=== PATIENT | male | born 1955 | race Caucasian/White ===

== ENCOUNTER → 2020-03-19 | Outpatient (REF) | payer MEDICARE ==
[2020-03-19 17:22] LABS: PLATELET COUNT, AUTOMATED 291 10^3/uL (150-450)
[2020-03-19 17:33] LABS: INR 0.91; PARTIAL THROMBOPLASTIN TIME 30.3 SECONDS (24.2-38.5); PROTHROMBIN TIME 12.4 SECONDS (12.5-14.3)
== END ==
LOC: M LAB REF 16:58
PROVIDERS: ATTEND Internal Medicine Pulmonary Disease
DX: R91.8 Other nonspecific abnormal finding of lung field (principal); Z79.01 Long term (current) use of anticoagulants

== ENCOUNTER → 2020-04-01 | Outpatient (CLI) | payer MEDICARE ==
[~2020-04-01] MED LIST: ACETAMINOPHEN 325 MG TAB As Ordered ONE; ACETAMINOPHEN TAB 650MG DOSE (2X325MG) PO PRN; ALBU8.5H; BREO1INH3; DALI1TAB2; LIDOCAINE 1% MDV 20ML VIAL As Ordered ONE; PANT40TA29; SODIUM BICARBONATE 8.4% INJ 50MEQ 50 ML VIAL As Ordered ONE; SPIR1CAP
[2020-04-01 11:45] VITALS: BP 151/88
--- NOTE | 2020-04-01 15:50 | REP ---
INDICATION: OTHER NONSPECIFIC ABN FIND OF LUNG FIELD. COMPARISON: None. TECHNIQUE: The procedure was performed by MICHELE Braun, under the direct supervision of Dr. Froman. The risks and benefits of the procedure were explained to the patient and an informed consent was obtained both verbally and written. Directly prior to the start of the procedure a formal time-out was completed in the procedure room. FINDINGS: Using ultrasound guidance the left lobe liver mass was localized. The skin was prepped and draped in a sterile fashion. Fifteen mL of buffered lidocaine was used as a local anesthetic. Using ultrasound guidance a 17/18 gauge coaxial needle biopsy system was inserted and advanced into the liver mass. Five core biopsy specimens were obtained and sent to pathology for further testing. The patient tolerated the procedure well and there were no immediate complications. After the appropriate amount of monitored convalescence the patient was discharged from the department. IMPRESSION: 1. Ultrasound-guided liver mass biopsy. <Electronically signed by Gissell Rollins > 04/01/20 1340 <Electronically signed by Arjun Forman > 04/01/20 [id number]
== END ==
LOC: M IRPRO 08:13
PROVIDERS: ATTEND Internal Medicine Pulmonary Disease
DX: C22.0 Liver cell carcinoma (principal); C34.90 Malignant neoplasm of unspecified part of unspecified bronchus or lung

== ENCOUNTER → 2020-04-19 | Outpatient (CLI) | payer MEDICARE ==
[~2020-04-19] MED LIST changes: -ACETAMINOPHEN 325 MG TAB As Ordered ONE; -ACETAMINOPHEN TAB 650MG DOSE (2X325MG) PO PRN; -ALBU8.5H; +ALBU8.5H INH; -BREO1INH3; +BREO1INH3 INH; -LIDOCAINE 1% MDV 20ML VIAL As Ordered ONE; +MAGICMW PO; +ONDA4TAB6 PO; +OXYC1SOL3 PO; -PANT40TA29; +PANT40TA29 PO; -SODIUM BICARBONATE 8.4% INJ 50MEQ 50 ML VIAL As Ordered ONE; -SPIR1CAP; +SPIR1CAP INH
--- NOTE | 2020-04-19 14:31 | RADONC.CN ---
Radiation Oncology Hx/Consult Radiation Oncology Consult Date of Service: Apr 19, 2020 Pt Identifier Darryn Orona is a 64 year old male former smoker with recently diagnosed [id number] NSCLC of the left mainstem bronchus, with a solitary liver metastasis. He is seen today for consideration of RT in his initial course of treatment. Diagnosis/Treatment History Oncologic History Fall 2019 developed epigastric to mid-sternal chest pain and progressive dysphagia to solid foods. He was referred for EGD which revealed extrinsic compression of the esophagus but no mucosal lesions, no EUS or biopsies were performed. Follow up CT chest on 02/26/20 revealed a neoplastic lesion seemingly arising from the left mainstem bronchus and extending intraluminally without distal obstruction, and extrinsically compressing the esophagus. There is also a subcarinal mass consistent with lymph node in the absence of any parenchymal lung lesions or hilar adenopathy. This scan also showed a ~4 cm peripherally enhancing lesion in the left liver. This liver lesion was biopsied on 04/01/20 and returned adenocarcinoma consistent with lung primary. He has a PET-CT pending on 04/23/20. Interval History Darryn is here with his brother. Patient reports 50 lb weight loss this year. Partly intentional earlier in the year but accelerated more recently in the setting of dysphagia. With respect to dysphagia he is still able to take fluids, and soft foods, but not regular solid foods like meat or bread. He also has pain with swallowing and several recent incidents in which he choked as food would not pass. Pain in the chest is present at rest as well. He has minimal SOB or GUERRA at this time. He has experienced a few episodes of scant hemoptysis which were self limited. Past Medical History: COPD Past Surgical History: None Family History: Mother - SCLC Social History: 50+ pack year smoker quit 2013 Drinks 1-2 alcoholic beverages per week Occupation exposure to asbestos, coal, lead, mercury Allergies / Meds Allergies: Coded Allergies: No Known Allergies (Unverified , 04/01/20) Home Meds Active Scripts Oxycodone HCl (Oxycodone HCl) 5 Mg/5 Ml Solution, 5 ML PO Q4HP PRN for Esophagitis MDD 30 Milliliter(s) for 7 Days, #210 ML Prov:MARCELINA VILA MD 04/19/20 Ondansetron (Ondansetron Odt) 4 Mg Tab.rapdis, 1 TAB PO Q6-8HP PRN for nausea/vomiting, #30 TAB 2 Refills Prov:MARCELINA VILA MD 04/19/20 Magic Mouthwash (First-Mouthwash Blm) 1 Ea Susp, 10 ML PO QID PRN for esophagitis, #240 ML 5 Refills (Diphenhydramine/maalox/lidocaine 1:1:1) May compound if kit unavailable/not covered by insurance Prov:MARCELINA VILA MD 04/19/20 Reported Medications Pantoprazole Sodium (Pantoprazole Sodium) 40 Mg Tablet.dr, 1 TAB PO DAILY 04/01/20 Tiotropium Sun (Spiriva) 18 Mcg Cap.w.dev, 1 INH INH DAILY 04/01/20 Fluticasone/Vilanterol (Breo Ellipta 200-25 Mcg INH) 1 Each Blst.w.dev, 1 INH INH DAILY 04/01/20 Albuterol Sulfate (Albuterol Sulfate Hfa) 8.5 Gm Hfa.aer.ad, 1 PUFF INH DAILY 04/01/20 Discontinued Reported Medications Roflumilast (Daliresp) 500 Mcg Tablet 04/01/20 Review of Systems Constitutional: Reports: Fatigue, Weight Loss; Denies: Chills, Fever, Night Sweats Eyes: Denies: Pain, Vision change HEENT: Denies: Head Aches, Dysphagia, Sore Throat Skin: Denies: Rash, Lesions, Bruising Pulmonary: Denies: Dyspnea, Cough Cardiovascular: Reports: Chest Pain; Denies: Palpitations, Edema Gastrointestinal: Reports: Abdominal Pain; Denies: Nausea, Vomiting, Melena, Hematochezia Genitourinary: Denies: Dysuria, Frequency, Incontinence Hematologic: Denies: Bruising, Petecchia, Enlarged Lymph Nodes Musculoskeletal: Denies: Neck pain, Back pain Neurological: Denies: Weakness, Numbness, Incoordination Psych: Reports: Mood Normal; Denies: Memory Issues, Thoughts of Self Harm Vital Signs Ht 68" Wt 152 lb T 99.1 P 114 RR 18 BP 135/88 Pain 6 Fatigue 2 General Exam: Positive: Alert, Cooperative, No Acute Distress Eye Exam: Positive: PERRLA, EOMI ENT EXAM: Positive: Mucous membr. moist/pink, Pharynx Normal Neck Exam: Negative: Thyromegaly, Lymphadenopathy Chest Exam: Positive: Clear to auscultation; Negative: Normal air movement (Transmitted bronchial breath sounds and rhonchi present in the left chest. Normal air movement on the right) Heart Exam: Positive: Rate Normal, Regular Rhythm Abdomen Exam: Positive: Soft; Negative: Tenderness, Mass Extremity Exam: Negative: Edema, Tenderness Skin Exam: Positive: Nl turgor and temperature; Negative: Rash Neuro Exam: Positive: Normal Gait, Normal Speech, Cranial Nerves 3-12 NL Psych Exam: Positive: Mental status NL, Mood NL, Memory Intact Diagnostic and Laboratory Diagnostic Review Radiologic images, relevant labs and pathology reports were personally reviewed and discussed with Mr. Orona. Assessment and Plan Impression Mr. Orona is a 64 year old male with a history of [id number] NSCLC of the left mainstem bronchus, with a solitary liver metastasis. He is seen today for consideration of RT in his initial course of treatment. Stage NSCLC left mainstem bronchus [id number] stage George (pending PET) Performance Status ECOG 1 Plan We had an extensive discussion with Mr. Orona regarding the diagnosis at hand and available therapeutic options. He has an interesting presentation for lung cancer with the primary tumor seemingly originating from the left mainstem bronchus in the absence of a parenchymal lesion or hilar adenopathy. There does appear to be a N2 in station 7. The primary lesion is both narrowing the lumen of the left mainstem, causing audible turbulence on chest auscultation, but not affecting him outwardly at this time. The primary is also compressing his esophagus extrinsically which is the cause of his pain and dysphagia. He also has a known solitary liver metastasis in the absence of conclusive e vidence of disease elsewhere. He has a PET-CT pending for staging which will clarify the extent of extrathoracic disease present. I will also order an MRI head to complete staging as this has not been done. If he only has the solitary liver metastasis and the primary chest disease (which in terms of absolute extent, is quite small), then he would be truly oligometastatic by contemporary definitions. If that is proven the case then I think he would be best served by inclusion of aggressive local therapy in his initial treatment course as per recent promising studies such as SABR-COMET and Collin dobbs al JCO 2019. I recommend we pursue SBRT to the solitary lesion 50-55 Gy in 5 fractions with 4DCT simulation and DCA planning. This could be accomplished quickly and run concurrent with planning for the thoracic disease, which due to location would be best treated with conventional chemoradiation. He will require vascular access for this which can take a week or two to arrange, thus the SBRT could be completed and not delay initiation of chemoradiation. I would give 60 Gy in 30 fractions with chemo. I would use a DCA planning approach for this as there is no benefit to esophageal sparing with the extent of impingement on the esophagus by tumor (it will by necessity be within the PTV). In this scenario treatment would last 7 weeks, he could then move on to observation until progression or another systemic therapy as maintenance. He is seeing Dr. Portillo today and I spoke with him regarding this tentative and he is on-board. If there is additional metastatic disease on PET-CT or brain MRI then I would shift to palliative RT to the thoracic disease and yield on treating the other sites in favor of systemic therapy alone to start. Both of these scenarios were presented to the patient and his brother and both agreed to proceed. We discussed the logistics of receiving radiation therapy in detail including the need for a 1-time planning session. We reviewed side effects of treating the liver, nausea, fatigue and diarrhea. We discussed that the patient will get esophagitis from the thoracic treatment which is typically self-limited, but that stricture can be a late toxicity. With respect to his nutrition, we agreed to defer PEG tube placement at this time as he is still, for the most part, able to drink and eat soft foods. For his pain, I have given him rx for BLM and oxycodone liquid. These would also help with any esophagitis from RT. For anticipated nausea from liver SBRT/ chemo I have given him zofran. After discussing the risks, benefits and alternatives to radiation therapy, Mr. Orona was amenable to pursuing radiotherapy. All questions were answered to the patient's satisfaction. We instructed the patient that if there were any questions,concerns or changes in clinical status in the interim to contact us. Recommendations PET-CT/MRI head to complete staging If oligometastatic state confirmed on staging then SBRT to liver metastasis 50- 55 Gy in 5 fractions, conventional chemoradiation to chest 60 Gy in 30 fractions, both with DCA planning 4DCT simulation Tumor board review Oxycodone/BLM for dysphagia Zofran for nausea MARCELINA VILA MD Apr 19, 2020 14:31
--- NOTE | 2020-04-24 15:00 | RADENCPD ---
Date/Time of Encounter Date of Encounter: Apr 24, 2020 Time of Encounter: 14:57 Encounter Spoke to patient about the PET-CT result showing extensive metastases. Also conveyed results of tumor board discussion today, systemic therapy + palliative RT to obstructing keyana-esophageal mass. On the latter I would give 50 Gy in 20 fractions as a split-course in effort to given him some semblance of durable local control there and forestall complete esophageal obstruction. We will reach out to him with a simulation appointment in the next few days (once authorization obtained) and look to begin treatment expeditiously. For systemic therapy he will be seeing Dr. Portillo shortly. MARCELINA VILA MD Apr 24, 2020 15:00
== END ==
LOC: M ONCR 10:25
PROVIDERS: ATTEND General Practice
DX: C34.02 Malignant neoplasm of left main bronchus (principal); C78.7 Secondary malignant neoplasm of liver and intrahepatic bile duct; F17.200 Nicotine dependence, unspecified, uncomplicated

== ENCOUNTER → 2020-04-23 | Outpatient (CLI) | payer MEDICARE ==
[2020-04-23 13:59] LABS: ALBUMIN 2.6 GM/DL (3.2-5.2); ALT/SGPT 61 U/L (12-78); BILIRUBIN,TOTAL 1.3 MG/DL (0.2-1.0); BLOOD UREA NITROGEN 27 MG/DL (7-18); CALCIUM LEVEL 9.6 MG/DL (8.8-10.2); CARBON DIOXIDE LEVEL 28 MEQ/L (21-32); CHLORIDE LEVEL 98 MEQ/L (98-107); CREATININE FOR GFR 0.77 MG/DL (0.70-1.30); GLOMERULAR FILTRATION RATE > 60.0 (>49); GLUCOSE, FASTING 111 MG/DL (70-100); POTASSIUM SERUM 4.4 MEQ/L (3.5-5.1); SODIUM LEVEL 133 MEQ/L (136-145); TOTAL PROTEIN 7.3 GM/DL (6.4-8.2)
== END ==
LOC: M PLALAB 10:55
PROVIDERS: ATTEND General Practice
DX: C34.02 Malignant neoplasm of left main bronchus (principal)

== ENCOUNTER → 2020-04-23 | Outpatient (CLI) | payer MEDICARE ==
--- NOTE | 2020-04-23 15:26 | REP ---
INDICATION: MALIGNANT NEOPLASM OF OVERLAPPED SITES OF LUNG. COMPARISON: Comparison CT study of the chest [facility] February 26, 2020. Comparison hepatic sonography imaging April 01, 2020.. TECHNIQUE: Sixty-two minutes following the intravenous injection of a 7.83 mCi dose of F-18 FDG, three-dimensional PET scintigraphy is acquired from the skull base to the proximal thighs. Triplanar noncontrast CT scanning is acquired through the same anatomic range for attenuation correction, and image registration with scan parameters optimized to minimize radiation exposure to the patient. PET scintigraphy and CT datasets were fused and displayed on a workstation with multiplanar and projection display capability. FINDINGS: There is some normal variant skeletal muscle uptake in the neck. Head and neck soft tissues are otherwise unremarkable. There is markedly hypermetabolic uptake in the large middle mediastinal mass centered at the level just posterior to the left mainstem bronchus. Maximum standard uptake value in this is 18.79. There is mildly hypermetabolic uptake in a small AP window region mediastinal lymph node, maximum standard uptake value 3.67. There is a small subcentimeter hypermetabolic milind focus just medial to the top of the aortic arch at the tracheoesophageal groove. Maximum standard uptake value 5.20. A 1 cm milind focus of mildly hypermetabolic uptake is seen superior to this in the superior mediastinum on the left with maximum standard uptake value 3.60. An equivocal milind focus is seen in the right hilus with maximum standard uptake value 3.75. Lung window settings demonstrate multifocal new parenchymal opacities in the lingular segment of the left upper lobe, the left lower lobe, and the left upper lobe. There are multifocal nodular hypermetabolic uptake foci. These may represent postobstructive and or inflammatory or infectious uptake foci. Maximum standard uptake value ranges in these new parenchymal uptake foci up to 9.76. This is in the lingula at the left lung base. There is also right middle lobe disease anteriorly maximum standard uptake value 5.87. There is a intramuscular soft tissue nodule of hypermetabolic uptake in the left posterior paraspinal soft tissues at the level of the lower thoracic spine. Maximum standard uptake value is 11.75 in this nodule. The recently biopsied large right lobe liver metastasis is again seen and is hypermetabolic, maximum standard uptake value 10.78. There is a 2nd metastatic focus in the left lobe of the liver visible today with maximum standard uptake value 12.79. There is a small hypermetabolic milind focus 1.3 cm in diameter in his celiac axis lymph node in the upper abdomen, maximum standard uptake value 5.75. There is a focus of hypermetabolic uptake in the tail of the pancreas, maximum standard uptake value 6.66. No abnormal adrenal uptake. There is a focus of skeletal muscle uptake just to the left of the iliac bone in the gluteal musculature anterolaterally on the left. Maximum standard uptake value here is 9.31. It is difficult to define a soft tissue mass here but the uptake focus is spherical in shape and suspicious. No intrapelvic hypermetabolic uptake is seen. There is no suspicious skeletal hypermetabolic focus. IMPRESSION: Findings consistent with metastatic bronchogenic malignancy with a large left mediastinal mass with mediastinal upper abdominal and pancreatic milind foci. There are 2 metastatic liver lesions. There are 2 suspected intramuscular soft tissue metastases. There is multifocal new hypermetabolic parenchymal disease in the lungs bilaterally. Corresponding opacities on CT are new compared to the recent prior CT study and some of the parenchymal disease in the lungs may well be inflammatory and/or postobstructive. <Electronically signed by Rito Wright > 04/23/20 [id number]
== END ==
LOC: M PLARAD 07:33
PROVIDERS: ATTEND Internal Medicine Pulmonary Disease
DX: C34.82 Malignant neoplasm of overlapping sites of left bronchus and lung (principal)
CPT/HCPCS: 78815; A9552

== ENCOUNTER → 2020-04-26 | Outpatient (CLI) | payer MEDICARE ==
[~2020-04-26] MED LIST changes: +DECA4TAB PO; +LIDOCAINE 1% MDV 20ML VIAL As Ordered ONE; +MIDAZOLAM INJ 2MG/2ML VIAL (J2250 PER 1MG) As Ordered ONE; +ceFAZolin 2 GM/D5W 50 ML IV BAG (J0690 PER 500MG) As Ordered ONE; +diphenhydrAMINE 50MG/ML VIAL (J1200) As Ordered ONE; +fentaNYL 100 MCG/2 ML INJECTION (J3010) As Ordered ONE
--- NOTE | 2020-04-26 09:05 | IRHP ---
[facility] IR Pre-Procedure H & P General Date of Service: Apr 26, 2020 Procedure: Same Day Surgery Interval History and Physical I have seen the patient and reviewed last H & P performed within 30 days. There is no significant interval change. History of Present Illness Chief Complaint The patient is a 64-year-old male admitted with a reason for visit of Lung Ca W/ Mets. PRE-PROCEDURE DIAGNOSIS: lung cancer HEART: normal rate LUNGS: normal breathing at rest. ASA Classification ASA Classification: III-Severe systemic dis. Mallampati Score: II NPO: Yes Problems with prior sedation: No Obstructive Sleep Apnea: No Plan moderate sedation Allergies Coded Allergies: No Known Allergies (Unverified , 04/01/20) Home Medications Scheduled Albuterol Sulfate (Albuterol Sulfate Hfa), 1 PUFF INH DAILY, (Reported) Fluticasone/Vilanterol (Breo Ellipta 200-25 Mcg INH), 1 INH INH DAILY, (Repor lexx) Pantoprazole Sodium (Pantoprazole Sodium), 1 TAB PO DAILY, (Reported) Tiotropium [place] (Spiriva), 1 INH INH DAILY, (Reported) Scheduled PRN Magic Mouthwash (First-Mouthwash Blm), 10 ML PO QID PRN for esophagitis Ondansetron (Ondansetron Odt), 1 TAB PO Q6-8HP PRN for nausea/vomiting Oxycodone HCl (Oxycodone HCl), 5 ML PO Q4HP PRN for Esophagitis Discontinued Medications Roflumilast (Daliresp), (Reported) Discontinued Reason: Pt states not taking ISADORA BUTTERFIELD MD Apr 26, 2020 09:05
--- NOTE | 2020-04-26 11:24 | POST-OPPD ---
Postoperative Procedure Note Date Of Procedure: Apr 26, 2020 Time Of Procedure: 11:22 IR Ultrasound and fluoroscopy guided port placement IR Ultrasound of the neck. IR Moderate sedation. Clinical indication: Lung cancer. Physician: Dr. Tilley. Procedure: The patient was advised of the benefits, risks, and alternatives of the procedure and informed consent was obtained. A time-out was performed with verification of the patient's name, MRN, site of procedure and type of procedure to be performed. The patient was positioned in the supine position on the angiographic table. The site was prepped and draped in the usual sterile fashion. Moderate sedation was performed by the physician including the presence of an independent trained RN who assisted and monitored the patient's level of consciousness and physiologic status. Following the administration of fentanyl and Versed , the physician spent 45 minutes of continuous face to face time with the patient. Ultrasound of the neck reveals a patent and compressible right internal jugular vein. A wildlife enforcement major radiograph reveals no gross abnormality. The neck and anterior chest wall were anesthetized with lidocaine. The right internal jugular vein was accessed using a microintroducer needle under ultrasound guidance, via a lateral approach. An 018 wire was advanced into the superior vena cava, the needle was removed and a microsheath was placed. An Amplatz wire was then passed into the inferior vena cava. An incision at the internal jugular vein access site and anterior chest wall were made using a scalpel. An incision was made at the anterior chest wall. A small pocket was created using a combination of blunt and sharp dissection. A tunneling device was then used to pass the catheter from the pocket to the neck puncture site. An 8- [place] Angio Plexx Smart power port was then positioned in the pocket. The catheter was then measured and cut. The introducer sheath was exchanged for a peel-away sheath. The catheter was passed through the peel-away sheath into the internal jugular vein and the peel- away sheath was removed. The port tip was positioned at the cavoatrial junction. The port was then accessed with a Baig needle. The port flushes and aspirates well. The puncture site in the neck was closed. The chest wall incision was then closed with 2-0 Vicryl and 4-0 Monocryl. Glue and Steri- Strips were applied. A sterile dressing was then applied. The patient tolerated the procedure well and was returned to the PRU in stable condition. Estimated blood loss: <5 ml. Complications: None. Conclusion: 1. Successful placement of an 8-[place] Angio dynamics Smart power port via the right internal jugular vein. The port is ready for immediate use. 2. Patient to follow up in IR clinic in 2 weeks. Thank you for this referral. ISADORA TILLEY MD Apr 26, 2020 11:23
[2020-04-26 12:15] VITALS: BP 148/79
== END ==
LOC: M IRPRO 08:21
PROVIDERS: ATTEND Internal Medicine Hematology & Oncology
DX: C34.02 Malignant neoplasm of left main bronchus (principal); C34.82 Malignant neoplasm of overlapping sites of left bronchus and lung; C78.7 Secondary malignant neoplasm of liver and intrahepatic bile duct
CPT/HCPCS: 36561; 99152; 99153; C1769; C1788; C1894; J0690; J1200; J1642; J1644; J2250; J3010

== ENCOUNTER 2020-04-29 10:32 | Inpatient (IN) | payer MEDICARE ==
[~2020-04-29] VITALS: Ht 170.2 cm; Wt 66.5 kg
[~2020-04-29 10:32] MED LIST changes: -AUGM250S13 PO; -ONDA4TAB6 PEG; -OXYC1SOL3 PEG; -PROHANCE 279.3MG/ML 15ML VIAL As Ordered ONE
[2020-04-29 11:30] LABS: HEMATOCRIT 26.4 % (42.0-52.0); HEMOGLOBIN 8.9 g/dl (13.5-17.5); MEAN CORPUSCULAR HEMOGLOBIN 33.5 pg (27.0-33.0); MEAN CORPUSCULAR HGB CONC 33.7 g/dl (32.0-36.5); MEAN CORPUSCULAR VOLUME 99.2 fl (80.0-96.0); PLATELET COUNT, AUTOMATED 433 10^3/uL (150-450); RED BLOOD COUNT 2.66 10^6/uL (4.30-6.10); WHITE BLOOD COUNT 13.5 10^3/uL (4.0-10.0)
[2020-04-29 11:43] LABS: PROTHROMBIN TIME 13.4 SECONDS (12.5-14.3)
--- NOTE | 2020-04-29 11:43 | REP ---
INDICATION: CHEST PAIN COMPARISON: 02/20/2020 TECHNIQUE: Portable AP view of the chest FINDINGS: Cesliy-P-Uxic identified with tip in the SVC. Large area of ill-defined airspace disease involving the left mid to lower lung zone with small pleural effusion. Right hemithorax appears clear. No pneumothorax. Visualized portions of the mediastinum and cardiac silhouette are within normal limits. Skeletal structures are intact. IMPRESSION: 1. Large area of ill-defined airspace disease involving the left lower lung zone. Differential diagnosis includes acute pneumonia and malignancy. Follow-up to resolution recommended. <Electronically signed by Eh Bynum > 04/29/20 [id number]
[2020-04-29 11:44] LABS: PARTIAL THROMBOPLASTIN TIME 27.5 SECONDS (24.2-38.5)
[2020-04-29 11:57] LABS: ATYPICAL LYMPH 3 % (0-5); LYMPHOCYTES 4 % (16-44); MONOCYTES 4 % (0-5); NEUTROPHILS 84 % (28-66); PLATELET ESTIMATE NORMAL (NORMAL)
[2020-04-29 11:58] LABS: ANISOCYTOSIS 2+; HYPOCHROMASIA 1+
[2020-04-29 12:05] LABS: ALBUMIN 2.2 GM/DL (3.2-5.2); ALT/SGPT 84 U/L (12-78); BILIRUBIN,DIRECT 0.4 MG/DL (0.0-0.2); BILIRUBIN,TOTAL 0.8 MG/DL (0.2-1.0); BLOOD UREA NITROGEN 26 MG/DL (7-18); CALCIUM LEVEL 8.9 MG/DL (8.8-10.2); CARBON DIOXIDE LEVEL 30 MEQ/L (21-32); CHLORIDE LEVEL 96 MEQ/L (98-107); CK-MB VALUE MASS 1.2 NG/ML (<3.6); CPK CREATINE PHOSPHOKINASE 93 U/L (39-308); CREATININE FOR GFR 0.69 MG/DL (0.70-1.30); GLOMERULAR FILTRATION RATE > 60.0 (>49); GLUCOSE, FASTING 103 MG/DL (70-100); LIPASE 262 U/L (73-393); MB/CK RELATIVE INDEX 1.29 (< OR =4); POTASSIUM SERUM 4.5 MEQ/L (3.5-5.1); SODIUM LEVEL 133 MEQ/L (136-145); THYROID STIMULATING HORMONE 0.738 uIU/ML (0.358-3.740); TOTAL PROTEIN 7.2 GM/DL (6.4-8.2); TROPONIN I < 0.02 NG/ML (< 0.10)
[2020-04-29] MEDS ORDERED: NS 1,000 ML IV SCH (12:55)
[2020-04-29 13:54] LABS: RSV AMPLIFICATION NEGATIVE (NEGATIVE)
[2020-04-29] MEDS ORDERED: ONDANSETRON 4MG/2ML VIAL IV PRN (14:15)
--- NOTE | 2020-04-29 14:26 | HPEPDOC ---
General Date of Admission 04/29/20 Date of Service: Apr 29, 2020 Chief Complaint The patient is a 64-year-old male admitted with a reason for visit of Abdominal Pain. History of Present Illness This is a 64 year old male with PMH of COPD, ex smoker who had has been recently been found to have a large mediastinal paraesophageal mass which is Bronchogenic metastatic adenocarcinoma of the lung with mets to liver, rest of the lungs and possibly left gluteal muscle. He was at radiation oncology department to get simulation prior to starting RT when he complained of extreme difficulty in swallowing so was sent to the ED for assessment for PEG placement prior to starting RT. Pateitnreports that he has lost 10lbs int he past week. His extreme difficulty in swallowing started 3days days since hen he has not been able to swallow even liquids. Every time he would take a drink it would come right back and he could feel some of it going to the lungs and he would have bouts of coughing. Sometimes he would see blood in his phlegm also. Before this he was able to take puddings and liquids. He also complained of epigastric and left lower chest pain, dull aching in nature about 4/10 in intensity . No radiation. He was admitted for dysphagia. Home Medications Scheduled Fluticasone/Vilanterol (Breo Ellipta 200-25 Mcg INH) 1 Each Blst.w.dev, 1 INH IN H DAILY, (Reported) Tiotropium [place] (Spiriva) 18 Mcg Cap.w.dev, 1 INH INH DAILY, (Reported) Scheduled PRN Albuterol Sulfate (Albuterol Sulfate Hfa) 8.5 Gm Hfa.aer.ad, 2 PUFFS INH QID PRN for SHORTNESS OF BREATH, (Reported) Magic Mouthwash (First-Mouthwash Blm) 1 Ea Susp, 10 ML PO QID PRN for esophagitis (Diphenhydramine/maalox/lidocaine 1:1:1) May compound if kit unavailable/not covered by insurance Ondansetron (Ondansetron Odt) 4 Mg Tab.rapdis, 1 TAB PO Q6-8HP PRN for nausea/vomiting Oxycodone HCl (Oxycodone HCl) 5 Mg/5 Ml Solution, 5 ML PO Q4HP PRN for Esophagitis Allergies Coded Allergies: No Known Allergies (Unverified , 04/01/20) Past Medical History Medical History Metastatic adenocarcinoma of lung with mets to liver diagnosed in Apr 2020 Esophageal obstruction from his left hilar NSCLC COPD Surgical History Liver biopsy in Mar Chemoport placement in apr Family History mother 74 COPD , diabetes , small cell lung cancer , pneumonia Father 77, lupus , congestive heart disease 3 brother 2 children Social History * Smoker: former Smoker (quit in 2013) Alcohol: occationally A-FIB/CHADSVASC A-FIB History Current/History of A-Fib/PAF?: No Review of Systems Constitutional: Reports: Weakness, Fatigue, Weight Loss; Denies: Chills, Fever, Night Sweats Eyes: Denies: Pain, Vision change ENT: Denies: Head Aches, Ear Pain, Dysphagia Skin: Denies: Rash, Lesions, Breakdown Pulmonary: Reports: Dyspnea, Cough Cardiovascular: Reports: Lt Headedness; Denies: Chest Pain, Palpitations, Orthopnea Gastrointestinal: Reports: Vomiting, Abdominal Pain Genitourinary: Denies: Dysuria, Frequency, Incontinence, Retention Hematologic: Denies: Bruising, Bleeding Excessively Musculoskeletal: Denies: Neck Pain, Back Pain, Joint Pain, Muscle Pain, Spasms Neurological: Denies: Weakness, Numbness, Change in speech, Confusion Physical Examination General Exam: Positive: Alert, Cooperative, No Acute Distress Eye Exam: Positive: PERRLA, Conjunctiva & lids normal, EOMI; Negative: Sclera icteric ENT Exam: Positive: Atraumatic, Mucous membr. moist/pink, Pharynx Normal Neck Exam: Positive: Supple; Negative: JVD, thyromegaly Chest Exam: Positive: Wheezing, Other (bilateral coarse breath sounds, some scattered crackles. ) Heart Exam: Positive: Rate Normal, Regular Rhythm, Normal S1, Normal S2; Negative: Murmurs, Rubs Abdomen Exam: Positive: Normal bowel sounds, Soft, Tenderness (in the epigastrium and left upper abdomen); Negative: Hepatospenomegaly Extremity Exam: Negative: Clubbing, Cyanosis, Edema Skin Exam: Positive: Nl turgor and temperature; Negative: Breakdown, Lesion Vital Signs Vital Signs Date Time Temp Pulse Resp B/P (MAP) Pulse Ox O2 Delivery O2 Flow Rate FiO2 04/29/20 10:52 Nasal Cannula 2.0 04/29/20 10:38 97.0 95 18 127/62 89 Laboratory Data Labs 24H Laboratory Tests 2 04/29/20 11:12: Neutrophils (%) (Auto) , Nucleated Red Blood Cells % (auto) 0.6H, Neutrophils 84H, Band Neutrophils 5, Lymphocytes (Manual) 4L, Monocytes (Manual) 4, Atypical Lymphocytes 3, Hypochromasia 1+, Anisocytosis 2+, Macrocytosis 2+, Platelet Estimate NORMAL, Prothrombin Time 13.4, Prothromb Time International Ratio 1.00, Activated Partial Thromboplast Time 27.5, Anion Gap 7L, Glomerular Filtration Rate > 60.0, Calcium Level 8.9, Total Bilirubin 0.8, Direct Bilirubin 0.4H, Aspartate Amino Transf (AST/SGOT) 60H, Alanine Aminotransferase (ALT/SGPT) 84H, Alkaline Phosphatase 172H, Total Creatine Kinase 93, Creatine Kinase MB 1.2, Creatine Kinase MB Relative Index 1.29, Troponin I < 0.02, Total Protein 7.2, Albumin 2.2L, Albumin/Globulin Ratio 0.4, Lipase 262, Thyroid Stimulating Hormone (TSH) 0.738 04/29/20 13:04: CBC/BMP Laboratory Tests 04/29/20 11:12 Assessment/Plan This is a 64 year old male with PMH of COPD, ex smoker who had has been recently been found to have a large mediastinal paraesophageal mass which is Bronchogenic metastatic adenocarcinoma of the lung with mets to liver, rest of the lungs and possibly left gluteal muscle. He was at radiation oncology department to get simulation prior to starting RT when he complained of extreme difficulty in swallowing so was sent to the ED for assessment for PEG placement prior to starting RT. Pateitnreports that he has lost 10lbs int he past week. His extreme difficulty in swallowing started 3days days since hen he has not been able to swallow even liquids. Every time he would take a drink it would come right back and he could feel some of it going to the lungs and he would have bouts of coughing. Sometimes he would see blood in his phlegm also. Before this he was able to take puddings and liquids. He also complained of epigastric and left lower chest pain, dull aching in nature about 4/10 in intensity . No radiation. He was admitted for dysphagia. Esophageal obstruction due to mediastinal and paraesophageal mass. Planned for palliate RT for this obstruction. will need PEG tube placement Possible aspiration pneumonia will give zosyn Bronchogenic Metastatic adenocarcinoma of lung with mets to liver, muscles. planned for systemic therapy and palliative RT COPD nebs. Plan / VTE VTE Prophylaxis Ordered?: Yes PAMELA RESENDEZ MD Apr 29, 2020 13:41
[2020-04-29] MEDS: D5W/0.9% SODIUM CHLORIDE 1,000 ML IV SCH (15:00)
[2020-04-29] MEDS: PIPERACILLIN/TAZOBACTAM SOD 3.375 GM in D5W MINI-BAG PLUS 50 ML IV SCH ×2 (15:00→20:00)
[2020-04-29 15:30] VITALS: BP 134/66
[2020-04-29] MEDS ORDERED: ALBUTEROL SULFATE 2.5 MG/0.5 ML INH NEB SOLN NEB PRN (16:00)
[2020-04-29] MEDS: PANTOPRAZOLE 40MG VIAL (C9113 PER 1) IV SCH (16:25)
[2020-04-29] MEDS: KETOROLAC 30 MG/ML 1ML VIAL IV PRN (18:44)
[2020-04-29 22:00] VITALS: BP 131/67
--- NOTE | 2020-04-29 23:49 | CR ---
CONSULTATION DATE: 04/29/2020 REASON FOR CONSULTATION: Inability to swallow HISTORY OF PRESENT ILLNESS: The patient is a 64-year-old man who apparently was recently diagnosed with metastatic lung cancer. He reports that back as early as January he had noticed some swallowing issues. These gradually worsened over time. He reports that he did have an upper endoscopy performed in [place] back in early January. He reports that this showed an area of impingement on the esophagus but no internal abnormality. He describes that over time his ability to swallow solids worsened. He was initially able to get things down by washing them down with some fluids. He shifted to softer foods and this worked better for a while. He underwent a CT scan that identified a mass in the posterior mediastinum involving the left lower lung and abutting the esophagus and aorta. A metastatic workup identified metastatic disease in the liver, in the left upper lobe of the lung and elsewhere. He has had an infusaport placed. He was scheduled to be seen today for preparation for his radiation therapy to the mediastinal mass. He reported that he has been unable to keep down any oral intake over the last week or so. It has gotten to the point where even trying to drink clear liquids is unsuccessful. He will bring up fluids and believes that he has been aspirating some of the fluid. He was therefore referred from the [facility] to the E.R. and was admitted by the Hospitalist for management. MEDICATIONS: 1. The patient takes scheduled Breo Ellipta and Spiriva at home. 2. He has p.r.n. medications available including Albuterol inhaler, Zofran and Oxycodone. ALLERGIES: The patient has no reported drug allergies. PAST MEDICAL HISTORY: The patient's past medical history is significant for: 1. Some COPD associated with prior smoking. 2. Adenocarcinoma of the lung based on a liver biopsy in April. PAST SURGICAL HISTORY: The patient's past surgical history is significant for his liver biopsy and underwent placement of an infusaport through Interventional Radiology in April. FAMILY HISTORY: The patient's mother had COPD and diabetes, and the father had congestive heart failure and lupus. SOCIAL HISTORY: He is a former smoker, apparently having quit in 2013. REVIEW OF SYSTEMS: He denies any coronary artery disease, chest pain or palpitations. He has some baseline mild shortness of breath with exertion. He has cough but denies any sputum production or hemoptysis. He has had no history of DVT or pulmonary embolus. He reports he has been bringing up any fluid or food he has tried to put down over the last week or so. He does have some epigastric discomfort. He denies any history of constipation, diarrhea, or hematochezia. He denies dysuria or hematuria. He denies any particular bone or joint problems but has some chronic back pain. PHYSICAL EXAMINATION: GENERAL APPEARANCE: A thin, pleasant man in no obvious discomfort currently. He is alert and oriented. VITAL SIGNS: His most recent vital signs show a temperature of 98 degrees, pulse of 89, respiratory rate of 22, and a blood pressure of 134/66. HEENT: Sclerae are anicteric. Mucous membranes are moist. SKIN: Warm and dry. NECK: Without obvious mass. HEART: Regular rhythm. LUNGS: Generally clear. ABDOMEN: Thin and flat. He has bowel sounds present. The abdomen is without palpable mass. EXTREMITIES: Thin with palpable radial and pedal pulses. LABORATORY STUDIES: Today white count of 14, hemoglobin of 9, hematocrit 26 and a platelet count of 433,000. Differential count shows 84% neutrophils, 5 bands and 4 lymphocytes. Chemistry profile shows a sodium of 133, potassium 4.5, chloride 96, CO2 of 30, BUN of 26, creatinine 0.7 and a glucose of 103. Liver function tests are mildly elevated with a direct bilirubin of 0.4, AST 60, ALT 84, and an alkaline phosphatase of 172. Lipase is normal. Coagulation studies are normal. A respiratory infectious disease panel from today is negative including COVID. IMAGING DATA: He has recent imaging in the computer system that includes a PET scan from April 23. This revealed findings consistent with metastatic bronchogenic malignancy with a large left posterior mediastinal mass. There are two metastatic liver lesions identified as well as two suspected intramuscular soft tissue metastases in the back and left hip area. There are other foci identified. 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 The patient reports having had an upper endoscopy in early January in [place] that reportedly did not show any invasion of the esophagus. He has noted a steady, gradual decrease in his swallowing ability and he is now unable to manage even clear liquids. He was admitted by the Hospitalist and I have now been consulted to consider a feeding tube. PLAN: I discussed with the patient that given the condition of the swallowing to a point where he can no longer manage clear liquids suggests that the narrowing is such that we are unlikely to be able to accomplish a standard percutaneous endoscopic gastrostomy. I have recommended that we at least attempt a passage of an endoscope but I suspect we will find that the degree of narrowing is such that this will not be possible. I have recommended that we schedule this in such a way that if it is impossible to advance an endoscope to the stomach, that we proceed directly to anesthesia with laparoscopy and insertion of a gastrostomy tube. The patient was counseled regarding the potential risks of the procedures. He understands that this will only provide a mechanism for nutrition, but will not otherwise be of benefit in treating his malignancy. The patient had an opportunity to ask questions. He is willing to proceed as I have recommended. He will be scheduled for upper endoscopy with possible percutaneous endoscopic gastrostomy and possible laparoscopy with insertion of a gastrostomy tube. This will be added on for Wednesday, the 30 of April. He was counseled that I have a full day of surgery scheduled and this will likely happen later in the day. He would remain on IV fluids in the interim. He is receiving antibiotics from the Hospitalist, and it is probably reasonable to continue those for now. JENNIFER
--- NOTE | 2020-04-30 00:31 | ECGEPIP ---
[facility] - ED Test Date: 2020-04-29 Pat Name: RONA WASHINGTON Department: Room: - Gender: Male Critical Care Registered Nurse: patricia : 1955 Requested By: BAUDILIO Payne Order Number: [id number] Reading MD: Duncan Lora Measurements Intervals [place] Rate: 90 P: 63 MT: 119 QRS: 51 QRSD: 92 T: 39 QT: 373 QTc: 458 Interpretive Statements SINUS RHYTHM WITH SHORT MT INTERVAL POSSIBLE LEFT ATRIAL ENLARGEMENT BENIGN EARLY REPOLARIZATION NO PRIORS FOR COMPARISON Electronically Signed on 04-30-2020 0:31:06 EST by Duncan Lora
[2020-04-30] MEDS: D5W/0.9% SODIUM CHLORIDE 1,000 ML IV SCH ×2 (01:32→13:34)
[2020-04-30] MEDS: PIPERACILLIN/TAZOBACTAM SOD 3.375 GM in D5W MINI-BAG PLUS 50 ML IV SCH ×4 (02:07→20:37)
[2020-04-30 06:00] VITALS: BP 125/61
[2020-04-30 06:36] LABS: BASO % 0.3 % (0.0-1.0); EOS # 0.3 10^3/uL (0.0-0.5); EOS % 2.8 % (0.0-3.0); HEMOGLOBIN 8.3 g/dl (13.5-17.5); LYMPH # 1.4 10^3/uL (1.5-5.0); LYMPH % 12.9 % (24.0-44.0); MEAN CORPUSCULAR HEMOGLOBIN 34.3 pg (27.0-33.0); MEAN CORPUSCULAR HGB CONC 34.6 g/dl (32.0-36.5); MEAN CORPUSCULAR VOLUME 99.2 fl (80.0-96.0); MONO % 9.4 % (0.0-5.0); NEUTROPHILS % 73.2 % (36.0-66.0); PLATELET COUNT, AUTOMATED 406 10^3/uL (150-450); RED BLOOD COUNT 2.42 10^6/uL (4.30-6.10); WHITE BLOOD COUNT 10.9 10^3/uL (4.0-10.0)
[2020-04-30 07:00] LABS: BLOOD UREA NITROGEN 20 MG/DL (7-18); CALCIUM LEVEL 8.2 MG/DL (8.8-10.2); CARBON DIOXIDE LEVEL 30 MEQ/L (21-32); CHLORIDE LEVEL 103 MEQ/L (98-107); GLOMERULAR FILTRATION RATE > 60.0 (>49); GLUCOSE, FASTING 122 MG/DL (70-100); POTASSIUM SERUM 4.5 MEQ/L (3.5-5.1); SODIUM LEVEL 139 MEQ/L (136-145)
[2020-04-30] MEDS: TIOTROPIUM INHALER/CAPSULE (SPIRIVA) INH SCH (07:47)
[2020-04-30] MEDS: SYMBICORT 160/4.5MCG INHALER 6GM INH SCH ×2 (07:47→18:09)
[2020-04-30] MEDS: ENOXAPARIN 40MG/0.4ML SYRINGE (J1650 PER 10MG) SC SCH (08:43)
[2020-04-30] MEDS: KETOROLAC 30 MG/ML 1ML VIAL IV PRN ×3 (08:57→22:17)
--- NOTE | 2020-04-30 13:08 | IPNPDOC ---
Subjective Date Seen The patient was seen on 04/30/20. Subjective Chief Complaint/HPI Deneis SOB. Has bouts of coughing more in the morning with hemoptysis. Has chest pain when he coughs. No fever or chills, PEG tube today. Objective Physical Examination General Exam: Positive: Alert, Cooperative, No Acute Distress Eye Exam: Positive: PERRLA, Conjunctiva & lids normal, EOMI; Negative: Sclera icteric ENT Exam: Positive: Atraumatic, Mucous membr. moist/pink, Pharynx Normal Neck Exam: Positive: Supple; Negative: JVD, thyromegaly Chest Exam: Positive: Normal air movement, Rales, Other (bilateral coarse breath sounds, some scattered crackles. 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 He was at radiation oncology department to get simulation prior to starting RT when he complained of extreme difficulty in swallowing so was sent to the ED for assessment for PEG placement prior to starting RT. Pateitnreports that he has lost 10lbs int he past week. His extreme difficulty in swallowing started 3days days since hen he has not been able to swallow even liquids. Every time he would take a drink it would come right back and he could feel some of it going to the lungs and he would have bouts of coughing. Sometimes he would see blood in his phlegm also. Before this he was able to take puddings and liquids. He also complained of epigastric and left lower chest pain, dull aching in nature about 4/10 in intensity . No radiation. He was admitted for dysphagia. Esophageal obstruction due to mediastinal and paraesophageal mass. Planned for palliate RT for this obstruction. Planned for PEG placement today. Possible aspiration pneumonia will give zosyn Bronchogenic Metastatic adenocarcinoma of lung with mets to liver, muscles. planned for systemic therapy and palliative RT COPD symbicort, spiriva, nebs Plan/VTE VTE Prophylaxis Ordered?: Yes VS, I&O, 24H, Fishbone Vital Signs/I&O Vital Signs Date Time Temp Pulse Resp B/P (MAP) Pulse Ox O2 Delivery O2 Flow Rate FiO2 04/30/20 09:30 2.0 04/30/20 06:00 99.0 83 17 125/61 (82) 99 Room Air I&O- Last 24 Hours up to 6 AM 04/30/20 06:00 Intake Total 1800 ml Output Total 475 ml Balance 1325 ml Laboratory Data 24H LABS Laboratory Tests 2 04/30/20 06:08: Immature Granulocyte % (Auto) 1.4, Neutrophils (%) (Auto) 73.2H, Lymphocytes (%) (Auto) 12.9L, Monocytes (%) (Auto) 9.4H, Eosinophils (%) (Auto) 2.8, Basophils (%) (Auto) 0.3, Neutrophils # (Auto) 8.0, Lymphocytes # (Auto) 1.4L, Monocytes # (Auto) 1.0H, Eosinophils # (Auto) 0.3, Basophils # (Auto) 0.0, Nucleated Red Blood Cells % (auto) 0.3H, Anion Gap 6L, Glomerular Filtration Rate > 60.0, Calcium Level 8.2L CBC/BMP Laboratory Tests 04/30/20 06:08 PAMELA RESENDEZ MD Apr 30, 2020 13:08
[2020-04-30 14:00] VITALS: BP 116/60
[2020-04-30] MEDS: PANTOPRAZOLE 40MG VIAL (C9113 PER 1) IV SCH (14:20)
[2020-04-30 22:00] VITALS: BP 108/54
[2020-05-01] VITALS (13 sets, daily range): BP systolic 105–142; BP diastolic 54–70
[2020-05-01] MEDS: D5W/0.9% SODIUM CHLORIDE 1,000 ML IV SCH ×3 (00:19→23:24)
[2020-05-01] MEDS: PIPERACILLIN/TAZOBACTAM SOD 3.375 GM in D5W MINI-BAG PLUS 50 ML IV SCH ×4 (01:52→21:30)
[2020-05-01] MEDS: KETOROLAC 30 MG/ML 1ML VIAL IV PRN ×3 (05:18→23:25)
[2020-05-01 06:21] LABS: HEMATOCRIT 22.2 % (42.0-52.0); HEMOGLOBIN 7.5 g/dl (13.5-17.5); MEAN CORPUSCULAR HEMOGLOBIN 33.9 pg (27.0-33.0); MEAN CORPUSCULAR HGB CONC 33.8 g/dl (32.0-36.5); MEAN CORPUSCULAR VOLUME 100.5 fl (80.0-96.0); PLATELET COUNT, AUTOMATED 404 10^3/uL (150-450); RED BLOOD COUNT 2.21 10^6/uL (4.30-6.10); WHITE BLOOD COUNT 9.7 10^3/uL (4.0-10.0)
[2020-05-01 06:44] LABS: ATYPICAL LYMPH 1 % (0-5); LYMPHOCYTES 25 % (16-44); MONOCYTES 6 % (0-5); NEUTROPHILS 66 % (28-66)
[2020-05-01 06:45] LABS: HYPOCHROMASIA 2+; PLATELET ESTIMATE NORMAL (NORMAL); TARGET CELLS 1+
[2020-05-01 06:51] LABS: BLOOD UREA NITROGEN 18 MG/DL (7-18); CALCIUM LEVEL 8.1 MG/DL (8.8-10.2); CARBON DIOXIDE LEVEL 30 MEQ/L (21-32); CHLORIDE LEVEL 107 MEQ/L (98-107); CREATININE FOR GFR 0.68 MG/DL (0.70-1.30); GLOMERULAR FILTRATION RATE > 60.0 (>49); GLUCOSE, FASTING 107 MG/DL (70-100); SODIUM LEVEL 140 MEQ/L (136-145)
[2020-05-01] MEDS: SYMBICORT 160/4.5MCG INHALER 6GM INH SCH ×2 (07:28→19:59)
[2020-05-01] MEDS: TIOTROPIUM INHALER/CAPSULE (SPIRIVA) INH SCH (07:28)
[2020-05-01] MEDS: ENOXAPARIN 40MG/0.4ML SYRINGE (J1650 PER 10MG) SC SCH (08:24)
[2020-05-01] MEDS ORDERED: FLUBLOK(EGG FREE)(QUAD)INFLUENZA VACC 0.5ML SYRINGE 18YRS & OLDER IM ONE (09:00)
--- NOTE | 2020-05-01 13:14 | IPNPDOC ---
Subjective Date Seen The patient was seen on 05/01/20. Subjective Chief Complaint/HPI Planned for PEG tube placement today. Complains of some chest pain when he coughs. Cough is a little better today. Objective Physical Examination General Exam: Positive: Alert, Cooperative, No Acute Distress Eye Exam: Positive: PERRLA, Conjunctiva & lids normal, EOMI; Negative: Sclera icteric ENT Exam: Positive: Atraumatic, Mucous membr. moist/pink, Pharynx Normal Neck Exam: Positive: Supple; Negative: JVD, thyromegaly Chest Exam: Positive: Normal air movement, Rales, Other (bilateral coarse breath sounds, some scattered crackles. 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 He was at radiation oncology department to get simulation prior to starting RT when he complained of extreme difficulty in swallowing so was sent to the ED for assessment for PEG placement prior to starting RT. Pateitnreports that he has lost 10lbs int he past week. His extreme difficulty in swallowing started 3days days since hen he has not been able to swallow even liquids. Every time he would take a drink it would come right back and he could feel some of it going to the lungs and he would have bouts of coughing. Sometimes he would see blood in his phlegm also. Before this he was able to take puddings and liquids. He also complained of epigastric and left lower chest pain, dull aching in nature about 4/10 in intensity . No radiation. He was admitted for dysphagia. Esophageal obstruction due to mediastinal and paraesophageal mass. Planned for palliate RT for this obstruction. Planned for PEG placement today. Possible aspiration pneumonia will give zosyn Macrocytic Anemia will sent iron , vit b12, folate will give PRBC Bronchogenic Metastatic adenocarcinoma of lung with mets to liver, muscles. planned for systemic therapy and palliative RT COPD symbicort, spiriva, nebs Plan/VTE VTE Prophylaxis Ordered?: Yes VS, I&O, 24H, Fishbone Vital Signs/I&O Vital Signs Date Time Temp Pulse Resp B/P (MAP) Pulse Ox O2 Delivery O2 Flow Rate FiO2 05/01/20 06:00 98.0 81 20 105/54 (71) 99 Room Air 04/30/20 20:30 2.0 I&O- Last 24 Hours up to 6 AM 05/01/20 06:00 Intake Total 2900 ml Output Total 450 ml Balance 2450 ml Laboratory Data 24H LABS Laboratory Tests 2 05/01/20 05:52: Neutrophils (%) (Auto) , Nucleated Red Blood Cells % (auto) 0.2H, Neutrophils 66, Band Neutrophils 2, Lymphocytes (Manual) 25, Monocytes (Manual) 6H, Atypical Lymphocytes 1, Hypochromasia 2+, Macrocytosis 1+, Target Cells 1+, Platelet Estimate NORMAL, Anion Gap 3L, Glomerular Filtration Rate > 60.0, Calcium Level 8.1L CBC/BMP Laboratory Tests 05/01/20 05:52 PAMELA RESENDEZ MD May 01, 2020 13:14
[2020-05-01 13:42] LABS: FERRITIN 975 NG/ML (26-388); IRON (FE) 19 UG/DL (65-175); TOTAL IRON BINDING CAPACITY 100 UG/DL (250-450)
[2020-05-01] MEDS ORDERED: LIDOCAINE 1% SDV 30ML VIAL As Ordered ONE (13:43)
[2020-05-01] MEDS ORDERED: BUPIVACAINE HCL 0.25% 30ML VIAL As Ordered ONE (13:43)
[2020-05-01] MEDS ORDERED: LIDOCAINE 2% 100MG/5ML SDV (FOR ANES.) As Ordered ONE (14:34)
[2020-05-01] MEDS ORDERED: MIDAZOLAM INJ 2MG/2ML VIAL (J2250 PER 1MG) As Ordered ONE (14:34)
[2020-05-01] MEDS ORDERED: ROCURONIUM BROMIDE 50 MG/5 ML VIAL As Ordered ONE ×2 (14:34→15:50)
[2020-05-01] MEDS ORDERED: ONDANSETRON 4MG/2ML VIAL As Ordered ONE (14:34)
[2020-05-01] MEDS ORDERED: SUCCINYLCHOLINE 100 MG/5 ML SYRINGE (J0330) As Ordered ONE (14:34)
[2020-05-01] MEDS ORDERED: propofoL 200 MG/20 ML VIAL As Ordered ONE (14:34)
[2020-05-01] MEDS ORDERED: dexameTHASONE 4 MG/ML 1ML VIAL (J1100 PER 1MG) As Ordered ONE (14:34)
[2020-05-01] MEDS ORDERED: fentaNYL 250 MCG/5 ML INJECTION (J3010) As Ordered ONE (14:34)
[2020-05-01] MEDS ORDERED: SUGAMMADEX SODIUM 500 MG/5 ML VIAL (BRIDION) As Ordered ONE (14:35)
[2020-05-01] MEDS ORDERED: ACETAMINOPHEN 1000MG 100ML IV BTL (OFIRMEV) (J0131 PER 10MG) As Ordered ONE (15:09)
[2020-05-01 15:19] LABS: VITAMIN B12 LEVEL 1138 PG/ML (247-911)
[2020-05-01] MEDS ORDERED: fentaNYL 100 MCG/2 ML INJECTION (J3010) As Ordered ONE (15:51)
[2020-05-01] MEDS ORDERED: ACETAMINOPHEN/CODEINE 300MG/30MG 12.5 ML UDC GT PRN (16:30)
[2020-05-01] MEDS ORDERED: ACETAMINOPHEN 325 MG/10.15 ML UDC GT PRN (16:30)
[2020-05-01] MEDS: PANTOPRAZOLE 40MG VIAL (C9113 PER 1) IV SCH (18:22)
[2020-05-01] MEDS ORDERED: ONDANSETRON 4MG/2ML VIAL IV PRN (18:45)
[2020-05-01] MEDS ORDERED: oxyCODONE 5MG TAB PO PRN (18:45)
[2020-05-01] MEDS ORDERED: LR 1,000 ML IV SCH (18:45)
[2020-05-01] MEDS ORDERED: fentaNYL 100 MCG/2 ML INJECTION (J3010) IV PRN (18:45)
[2020-05-01] MEDS ORDERED: MEPERIDINE INJ 25 MG/ML VIAL (J2175) IV PRN (18:45)
[2020-05-01] MEDS ORDERED: METOCLOPRAMIDE INJ 10MG/2ML VIAL (J2765 PER 1) IV PRN (18:45)
[2020-05-02 00:40] VITALS: BP 122/64
[2020-05-02] MEDS: PIPERACILLIN/TAZOBACTAM SOD 3.375 GM in D5W MINI-BAG PLUS 50 ML IV SCH ×3 (03:58→14:30)
[2020-05-02 04:40] VITALS: BP 121/62
[2020-05-02 06:24] LABS: BASO % 0.2 % (0.0-1.0); EOS # 0.1 10^3/uL (0.0-0.5); EOS % 0.7 % (0.0-3.0); HEMATOCRIT 25.1 % (42.0-52.0); HEMOGLOBIN 8.5 g/dl (13.5-17.5); LYMPH # 1.4 10^3/uL (1.5-5.0); LYMPH % 13.6 % (24.0-44.0); MEAN CORPUSCULAR HEMOGLOBIN 33.6 pg (27.0-33.0); MEAN CORPUSCULAR HGB CONC 33.9 g/dl (32.0-36.5); MEAN CORPUSCULAR VOLUME 99.2 fl (80.0-96.0); MONO # 0.7 10^3/uL (0.0-0.8); MONO % 6.8 % (0.0-5.0); NEUTROPHILS # 8.1 10^3/uL (1.5-8.5); NEUTROPHILS % 77.9 % (36.0-66.0); PLATELET COUNT, AUTOMATED 407 10^3/uL (150-450); RED BLOOD COUNT 2.53 10^6/uL (4.30-6.10); WHITE BLOOD COUNT 10.4 10^3/uL (4.0-10.0)
[2020-05-02 06:47] LABS: BLOOD UREA NITROGEN 18 MG/DL (7-18); CALCIUM LEVEL 7.5 MG/DL (8.8-10.2); CARBON DIOXIDE LEVEL 27 MEQ/L (21-32); CHLORIDE LEVEL 107 MEQ/L (98-107); GLOMERULAR FILTRATION RATE > 60.0 (>49); GLUCOSE, FASTING 130 MG/DL (70-100); POTASSIUM SERUM 4.5 MEQ/L (3.5-5.1); SODIUM LEVEL 141 MEQ/L (136-145)
[2020-05-02] MEDS: SYMBICORT 160/4.5MCG INHALER 6GM INH SCH (08:49)
[2020-05-02] MEDS: TIOTROPIUM INHALER/CAPSULE (SPIRIVA) INH SCH (08:49)
[2020-05-02 09:38] LABS: FOLATE 6.2 NG/ML (>5.4)
[2020-05-02] MEDS: ENOXAPARIN 40MG/0.4ML SYRINGE (J1650 PER 10MG) SC SCH (09:50)
[2020-05-02 10:00] VITALS: BP 123/62
[2020-05-02] MEDS ORDERED: OXYC1SOL3 PEG (10:44)
[2020-05-02] MEDS ORDERED: AUGM250S13 PO (10:44)
[2020-05-02] MEDS ORDERED: ONDA4TAB6 PEG (10:44)
[2020-05-02 14:00] VITALS: BP 115/71
--- NOTE | 2020-05-02 14:09 | DS.PDOC ---
Discharge Summary General Date of Admission Apr 29, 2020 at 14:04 Date of Discharge 05/02/20 Discharge Summary PROCEDURES PERFORMED DURING STAY: PEG tube placement. DISCHARGE DIAGNOSES: Dysphagia due to Mediastinal and paraesophageal Mass Bronchogenic Metastatic adenocarcinoma of lung Aspiration Pneumonia Macrocytic anemia COPD. COMPLICATIONS/CHIEF COMPLAINT: Dyspagia/Lung Cancer. HOSPITAL COURSE: This is a 64 year old male with PMH of COPD, ex smoker who had has been recently been found to have a large mediastinal paraesophageal mass which is Bronchogenic metastatic adenocarcinoma of the lung with mets to liver, rest of the lungs and possibly left gluteal muscle. He was at radiation oncology department to get simulation prior to starting RT when he complained of extreme difficulty in swallowing so was sent to the ED for assessment for PEG placement prior to starting RT. Pateitnreports that he has lost 10lbs int he past week. His extreme difficulty in swallowing started 3days days since hen he has not been able to swallow even liquids. Every time he would take a drink it would come right back and he could feel some of it going to the lungs and he would have bouts of coughing. Sometimes he would see blood in his phlegm also. Before this he was able to take puddings and liquids. He also complained of epigastric and left lower chest pain, dull aching in nature about 4/10 in intensity . No radiation. He was admitted for dysphagia. Esophageal obstruction due to mediastinal and paraesophageal mass. Planned for palliate RT for this obstruction. PEG placed on 05/01/20 Started on Jevity 1.5. 6 cans per day as per Production Weigher's recommendation Aspiration pneumonia Augmentin liquid through PEG tube. Macrocytic Anemia No iron, vit b12 or folate def. given 1 PRBC Bronchogenic Metastatic adenocarcinoma of lung with mets to liver, muscles. planned for systemic therapy and palliative RT Pain control with Oxycodone liquid has it at home. COPD Breo, spiriva, albuterol prn. DISCHARGE MEDICATIONS: Please see below. ALLERGIES: Please see below. PHYSICAL EXAMINATION ON DISCHARGE: VITAL SIGNS: Please see below. General Exam: Positive: Alert, Cooperative, No Acute Distress Eye Exam: Positive: PERRLA, Conjunctiva & lids normal, EOMI; Negative: Sclera icteric ENT Exam: Positive: Atraumatic, Mucous membr. moist/pink, Pharynx Normal Neck Exam: Positive: Supple; Negative: JVD, thyromegaly Chest Exam: Positive: Normal air movement, Rales, Other (bilateral coarse breath sounds, some scattered crackles. ) Heart Exam: Positive: Rate Normal, Regular Rhythm, Normal S1, Normal S2; Negative: Murmurs, Rubs Abdomen Exam: Positive: Normal bowel sounds, Soft, Tenderness (in the epigastrium and left upper abdomen); Negative: Hepatosplenomegaly Extremity Exam: Negative: Clubbing, Cyanosis, Edema Skin Exam: Positive: Nl turgor and temperature; Negative: Breakdown, Lesion LABORATORY DATA: Please see below. ACTIVITY: [As tolerated]. DIET: Tube feeding DISCHARGE PLAN: Home. DISCHARGE INSTRUCTIONS: Follow up with Oncology and Radiation oncology. DISCHARGE CONDITION: [Stable]. TIME SPENT ON DISCHARGE: 35 minutes. Vital Signs/I&Os Vital Signs Date Time Temp Pulse Resp B/P (MAP) Pulse Ox O2 Delivery O2 Flow Rate FiO2 05/02/20 10:00 97.6 70 14 123/62 (82) 96 Nasal Cannula 2.0 I&O- Last 24 Hours up to 6 AM 05/02/20 06:00 Intake Total 2665 ml Output Total 410 ml Balance 2255 ml Laboratory Data Labs 24H Laboratory Tests 2 05/02/20 05:38: Immature Granulocyte % (Auto) 0.8, Neutrophils (%) (Auto) 77.9H, Lymphocytes (%) (Auto) 13.6L, Monocytes (%) (Auto) 6.8H, Eosinophils (%) (Auto) 0.7, Basophils (%) (Auto) 0.2, Neutrophils # (Auto) 8.1, Lymphocytes # (Auto) 1.4L, Monocytes # (Auto) 0.7, Eosinophils # (Auto) 0.1, Basophils # (Auto) 0.0, Nucleated Red Blood Cells % (auto) 0.0, Anion Gap 7L, Glomerular Filtration Rate > 60.0, Calcium Level 7.5L CBC/BMP Laboratory Tests 05/02/20 05:38 Discharge Medications Scheduled Amoxicillin/Potassium Clav (Augmentin 250-62.5 mg/5 ml) 250 Mg/5 Ml Susp.recon, 10 ML PO TID Fluticasone/Vilanterol (Breo Ellipta 200-25 Mcg INH) 1 Each Blst.w.dev, 1 INH INH DAILY, (Reported) Tiotropium [place] (Spiriva) 18 Mcg Cap.w.dev, 1 INH INH DAILY, (Reported) Scheduled PRN Albuterol Sulfate (Albuterol Sulfate Hfa) 8.5 Gm Hfa.aer.ad, 2 PUFFS INH QID PRN for SHORTNESS OF BREATH, (Reported) Magic Mouthwash (First-Mouthwash Blm) 1 Ea Susp, 10 ML PO QID PRN for esophagitis (Diphenhydramine/maalox/lidocaine 1:1:1) May compound if kit unavailable/not covered by insurance Ondansetron (Ondansetron Odt) 4 Mg Tab.rapdis, 1 TAB PEG Q6-8HP PRN for naus ea/vomiting Oxycodone HCl (Oxycodone HCl) 5 Mg/5 Ml Solution, 5 ML PEG Q4HP PRN for Esophagitis Allergies Coded Allergies: No Known Allergies (Unverified , 04/01/20) PAMELA RESENDEZ MD May 02, 2020 14:09
[2020-05-02] MEDS: PANTOPRAZOLE 40MG VIAL (C9113 PER 1) IV SCH (15:00)
--- NOTE | 2020-05-02 17:40 | IPN ---
PROGRESS NOTE DATE: 05/02/2020 HISTORY: Patient is now postoperative day #1 from a laparoscopic placement of a 24-Turkmen gastrostomy tube. An esophagogastroduodenoscopy (EGD) was attempted, but he was found to have a near-complete obstruction of the esophagus with only a few millimeter opening identified. He has tolerated the procedure well. Vital signs: Patient has been afebrile with a pulse in the 70s and 80s and a normal blood pressure. Intake and output show that the patient had 3400 mL in yesterday with 410 mL recorded out. I suspect his urine output is under-reported. PHYSICAL EXAMINATION: Patient is lying quietly in the hospital bed. He appears quite comfortable. The abdomen is flat with bowel sounds present. Tube is securely in place in the left upper quadrant with a minimal amount of blood around the insertion site and clean bandages on his trocar sites. Laboratory studies today show a white count of 10, hemoglobin of 8, hematocrit 25, and a platelet count of 407,000. Chemistry profile shows normal electrolytes, BUN, creatinine, and a glucose of 130. IMPRESSION: Patient is doing very well postoperative day #1 from his gastrostomy (G) tube placement. RECOMMENDATIONS: I would being tube feedings. I believe the patient would be an excellent candidate for bolus feedings. I have put in some orders for some basic feedings with Jevity, and these can be adjusted by the hospitalist as desired. When he is tolerating the tube feedings, his IV can be discontinued, and he can be discharged home whenever the hospitalist feels that he is ready. [facility] CENTERBennett
--- NOTE | 2020-05-02 18:23 | RO ---
OPERATIVE NOTE DATE OF OPERATION: 05/01/2020 PREOPERATIVE DIAGNOSIS: Esophageal obstruction secondary to tumor. POSTOPERATIVE DIAGNOSIS: Esophageal obstruction secondary to tumor. PROCEDURE PERFORMED: 1. Flexible fiberoptic esophagoscopy. 2. Laparoscopy with placement of 24 Qatari gastrostomy tube. SURGEON: Mitul Street MD ANESTHESIA: General. The tube placed was a 24 Qatari balloon gastrostomy tube, reference code [id number], lot #[id number]. INDICATIONS FOR THE PROCEDURE: The patient is a 64-year-old man with nonsmall cell lung cancer with a large posterior mediastinal mass involving the region of the left mainstem bronchus, the aorta and the esophagus. He has had progressive worsening difficulty swallowing and can now tolerate no oral intake. He is now for an upper endoscopy with percutaneous endoscopy gastrostomy and if his stricture is significant enough that I cannot access the stomach for percutaneous placement, he will undergo laparoscopy with placement of a feeding gastrostomy. OPERATIVE PROCEDURE: The patient was brought to the operating room and placed on the table in a supine position. He was placed under general endotracheal anesthesia. A bite block was placed. The upper endoscope was inserted through the oropharynx and advanced down the esophagus approximately to the mid to distal esophagus. The upper esophagus was normal. There was a large area of extrinsic compression identified. It was possible to advance the scope beyond this slightly but a marked stricture was identified with an opening that was probably no more than a few mm in size. No true lumen could be seen through this area. The scope was then withdrawn. The patient's abdomen was prepped and draped in a sterile fashion. 1/4% Marcaine was infiltrated at each of the trocar sites as necessary. Initial insertion was in the right lower quadrant. A short incision was made and a Veress needle was inserted. After a positive hanging drop test, the abdomen was insufflated with carbon dioxide gas. A 5 mm port was placed over a 5 mm scope and advanced through the abdominal wall without difficulty. Initial examination showed smooth peritoneal surfaces of the abdominal wall and the bowel. There was some air within the stomach suggesting that I had been able to insufflate a small amount of air down his esophagus despite his severe stricture. The liver appeared overall normal though he does have known metastatic deposits. A second 5 mm port was placed in the right lower quadrant just to the right of the midline and a third port was placed in the left lower quadrant. Graspers were inserted and the laparoscope was moved to the middle port of the three. A site was selected in the left upper quadrant for the gastrostomy tube insertion site. This nicely was located just anterior to the midportion of the stomach. A small skin incision was made and using a hemostat, an opening was created into the abdomen. This was dilated somewhat with a clamp and the 24 Qatari balloon gastrostomy tube was then inserted through the opening without difficulty. The site for insertion into the stomach was marked by cautery. A 2-0 Vicryl was inserted and using endoscopic needle holders, a suture was taken in the wall of the stomach just above the entry site and a second bite was taken of the anterior abdominal wall just above the insertion site of the G-tube. Both ends of the suture were brought through the left lower quadrant port site and held with a hemostat for gentle traction on the stomach. An opening was created into the stomach with the cauterizing scissors. The gastrostomy tube was then advanced through the gastrotomy and the balloon was inflated with 6 mL of sterile water. A second 2-0 Vicryl was then inserted into the abdomen and this was used to place a purse-string suture around the G-tube insertion site in the gastric wall. This was tied down using a knot pusher and the suture was then used to take a bite of the anterior abdominal wall just inferior to the G-tube entry site. The abdomen was then mostly deflated and the two sutures that had been placed were both tied down using the knot pusher to secure the anterior wall of the stomach to the anterior abdominal wall just above and below the G-tube entry site. There was no evidence of any bleeding. The abdomen was then deflated and the remaining trocars were removed. The retention wing on the G-tube was adjusted with approximately the 3.5 cm line at the skin surface. The skin incisions were closed with buried sutures of 4-0 Vicryl and Steri-Strips. Light dressings were applied with a split gauze beneath the retention wing of the G-tube. The patient tolerated the procedure well without apparent complication. He was awakened in the operating room, extubated and moved to the recovery room in stable condition. JENNIFER
== END 2020-05-02 18:10 | disposition home or self-care (01) | DRG 391 ==
LOC: M ED 10:32 → M ED INP 14:04 → ENRESERV 14:22 → M MSPAV 15:32
PROVIDERS: ADMIT Internal Medicine Nephrology; ATTEND Internal Medicine Nephrology
PROC: 0DJ08ZZ Inspection of Upper Intestinal Tract, Via Natural or Artificial Opening Endoscopic (ICD-10-PCS; 2020-05-01)
PROC: 0DH64UZ Insertion of Feeding Device into Stomach, Percutaneous Endoscopic Approach (ICD-10-PCS; principal; 2020-05-01 13:00)
DX: K22.2 Esophageal obstruction (principal); J69.0 Pneumonitis due to inhalation of food and vomit; C78.7 Secondary malignant neoplasm of liver and intrahepatic bile duct; C34.02 Malignant neoplasm of left main bronchus; C79.89 Secondary malignant neoplasm of other specified sites; C78.1 Secondary malignant neoplasm of mediastinum; D53.9 Nutritional anemia, unspecified; J44.9 Chronic obstructive pulmonary disease, unspecified; Z87.891 Personal history of nicotine dependence; R13.10 Dysphagia, unspecified; Z79.899 Other long term (current) drug therapy; Z20.828 Contact with and (suspected) exposure to other viral communicable diseases

== ENCOUNTER → 2020-04-29 | Outpatient (CLI) | payer MEDICARE ==
[~2020-04-29] MED LIST changes: +AUGM250S13 PO; -LIDOCAINE 1% MDV 20ML VIAL As Ordered ONE; -MIDAZOLAM INJ 2MG/2ML VIAL (J2250 PER 1MG) As Ordered ONE; +ONDA4TAB6 PEG; +OXYC1SOL3 PEG; +PROHANCE 279.3MG/ML 15ML VIAL As Ordered ONE; -ceFAZolin 2 GM/D5W 50 ML IV BAG (J0690 PER 500MG) As Ordered ONE; -diphenhydrAMINE 50MG/ML VIAL (J1200) As Ordered ONE; -fentaNYL 100 MCG/2 ML INJECTION (J3010) As Ordered ONE
--- NOTE | 2020-04-29 10:08 | REPVR ---
PROCEDURE INFORMATION: Exam: MR Head Without and With Contrast Exam date and time: 04/29/2020 8:36 AM Age: 64 years old Clinical indication: Condition or disease; History of cancer (specify primary cancer site): ; Primary cancer: Lung; Additional info: Lung CA, staging TECHNIQUE: Imaging protocol: MR of the head without and with intravenous contrast. Contrast material: PROHANCE; Contrast volume: 13 ml; Contrast route: INTRAVENOUS (IV); COMPARISON: No relevant prior studies available. FINDINGS: Brain: There is no extra-axial collection or intra-axial mass. Mild diffuse volume loss is within the range of normal for patient age. There are increased T2/FLAIR white matter hyperintensities, nonspecific but typically small-vessel ischemia in this age group. There is no diffusion restriction. There is no abnormal enhancement within the brain. Cerebral ventricles: Normal. No ventriculomegaly. Bones/joints: Unremarkable. Paranasal sinuses: Normal as visualized. No acute sinusitis. Mastoid air cells: Normal as visualized. No mastoid effusion. Orbits: Unremarkable. Soft tissues: Unremarkable. IMPRESSION: No acute findings. Electronically signed by: Michelle Mar On 04/29/2020 10:08:24 AM
== END ==
LOC: M RAD 06:55
PROVIDERS: ATTEND General Practice
DX: C34.02 Malignant neoplasm of left main bronchus (principal)

== ENCOUNTER → 2020-05-09 | Outpatient (RCR) | payer MEDICARE ==
--- NOTE | 2020-04-29 11:10 | RADENCPD ---
Date/Time of Encounter Date of Encounter: Apr 29, 2020 Time of Encounter: 10:00 Encounter Saw Mr. Orona prior to simulation today. 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 He cannot pass water without gagging and vomiting. He has lost 10lbs in the last 10 days. IR is unavailable to place a PEG this week, therefore given his condition today he needs to go to the ED. I recommend surgical consult for PEG tube placement. The alternative of temporary NG would be expeditious, however, I am not confident it will pass the obstruction. Patient and his brother agree with the plan for ED evaluation. Report called to ED nursing. MARCELINA VILA MD Apr 29, 2020 11:10
[~2020-05-09] MED LIST changes: +AUGM250S13 PO; +ONDA4TAB6 PEG; +OXYC1SOL3 PEG; +ZOSYN 3.375GM VIAL (J2543) As Ordered ONE
== END ==
LOC: M ONCR 04-29 09:50
PROVIDERS: ATTEND General Practice
DX: C34.02 Malignant neoplasm of left main bronchus (principal)

== ENCOUNTER → 2020-05-14 | Outpatient (POV) | payer MEDICARE ==
[~2020-05-14] MED LIST changes: +FERR5MLUD PO; -ZOSYN 3.375GM VIAL (J2543) As Ordered ONE
--- NOTE | 2020-05-20 12:42 | IRPN ---
[facility] IR Progress Note IR Progress Note DATE: May 14, 2020 Patient agreed to this telephone follow-up. Duration of call 5 minutes. FOLLOW-UP: Patient status post port and PEG placement. Patient denies any fevers, chills, pain at site or discharge. Patient states port was used without any issues. Patient is using PEG tube to feed 4-6 times a day as tolerated without any issues. Patient states his weight is stable. ON EXAMINATION: No video on patient side. IMPRESSION: Status post port and PEG placement, patient doing well. No further follow-up scheduled unless initiated by patient and/or referring provider. Thank you for this referral Allergies Coded Allergies: No Known Allergies (Unverified , 04/01/20) ISADORA BUTTERFIELD MD May 20, 2020 12:42
== END ==
LOC: M TMIRPOV 13:23
PROVIDERS: ATTEND Radiology Diagnostic Radiology
DX: Z45.2 Encounter for adjustment and management of vascular access device (principal); Z93.1 Gastrostomy status

== ENCOUNTER 2020-05-24 10:22 | Inpatient (IN) | payer MEDICARE ==
[~2020-05-24] VITALS: Ht 170.2 cm; Wt 58.9 kg
[~2020-05-24 10:22] MED LIST changes: +SERT25TA85 PO
--- OUTSIDE RECORDS SUMMARY | 2020-05-24 10:32 | CCD | Continuity of Care Document ---
Author Author Pulmonary Lab, [facility] Organization Unknown Address [address] [place] [address] Phone [phone] Care Team Providers Care Stereo Map Plotter Operator Name Role Phone Zunilda Payan M.D. AUTM [phone] AUTM Unavailable Little Cartagena M.D. AUTM [phone] Christian Frankel M.D. AUTM [phone] Problems Description No Information Available Social History Type Date Description Comments Sex Unknown Allergies, Adverse Reactions, Alerts Description No Known Drug Allergies Medications Active Medications SIG Qnty Indications Ordering Provide r Date Albuterol Sulfate HFA 108(90Base) mcg/Act Aerosol Inhale 2 Puffs Every 4 Hours If Needed Un known Breo Ellipta 200-25mcg/Inh Aerosol 1 puff everyday Zunilda Payan M.D. 0 Spiriva Handihaler 18mcg Capsules 1 cap inhalation every in the morning 30caps Zunilda Payan M.D. Pantoprazole Sodium 40mg Tablets D R 1 tab by mouth everyday Zunilda Payan M.D. 0 000 Immunizations Description No Information Available Vital Signs Date Vital Result Comment 04/08/2020 9:52am BP Systolic 140 mmHg BP Diastolic 74 mmHg Heart Rate 95 /min O2 % BldC Oximetry 93 % Room Air Height 67 inches 5'7" Weight 158.00 lb BMI (Body Mass Index) 24.7 kg/m2 [place] Body Weight 148 lb Weight 71.669 kg BSA (Body Surface Area) 1.83 m2 03/19/2020 2:13pm BP Systolic 116 mmHg BP Diastolic 70 mmHg Heart Rate 108 /min O2 % BldC Oximetry 95 % Room Air Height 67 inches 5'7" Weight 158.00 lb BMI (Body Mass Index) 24.7 kg/m2 [place] Body Weight 148 lb Weight 71.669 kg BSA (Body Surface Area) 1.83 m2 Results Test Acquired Date Facility Test Result H/L Range Note Laboratory test finding 04/01/2020 [facility] Main Lab [address] [place] [address] [phone] Pathology Request For Service (SEE NOTE) 1 Coag Panel For Procedures 03/19/2020 [facility] Main Lab [address] [place] [address] [phone] Platelet Count, Automated 291 10 Normal 150-45 0 Partial Thromboplastin Time <pending> Prothrombin Time/Inr 03/19/2020 [facility] Main Lab [address] [place] [address] [phone] Prothrombin Time 12.4 seconds Normal 12.5-14.3 Inr 0.91 Normal 2 Partial Thromboplastin Time 30.3 seconds Normal 24.2-38.5 1 FINAL DIAGNOSIS Liver, biopsy: Metastatic adenocarcinoma, poorly differentiated, consistent with lung primary. -4/TR See comment. Comment: Immunohistochemical studies show that the tumor cells are positive for CK7 and TTF-1, and negative for CK20, supporting the above diagnosis. Please inform the lab if molecular testing is needed. 04/02/2020 - 1527 CLINICAL DIAGNOSIS Liver mass 04/01/2020 - 135 GROSS DIAGNOSIS Received in formalin labeled "liver biopsy" consists of multiple fragments of needle core shaped tissue measuring up to 1.2 cm in length and 0.1 cm in diameter. All in one. -SV 04/01/2020 - 135 Signed ALEXANDER VERMA MD 04/02/2020 152 2 THERAPUTIC HUMAN INR VALUES INDICATIONS NORMAL RANGES PROPHYLAXIS/TREATMENT OF: VENOUS THROMBOSIS 2.0-3.0 PULMONARY EMBOLISM 2.0-3.0 PREVENTION OF SYSTEMIC EMBOLISM FROM: TISSUE HEART VALVES 2.0-3.0 ACUTE MYOCARDIAL INFARCTION 2.0-3.0 VALVULAR HEART DISEASE 2.0-3.0 ATRIAL FIBRILLATION 2.0-3.0 MECHANICAL VALVES(HIGH RISK) 2.5-3.5 RECURRENT MYOCARDIAL INFARCTION 2.5-3.5 Procedures Date Code Description Status 03/19/2020 89727 Spirometry Completed Medical Devices Description No Information Available Encounters Type Date Location Provider Dx Diagnosis Office Visit 03/19/2020 2:00p [facility] Pulmonary/Thoracic Lawrenc cecilia Llanes MD R91.8 Other nonspecific abnormal finding of breanne ng field J44.9 Chronic obstructive pulmonar y disease, unspecified Z01.812 Encounter for preprocedural laboratory examination Assessments Date Code Description Provider 04/08/2020 C34.82 Malignant neoplasm o f overlapping sites of left bronchus and lung Carmine Llanes MD 04/08/2020 J44.9 Chronic obstructive pulmonary di sease, unspecified Carmine Llanes MD 03/19/2020 R91.8 Other nonspecific abnormal findi ng of lung field Carmine Llanes MD 03/19/2020 J44.9 Chronic obstructive pulmonary di sease, unspecified Carmine Llanes MD 03/19/2020 Z01.812 Encounter for preprocedural labo ratory examination Carmine Llanes MD Plan of Treatment Future Appointment(s):* 07/09/2020 3:00 pm - Carmine Llanes MD at [facility] Pulmonary/Thoracic 04/08/2020 - Carmine Llanes MD* C34.82 Malignant neoplasm of overlapping sites of left bronchus and lung * J44.9 Chronic obstructive pulmonary disease, unspecified * * New Xrays:* PET CT Skull base to mid thigh, Ordered: 04/08/20 * Referral:* Little Cartagena M.D., Hematology & Oncology * Christian Frankel M.D., Radiation Oncology * Comments:* ~ I had discussed at length with both him and his brother the fact that this is an advanced non-small cell carcinoma. Their mother, he tells me, actually of small cell carcinoma. At this point, he also has significant underlying obstructive lung disease.~ I have asked him to stop his Daliresp. ~ We will get a PET scan and pulmonary functions.~ I will refer him RADHA to both medical, as well as radiation oncology, as the sooner we start treatment, the better.~ I, also, reviewed with him the fact that he needs to absolutely keep up on his nutritional issues. 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 He can, also, take nutritional supplements in the form of Ensure Plus or Boost and put in protein powder or ice cream in them to get extra calories. Certainly, if he has any questions regarding food impaction, he needs to present to the nearest ER. ~ I will call him the results of his PET and his PFT's. I await the outcome of them. * Follow up:* Will call PET/ PFTs here 3 months Functional Status Description No Information Available Mental Status Description No Information Available Referrals Refer to Reason for Referral Status Appt Date Little Cartagena M.D. Advanced Adeno CA of lung Created [facility] Medical Oncology & Hematology [address], [place] [id number] [phone] Christian Frankel M.D. Advanced adeno ca of lung Created [facility] Radiation Oncol [address] [place] [address] [id number] [phone] Radiology/Procedure Closed
--- OUTSIDE RECORDS SUMMARY | 2020-05-24 10:32 | CCD | Continuity of Care Document ---
Author Rona Morris MD Organization Unknown Address [address] [place] [address] Phone [phone] Care Team Providers Care Meal Miller Name Role Phone Zunilda Payan M.D. AUTM [phone] AUTM Unavailable Little Cartagena M.D. AUTM [phone] Christian Frankel M.D. AUTM [phone] Problems Description No Information Available Social History [...] lb BMI (Body Mass Index) 24.7 kg/m2 [place] Body Weight 148 lb Weight 71.669 kg BSA (Body Surface Area) 1.83 m2 03/19/2020 2:13pm BP Systolic 116 mmHg BP Diastolic 70 mmHg Heart Rate 108 /min O2 % BldC Oximetry 95 % Room Air Height 67 inches 5'7" Weight 158.00 lb BMI (Body Mass Index) 24.7 kg/m2 [place] Body Weight 148 lb Weight 71.669 kg BSA (Body Surface Area) 1.83 m2 Results Test Acquired Date Facility Test Result H/L Range Note Surgical Tissue 04/01/2020 [facility] Molecular Anatomic Molecul <SEE NOTE> 1 Laboratory test finding 04/01/2020 [facility] Main Lab [address] [place] [address] [phone] Pathology Request For Service (SEE NOTE) 2 Coag Panel For Procedures 03/19/2020 [facility] Main Lab [address] [place] [address] [phone] Platelet Count, Automated 291 10 Normal 150-45 0 Partial Thromboplastin Time <pending> Prothrombin Time/Inr 03/19/2020 [facility] Main Lab [address] [place] [address] [phone] Prothrombin Time 12.4 seconds Normal 12.5-14.3 Inr 0.91 Normal 3 Partial Thromboplastin Time 30.3 seconds Normal 24.2-38.5 1 Anatomic Molecular Pathology Report Name: RONA WASHINGTON Collection Date: 04/01/2020 00:00 Received Date: 04/22/2020 16:44 Physician(s): ANISH LLANES MD VYAS, SHIKHAR G, MD Copy To: ANISH LLANES MD Specimen(s) Received A: Liver biopsy, Formalin Block [id number] received from [facility] in [place], [place] EGFR Diagnosis TEST: EGFR gene mutations (exon 19 deletions, L858R, G719A, T790M, S768I, exon 20 insertions, L861Q) by [employer] RGQ real-time PCR RESULTS: An EGFR mutation is not detected. INTERPRETATION: NEGATIVE FOR EGFR GENE MUTATION. This test is FDA approved and intended to be used to select patients with non-small cell lung cancer for whom EGFR tyrosine kinase inhibitor (TKI), such as afatinib, is indicated. Presence of exon 19 deletions, exon 21 L858R or L861Q, exon 18 G719A or exon 20 S768I mutation is associated with a better response to TKI therapy. TKI therapeutic resistance of T790M and exon 20 insertions have been reported, and safety and efficacy of TKI therapy on these mutations have not been established. The results are adjuncts to other clinical and pathologic information available for evaluating the therapeutic response. Tumors that contain less than 20% mutation may not be detected in some mutation types by this assay. homero/evan Electronically Signed By Violeta Andrade MD, PhD Attending Pathologist 05/08/2020 11:22:59 Gross Description METHODOLOGY: The therascreen EGFR RGQ PCR Kit ([employer], [place], [place]) is a real-time qualitative PCR assay used on the [employer] instrument for the detection of seven types of mutations at EGFR oncogene. The kit requires DNA extracted from formalin-fixed paraffin-embedded (FFPE) tissue of non-small cell lung cancer. The tumor area is identified by the attending pathologist and manually microdissected. The assay uses Scorpionse and ARMSe (Allele Refractory Mutation System) technologies, and is FDA-approved for clinical patient care. Allele-specific amplification is achieved by ARMS which exploits the ability of Taq DNA polymerase to distinguish between a matched and a mismatched base at the 3' end of a PCR primer. Detection of amplification is performed using Scorpions, which are bifunctional molecules containing a PCR primer covalently linked to a probe. Processed at [facility], [address] [place] [address] and reported at [facility], [address] [place] [address]. REFERENCES: 1. Red Garner, Yessy Figueroa, Russell wasserman A. et al. EGFR-targeted therapy for non-small cell lung cancer: focus on EGFR oncogenic mutation. Int. J. Med. Sci. 2013; 10: 320. 2. Jorge A Barnett., et al. First-line gefi tinib in patients with advanced non-small cell lung cancer harboring somatic EGFR mutations. J. Clin.Oncol. 2008;15: 2442. 3. Judd SV, Marysol EMANUEL, Alexia J et al . Epidermal growth factor receptor mutations in lung cancer. Nature Review/Cancer. 2007;6117-9250. This report may include one or more immunohistochemical stain results that use analyte specific reagents. All positive and negative controls have been reviewed by the attending pathologist and are satisfactory. The tests were developed and their performance characteristics determined by [facility] Pathology department. They have not been cleared or approved by the US Food and Drug Administration. The FDA has determined that such clearance or approval is not necessary. 2 Addendum 2 Entered: [id number] This addendum is being issued to report additional molecular results. ALK gene rearrangement (FISH): Negative ROS1 gene rearrangement (FISH): Negative EGFR gene mutation: Negative KRAS gene mutation: Negative BRAF V600E gene mutation: Negative Please see the scanned documentation for the full Molecular Diagnostics reports from [facility]. 05/09/[id number] Addendum Signed____ ALEXANDER VERMA MD 05/09/20201258 Addendum 1 Entered: 04/26/2020-0817 This addendum is being issued to report additional molecular results. PD-L1 (22C3) Immunohistochemistry: High expression (>90%) Please see the scanned documentation for the full Molecular Diagnotics report from [facility]. 04/26/2020816 Addendum Signed___ALEXANDER JAFFE MD 04/26/2020816 FINAL DIAGNOSIS Liver, biopsy: Metastatic adenocarcinoma, poorly differentiated, consistent with lung primary. -4/TR See comment. Comment: Immunohistochemical studies show that the tumor cells are positive for CK7 and TTF-1, and negative for CK20, supporting the above diagnosis. Please inform the lab if molecular testing is needed. 04/02/2020 - 1527 CLINICAL DIAGNOSIS Liver mass 04/01/2020 - 1353 GROSS DIAGNOSIS Received in formalin labeled "liver biopsy" consists of multiple fragments of needle core shaped tissue measuring up to 1.2 cm in length and 0.1 cm in diameter. All in one. -SV 04/01/2020 - 135 Signed ALEXANDER VERMA MD 04/02/2020 1527 3 THERAPUTIC HUMAN INR VALUES INDICATIONS NORMAL RANGES PROPHYLAXIS/TREATMENT OF: VENOUS THROMBOSIS 2.0-3.0 PULMONARY EMBOLISM 2.0-3.0 PREVENTION OF SYSTEMIC EMBOLISM FROM: TISSUE HEART VALVES 2.0-3.0 ACUTE MYOCARDIAL INFARCTION 2.0-3.0 VALVULAR HEART DISEASE 2.0-3.0 ATRIAL FIBRILLATION 2.0-3.0 MECHANICAL VALVES(HIGH RISK) 2.5-3.5 RECURRENT MYOCARDIAL INFARCTION 2.5-3.5 Procedures Date Code Description Status 04/10/2020 28535 Diffusing Capacity Completed 04/10/2020 37245 Plethysmography Determination Sheryl ng Volumes & Per Airway Resist Completed 04/10/2020 33901 Maximum Breathing Capacity, Maxi mal Voluntary Ventilation Completed 04/10/2020 70247 Bronchospasm Evaluation Complete d 03/19/2020 18097 Spirometry Completed Medical Devices Description No Information Available Encounters Type Date Location Provider Dx Diagnosis Office Visit 04/08/2020 10:00a [facility] Quin Llanes MD C34.82 Malignant neoplasm of ovrlp sites of lef t bronchus and lung J44.9 Chronic obstructive pulmonar y disease, unspecified Office Visit 03/19/2020 2:00p [facility]Th[facility] Quin Llanes MD R91.8 Other nonspecific abnormal finding of sheryl ng [facility] J44.9 Chronic obstructive pulmonar y disease, unspecified Z01.812 Encounter for preprocedural laboratory examination Assessments Date Code Description Provider 04/10/2020 J44.9 Chronic obstructive pulmonary di sease, unspecified Pulmonary Lab 04/08/2020 C34.82 Malignant neoplasm o f overlapping sites of left bronchus and lung Anish Llanes MD 04/08/2020 J44.9 Chronic obstructive pulmonary di sease, unspecified Anish Llanes MD 03/19/2020 R91.8 Other nonspecific abnormal findi ng of lung field Anish Llanes MD 03/19/2020 J44.9 Chronic obstructive pulmonary di sease, unspecified Anish Llanes MD 03/19/2020 Z01.812 Encounter for preprocedural labo ratory examination Anish Llanes MD Plan of Treatment Future Appointment(s):* 07/09/2020 3:00 pm - Anish Llanes MD at [facility] Pulmonary/Thoracic 04/08/2020 - Anish Llanes MD* C34.82 Malignant neoplasm of overlapping sites of left bronchus and lung * J44.9 Chronic obstructive pulmonary disease, unspecified * * Referral:* Little Cartagena M.D., Hematology & [...] questionable for him, he put in a hematologist. He can, also, take nutritional supplements in [...] to Reason for Referral Status Appt Date Radiology/Procedure [facility] approved [id number] Closed 00 Little Cartagena M.D. Advanced Adeno CA of lung Closed 04/19/2020 [facility] Medical Oncology & Hematology [address] [place] [address] [id number] [phone] Christian Frankel M.D. Advanced adeno ca of lung Closed 04/19/2020 [facility] Radiation Oncol [address] [place] [address] [phone] Radiology/Procedure Closed
--- OUTSIDE RECORDS SUMMARY | 2020-05-24 10:33 | CCD | Continuity of Care Document ---
Author Author [facility] Address [address] [place] [address] Phone Support Name Relationship Address Phone Zunilda Payan PRS [address] [place] [address] Allergies, Adverse Reactions, Alerts No known allergies. Medications Medication Status Dose Units Route Directions Qty Days Start Date End Date Instructions Varicella-Zoster Ge-As01b (Pf) (Shingrix (Pf)) 50 mcg/0.5 mL suspension for reconstitution Discontinued 0.5 ML IM .1 December 05, 2018 12:51pm June 05, 2019 1:47pm Albuterol Sulfate Discontinued 0 .ROUTE .COMPLEX June 05, 2019 1:16pm August 30, 2019 1:55pm INHALE 2 PUF FS BY MOUTH EVERY 4 HOURS IF NEEDED. Fluticasone Furoate-Vilanterol (Breo Ell ipta) 200-25 mcg/dose blister with device Discontinued 1 EACH IH Once Per Day June 05, 2019 1:46pm October 16, 2019 2:34pm Pantoprazole Discontinued 40 MG PO DAILY@0700 June 05, 2019 1:46pm December 04, 2019 12:40pm Roflumilast (Daliresp) 500 mcg tablet Discontinued 500 MCG PO Once Per Day June 05, 2019 1:46pm December 04, 2019 12:40pm Tiotropium [place] (Spiriva With Handiha ler) 18 mcg capsule, w/inhalation device Discontinued 18 MCG INH Once Per Day June 05, 2019 1:46pm December 04, 2019 12:40pm Varicella-Zoster Ge-As01b (Pf) (Shingrix (Pf)) 50 mcg/0.5 mL suspension for reconstitution Active 0.5 ML IM .1 June 05, 2019 1:47pm Roflumilast (Daliresp) 500 mcg tablet Active 500 MCG PO Once Per Day 90 December 04, 2019 12: 40pm Tiotropium [place] (Spiriva With Handiha ler) 18 mcg capsule, w/inhalation device Discontinued 18 MCG INH Once Per Day 3 December 04, 2019 12:40pm February 13, 2020 2:07pm Pantoprazole Active 40 MG PO DAILY@0700 90 December 04, 2019 12:40pm Famotidine (Heartburn Relief (Famotidine)) 20 mg table t Active 20 MG PO daily February 05, 2020 2:18pm Albuterol Sulfate (Ventolin Hfa) 64 PUFF S/INHALER HFA aerosol inhaler Discontinued 2 PUFFS INH NEEDED February 01, 2014 9:06am September 07, 2014 8:56am Albuterol Sulfate Discontinued 2.5 MG NEB Every 4 hours 0 February 05, 2014 7:12am February 05, 2014 7:15am Fluticasone Propion-Salmeterol (Advair D iskus) 14 PUFFS/INHALER blister with device Discontinued 2 PUFFS INH Every 12 Hours 0 February 05, 2014 7:12am February 05, 2014 7:15am Bupropion Hcl Discontinued 150 MG PO 2 Times Per Day 0 February 05, 2014 7:12am February 05, 2014 11:41am Tiotropium [place] (Spiriva With Handiha ler) 18 MCG capsule, w/inhalation device Discontinued 18 MCG IH Once Per Day 0 February 05, 2014 7:12am February 05, 2014 7:15am Fluticasone Propion-Salmeterol (Advair D iskus) 14 PUFFS/INHALER blister with device Discontinued 1 EACH INH Once Per Day March 21, 2014 5:09pm June 12, 2014 4:39pm Bupropion Hcl (Wellbutrin Xl) 300 MG tab let extended release 24 hr Discontinued 300 MG PO Once Per Day March 21, 2014 5:15pm April 02, 2014 5:36pm Theophylline Discontinued 400 MG PO Every 12 Hours 60 March 29, 2014 7:39am April 03, 2014 7:53pm Moxifloxacin Discontinued 400 MG PO 1200 7 March 29, 2014 7:39am April 30, 2014 10:13am Prednisone Discontinued 30 MG PO 2 Times Per Day 60 March 29, 2014 7:44am April 30, 2014 10:14am [id number] ,then [id number],then [id number],then 5mg bid Theophylline Discontinued 500 MG PO Three times a day December 09, 2015 9:3 9am June 08, 2016 7:42pm Tiotropium [place] (Spiriva With Handiha ler) 18 MCG capsule, w/inhalation device Discontinued 18 MCG INH Once Per Day October 26, 2017 11:58pm November 08, 2017 2:01pm Pantoprazole Discontinued 40 MG PO DAILY@0700 30 October 28, 2017 7:08am December 01, 2017 9:37am Bupropion Hcl (Wellbutrin Sr) 150 mg tab let sustained-release 12 hr Discontinued 1 TAB PO 2 Times Per Day 60 July 01, 2011 2:29pm February 01, 2014 9:07am Nicotine Discontinued 1 EACH TD Once Per Day 7 July 01, 2011 2:29pm August 07, 2011 2:00pm Alprazolam (Xanax) 0.25 mg tablet Di scontinued 1 TAB PO T ID PRN 90 July 15, 2011 1:2 2pm February 01, 2014 12:09pm Albuterol Sulfate Discontinued 2.5 MG NEB Every 4 hours 0 February 05, 2014 7:15am February 05, 2014 7:55am Fluticasone Propion-Salmeterol (Advair 5 00-50 Diskus) 14 PUFFS/INHALER blister with device Discontinued 2 PUFFS INH Every 12 Hours 0 February 05, 2014 7:15am February 05, 2014 7:55am Tiotropium [place] (Spiriva) 18 MCG caps ule, w/inhalation device Discontinued 18 MCG IH Once Per Day 0 February 05, 2014 7:15am Septembe 2013 7:55am Prednisone Discontinued 10 MG PO 2 Times Per Day 45 February 05, 2014 7:21am February 15, 2014 12:44pm take 40mg bid for 2d then 30mg bid for 2d then 20mg daily for 2d then 10mg bid for 2d then 5mg bid for 2d then quit Bupropion Hcl Discontinued 300 MG PO Once Per Day 30 February 05, 2014 7:21am March 21, 2014 2:20pm Albuterol Sulfate Discontinued 2.5 MG NEB Every 4 hours 190 February 05 7:55am May 16, 2015 2:09pm Fluticasone Propion-Salmeterol (Advair D iskus) 14 PUFFS/INHALER blister with device Discontinued 2 PUFFS INH Every 12 Hours 1 February 05, 2014 7:55am March 21, 2014 5:15pm Tiotropium [place] (Spiriva With Handiha ler) 18 MCG capsule, w/inhalation device Discontinued 18 MCG IH Once Per Day February 05, 2014 7:55am April 30, 2014 10:14am Ipratropium-Albuterol (Combivent Respimat) 4 GM mist Discontinued 1 PUFFS IH Four Times a Day 3 February 05, 2014 11:41am February 15, 2014 12:44pm Zolpidem (Ambien) 5 MG tablet Discontinued 5 MG PO NEEDED April 02, 2014 4:45pm November 12, 2014 3:38pm at hs Theophylline Discontinued 800 MG PO Every 12 Hours 60 April 03, 2014 7:53pm April 30, 2014 10:01am Theophylline Discontinued 600 MG PO Once Per Day April 30, 2014 10:12am November 12, 2014 3:38pm Fluticasone Propion-Salmeterol (Advair 5 00-50 Diskus) 14 PUFFS/INHALER blister with device Discontinued 1 EACH INH 2 Times Per Day June 12, 2014 4:39pm November 12, 2014 3:39pm Albuterol Sulfate (Ventolin Hfa) 64 PUFF S/INHALER HFA aerosol inhaler Discontinued 2 PUFFS INH Every 4 hours September 07, 2014 8:56am May 16 16 2:09pm Theophylline (Chas-24) 400 MG capsule,extended release 24hr Discontinued 400 MG PO 2 Times Per Day November 12, 2014 3:38pm November 29 5 4:33pm Fluticasone Propion-Salmeterol (Advair 5 00-50 Diskus) 14 PUFFS/INHALER blister with device Discontinued 1 EACH INH 2 Times Per Day November 12, 2014 3:39pm May 16, 2015 2:09pm Diphth,Pertus(Acell),Tetanus (Boostrix T dap) 0.5 ML suspension Discontinued 0.5 ML IM ONE TIME 1 November 12, 2014 3:52pm November 12, 2014 3:53p m Theophylline (Chas-24) 400 MG capsule,extended release 24hr Discontinued 800 MG PO 2 Times Per Day 60 November 29, 2014 4:33pm May 16, 2015 1:27pm Theophylline (Chas-24) 400 MG capsule,extended release 24hr Discontinued 120 MG PO Once Per Day May 16, 2015 1:27pm July 062015 8:17am Albuterol Sulfate Discontinued 2.5 MG NEB Every 4 hours May 16, 2015 2:09pm February 04, 2017 2:09pm Fluticasone Propion-Salmeterol (Advair 5 00-50 Diskus) 14 PUFFS/INHALER blister with device Discontinued 1 EACH INH 2 Times Per Day May 16, 2015 2:09pm December 02, 2015 1:30pm Albuterol Sulfate (Ventolin Hfa) 64 PUFF S/INHALER HFA aerosol inhaler Discontinued 2 PUFFS INH Every 4 hours May 16, 2015 2:09pm November 07 016 10:42am Pneumococcal 23-Mariangel Ps Vaccine (Pneumova x 23 (25 Mcg/0.5 Ml)*) 25 MCG/0.5 ML solution Discontinued 25 MCG IM ONE TIME May 16, 2015 3:55pm May 16, 2015 3:58pm Theophylline (Chas-24) 400 MG capsule,extended release 24hr Discontinued 120 MG PO Once Per Day July 06, 2015 8:17am July 12:37pm Theophylline (Chas-24) 400 MG capsule,extended release 24hr Discontinued 1200 MG PO Once Per Day July 12, 2015 12:37pm December 09, 2015 9:40am Albuterol Sulfate (Ventolin Hfa) 64 PUFF S/INHALER HFA aerosol inhaler Discontinued 2 PUFFS INH Every 4 hours November 08, 2015 10:42am June 08, 2016 7:42pm Fluticasone Propion-Salmeterol (Advair 5 00-50 Diskus) 14 PUFFS/INHALER blister with device Discontinued 1 EACH INH 2 Times Per Day December 02, 2015 1:30pm June 08, 2016 7:42pm Flu Vaccine [id number](5yrup)Pf (Afluria 4443-3322 Syringe) 45 MCG/0.5 ML syringe Discontinued 45 MCG IM ONE TIME April 01, 2016 9:45am April 01, 2016 10:30am Theophylline Discontinued 500 MG PO Three times a day June 08, 2016 7:42pm June 16, 2016 6:45pm Fluticasone Propion-Salmeterol (Advair 5 00-50 Diskus) 14 PUFFS/INHALER blister with device Discontinued 1 EACH INH 2 Times Per Day 1 June 08, 2016 7:42pm September 15, 2016 2:08pm Albuterol Sulfate (Ventolin Hfa) 64 PUFF S/INHALER HFA aerosol inhaler Discontinued 2 PUFFS INH Every 4 hours June 08, 2016 7:42pm December 12:14pm Theophylline Discontinued 400 MG PO Three times a day June 16, 2016 6:45pm February 04, 2017 2:02pm Fluticasone Propion-Salmeterol (Advair 5 00-50 Diskus) 14 PUFFS/INHALER blister with device Discontinued 1 EACH INH 2 Times Per Day 1 September 15, 2016 2:08pm February 04, 2017 2:09pm Albuterol Sulfate (Ventolin Hfa) 64 PUFF S/INHALER HFA aerosol inhaler Discontinued 2 PUFFS INH Every 4 hours December 28, 2016 12:14pm July 12:29pm Tiotropium [place] (Spiriva) 18 MCG caps ule, w/inhalation device Discontinued 1 CAP IH Once Per Day February 04, 2017 2:05pm August 052017 12:29pm Albuterol Sulfate Discontinued 2.5 MG NEB Every 4 hours 190 February 04 17 2:09pm August 05, 2017 12:29pm Fluticasone Propion-Salmeterol (Advair 5 00-50 Diskus) 14 PUFFS/INHALER blister with device Discontinued 1 EACH INH 2 Times Per Day 1 February 04, 2017 2:09pm October 26, 2017 11:54pm Fluticasone Furoate-Vilanterol (Breo Ell ipta 200-25 Mcg Inh) 1 EACH blister with device Discontinued 1 PUFFS IH Once Per Day 1 August 05, 2017 12:24pm August 05, 2017 12:29pm Albuterol Sulfate Discontinued 2.5 MG NEB Every 4 hours 190 August 05, 2017 1 2:29pm December 01, 2017 9:37am Albuterol Sulfate (Ventolin Hfa) 64 PUFF S/INHALER HFA aerosol inhaler Discontinued 2 PUFFS INH Every 4 hours 1 August 05, 2017 12:29pm December 01, 2017 9:37am Tiotropium [place] (Spiriva) 18 MCG caps ule, w/inhalation device Discontinued 1 CAP IH Once Per Day 90 August 05, 2017 12:29pm October 26, 2017 8:18pm Fluticasone Furoate-Vilanterol (Breo Ell ipta) 1 EACH blister with device Discontinued 1 PUFFS IH Once Per Day August 05, 2017 12:29pm December 01, 2017 9:37am Tiotropium [place] (Spiriva) 18 MCG caps ule, w/inhalation device Discontinued 18 MCG INH Once Per Day 3 November 08, 2017 2:01pm December 01 9:37am Roflumilast (Daliresp) 500 MCG tablet Discontinued 500 MCG PO Once Per Day December 01, 2017 6:54am December 01, 2017 9:37am Albuterol Sulfate Discontinued 2.5 MG NEB Every 4 hours 190 December 01, 2017 9: 37am June 06, 2018 10:55am Pantoprazole Discontinued 40 MG PO DAILY@0700 30 December 01, 2017 9:37am June 06, 2018 10:55am Albuterol Sulfate (Ventolin Hfa) 64 PUFF S/INHALER HFA aerosol inhaler Discontinued 2 PUFFS INH Every 4 hours December 01, 2017 9:37am 2018 3:17pm Tiotropium [place] (Spiriva) 18 MCG caps ule, w/inhalation device Discontinued 18 MCG INH Once Per Day 3 December 01, 2017 9:37am June 06, 2018 10:55am Roflumilast (Daliresp) 500 MCG tablet Discontinued 500 MCG PO Once Per Day 30 December 01, 2017 9:37am June 06, 2018 10:55am Fluticasone Furoate-Vilanterol (Breo Ell ipta 200-25 Mcg Inh) 1 EACH blister with device Discontinued 1 PUFFS IH Once Per Day December 01, 2017 9:37am June 06, 2018 10:55am Albuterol Sulfate (Ventolin Hfa) 64 PUFF S/INHALER HFA aerosol inhaler Discontinued 2 PUFFS INH Every 4 hours 1 2018 3:17pm August 10, 2018 12:30pm Albuterol Sulfate Discontinued 2.5 MG NEB Every 4 hours 190 June 06, 2018 10:55am September 07, 2018 9:16am Albuterol Sulfate Active 2.5 MG NEB Every 4 hours 190 June 06, 2018 10:55am Pantoprazole Discontinued 40 MG PO DAILY@0700 30 June 06, 2018 10:55am August 10, 2018 2:35pm Tiotropium [place] (Spiriva) 18 MCG caps ule, w/inhalation device Discontinued 18 MCG INH Once Per Day June 06, 2018 10:55am August 12:30pm Roflumilast (Daliresp) 500 MCG tablet Discontinued 500 MCG PO Once Per Day June 06, 2018 10:55am August 10, 2018 2:35pm Fluticasone Furoate-Vilanterol (Breo Ell ipta 200-25 Mcg Inh) 1 EACH blister with device Discontinued 1 PUFFS IH Once Per Day June 06, 2018 10:55am August 10, 2018 12:30pm Albuterol Sulfate (Ventolin Hfa) 64 PUFF S/INHALER HFA aerosol inhaler Discontinued 2 PUFFS INH Every 4 hours August 10, 2018 12:30pm September 07 9 10:36am Albuterol Sulfate (Ventolin Hfa) 64 PUFF S/INHALER HFA aerosol inhaler Discontinued 2 PUFFS INH Every 4 hours August 10, 2018 12:30pm November 16, 019 3:32pm Tiotropium [place] (Spiriva) 18 MCG caps ule, w/inhalation device Discontinued 18 MCG INH Once Per Day August 10, 2018 12:30pm September 07 201 9 10:36am Tiotropium [place] (Spiriva) 18 MCG caps ule, w/inhalation device Discontinued 18 MCG INH Once Per Day August 10, 2018 12:30pm February 012018 7:43am Fluticasone Furoate-Vilanterol (Breo Ell ipta 200-25 Mcg Inh) 1 EACH blister with device Discontinued 1 PUFFS IH Once Per Day August 10, 2018 12:30pm September 07, 2018 10:36am Fluticasone Furoate-Vilanterol (Breo Ell ipta 200-25 Mcg Inh) 1 EACH blister with device Discontinued 1 PUFFS IH Once Per Day August 10, 2018 12:30pm February 01, 2019 7:30am Pantoprazole Discontinued 40 MG PO DAILY@0700 90 August 10, 2018 2:35pm September 07, 2018 10:36am Pantoprazole Discontinued 40 MG PO DAILY@0700 90 August 10, 2018 2:35pm February 01, 2019 7:57am Roflumilast (Daliresp) 500 MCG tablet Discontinued 500 MCG PO Once Per Day August 10, 2018 2:35pm September 07, 2018 10:36am Roflumilast (Daliresp) 500 MCG tablet Discontinued 500 MCG PO Once Per Day August 10, 2018 2:35pm January 19, 2019 2:41pm Albuterol Sulfate (Ventolin Hfa) 90 mcg/ actuation HFA aerosol inhaler Discontinued 2 PUFFS INH Every 4 hours November 16, 2018 3:32pm March 11:34am Roflumilast (Daliresp) 500 mcg tablet Discontinued 500 MCG PO Once Per Day January 19, 2019 2:41pm June 05, 2019 1:47pm Fluticasone Furoate-Vilanterol (Breo Ell ipta) 200-25 mcg/dose blister with device Discontinued 1 EACH IH Once Per Day February 01, 2019 7:29am June 05, 2019 1:47pm Tiotropium [place] (Spiriva With Handiha ler) 18 mcg capsule, w/inhalation device Discontinued 18 MCG INH Once Per Day February 01, 2019 7:43am June 05, 2019 1:47pm Pantoprazole Discontinued 40 MG PO DAILY@0700 90 February 01, 2019 7:57am June 05, 2019 1:47pm Albuterol Sulfate Discontinued 0 .ROUTE .COMPLEX April 04, 2019 11:34am June 05, 2019 1:16pm INHALE 2 P UFFS BY MOUTH EVERY 4 HOURS IF NEEDED. Albuterol Sulfate Active 2 PUFFS IH Q4H August 30, 2019 1:54pm Fluticasone Furoate-Vilanterol (Breo Ell ipta) 200-25 mcg/dose blister with device Discontinued 1 EACH IH Once Per Day 3 October 16, 2019 2:34pm March 05, 2020 3:29pm Tiotropium [place] (Spiriva With Handiha ler) 18 mcg capsule, w/inhalation device Active 18 MCG INH Once Per Day February 13, 2020 2:07pm Fluticasone Furoate-Vilanterol (Breo Ell ipta) 200-25 mcg/dose blister with device Active 1 EACH IH Once Per Day 3 March 05, 2020 3:29pm Problems Active Problems Medical Problem Onset Date Status Mass, chest Active Chronic obstructive lung disease Active Chest pain Active Inactive/Resolved Problems Medical Problem Onset Date Status CO2 narcosis Resolved Chronic obstructive lung disease COPD Resolved Tobacco dependence syndrome Resolved Hypoxia Resolved Respiratory failure Re solved COPD with exacerbation Resolved Procedures Procedure Date Performed Status CT Thorax with contrast February 10:57am completed Xray Chest 2 view PA/LAT February 11:19am completed Relevant Diagnostic Tests and/or Laboratory Data Laboratory Results Test Date/Time Result Interpretation Reference Range Result Comment Performing Site Blood Urea Nitrogen February 25 9:10am 20 mg/dL 9-23 [facility], [address] [place] [address] 33997 Sodium Level February 26, 2020 9:10am 138 mmol/L 132-146 [facility], [address] [place] [address] 53297 Potassium Level February 26, 2020 9:10am 4.3 mmol/L 3.5-5.5 [facility], [address] [place] [address] 81992 Chloride Level February 26, 2020 9:10am 103 mmol/l 99-109 [facility], [address] [place] [address] 52173 Carbon Dioxide Level February 25 020 9:10am 29 mmol/l 20-31 [facility], [address] [place] [address] 10619 Anion Gap February 26, 2020 9:10am 10 mmol/l 8-16 [facility], [address] [place] [address] 73597 Glucose Level February 26, 2020 9:10am 103 mg/dL 74-106 [facility], [address] [place] [address] 12051 Creatinine February 26, 2020 9:10am 0.8 mg/dL 0.5-1.1 [facility], [address] [place] [address] 40278 Glomerular Filtration Rate Calc Octo 2019 9:10am Greater than 60 ml/min ABOVE 60 [facility], [address] [place] [address] 46812 Calcium Level February 26, 2020 9:10am 9.4 mg/dL 8.5-10.1 [facility], [address] [place] [address] 25575 Diagnostic Imaging Reports Report Dictated Date/Time Dictated By Status Radiology Report February 20, 2020 12:48p m Michael Noonan MD completed [facility] [address] [place] [address] [phone] NAME SEX PT STATUS ACCOUNT NUMBER [place] REG REF [id number] ORDERING PHYSICIAN LOCATION MEDICAL RECORD NO. Xiao Payan MD RAD [id number] ATTENDING PHYSICIAN DATE OF DATE OF EXAM/TIME Xiao Payan MD 1955 02/20/201218 TYPE / EXAM Xray Chest 2 view PA/LAT REASON FOR EXAM chest pain COMPARISON: October 26, 2017 FINDINGS: The cardiac and mediastinal silhouettes are within normal limits. Slightly depressed the AP diameter of the thorax suggest hyperinflation. No focal pulmonary consolidation is seen. However, small pleural effusion is seen in the right lung base. Obscuration of the medial aspect right hemidiaphragm may be on the basis of subsegmental atelectasis at the right lung base. Left lung is essentially clear. Early degenerative changes are seen in the midthoracic spine. No acute osseous abnormality is present. IMPRESSION: 1. Slight hyperinflation of the lungs. 2. Small pleural effusion on the right. 3. Subsegmental atelectasis at the right lung base, medially. Reported By Michael Noonan MD on 02/20/20 1248 Signed By Michael Noonan MD on 02/20/20 1251 Date Time CC: Michael Noonan MD; Xiao Payan MD Techn: [id number] Trans Dt/Tm: Trans by: DT Prt Dt/Tm: [id number]: Total DLP = 0.00 mGy-cm Fluoroscopy Time (in secs): Radiology Report February 26, 2020 7:28pm Jose Gaming MD completed [facility] [address] [place] [address] [phone] NAME SEX PT STATUS ACCOUNT NUMBER [place]ONA [place] REG REF [id number] ORDERING PHYSICIAN LOCATION MEDICAL RECORD NO. Xiao Payan MD LAB [id number] ATTENDING PHYSICIAN DATE OF DATE OF EXAM/TIME Xiao Payan MD 1955 02/26/201156 TYPE / EXAM CT Thorax with contrast REASON FOR EXAM chest pain, ex-smoker Clinical History/Indication for Exam: chest pain, ex-smoker CT chest with contrast 02/26/2020 Clinical information: Chest pain, ex-smoker. Technique: Postcontrast CT chest. Coronal and sagittal reconstructions. 75 cc of Isovue-300 contrast utilized. Comparison: Chest x-ray dated 02/20/2020 Findings: There are emphysematous changes in the lungs. At the right apex, there is also some apical bronchiectasis and mild asymmetric opacity favoring apical pleural thickening or fibrosis over a lesion. On image 15 this measures approximately 2.2 x 1 cm. There is no bone destruction of the adjacent ribs and there is no rib sclerosis. Elsewhere, There is no infiltrate, pleural effusion, or pneumothorax. There is a right medial diaphragmatic hernia with a small quantity of fat herniating into the right lung base. Heart size is normal. There is coronary calcification. Aorta is normal in caliber. Centered in the left subcarinal and posterior mediastinal region, there is an ill-defined mass which on image 61 measures approximately 4 x 2.8 cm. Mass contacts the anterior margin of the descending thoracic aorta and directly abuts and narrows the left mainstem bronchus and occludes a portion of the mid lung origin segmental bronchus for a short segment. There is also contact of portions of the left main pulmonary artery and a portion of the left pulmonary vein in this region. This indicates neoplasm. This should be amenable to bronchoscopy evaluation. The visualized thyroid appears unremarkable. In the upper abdomen, there is an ill-defined mass with subtle hyperdensity surrounding in the right hepatic lobe indicating metastatic disease. This measures approximately 3.1 x 2.8 cm. Please note the liver is only partially imaged. There is background fatty liver attenuation. There is an enlarged right retrocrural lymph node at 1.1 cm concerning for metastatic disease as well. No visible lytic, blastic, or bone destructive processes although a bone scan would better assess. Impression: 1. 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 See above for full discussion. 2. Metastatic disease to the liver and likely right retrocrural lymph node. 3. Right apical findings most likely chronic although if needed this could be further assessed with a PET scan given the other findings in this case. 4. Background emphysematous changes. 5. No pleural effusions. Automatic exposure control was used as a dose lowering technique. Contrast Type: isovue 300. Contrast Volume: 75cc REPORT SIGNATURE ON FILE 02/26/2020 (19:28 Eastern Time ) Signed by: Jose Gaming M.D. Reported By Jose Gaming MD on 02/26/201927 Signed By Jose Gaming MD on 02/26/201927 Date Time CC: Jose Gaming MD; Xiao Payan MD Techn: [id number] Trans Dt/Tm: Trans by: DT Prt Dt/Tm: [id number]: Total DLP = 160.00 mGy-cm [id number]: Total Radiation Dose = 2.0800 mSv Lifetime Dose: 2.0800 mSv Health Concerns Health Concerns may be documented in an alternate section. Advance Directives Advance Directive Response Recorded Date/Time Advanced Directive No Jesusita obregon 2017 9:00pm Advance Directives on File or in chart? No June 05, 2019 1:44pm Does Patient have a DNR? No June 05, 2019 1:44pm Healthcare Proxy Yes Fredy contreras 2019 1:44pm Health Care Proxy Name Melvin [place] March 21, 2014 4:50pm Health Care Proxy Phone Number [phone] March 21, 2014 4:50pm Living Will No May [id number] 1:44pm Chief Complaint and Reason for Visit Chief Complaint COPD COPD Shortness of breath follow-up Medicare Annual Wellness subsequent J44.9,R07.9 CHEST PAIN, EX SMOKER Chest discomfort Reason for Visit Chest pain Chronic obstructive lung disease Chest pain Chronic obstructive lung disease Mass, chest Encounters Encounter Location(s) Ar rival/Admit Date Discharge/Depart Date Provider(s) Departed Physician/Provider Office Visit [facility] June 05, 2019 12:57pm June 05, 2019 1:53pm Xiao Payan MD Departed Physician/Provider Office Visit [facility] December 04, 2019 12:04pm December 04, 2019 12:48pm Xiao Payan MD Registered Outpatient [facility] December 13, 2019 6:09am Xiao Payan MD Departed Physician/Provider Office Visit [facility] February 05, 2020 1:56pm February 05, 2020 2:30pm Xiao Payan MD Registered Referred [facility] February 20, 2020 11:15am Xiao Payan MD Registered Referred [facility] February 26, 2020 8:55am Xiao Payan MD Departed Physician/Provider Office Visit [facility] March 11, 2020 2:20pm March 11, 2020 3:50pm Xiao Payan MD Recent Diagnosis Onset Date Chest pain Chronic obstructive lung disease Chest pain Chronic obstructive lung disease Mass, chest Assessments Diagnosis Onset Date Res olution Status Chest pain chronic Chronic obstructive lung disease chronic Chest pain chronic Chronic obstructive lung disease chronic Mass, chest acute Family History Relationship Condition A ge at Onset Recorded Date/Time Not Specified Malignant neoplasm Unknown Not Specified Diabetes mellitus Unknown Lupus Unknown Functional Status No Functional Status information available Goals Goals may be documented in an alternate section. Immunizations Immunization Event Date Not Given Reason Dose Number Library Director Lot Number Vaccine Information Statement (VIS) Deta il influenza, injectable, quadriv Octob er 2019 pneumococcal conjugate PCV 13 Octobe r 2013 influenza vaccine, inactivated Septe mber 2013 [id number] influenza vaccine, inactivated Octob er 2013 influenza vaccine, inactivated Octob er 2014 influenza vaccine, inactivated Novem mundo 2015 [id number] influenza vaccine, inactivated Octob er 2017 pneumococcal polysaccharide PPV23 vaccine February 05, 2014 [id number] pneumococcal polysaccharide PPV23 vaccine May 16, 2015 [id number] tetanus, diphtheria, acell pertussis 7yrs &up November 12, 2014 [id number] Mental Status No Mental Status Information Available Medical Equipment No Medical Equipment Information available Insurance Providers Guarantor RONA [place] Address [address] [phone] Contact Info. Home Phone: Payer Policy Id Coverage Id Subscriber's Name Subscriber Id Effective Date Expiration Date [employer] [id number] RONA [place] FELIX [id number] BC/BS [facility] [id number] RONA [place] FELIX [id number] [facility] RONA [place] FELIX [id number] BC/BS [place] [id number] RONA [place] FELIX [id number] 2014 BC/BS OF [facility] [id number] RONA [place] FELIX [id number] MEDICAID Self Pay Self N/A Plan of Treatment 1. Patient will continue his current medication regimen. 2. He will follow up with this office if his symptoms worsen. see in 6 months. 1. Stool studied ordered to r/o H. pylori as cause of chest pain or possible ref ractory GERD. 2. Given his risk factors, patient will schedule a stress test this week and fol low up with this office in 2 weeks or sooner if his symptoms worsen. If stress test is normal and still has pain despite acid suppression , consider endoscopy Future Tests Future scheduled test information is unavailable Pending Tests Pending diagnostic test information is unavailable Future Visits Future appointment information is unavailable Referrals to Other Providers Reason for Referral Referral Start Date Provider Provider Conta ct Information Provider Address R07.9 - Chest pain, unspecified February 07, 2020 Disease [facility] [place] [address] Future Procedures Future procedure information is unavailable Future Medications Future medication information is unavailable Patient Instructions Patient instructions are unavailable Social History Smoking Status Status Date of Observation Former smoker June 05, 2019 1:4 4pm Observation Status Observation Response Jose e of Response Smoking Status Former smoker June 05, 2019 1:44pm Alcohol Use No October 6:18pm Substance Use No October 262017 10:25pm Inhalant Use No October 10:25pm When did patient quit smoking? 02/05/14. February 28, 2014 9:18am Assigned Sex Male Vital Signs Vital Reading Result Ref erence Range Collection Date/Time Height 67.5 [in_i] June 05, 2019 1:17pm Weight 194.00 [lb_av] June 05, 2019 1:17pm Heart Rate 80 /min 60-100 June 05, 2019 1:17pm Respiratory rate 20 /min -June 05, 2019 1:17pm BP Systolic 130 mm[Hg] June 05, 2019 1:17pm BP Diastolic 60 mm[Hg] June 05, 2019 1:17pm BMI (Body Mass Index) 29.9 kg/m2 June 05, 2019 1:17pm Height 67.5 [in_i] December 04, 2019 1:01pm Weight 175.00 [lb_av] December 04, 2019 1:01pm Body Temperature 98.2 [degF] 97.6-99.5 December 04, 2019 1:01pm Heart Rate 76 /min 60-100 December 04, 2019 1:01pm Respiratory rate 16 /min -December 04, 2019 1:01pm BP Systolic 140 mm[Hg] December 04, 2019 1:01pm BP Diastolic 80 mm[Hg] December 04, 2019 1:01pm BMI (Body Mass Index) 27.0 kg/m2 December 04, 2019 1:01pm Height 67.5 [in_i] February 05, 2020 3:05pm Weight 177.00 [lb_av] February 05, 2020 3:05pm Body Temperature 97.8 [degF] 97.6-99.5 February 05, 2020 3:05pm Heart Rate 72 /min 60-100 February 05, 2020 3:05pm Respiratory rate 20 /min -February 05, 2020 3:05pm BP Systolic 154 mm[Hg] February 05, 2020 3:05pm BP Diastolic 78 mm[Hg] February 05, 2020 3:05pm BMI (Body Mass Index) 27.3 kg/m2 February 05, 2020 3:05pm Height 67.5 [in_i] March 11, 2020 2:40pm Weight 160.00 [lb_av] March 11, 2020 2:40pm Body Temperature 98.1 [degF] 97.6-99.5 March 11, 2020 2:40pm Heart Rate 72 /min 60-100 March 11, 2020 2:40pm Respiratory rate 20 /min 12-24 March 11, 2020 2:40pm BP Systolic 120 mm[Hg] March 11, 2020 2:40pm BP Diastolic 70 mm[Hg] March 11, 2020 2:40pm BMI (Body Mass Index) 24.7 kg/m2 March 11, 2020 2:40pm
--- OUTSIDE RECORDS SUMMARY | 2020-05-24 10:33 | CCD ---
Author Author [facility] Organization [facility] Address Unknown Phone Unavailable Care Team Providers Care Cobol Developer Name Role Phone Faisal POWERS MD Unavailable Unavailable Faisal POWERS MD Unavailable Unavailable Faisal POWERS MD Unavailable Unavailable Faisal POWERS MD Unavailable Unavailable Faisal POWERS MD Unavailable Unavailable Faisal POWERS MD Unavailable Unavailable Faisal POWERS MD Unavailable Unavailable Faisal POWERS MD Unavailable Unavailable Faisal POWERS MD Unavailable Unavailable Faisal POWERS MD Unavailable Unavailable Faisal POWERS MD Unavailable Unavailable Faisal POWERS MD Unavailable Unavailable Faisal POWERS MD Unavailable Unavailable Faisal POWERS MD Unavailable Unavailable Faisal POWERS MD Unavailable Unavailable Faisal POWERS MD Unavailable Unavailable Faisal POWERS MD Unavailable Unavailable Faisal POWERS MD Unavailable Unavailable Faisal POWERS MD Unavailable Unavailable Faisal POWERS MD Unavailable Unavailable Faisal POWERS MD Unavailable Unavailable Faisal POWERS MD Unavailable Unavailable Faisal POWERS MD Unavailable Unavailable Faisal POWERS MD Unavailable Unavailable Faisal POWERS MD Unavailable Unavailable Faisal POWERS MD Unavailable Unavailable Faisal POWERS MD Unavailable Unavailable Faisal POWERS MD Unavailable Unavailable Faisal POWERS MD Unavailable Unavailable Faisal POWERS MD Unavailable Unavailable Faisal POWERS MD Unavailable Unavailable Faisal POWERS MD Unavailable Unavailable Faisal POWERS MD Unavailable Unavailable Faisal POWERS MD Unavailable Unavailable Faisal POWERS MD Unavailable Unavailable Faisal POWERS MD Unavailable Unavailable Faisal POWERS MD Unavailable Unavailable Faisal POWERS MD Unavailable Unavailable Faisal POWERS MD Unavailable Unavailable Faisal POWERS MD Unavailable Unavailable Fiasal POWERS MD Unavailable Unavailable Faisal POWERS MD Unavailable Unavailable Faisal POWERS MD Unavailable Unavailable Faisal POWERS MD Unavailable Unavailable Faisal POWERS MD Unavailable Unavailable Faisal POWERS MD Unavailable Unavailable Faisal POWERS MD Unavailable Unavailable Faisal POWERS MD Unavailable Unavailable Faisal POWERS MD Unavailable Unavailable Faisal POWERS MD Unavailable Unavailable Faisal POWERS MD Unavailable Unavailable Faisal POWERS MD Unavailable Unavailable Faisal POWERS MD Unavailable Unavailable Faisal POWERS MD Unavailable Unavailable Faisal POWERS MD Unavailable Unavailable Faisal POWERS MD Unavailable Unavailable Faisal POWERS MD Unavailable Unavailable Faisal POWERS MD Unavailable Unavailable Faisal POWERS MD Unavailable Unavailable Faisal POWERS MD Unavailable Unavailable Faisal POWERS MD Unavailable Unavailable Faisal POWERS MD Unavailable Unavailable Faisal POWERS MD Unavailable Unavailable Faisal POWERS MD Unavailable Unavailable Faisal POWERS MD Unavailable Unavailable Faisal POWERS MD Unavailable Unavailable Faisal POWERS MD Unavailable Unavailable Faisal POWERS MD Unavailable Unavailable Faisal POWERS MD Unavailable Unavailable Faisal POWERS MD Unavailable Unavailable Faisal POWERS MD Unavailable Unavailable Faisal POWERS MD Unavailable Unavailable Faisal POWERS MD Unavailable Unavailable Faisal POWERS MD Unavailable Unavailable Faisal POWERS MD Unavailable Unavailable Faisal POWERS MD Unavailable Unavailable Faisal POWERS MD Unavailable Unavailable Faisal POWERS MD Unavailable Unavailable Faisal POWERS MD Unavailable Unavailable Faisal POWERS MD Unavailable Unavailable Faisal POWERS MD Unavailable Unavailable Faisal POWERS MD Unavailable Unavailable Faisal POWERS MD Unavailable Unavailable Faisal POWERS MD Unavailable Unavailable Faisal POWERS MD Unavailable Unavailable Faisal POWERS MD Unavailable Unavailable Faisal POWERS MD Unavailable Unavailable Faisal POWERS MD Unavailable Unavailable Faisal POWERS MD Unavailable Unavailable Faisal POWERS MD Unavailable Unavailable Faisal POWERS MD Unavailable Unavailable Faisal POWERS MD Unavailable Unavailable Faisal POWERS MD Unavailable Unavailable Faisal POWERS MD Unavailable Unavailable POWERS, Faisal COLEMAN MD Unavailable Unavailable POWERS, Faisal COLEMAN MD Unavailable Unavailable POWERS, Faisal COLEMAN MD Unavailable Unavailable Pisaniello, Zunilda Hagen MD Unavailable Unavailable Pisaniello, Zunilda Hagen MD Unavailable Unavailable Pisaniello, Zunilda Hagen MD Unavailable Unavailable Pisaniello, Zunilda Hagen MD Unavailable Unavailable Pisaniello, Zunilda Hagen MD Unavailable Unavailable Pisaniello, Zunilda Hagen MD Unavailable Unavailable Pisaniello, Zunilda Hagen MD Unavailable Unavailable Pisaniello, Zunilda Hagen MD Unavailable Unavailable Pisaniello, Zunilda Hagen MD Unavailable Unavailable Pisaniello, Zunilda Hagen MD Unavailable Unavailable Pisaniello, Zunilda Hagen MD Unavailable Unavailable Pisaniello, Zunilda Hagen MD Unavailable Unavailable Pisaniello, Zunilda Hagen MD Unavailable Unavailable Pisaniello, Zunilda Hagen MD Unavailable Unavailable Pisaniello, Zunilda Hagen MD Unavailable Unavailable Pisaniello, Zunilda Hagen MD Unavailable Unavailable Pisaniello, Zunilda Hagen MD Unavailable Unavailable Pisaniello, Zunilda Hagen MD Unavailable Unavailable Pisaniello, Zunilda Hagen MD Unavailable Unavailable Pisaniello, Zunilda Hagen MD Unavailable Unavailable Pisaniello, Zunilda Hagen MD Unavailable Unavailable Pisaniello, Zunilda Hagen MD Unavailable Unavailable Pisaniello, Zunilda Hagen MD Unavailable Unavailable Pisaniello, Zunilda Hagen MD Unavailable Unavailable Pisaniello, Zunilda Hagen MD Unavailable Unavailable Pisaniello, Zunilda Hagen MD Unavailable Unavailable Pisaniello, Zunilda Hagen MD Unavailable Unavailable Pisaniello, Zunilda Hagen MD Unavailable Unavailable Pisaniello, Zunilda Hagen MD Unavailable Unavailable Pisaniello, Zunilda Hagen MD Unavailable Unavailable Pisaniello, Zunilda Hagen MD Unavailable Unavailable Pisaniello, Zunilda Hagen MD Unavailable Unavailable Pisaniello, Zunilda Hagen MD Unavailable Unavailable Pisaniello, Zunilda Hagen MD Unavailable Unavailable Pisaniello, Zunilda Hagen MD Unavailable Unavailable Pisaniello, Zunilda Hagen MD Unavailable Unavailable Pisaniello, Zunilda Hagen MD Unavailable Unavailable Pisaniello, Zunilda Hagen MD Unavailable Unavailable Pisaniello, Zunilda Hagen MD Unavailable Unavailable Pisaniello, Zunilda Hagen MD Unavailable Unavailable Pisaniello, Zunilda Hagen MD Unavailable Unavailable Pisaniello, Zunilda Hagen MD Unavailable Unavailable Pisaniello, Zunilda Hagen MD Unavailable Unavailable Pisaniello, Zunilda Hagen MD Unavailable Unavailable Pisaniello, Zunilda Hagen MD Unavailable Unavailable Pisaniello, Zunilda Hagen MD Unavailable Unavailable Pisaniello, Zunilda Hagen MD Unavailable Unavailable Pisaniello, Zunilda Hagen MD Unavailable Unavailable Pisaniello, Zunilda Hagen MD Unavailable Unavailable Pisaniello, Zunilda Hagen MD Unavailable Unavailable Pisaniello, Zunilda Hagen MD Unavailable Unavailable Pisaniello, Zunilda Hagen MD Unavailable Unavailable Pisaniello, Zunilda Hagen MD Unavailable Unavailable Pisaniello, Zunilda Hagen MD Unavailable Unavailable Pisaniello, Zunilda Hagen MD Unavailable Unavailable Pisaniello, Zunilda Hagen MD Unavailable Unavailable Pisaniello, Zunilda Hagen MD Unavailable Unavailable Pisaniello, Zunilda Hagen MD Unavailable Unavailable Pisaniello, Zunilda Hagen MD Unavailable Unavailable Pisaniello, Zunilda Hagen MD Unavailable Unavailable LlanesGrant MD Unavailable Unavailable Grant Llanes MD Unavailable Unavailable Grant Llanes MD Unavailable Unavailable Grant Llanes MD Unavailable Unavailable LlanesGrant MD Unavailable Unavailable LlanesGrant MD Unavailable Unavailable LlanesGrant MD Unavailable Unavailable LlanesGrant MD Unavailable Unavailable LlanesGrant MD Unavailable Unavailable Grant Llanes MD Unavailable Unavailable Grant Llanes MD Unavailable Unavailable Grant Llanes MD Unavailable Unavailable LlanesGrant MD Unavailable Unavailable LlanesGrant MD Unavailable Unavailable LlanesGrant MD Unavailable Unavailable Grant Llanes MD Unavailable Unavailable Grant Llanes MD Unavailable Unavailable Grant Llanes MD Unavailable Unavailable Grant Llanes MD Unavailable Unavailable Grant Llanes MD Unavailable Unavailable Grant Llanes MD Unavailable Unavailable Grant Llanes MD Unavailable Unavailable Grant Llanes MD Unavailable Unavailable Grant Llanes MD Unavailable Unavailable Grant Llanes MD Unavailable Unavailable LlanesGrant MD Unavailable Unavailable LlanesGrant MD Unavailable Unavailable Grant Llanes MD Unavailable Unavailable Grant Llanes MD Unavailable Unavailable Grant Llanes MD Unavailable Unavailable Grant Llanes MD Unavailable Unavailable Grant Llanes MD Unavailable Unavailable LlanesGrant MD Unavailable Unavailable LlanesGrant MD Unavailable Unavailable LlanesGrant MD Unavailable Unavailable LlanesGrant MD Unavailable Unavailable Grant Llanes MD Unavailable Unavailable Grant Llanes MD Unavailable Unavailable Grant Llanes MD Unavailable Unavailable Grant Llanes MD Unavailable Unavailable Grant Llanes MD Unavailable Unavailable LlanesGrant MD Unavailable Unavailable LlanesGrant MD Unavailable Unavailable LlanesGrant MD Unavailable Unavailable LlanesGarnt MD Unavailable Unavailable Llanes, Grant Lou MD Unavailable Unavailable Llanes, Grant Lou MD Unavailable Unavailable Llanes, Grant Lou MD Unavailable Unavailable Llanes, Grant Lou MD Unavailable Unavailable Llanes, Grant Lou MD Unavailable Unavailable Llanes, Grant Lou MD Unavailable Unavailable Llanes, Grant Lou MD Unavailable Unavailable Llanes, Grant Lou MD Unavailable Unavailable Llanes, Grant Lou MD Unavailable Unavailable Llanes, Grant Lou MD Unavailable Unavailable Llanes, Grant Lou MD Unavailable Unavailable Llanes, Grant Lou MD Unavailable Unavailable Llanes, Grant Lou MD Unavailable Unavailable Llanes, Grant Lou MD Unavailable Unavailable Llanes, Grant Lou MD Unavailable Unavailable Llanes, Grant Lou MD Unavailable Unavailable Llanes, Grant Lou MD Unavailable Unavailable Llanes, Grant Lou MD Unavailable Unavailable Llanes, Grant Lou MD Unavailable Unavailable Llanes, Grant Lou MD Unavailable Unavailable Llanes, Grant Lou MD Unavailable Unavailable Llanes, Grant Lou MD Unavailable Unavailable Llanes, Grant Lou MD Unavailable Unavailable Llanes, Grant Lou MD Unavailable Unavailable Llanes, Grant Lou MD Unavailable Unavailable Llanes, Grant Lou MD Unavailable Unavailable Llanes, Grant Lou MD Unavailable Unavailable Llanes, Grant Lou MD Unavailable Unavailable Llanes, Grant Lou MD Unavailable Unavailable Llanes, Grant Lou MD Unavailable Unavailable Llanes, Grant Lou MD Unavailable Unavailable Llanes, Grant Lou MD Unavailable Unavailable Llanes, Grant Lou MD Unavailable Unavailable Llanes, Grant Lou MD Unavailable Unavailable Llanes, Grant Lou MD Unavailable Unavailable Llanes, Grant Lou MD Unavailable Unavailable Llanes, Grant Lou MD Unavailable Unavailable Llanes, Grant Lou MD Unavailable Unavailable Llanes, Grant Lou MD Unavailable Unavailable Llanes, Grant Lou MD Unavailable Unavailable Llanes, Grant Lou MD Unavailable Unavailable Llanes, Grant Lou MD Unavailable Unavailable Llanes, Grant Lou MD Unavailable Unavailable Llanes, Grant Lou MD Unavailable Unavailable Llanes, Grant Lou MD Unavailable Unavailable Llanes, Grant Lou MD Unavailable Unavailable Llanes, Grant Lou MD Unavailable Unavailable Llanes, Grant Lou MD Unavailable Unavailable Llanes, Grant Lou MD Unavailable Unavailable Llanes, Grant Lou MD Unavailable Unavailable Llanes, Grant Lou MD Unavailable Unavailable Llanes, Grant Lou MD Unavailable Unavailable Llanes, Grant Lou MD Unavailable Unavailable Llanes, Grant Lou MD Unavailable Unavailable Llanes, Grant Lou MD Unavailable Unavailable Re-disclosure Warning The records that you are about to access may contain information from federally-assisted alcohol or drug abuse programs. If such information is present, then the following federally mandated warning applies: This information has been disclosed to you from records protected by federal confidentiality rules (42 CFR part 2). The federal rules prohibit you from making any further disclosure of this information unless further disclosure is expressly permitted by the written consent of the person to whom it pertains or as otherwise permitted by 42 CFR part 2. A general authorization for the release of medical or other information is NOT sufficient for this purpose. The Federal rules restrict any use of the information to criminally investigate or prosecute any alcohol or drug abuse patient.The records that you are about to access may contain highly sensitive health information, the redisclosure of which is protected by Article 27-F of the [facility] Public Health law. If you continue you may have access to information: Regarding HIV / AIDS; Provided by facilities licensed or operated by the [facility] Office of Mental Health; or Provided by the [facility] Office for People With Developmental Disabilities. If such information is present, then the following [facility] mandated warning applies: This information has been disclosed to you from confidential records which are protected by state law. State law prohibits you from making any further disclosure of this information without the specific written consent of the person to whom it pertains, or as otherwise permitted by law. Any unauthorized further disclosure in violation of state law may result in a fine or fdc sentence or both. A general authorization for the release of medical or other information is NOT sufficient authorization for further disc losure. Family History Family Member Name Family Member Gender Family Member Status Date o f Status Description Data Source(s) Unknown Condition [facility] Unknown Condition [facility] Unknown Condition [facility] Encounters Encounter Providers Location Date Indications Data Source(s ) Outpatient Attender: Anish Drake/Leni/R elva 04/08/2020 09:00:00 AM EST [facility] ([facility]) Outpatient Admitter: Anish Llanes MDReferrer: Anish moore MD 04/01/2020 12:00:00 AM EST Secondary malignant neoplasm of unspecified lung [facility] Secondary malignant neoplasm of unspecif ied lung Outpatient Attender: Anish Drake/Leni/Luis stevenson 03/19/2020 01:00:00 PM EST [facility] ([facility]) Attender: JARED POWERS MD 03/12/2020 08:20:11 PM EST Gastroenterology and Hepatology [facility] Outpatient Attender: Xiao Payan MD 03/11/2020 06:13 :00 PM EST R22.2 [facility] R22.2 Outpatient Attender: Xiao Payan MDReferrer: Xiao delatorre MD 03/11/2020 02:20:00 PM EST - 03/11/2020 03:50:00 PM EST [facility] Outpatient Attender: Xiao Payan MD 02/26/2020 09:55:00 AM EDT CHEST PAIN, EX SMOKER [facility] CHEST PAIN, EX SMOKER Outpatient Attender: Xiao Payan MD 02/20/2020 12:15:00 PM EDT J44.9,R07.9 [facility] J44.9,R07.9 Outpatient Attender: Xiao Payan MDReferrer: Xiao delatorre MD 02/05/2020 02:56:00 PM EDT - 02/05/2020 03:30:00 PM EDT [facility] Outpatient Attender: Xiao Payan MD 12/13/2019 07:09 :00 AM EDT SOB [facility] SOB Outpatient Attender: Xiao Payan MDReferrer: Xiao delatorre MD 12/04/2019 01:04:00 PM EDT - 12/04/2019 01:48:00 PM EDT [facility] Outpatient Attender: Xiao Payan MDReferrer: Xiao delatorre MD 06/05/2019 12:57:00 PM EST - 06/05/2019 01:53:00 PM [facility] Immunizations Vaccine Date Status Description Data Source(s) This CVX code allows reporting of a vacc ination when formulation is unknown (for example, when recording a Influenza vaccination when noted on a vaccination card) 02/09/2020 12:00:00 AM EDT completed influenza, injectable , quadriv [facility] Medications Medication Brand Name Start Date Product Form Dose Route Admi nistrative Instructions Pharmacy Instructions Status Indications Reaction Description Data Source(s) fluticasone furoate 0.2 MG/ACTUAT / vaughn nterol 0.025 MG/ACTUAT Dry Powder Inhaler Fluticasone Furoate-Vilanterol (Breo Ellipta) 200-25 mcg/dose blister with device Fluticasone Furoate-Vilanterol (Breo Ell ipta) 200-25 mcg/dose blister with device 03/05/2020 04:29:51 PM EDT 1 EACH co mpleted [facility] tiotropium 0.018 MG/ACTUAT Inhalant Powd er Tiotropium [place] (Spiriva With Handihaler) 18 mcg capsule, w/inhalation device Tiotropium [place] (Spiriva With Handihaler) 18 mcg capsule, w/inhalation device 02/13/2020 03:07:18 PM EDT 18 MCG completed [facility] Famotidine 20 MG Oral Tablet Famotidine (Heartburn Relief (Famotidine)) 20 mg tablet Famotidine (Heartburn Relief (Famotidine)) 20 mg table t 02/05/2020 03:18:48 PM EDT 20 MG active [facility] Famotidine 20 MG Oral Tablet Famotidine (Heartburn Relief (Famotidine)) 20 mg tablet Famotidine (Heartburn Relief (Famotidine)) 20 mg table t 02/05/2020 03:18:48 PM EDT 20 MG active [facility] pantoprazole 40 MG Delayed Release Oral Tablet Pantoprazole Pantoprazole 12/04/2019 01:40:24 PM EDT 40 MG active [facility] pantoprazole 40 MG Delayed Release Oral Tablet Pantoprazole Pantoprazole 12/04/2019 01:40:24 PM EDT 40 MG active [facility] tiotropium 0.018 MG/ACTUAT Inhalant Powd er Tiotropium [place] (Spiriva With Handihaler) 18 mcg capsule, w/inhalation device Tiotropium [place] (Spiriva With Handihaler) 18 mcg capsule, w/inhalation device 12/04/2019 01:40:16 PM EDT 18 MCG completed [facility] tiotropium 0.018 MG/ACTUAT Inhalant Powd er Tiotropium [place] (Spiriva With Handihaler) 18 mcg capsule, w/inhalation device Tiotropium [place] (Spiriva With Handihaler) 18 mcg capsule, w/inhalation device 12/04/2019 01:40:16 PM EDT 18 MCG active [facility] Roflumilast 0.5 MG Oral Tablet Roflumilast (Daliresp) 500 mcg tablet Roflumilast (Daliresp) 500 mcg tablet 12/04/2019 01:40:10 PM EDT 500 MCG active [facility] Roflumilast 0.5 MG Oral Tablet Roflumilast (Daliresp) 500 mcg tablet Roflumilast (Daliresp) 500 mcg tablet 12/04/2019 01:40:10 PM EDT 500 MCG active [facility] fluticasone furoate 0.2 MG/ACTUAT / vaughn nterol 0.025 MG/ACTUAT Dry Powder Inhaler Fluticasone Furoate-Vilanterol (Breo Ellipta) 200-25 mcg/dose blister with device Fluticasone Furoate-Vilanterol (Breo Ell ipta) 200-25 mcg/dose blister with device 10/16/2019 03:34:15 PM EDT 1 EACH co mpleted [facility] fluticasone furoate 0.2 MG/ACTUAT / vaughn nterol 0.025 MG/ACTUAT Dry Powder Inhaler Fluticasone Furoate-Vilanterol (Breo Ellipta) 200-25 mcg/dose blister with device Fluticasone Furoate-Vilanterol (Breo Ell ipta) 200-25 mcg/dose blister with device 10/16/2019 03:34:15 PM EDT 1 EACH ac tive [facility] Albuterol Sulfate 08/30/2019 02:54:49 PM EDT 2 PUFFS active [facility] Albuterol Sulfate 08/30/2019 02:54:49 PM EDT 2 PUFFS active [facility] Varicella-Zoster Ge-As01b (Pf) (Shingrix (Pf)) 50 mcg/0.5 mL suspension for reconstitution 06/05/2019 01:47:36 PM EST 0.5 ML a ctive [facility] Varicella-Zoster Ge-As01b (Pf) 06/05/2019 01:47:36 PM EST 0.5 ML active [facility] Varicella-Zoster Ge-As01b (Pf) (Shingrix (Pf)) 50 mcg/0.5 mL suspension for reconstitution 06/05/2019 01:47:36 PM EST 0.5 ML a [facility] tiotropium 0.018 MG/ACTUAT Inhalant Powd er Tiotropium [place] (Spiriva With Handihaler) 18 mcg capsule, w/inhalation device Tiotropium [place] (Spiriva With Handihaler) 18 mcg capsule, w/inhalation device 06/05/2019 01:46:55 PM EST 18 MCG completed [facility] tiotropium 0.018 MG/ACTUAT Inhalant Powd er Tiotropium [place] (Spiriva With Handihaler) 18 mcg capsule, w/inhalation device Tiotropium [place] (Spiriva With Handihaler) 18 mcg capsule, w/inhalation device 06/05/2019 01:46:55 PM EST 18 MCG completed [facility] tiotropium 0.018 MG/ACTUAT Inhalant Powder Tiotropium [place] Tiotropium [place] 06/05/2019 01:46:55 PM EST 18 MCG active [facility] Roflumilast 0.5 MG Oral Tablet Roflumilast (Daliresp) 500 mcg tablet Roflumilast (Daliresp) 500 mcg tablet 06/05/2019 01:46:47 PM EST 500 MCG completed [facility] Roflumilast 0.5 MG Oral Tablet Roflumilast 06/05/2019 01:46:47 PM EST 500 MCG active [facility] Roflumilast 0.5 MG Oral Tablet Roflumilast (Daliresp) 500 mcg tablet Roflumilast (Daliresp) 500 mcg tablet 06/05/2019 01:46:47 PM EST 500 MCG completed [facility] pantoprazole 40 MG Delayed Release Oral Tablet Pantoprazole Pantoprazole 06/05/2019 01:46:41 PM EST 40 MG active [facility] pantoprazole 40 MG Delayed Release Oral Tablet Pantoprazole Pantoprazole 06/05/2019 01:46:41 PM EST 40 MG completed [facility] pantoprazole 40 MG Delayed Release Oral Tablet Pantoprazole Pantoprazole 06/05/2019 01:46:41 PM EST 40 MG completed [facility] fluticasone furoate 0.2 MG/ACTUAT / vaughn nterol 0.025 MG/ACTUAT Dry Powder Inhaler Fluticasone Furoate-Vilanterol (Breo Ellipta) 200-25 mcg/dose blister with device Fluticasone Furoate-Vilanterol (Breo Ell ipta) 200-25 mcg/dose blister with device 06/05/2019 01:46:35 PM EST 1 EACH co mpleted [facility] fluticasone furoate 0.2 MG/ACTUAT / vaughn nterol 0.025 MG/ACTUAT Dry Powder Inhaler Fluticasone Furoate-Vilanterol (Breo Ellipta) 200-25 mcg/dose blister with device Fluticasone Furoate-Vilanterol (Breo Ell ipta) 200-25 mcg/dose blister with device 06/05/2019 01:46:35 PM EST 1 EACH co mpleted [facility] fluticasone furoate 0.2 MG/ACTUAT / vaughn nterol 0.025 MG/ACTUAT Dry Powder Inhaler Fluticasone Furoate-Vilanterol Fluticasone Furoate-Vilanterol 06/05/2019 01:46:35 PM EST 1 EACH active [facility] Albuterol Sulfate 06/05/2019 01:16:14 PM EST 0 completed [facility] Albuterol Sulfate 06/05/2019 01:16:14 PM EST 0 completed [facility] Albuterol Sulfate 06/05/2019 01:16:14 PM EST 0 active [facility] Albuterol Sulfate 04/04/2019 11:34:28 AM EST 0 completed [facility] Albuterol Sulfate 04/04/2019 11:34:28 AM EST 0 completed [facility] Albuterol Sulfate 04/04/2019 11:34:28 AM EST 0 completed [facility] pantoprazole 40 MG Delayed Release Oral Tablet Pantoprazole Pantoprazole 02/01/2019 08:57:18 AM EDT 40 MG completed [facility] pantoprazole 40 MG Delayed Release Oral Tablet Pantoprazole Pantoprazole 02/01/2019 08:57:18 AM EDT 40 MG completed [facility] pantoprazole 40 MG Delayed Release Oral Tablet Pantoprazole Pantoprazole 02/01/2019 08:57:18 AM EDT 40 MG completed [facility] tiotropium 0.018 MG/ACTUAT Inhalant Powder Tiotropium [place] Tiotropium [place] 02/01/2019 08:43:26 AM EDT 18 MCG completed [facility] tiotropium 0.018 MG/ACTUAT Inhalant Powd er Tiotropium [place] (Spiriva With Handihaler) 18 mcg capsule, w/inhalation device Tiotropium [place] (Spiriva With Handihaler) 18 mcg capsule, w/inhalation device 02/01/2019 08:43:26 AM EDT 18 MCG completed [facility] tiotropium 0.018 MG/ACTUAT Inhalant Powd er Tiotropium [place] (Spiriva With Handihaler) 18 mcg capsule, w/inhalation device Tiotropium [place] (Spiriva With Handihaler) 18 mcg capsule, w/inhalation device 02/01/2019 08:43:26 AM EDT 18 MCG completed [facility] fluticasone furoate 0.2 MG/ACTUAT / vaughn nterol 0.025 MG/ACTUAT Dry Powder Inhaler Fluticasone Furoate-Vilanterol (Breo Ellipta) 200-25 mcg/dose blister with device Fluticasone Furoate-Vilanterol (Breo Ell ipta) 200-25 mcg/dose blister with device 02/01/2019 08:29:54 AM EDT 1 EACH co mpleted [facility] fluticasone furoate 0.2 MG/ACTUAT / vaughn nterol 0.025 MG/ACTUAT Dry Powder Inhaler Fluticasone Furoate-Vilanterol (Breo Ellipta) 200-25 mcg/dose blister with device Fluticasone Furoate-Vilanterol (Breo Ell ipta) 200-25 mcg/dose blister with device 02/01/2019 08:29:54 AM EDT 1 EACH co mpleted [facility] fluticasone furoate 0.2 MG/ACTUAT / vaughn nterol 0.025 MG/ACTUAT Dry Powder Inhaler Fluticasone Furoate-Vilanterol Fluticasone Furoate-Vilanterol 02/01/2019 08:29:54 AM EDT 1 EACH completed [facility] Roflumilast 0.5 MG Oral Tablet Roflumilast (Daliresp) 500 mcg tablet Roflumilast (Daliresp) 500 mcg tablet 01/19/2019 03:41:26 PM EDT 500 MCG completed [facility] Roflumilast 0.5 MG Oral Tablet Roflumilast (Daliresp) 500 mcg tablet Roflumilast (Daliresp) 500 mcg tablet 01/19/2019 03:41:26 PM EDT 500 MCG completed [facility] Roflumilast 0.5 MG Oral Tablet Roflumilast 01/19/2019 03:41:26 PM EDT 500 MCG completed [facility] Varicella-Zoster Ge-As01b (Pf) (Shingrix (Pf)) 50 mcg/0.5 mL suspension for reconstitution 12/05/2018 01:51:44 PM EDT 0.5 ML c ompleted [facility] Varicella-Zoster Ge-As01b (Pf) 12/05/2018 01:51:44 PM EDT 0.5 ML completed [facility] Varicella-Zoster Ge-As01b (Pf) (Shingrix (Pf)) 50 mcg/0.5 mL suspension for reconstitution 12/05/2018 01:51:44 PM EDT 0.5 ML c ompleted [facility] Albuterol Sulfate (Ventolin Hfa) 90 mcg/actuation HFA aeroso l inhaler 11/16/2018 04:32:20 PM EDT 2 PUFFS completed [facility] Albuterol Sulfate 11/16/2018 04:32:20 PM EDT 2 PUFFS completed [facility] Albuterol Sulfate (Ventolin Hfa) 90 mcg/actuation HFA aeroso l inhaler 11/16/2018 04:32:20 PM EDT 2 PUFFS completed [facility] Insurance Providers Payer name Policy type / Coverage type Policy ID Covered alliance party ID Covered alliance party's relationship to menendez Policy Menendez Plan Information MEDICARE BLUE PPO 306 [id number] SP [id number] [facility] B [id number] S VYM [id number] [facility] MEDICARE BLUE PPO G [id number] Self [id number] MEDICARE BLUE PPO [id number] SP [id number] [employer] [place] MEDIC[place] [id number] Problems, Conditions, and Diagnoses Code Display Name Description Problem Type Effective Dates Data Source(s) C78.00 Secondary malignant neoplasm of unspecif ied lung Secondary malignant neoplasm of unspecified lung Diagnosis 04/01/2020 04:40:00 PM EST [facility] Surgeries/Procedures Procedure Description Date Indications Data Source(s) Bronchospasm Evaluation 04/10/2020 12:00:00 AM EST [facility] ([facility], ) Maximum Breathing Capacity, Maximal Voluntary Ventilation 04/10/2020 12:00:00 AM EST [facility] ([facility], ) Plethysmography Determination Lung Volumes & Per Airway Resi st 04/10/2020 12:00:00 AM EST [facility] ([facility], ) DIFFUSING CAPACITY 04/10/2020 12:00:00 AM EST [facility] ([facility]) Spirometry 03/19/2020 12:00:00 AM EST M [facility] ([facility]) Computerized axial tomography of thorax with contrast (proce dure) 02/26/2020 11:57:00 AM EDT [facility] l Plain chest X-ray (procedure) 02/20/2020 12:19:35 PM E DT [facility] Results ID Date Data Source [id number] 04/29/2020 01:04:00 PM EST [facility] Name Value Range Interpretation Code Description Data Gina rce(s) Supporting Document(s) SARS coronavirus 2 RNA [Presence] in Res piratory specimen by FLORA with probe detection [facility] This lab was ordered by [facility] a nd reported by [facility]. ID Date Data Source [id number] 04/01/2020 04:45:00 PM EST [facility] ([facility], ) Name Value Range Interpretation Code Description Data Gina rce(s) Supporting Document(s) Surgical pathology study Laboratory test result [facility] ([facility]) Anatomic Molecular Pathology Report Name: RONA WASHINGTON Collection Date: 04/01/2020 00:00 Received Date: 04/22/2020 16:44 Physician(s): ANISH LLANES MD VYAS, SHIKHAR G, MD Copy To: ANISH LLANES MD Specimen(s) Received A: Liver biopsy, Formalin Block [id number] received from [facility] in [place], [place] EGFR Diagnosis TEST: EGFR gene mutations (exon 19 deletions, L858R, G719A, T790M, S768I, exon 20 insertions, L861Q) by ther[employer] Corporationreene RGQ real-time PCR RESULTS: An EGFR mutation [...] real-time qualitative PCR assay used on the [employer] instrument for the detection of seven types [...] covalently linked to a probe. Processed at [facility] [employer] [facility], [address] [place] [address] and reported at [facility], [address] [place] [address]. REFERENCES: 1. Red Garner, Yessy Figueroa, Sun Wells i. et al. EGFR-targeted therapy for non-small cell lung cancer: focus on EGFR oncogenic mutation. Int. J. Med. Sci. 2013; 10: 320. 2. Jorge A Barnett., et al. First-line gefi tinib in patients with advanced non-small cell lung cancer harboring somatic EGFR mutations. J. Clin.Oncol. 2008;15: 2442. 3. Judd GARCIA, Marysol DW, Virginiaman J et al . Epidermal growth factor receptor mutations in lung cancer. Nature Review/Cancer. 2007;0367-2028. This report may include one or more immunohistochemical stain results that use analyte specific reagents. All positive and negative controls have been reviewed by the attending pathologist and are satisfactory. The tests were developed and their performance characteristics determined by [facility] Pathology department. They have not been cleared or approved by the US Food and Drug Administration. The FDA has determined that such clearance or approval is not necessary. ID Date Data Source [id number] 04/01/2020 09:40:00 AM EST [facility] ([facility], ) Name Value Range Interpretation Code Description Data Gina rce(s) Supporting Document(s) Surgical pathology study Laboratory test result [facility] ([facility]) Addendum 2 Entered: 05/09/2020-1259 This addendum is being issued to report additional molecular results. ALK gene rearrangement (FISH): Negative ROS1 gene rearrangement (FISH): Negative EGFR gene mutation: Negative KRAS gene mutation: Negative BRAF V600E gene mutation: Negative Please see the scanned documentation for the full Molecular Diagnostics reports from [facility]. 05/09/20201258 Addendum Signed____ ALEXANDER VERMA MD 05/09/20201258 [...] if molecular testing is needed. 04/02/2020 - 152 CLINICAL DIAGNOSIS Liver mass 04/01/20201352 GROSS DIAGNOSIS Received in formalin labeled "liver biopsy" consists of multiple fragments of needle core shaped tissue measuring up to 1.2 cm in length and 0.1 cm in diameter. All in one. -SV 04/01/20201352 Signed ALEXANDER VERMA MD 04/02/2020 1527 ID Date Data Source [id number] 05/08/2020 11:22:00 AM [facility] Anatomic Molecular Pathology ReportName: RONA WASHINGTONMRN: [id number] Number: [id number] Date: 04/01/2020 00:00Received Date: 04/22/2020 16:44Physician(s): ANISH LLANES MD VYAS, SHIKHAR G,[facility] To:ANISH LLANES,[facility]imen[facility]s) ReceivedA: Liver biopsy, Formalin Block [id number] received from [facility] in [place], [place] EGFRDiagnosisTEST: EGFR gene mutations (exon 19 deletions, L858R, G719A, T790M, S768I,exon 20 insertions, L861Q) by therascreene RGQ real-time PCR RESULTS: An EGFR mutation is not detected.INTERPRETATION: NEGATIVE FOR EGFR GENE MUTATION.This test is FDA approved and intended to be used to select patients withnon-small cell lung cancer for whom EGFR tyrosine kinase inhibitor (TKI),such as afatinib, is indicated. Presence of exon 19 deletions, exon 54X044J or L861Q, exon 18 G719A or exon 20 S768I mutation is associated witha better response to TKI therapy. TKI therapeutic resistance of T790M andexon 20 insertions have been reported, and safety and efficacy of TKItherapy on these mutations have not been established. The results areadjuncts to other clinical and pathologic information available forevaluating the therapeutic response. Tumors that contain less than 20%mutation may not be detected in some mutation types by this assay. kz/jajElectronically Signed By Violeta Andrade MD, PhD AttendingPathologist 05/08/2020 11:22:59Gross DescriptionMETHODOLOGY:The therascreen EGFR RGQ PCR Kit ([employer], [place], [place]) is a real-timequalitative PCR assay used on the [employer] instrument for thedetection of seven types of mutations at EGFR oncogene. The kit requiresDNA extracted from formalin-fixed paraffin-embedded (FFPE) tissue ofnon-small cell lung cancer. The tumor area is identified by the attendingpathologist and manually mi crodissected. The assay uses Scorpionse andARMSe (Allele Refractory Mutation System) technologies, and Critical access hospitalDA-approved for clinical patient care. Allele- specific amplification isachieved by ARMS which exploits the ability of Taq DNA polymerase todistinguish between a matched and a mismatched base at the 3' end of a PCRprimer. Detection of amplification is performed using Scorpions, which arebifunctional molecules containing a PCR primer covalently linked to aprobe.Processed at [facility] [employer] [facility], [address] [place] [address] and reported at [facility], [address] [place] [address].REFERENCES:1. Red Garner, Yessy Figueroa, Sun Ballesteros. et al. EGFR-targeted therapyfor non-small cell lung cancer: focus on EGFR oncogenic mutation. Int. J. Med. Sci. 2013; 10: 320. 2. Jorge A Barnett., et al. First-line gefitinib in patients withadvanced non-small cell lung cancer harboring somatic EGFR mutations. J.Clin.Oncol. 2008;15: 2442.3. Judd GARCIA, Marysol EMANUEL, Alexia J et al. Epidermal growth factor receptormutations in lung cancer. Nature Review/Cancer. 2007;4578-1115.This report may include one or more immunohistochemical stain results thatuse analyte specific reagents. All positive and negative controls havebeen reviewed by the attending pathologist and are satisfactory. The testswere developed and their performance characteristics determined by [facility] Pathology department. They have not been cleared or approved by the USFood and Drug Administration. The FDA has determined that such clearanceor approval is not necessary. Name Value Range Interpretation Code Description Data Gina rce(s) Supporting Document(s) ID Date Data Source [id number] 05/08/2020 11:19:00 AM [facility] Anatomic Molecular Pathology ReportName: RONA WASHINGTONMRN: [id number] Number: [id number] Date: 04/01/2020 00:00Received Date: 04/22/2020 16:43Physician(s): ANISH LLANES MD VYAS, SHIKHAR G,[facility] To:ANISH LLANES,[facility]pecimen(s) ReceivedA: Liver biopsy, Formalin Block [id number] [id number] received from [facility] in [place], [place], ROS1 by FISHDiagnosisTEST:ROS1 gene rearrangements by FISH (Fluorescence in situ Hybridization).RESULT:Percent tumor cells with ROS1 gene rearrangement (break- apart and/or 5'deletion) is 4%.ISCN - nuc juan r (5'ROS1,3'ROS1)x2~5(5'ROS1 con 3'ROS1x2~5)[48/50] INTERPRETATION: NEGATIVE FOR ROS1 GENE REARRANGEMENT.15% is used as a cut-off value: d15% is positive for ROS1 generearrangements while c15% is negative. ROS1 gene rearrangements, includingbreak-apart and/or 5' deletion, can be identified in 1-2% of non-smallcell lung cancer, and are associated with better response to treatmentwith crizotinib. kg/jajElectronically Signed By Violeta Andrade MD, PhD AttendingPathologist 05/08/2020 11:19:31Gross DescriptionMETHODOLOGY:Interphase FISH is performed on paraffin embedded NSCLC utilizing thecombined Netac Molecular LSI ROS1(Silvestre) and ROS1(Tel) ROS1 Probes: 1)3'-ROS1(Silvestre), 557 kb, labeled with SpectrumGreen, and 2) 5'-ROS1(Tel),317kb, labeled with SpectrumOrange. Tumor cells with no HLD1krdipogercoegp have 2 yellow signals (fused orange and green signal).Tumor cells with ROS1 rearrangement have orange and green signal(break apart) and/or deleted orange signal (5' deletion). Hybridization iscarried out as per the stated prot ocol with no significant background orrandom probe hybridization detected. A total of 50 -100 interphase tumornuclei are examined manually by one or two scorers, depending on initialevaluation. d15% of tumor cells with ROS1 gene rearrangement is calledpositive.This test was developed and its performance characteristics weredetermined by the [facility],and it has been authorized for clinical use by [facility]. The test has not been cleared or approved by the U.S. Food andDrug Administration. The analyte specific reagents used in this assay donot require FDA approval. Processed at [facility] [employer], [address] [place] [address] and reported at [facility], [address] [place] [address].REFERENCES: 1. SCOUT Ochoa, Ailin AT, Thethomas VAUGHN et al. Identifying and Targeting BPR4Phbz Fusions in NonSmall Cell Lung Cancer. Clin Cancer Res 2012; 18(17);75083420.2. Purcell, Amrik AT. Novel Targets in Non-Small Cell Lung Cancer:ROS-1 and RET fusions. The Oncologist. 2013;18:865- 875.This report may include one or more immunohistochemical stain results thatuse analyte specific reagents. All positive and negative controls havebeen reviewed by the attending pathologist and are satisfactory. The testswere developed and their performance characteristics determined by [facility] Pathology department. They have not been cleared or approved by the USFood and Drug Administration. The FDA has determined that such clearanceor approval is not necessary. Name Value Range Interpretation Code Description Data Gina rce(s) Supporting Document(s) ID Date Data Source [id number] 05/08/2020 11:18:00 AM [facility] Anatomic Molecular Pathology ReportName: RONA WASHINGTONMRN: [id number] Number: [id number] Date: 04/01/2020 00:00Received Date: 04/22/2020 16:42Physician(s): ANISH LLANES MD BAYRON,ALEXANDER Enamorado,[facility] To:ANISH LLANES,[facility]pecimen[facility]s) ReceivedA: Liver biopsy, Formalin Block [id number]- [id number] received from [facility] in [place], [place], ALK by FISHDiagnosisTEST:ALK gene rearrangements by FISH (Fluorescence in situ Hybridization).RESULT:Percent tumor cells with ALK gene rearrangement (break- apart and/or 5'deletion) is 2%.ISCN - nuc juan r (5'ALK,3'ALK)x2~10(5'ALK con 3'ALKx2~10)[49/50] INTERPRETATION: NEGATIVE FOR ALK GENE REARRANGEMENT. 15% is used as a cut-off value: d15% is positive for ALK generearrangement while c15% is negative. ALK gene rearrangements, includingbreak apart and/or 5' deletion, can be identified in 3-7% of non-smallcell lung cancer, and are associated with better response to treatmentwith crizotinib. kg/jajElectronically Signed By Violeta Andrade MD, PhD AttendingPathologist 05/08/2020 11:18:25Gross DescriptionMETHODOLOGY:Interphase FISH is performed on paraffin embedded NSCLC utilizing theNetac Molecular ALK Break Apart FISH Probe Kit. This is a combination,direct label, dual color detection system utilizing 2 probes: 1) 3'- ALK,300 kb, labeled with SpectrumOrange, and 2) 5'-ALK, 442 kb, labeled withSpectrumGreen. Tumor cells with no ALK rearrangements have 2 yellowsignals (fused orange and green signal). Tumor with ALK rearrangement haveseparated orange and green signal (break apart) and/or deleted greensignal (5' deletion). Hybridization is carried out as per the statedprotocol with no significant background or random probe hybridizationdetected. A total of 50 -100 interphase tumor nuclei are examined manuallyby one or two scorers, depending on initial evaluation. d15% of tumorcells with ALK gene rearrangement is called positive.This FISH Probe Kit was approved by FDA for this application and has beenvalidated in the special procedure laboratory of Department of Pathology,[facility]. Processed at [facility], [address] [place] [address] and reported at [facility], [address] [place] [address]. This report may include one or more immunohistochemical stain results thatuse analyte specific reagents. All positive and negative controls havebeen reviewed by the attending pathologist and are satisfactory. The testswere developed and their performance characteristics determined by [facility] Pathology department. They have not been cleared or approved by the USFood and Drug Administration. The FDA has determined that such clearanceor approval is not necessary. Name Value Range Interpretation Code Description Data Gina rce(s) Supporting Document(s) ID Date Data Source [id number] 05/07/2020 10:06:00 AM EST [facility] Anatomic Molecular Pathology ReportName: RONA WASHINGTONMRN: [id number] Number: [id number] Date: 04/01/2020 00:00Received Date: 04/22/2020 16:46Physician(s): ANISH LLANES MD VYAS, SHIKHAR G,[facility] To:ANISH LLANES MDSpecimen(s) ReceivedA: Liver biopsy, Formalin Block [id number]- [id number] received from [facility] in [place], [place] BRAF Mutation AnalysisDiagnosisTESTS:BRAF V600E mutation (1799 T>A) at exon 15 by real time PCR.RESULTS:Wild type probe (yellow gain): Ct value and end-point fluorescence are27.09 and 0.762 respectively.Mutant probe (green gain): Ct value and end- point fluorescence are 45.00and 0.072 respectively.(Mutant probe EPF cut-off value: 0.171)INTERPRETATION:NEGATIVE FOR BRAF V600E MUTATION.BRAF V600E (1799 T>A) mutation at exon 15 is a genetic alterationidentified in a variety of neoplasms and present in approximately 3% oflung adenocarcinoma. BRAF V600E in lung adenocarcinoma might be associatedwith decreased sensitivity to EGFR inhibitor such as gefitinib, andincreased response to BRAF inhibitor such as vemurafenib. The test resultis considered positive if the Ct value (mutant probe) is less than 45 andthe EPF is higher than cut-off value. If the percentage of mutant DNA isless than 10% in a background of wild-type DNA, the mutation may not bedetected by this assay. This result is an adjunct to other clinical andpathologic information for appropriate patient management.kg/rwElectronically Signed By Violeta Andrade MD, PhD AttendingPathologist 05/07/2020 10:06:16Gross DescriptionMETHODOLOGY:BRAF V600E(1799 T>A) mutation at exon 15 is detected by real time PCRusing allele- specific TaqMan probes and performed on paraffin embeddedtissues. The tumor area is identified by the pathologist and is manuallymicrodissected. The mutant probe was labeled with a FAM-fluorophore whilethe wild-type probe with a RUSSELL-fluoro phore. The amount of fluorescentemissions rendered by specific probe hybridization was associated theamounts of PCR products, and analyzed by Gig[employer] real timeinstrument. The analytical sensitivity (or minimum percentage of mutantDNA needed) is approximately 10% given sufficient DNA input. Test development and its performance characteristics were determined bythe [facility], and has beenauthorized for clinical use by [facility]. Thetest has not been cleared or approved by the U.S. Food and DrugAdministration. The analyte specific reagents used in this assay do notrequire FDA approval. Processed at [facility] [employer] [facility], [address] [place] [address] and reported at [facility], [address] [place] [address].REFERENCES: 1. Conrad S, Barry Maria C, et al. Detection of BRAF J491Fsxafxood in colorectal cancer-comparison of automatic sequencing and realtime chemistry methodology. J Mol Diagn. 2006; 8:807594.2. Brett L, Carlos COOPER, Clinton N, et al. BRAF mutation analysis in fineneedle aspiration (FNA) cytology of the thyroid. Diagn Mol Pathol.2006;15:167585.3. Patience PK, Calos ME, Beryl M, et al. Clinical characteristics ofpatients with lung adenocarcinomas harboring BRAF mutations. J Clin Oncol.2011;29:8019-2300.This report may include one or more immunohistochemical stain results thatuse analyte specific reagents. All positive and negative controls havebeen reviewed by the attending pathologist and are satisfactory. The testswere developed and their performance characteristics determined by [facility] Pathology department. They have not been cleared or approved by the USFood and Drug Administration. The FDA has determined that such clearanceor approval is not necessary. Name Value Range Interpretation Code Description Data Gina rce(s) Supporting Document(s) ID Date Data Source [id number] 05/07/2020 10:02:00 AM [facility] Anatomic Molecular Pathology ReportName: RONA WASHINGTONMRN: [id number] Number: [id number] Date: 04/01/2020 00:00Received Date: 04/22/2020 16:45Physician(s): ANISH LLANES MD VYAS, SHIKHAR G,[facility] To:ANISH LLANES MDSpecimen(s) ReceivedA: Liver biopsy, Formalin Block [id number]- [id number] received from [facility] in [place], [place] KRAS Mutation AnalysisDiagnosisTEST:KRAS gene mutations by therascreene RGQ real-time PCR (polymerase chainreaction).RESULTS:No KRAS mutations were detected.INTERPRETATION: NEGATIVE FOR KRAS GENE MUTATION.KRAS gene mutations at codon 12 or 13 of exon 2 may be associated withresistance to therapies with anti-EGFR monoclonal antibody, tyrosinekinase inhibitors or other related agents in patients with colon or lungcancer. The seven mutations (G12S, G12R, G12C, G12D, G12A, G12V, G13D)detected by this assay account for >97% of all reported KRAS mutations.The results are adjuncts to other clinical and pathologic information forevaluating the therapeutic response.kg/rwElectronically Signed By Violeta Andrade MD, PhD AttendingPathologist 05/07/2020 10:02:23Gross DescriptionMETHODOLOGY:The therascreen KRAS RGQ PCR Kit is a real-time qualitative PCR assay usedon the [employer] instrument for the detection of seven somaticmutations in the human KRAS oncogene, using DNA extracted fromformalin-fixed paraffin-embedded (FFPE) colorectal cancer (CRC) tissue.The tumor area is identified by the pathologist and is manuallymicrodissected. The assay uses Scorpionse and ARMSe (Allele RefractoryMutation System) technologies, and is FDA-approved for clinical patientcare. Allele-specific amplification is achieved by ARMS which exploits theability of Taq DNA polymerase to distinguish between a matched and amismatched base at the 3' end of a PCR primer. Detection of amplificationis performed using Scorpions, bifunctional molecules containing a PCRprimer covalently linked to a probe.Processed at [facility], [address] [place] [address] and reported at [facility], [address] [place] [address].REFERENCES:1. SHANA Villanueva, Santosh CHIU, Elodia MR, et al. [place] Societyof Clinical Oncology provisional clinical opinion: testing for KRAS genemutations in patients with metastatic colorectal carcinoma to predictresponse to anti- epidermal growth factor receptor monoclonal antibodytherapy. J Clin Oncol 27:6033-1073, 2009. 2. Coral Sharp , Sun Sunshine , BENEDICT Warner, et al.Biomarkers predicting clinical outcome of epidermal growth factor receptor targeted therapy in metastatic colorectal cancer. J Natl Cancer Eprq062:50450832, 2009.This report may include one or more immunohistochemical stain results thatuse analyte specific reagents. All positive and negative controls havebeen reviewed by the attending pathologist and are satisfactory. The testswere developed and their performance characteristics determined by [facility] Pathology department. They have not been cleared or approved by the USFood and Drug Administration. The FDA has determined that such clearanceor approval is not necessary. Name Value Range Interpretation Code Description Data [facility] Supporting Document(s) ID Date Data Source [id number] 03/19/2020 02:58:00 PM EST [facility] ([facility], ) Name Value Range Interpretation Code Description Data [facility](s) Supporting Document(s) Inr 0.91 Normal (applies to non-numeric resul ts) [facility] ([facility], ) THERAPUTIC HUMAN INR VALUES INDICATIONS NORMAL RANGES PROPHYLAXIS/TREATMENT OF: VENOUS THROMBOSIS 2.0-3.0 PULMONARY EMBOLISM 2.0-3.0 PREVENTION OF SYSTEMIC EMBOLISM FROM: TISSUE HEART VALVES 2.0-3.0 ACUTE MYOCARDIAL INFARCTION 2.0-3.0 VALVULAR HEART DISEASE 2.0-3.0 ATRIAL FIBRILLATION 2.0-3.0 MECHANICAL VALVES(HIGH RISK) 2.5-3.5 RECURRENT MYOCARDIAL INFARCTION 2.5-3.5 Prothrombin Time 12.4 s 12.5-14.3 Normal (applies to non-numeric results) [facility] ([facility]) Partial Thromboplastin Time 30.3 s 24.2-38.5 Norm al (applies to non-numeric results) [facility] ([facility]) ID Date Data Source [id number] 03/19/2020 02:58:00 PM EST [facility] ([facility]) Name Value Range Interpretation Code Description Data Gina rce(s) Supporting Document(s) Platelets [#/volume] in Blood by Automated count 291 10 150-450 Normal (applies to non-numeric results) [facility] ([facility]) aPTT in Platelet poor plasma by Coagulation assay Laboratory test res ult [facility] ([facility]) ID Date Data Source [id number] 03/12/2020 10:15:00 AM EST [facility] Name Value Range Interpretation Code Description Data Gina rce(s) Supporting Document(s) EGD [facility] MLPOUb0lDwSJEaGrKIFvFwkFKAiaCIwaDTQxX5A7CHwqNt5OGQamflEtZURyPc8+SLEhIN3ktk6nJVDb gMy 1kEGAoRyudO6QiBXBve77LCKEzRTlOAcDeYlJcYRHcXBPqTIS8MJQ4ElVuTspbHE1uDGR4GYFtRHimUG JxADAvGzTmOPXzXX3nFRyhFElfHa5WXY6mu9EfBCXoESOtHsvRHRvoJVikWENpUSRvZXAgQ565xeYqQa 4DeINtIXb9KCUfDzJ7SBWqUcQ8OFRfLd9iLwYtj3Bt T1EgJFt2D3dDAataE5FuSXguGW0wCBH6BGZhQm5UtLyfTDgnHTCAA7roOuFlWGNxQPCZRf2+Pj4+DWVu KQ2dok04CXIps4KbFWi8N2E7hASnX5FlH8KyRXDfmJUPm4zdIhBtITT8CUHiXimbNW9XAJIloKToHWAo VCpbZC3vldAzuMZ0WC2FoKlwBKOjQWLTRp0+Pi9QYX LcyyFgSgHrRGBnZ39lkYAseRInBhjrWXKZTC4+CJWfJK3mlx26FAKzx1OkMOa7S9gchay3lZGxVXydFA ezPhNfRTKoJB1mGW0AiXQ4sAUcJO1BgVFdNF6CbPDmUE5YF4DaUPI7F6OusGBeaqQrS3NtRXZtBPZwb3 WaJA1HA5NJXUAlVBXiG1RsvU8iJ2NrZ4BcJ9Bxwfrc CXDZNy9EcPK0vFXlCQWlJ9wazEnsbEHiCOiwF7UmcEGRIZXVa60fz50pssZcVO3+w0OdFBLgPXc96fk4 ZVAcX/hgFRRJCaj8BSikGCXdWkOTur4bU8lxIyT0GUw0LljztJP8U9pNpIBV2//pdxm0xxl4ia/eD+/z 3TQBoo4+e0xp0mNp3cWk0UPMGIxbHUXFqVEQHPXK43 yylTg4SKrwbOgxeNiH+FNjLLIAfCXqf0fE9D4Za4EYikTnRgK45+Ml6jqx1tgr6tDl3+Lm/FfgEI5fs7 ZHQyfGwCDmfEv+lvP/ZS84UOyrcUumkrYKRkMYYgANZ+VmQ0QZNDDgNytFMZ8mSUsOHxQua7Zps9B2CL CPDXiFAAS+QgQiISEi/u31+clJKXNMah5E8JGVB0hL [file] odcOrGbLE58IXxakJvpBPH2T/LApmXTvjqFTSqYADGJSav90d2aD0CLt41O18csL7GDfmb+Wg0CAS+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 [file] jLgeWuMaDMtqt2SW/TO4a6mfQJmMu0Nb3nimOA/Avinash AEcgO46zSWokJocBPCjQj7+ljLiYfiOoCT0+EdxB5G5NZXFhg+pfb1Oslg0aDOP6gggOetmd3yCIQNPH obi2DP7MPmDwQ51LNHRvdrPa1xXLUZeA7wXXjjD5agTih3snNtN7B/cYgevc4fQnBQixH2kAjG9BuNxy 7N9QKmIvul1/S4IjySUYn4VTezxv3GRDivyNjdSjOV kSEFcReWRh8rcBPqQniwy0LuUQ6XyKTldn/3TuB599CVQBQW+6VN88FKvH4Ayyh84YVFG+QiDQseDzKv A0AmGZxUguTaDkfLbCr1qTFc9nBZtr578FFgttHHXSrhUVzG5aYJ1YfFK6qPb6rc71Bxi5/O5BllInZp Gj83MUmAFXaOmPfCpTD6onwRMkcrjJzA17BF4Y05g2 AeQkIVZ15NpKaxtApTFvJSxoqM8frFSrq/nzhK5BLzDZ3EaxxvNqt25Bdbd/JNsAQzACdTRx7WxcvRAb u5vccRwurO2BzdYa8Z5lBjn/c4Us1+XQofUWZe0/nP6PF73GovdzkVoyjkt2wCbpqI+cpRbnq1XmMeAC UJhHsOauwdTPnhnnPm/kLcTC7xcaij1opPIeW5n/JX viLmaXi9daY63ThgDw90kfekl31sPmSCmo0gZL6b9Phx0KnmUYVw4CycCwx6pzNO6PouaUweISZfGN8y qc6yQ7tjLwTlM0eG0ua5iNzv1iD4WnijcZ0zGRcPpTnDBPr1CJdgBXN204tdE56mf0dTy9lPVdpkt9dq llyd0BwrCynypD5sx78R+7SJ3HxFc2fLv6+c2/jVQa /G+15RxnzBgsSuvr/OeHQW1L/ctWSDjcbIuxsjuqoRatoIpRc3lYwCJcLyww90Nke67V98BywVjnZmKz 7UfoQEmAqwYIWAcixBQeuIz1ZO4GQJ+/wJ/PEÑA+zAYKBnOXNVDRXpUdnGGVrD92uMG/PfaE4fQJKEAvx [file] Repossessor/ JZbfVIis2xJy9IRNafrmY5ti6Z8/jcuIIq8faZ7vdqUEP9OsZ4y0k4+b7rz5HIO6mUk1tbtOeubXjS9/ m6EKFB7CUmvhC6eV0hPVOXWdLFG3rAx6eoG6ckSuH0 W3KnuceAQ48rHWQg1Br7tRRqmr97q4Uk4ImgmPGw2fEp/jjwZKd4OwUa00MzXDG8AK0wjEvAs77qFPNx Quw+QcI5AXN6dleA/8YYxokr4GdAQ1DdyJSk0nY1Lm4rJYb4+F7U9eYOL7Bq37M9Vz2jsLYp69LHPJ38 G2n2UW1LbWARxe7khIvs48owJ0DcbMXsS8vuGPprui ZOPeI0iXVbY5rj8MPizZ3eYq7Ad3OALl8vrOderxmutfP8jjhFuZreEcm3wEO7duorRLQMRKi5XA3Zlt jIfqllT311Yte3Smy7F4hG/iJzN6RuNdRiwcuwfli+UJVnX/kOxj3PO8Dyd9HhS4il7i+KmTv9adMi/9 S5hFWp2LGyJCHue2QU97shbqX2q60PdMY4ADG2MtLT ZZq/pbc1HTovex6e2mwp5j9uKQzFMElf1R+HeMALmnlBxEFWCN7Xb/4rIKDvnafMZ3qHyca3f7AVHA9v vvtqgalDJo2EdOoz0nWskwXa/9DsacLKM+6ip1BIrjoH4ff4CmkLA/FJl8XJuNKEA2TRRU3oDR9FINtD ohPBisMKGePj89q/HIZjPVWbgTnZmjnwgi+m+Kz7h1 4079GxKSoznakLRKpJGKDWP5DQq3bgRTKOnMqy2+EH/6WzpMo9tkYHtS0mj0yuzZoU5pjDa1zPceR3/P MJxTFh+Qi7eGIjZjwvg1mnbNeNBFn0cDPOCPcu9JYf+GV5bZWRlve0p3kc0uW0MgbrWARqWfpXhi2k+N IBd3TfKtdYGucli08X0jfv8smX7Ua4lYEr/G5sWHMs 16ca8pBHvf5FMeWqyPHis6jaOU1vhZ4hpOJ7iEKj9KlSUwDpHy9nmIRnvb05TEZOLampG9w8b4E2M7Ox +xjei3O9i4eG6WpJS9tgQSIXRJbOZ/WuKlDoS2Mz8qJUzxKcck8StbPqCEIHjQBwrr+abuZTaAvyBVwJ ApkudoGFuGeoP/8bLfZTb2ITeF6hhULok6UMVlODMU DggMCBoAZO9pGdALV2967LcKnKtOOk941M3VYu28KvyKkp7pXnc0B6ou/ZFdXQdwYr1vNE2OlIbZpLkN 2W6R1P09mcsGLNWeHEgm9+Dzrx/UJCjbcOYvTyVvOMofZA2phVSlfXi4ERp7qVZYCaHGW337TrEH43Yy QXiP8NOVYzq/zhnlx0cs9SGeU35UWjAZoDBa9YG1jA MhGkGzY8qkpAGk6n5ycgds6GOUql6E94UDfZwG8QiGPufZ4RzPDyFpHalXSgdYFJnZG8l9KCtnMoiuwn 8pDTRROpnbxswxm3ZyOA8eZCZEqNOsRSh0a/6JBVXibSfhZyKM5XxX6L3sqVZZR518OvYdFko57tU5HD 0VqNMHl+Moisés+a9JkBdiq0HFArFsptAEsuT8b7P/rOF [file] jk8mQs7ypLQP/[place]+bd/JrEk66ui8Vo4vEe8MybjYrr5OsJnvG87t7wbaBns37EdDCR2mxdjZk2SxHY9 [file] CUTTER+6+g [file] TZeQ/KMR7F3H3Q/STwoPO2dL0/ofa9t+tw9WCS7 cLIZtq8OrBsccRs8NLHtYJ1Ui2DxD3LkE9GYsPdjjA19p7YqqIJGS0dX37Hywe2EvIfKikcWxq/TWqcX 3MnHYBwRUDdGAN49VV2vc070FOw249f32T4Ia6jNYcNXT/+d+TPpFd/jx8JMAqC1nvjMO/FJQqkdNbIO Jyphb4QINYQ3APsVv4DK/V0X4Vzte3XREG1XHqQn2W 7NHMSxNcsBvwVk4zbgMIX5GqR6hsFCBTJCZPm1wra0cDNIrM2jC/Hh/uyNegvtLxbwBv50ZGCsOvprq+ PTaP3nmvqXqtIRBfYIGVKNt908yEH9qtVRg2nf5A3lMKTBYu8SxfKxu5LYESP23fGAEEA5vvgMgRz84z Oq0045J678tAotB9eZViIe8eF9Ovw54xTNyGjJY6CE l520M4bQyzSKOwtUFST42xfzwX69P5cEFOoP6dAc0kuXbTUYRCA8kg9W4cUzKFTfjgyCWwfysp/qcDxw Hyh+v4rAcZuXJqV0TNKql+jQFyrTHQ1o6zHpqtaX+FuBf17Cjjsn6MX7aDAIgQLfGonDserwqiPSptm2 BoOLkkRiY4Drpp39+Tr1aFLZxTGLth5yXgdTSuvh4E qT/JgxZn+pH/1BQFcrOf1sML6rX2Lo+qqq04aSUh6RFlTjP1RZg92hCp0ckrYzHJVudbkxV1s1l6MYaC m1x8vXeTTbkI7k+H7d0JC+GmGMV98MMxa5866VaG7fWu0fpCtfl7PTpTyoXej4dJ31dgryijS2Y31oyN pLWkUn6TVUWl+Larissa+/zlAtSwbO4zoH6jTbnNDXLEmA [file] xioeS0kInXudRwTj9HVFwhAsq5k9tyo94fLZO2C/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 [file] iN615JxJdV6GrKm2irQFyu8m13C7Gt+wcXisjeCJeZ5Gyww3bzr8IE6xNgPo9XSWxO7EWUPPW0y0u/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 sun22pm9nlThYjramOUpXMob50tzzFCsHE9CIhGChL3Y2YuXrfoQD/rkIH5bXV2clmYfAuw/vJNXQ7EZ q2DQ4ocPrVTfSw78Ugc9/g5dNN1URYEpsxHRbYLRGL uSVEHilSz0UUhrIyI1VtGAEim0xzP0PmwbqjqMR67fF2lMPbSPwuK4etPURSu0VGkU95FPviz8DUGjcD KTfwxH1lGv4yFDzrHAA/PUIFz8mYFRWcxU5sMPL4KONdtsRWvY1ZSbKbWbm0LMZ7BNz940D0D7C6xSBu gmf0chNU8D+Fi5vvxfClscoD7phQ2xRKyLPUuL/Kgf kRz/Sy2X8cviIMQoAW7AUD+aoHV9Pv5/E6UWvcSVHWFHtCzOjClIeVrQspNtwsRzgyyCJnCGmBX1nCOr OsuHWLU7B1BqMH6jan7IPc25M9U2ZSYucpwBnASIf2tWMdy2W2LgekOfhSF4EU6E1jYXjCHlG1Wtn2Tp zi5R8Id2OQVW7r/G3qnlSmKoBo9czs+EXELkbwAfO1 Ou9MzcNbJRbZjxxJN4waWqO0zJfrlm4DeXS+h1+pa+oqL6Xs3f5b2JS3OxmZiHgeWV/mLqK2cDqf8AgI v3NRIIxQFmM2vcV2a4cH/7sVvZ0m+V3Xs6AIF0y1xZDn1e/MpBwAwV92w5kl0blMUUbSfTq286hiZFi1 Mn9a3s+sxN3t1Nx2Y6/r62p1xjj+IG4589Ep2wJRe1 [file] BwBwBwBwBwBwBwBwB[facility] [file] [id number] ID Date Data Source [id number] 03/11/2020 06:26:00 PM EST [facility] Name Value Range Interpretation Code Description Data Gina rce(s) Supporting Document(s) Leukocytes [#/volume] in Blood by Automated count 8.6 10*3/uL 4.45-10 .71 N [facility] Erythrocytes [#/volume] in Blood by Automated count 3.89 10*6/uL 4.3-6.1 Below low normal [facility] Hemoglobin [Moles/volume] in Blood 14.2 g/dL 13-18 N [facility] Hematocrit [Volume Fraction] of Blood by Automated count 42.0 % 4 2-52 N [facility] Erythrocyte mean corpuscular volume [Ent itic volume] in Cord blood by Automated count 108.0 fL 80-96 Above high normal [facility] Erythrocyte mean corpuscular hemoglobin [Entitic mass] by Automated count 36.5 pg 27-31 Above high normal [facility] spital Erythrocyte mean corpuscular hemoglobin concentration [Mass/volume] in Cord blood 33.8 g/dL 33-37 N [facility] ital Erythrocyte distribution width [Entitic volume] by Automated count 14 % 11-15 N [facility] Platelets [#/volume] in Blood by Automated count 261 10*3/uL 130-472 N [facility] Platelet mean volume [Entitic volume] in Blood 11.0 fL 9.1-13.1 N [facility] Neutrophils/100 leukocytes in Blood by Automated count 65.4 % 41- 77 N [facility] Neutrophils [#/volume] in Blood by Automated count 5.7 U 1.7-7.6 N [facility] Lymphocytes/100 leukocytes in Blood by Automated count 20.4 % 14- 46 N [facility] Lymphocytes [#/volume] in Blood by Automated count 1.8 U 0.6-4.6 N [facility] Monocytes/100 leukocytes in Blood by Automated count 11.6 % 4-12 N [facility] Monocytes [#/volume] in Blood by Automated count 1.0 U 0.2-1.2 N [facility] Eosinophils/100 leukocytes in Blood by Automated count 1.6 % 0-7 N [facility] Eosinophils [#/volume] in Blood by Automated count 0.1 U 0.0-0.5 N [facility] Basophils/100 leukocytes in Blood by Automated count 0.7 % 0.4-1 .3 N [facility] Basophils [#/volume] in Blood by Automated count 0.1 U 0.0-0.2 N [facility] NUCLEATED RED BLOOD CELL 0 % [facility] NUCLEATED RED BLOOD CELL# 0 U [facility] Immature granulocytes [Presence] in Blood by Automated count 0-2 N [facility] Immature granulocytes [#/volume] in Blood by Automated count 0.0 U 0-0.1 N [facility] Manual Differential panel - Blood NO [facility] ID Date Data Source [id number] 03/11/2020 06:40:00 PM EST [facility] Name Value Range Interpretation Code Description Data Gina rce(s) Supporting Document(s) Alanine aminotransferase [Enzymatic acti vity/volume] in Serum or Plasma by With P-5'-P 14 U/L 10-49 N [facility] ital Aspartate aminotransferase [Enzymatic ac tivity/volume] in Serum or Plasma by With P-5'-P 18 U/L 0-33 N [facility] Alkaline phosphatase [Enzymatic activity/volume] in Serum or Plasma 92 U/L 45-129 N [facility] Bilirubin.total [Mass/volume] in Serum or Plasma 0.7 mg/dL 0.3-1.2 N [facility] Bilirubin.direct [Mass/volume] in Serum or Plasma 0.2 mg/dL 0.0-0.2 N [facility] Albumin [Mass/volume] in Serum or Plasma by Bromocresol purple (BCP) dye binding method 3.7 g/dL 3.2-4.8 N [facility] ital Protein [Mass/volume] in Serum or Plasma 8.2 g/dL 5.7-8.2 N [facility] ID Date Data Source [id number] 03/11/2020 06:40:00 PM [facility] Name Value Range Interpretation Code Description Data Gina rce(s) Supporting Document(s) Magnesium [Mass/volume] in Serum or Plasma 2.5 mg/dL 1.3-2.7 N [facility] ID Date Data Source [id number] 03/11/2020 02:34:00 PM [facility] Patient Name: RONA WASHINGTON DO B: 1955 Sex: M Pt Unit #: [id number] Location:[facility] Provider: Visit Date/Time: 03/11/20 Primary Insurance: /[facility] Secondary Insurance: Self Pay Intake Vital Signs 03/11/20 14:40 Current Height 5 ft 7.5 in Current Weight 160 lb BMI 24.7 BP 120/70 Position Sitting Respiration 20 Pulse 72 Pulse Strength Normal Pulse Source Palpation Temp 98.1 F Temp Source Oral Comment prev ht Intake Visit Reasons: Chest discomfort Nurse Note: f/u ct chest results. states over the wknd he was not able to swallow any liqs or eat solids. states the food keren only godown to mid sternum. he then would throw up. able to drink liqs last night and seems resolved today. 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 Pretest education received and acknowledged Do you need a note to return Do you need a note to return to daycare/school/sports/work: No Coronavirus Screening Screening Have you traveled outside of [facility] [address] or [facility] in the last 14 days.: No Has patient experienced coronavirus symptoms: No [facility] Medical History (Updated 02/26/20 @ 20:47 by Xiao Payan MD) Chronic obstructive lung disease CO2 narcosis Depression fractures History of measles History of mumps History of varicella Family History (Updated 06/05/19 @ 13:40 by Xiao Payan MD) Mother Cancer Father Diabetes Lupus Social History (Updated 06/05/19 @ 13:44 by Xiao Payan MD) Does the Patient have a Healthcare Proxy: Yes (brother ,Malik) Does Patient have a DNR?: No Does Patient have a Living Will?: No Advance Directives on File or in chart?: No household members: none service: Yes () status: discharged branch: [employer] assignments: outside [facility] [facility] current occupational status: disabled Hx Recent Travel (where): No do you think of yourself as: straight/heterosexual current gender identity: male Smoking Status: Former smoker seatbelt use: always helmet use: Yes drive intox or ride w/ intox 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 I called Dr. 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 He has had increasing pain and dysphagia with eating. At firstit was solids but now even liquids. He does not think that she has not had any calories in the last3 days. He has lost 17 pounds since his last visit. Dr. Llanes advised me to call a fill plant operator for endoscopy. I called Dr. Powers in [place] who agreed to see Mr. Washington tomorrow for upper endoscopy. Review of Systems Const Denies anorexia, Denies excessive sweating, Denies fatigue, Denies fever(s), Denies headache(s), Denies weight gain and Denies weight loss Eyes Denies blurry vision, Denies change in vision, Denies dry eyes, Denies irritation, Denies itchy eyesand Denies loss of vision ENT Denies abnormal hearing, Reports dysphagia, Denies dizziness, Denies headache(s), Denies lip swelling, Denies nasal congestion, Denies nasal discharge, Denies disequilibrium, Denies sinus pain,Denies sore throat and Denies throat swelling Card Denies chest pain, Denies pedal edema, Denies lightheadedness, Denies palpitations and Denies dyspnea Resp Denies cough, Denies excessive phlegm production, Denies pain on inspiration, Denies dyspnea and Denies wheezing GI Reports dysphagia, Reports vomiting and Reports other Denies difficulty urinating, Denies flank pain, Denies urinary frequency, Denies urinary incontinence and Denies urinary urgency Musc Denies back pain, Denies arthralgias, Denies limited range of motion, Denies muscle cramps and Denies muscle weakness Skin/Breast Denies breast pain, Denies change in pigmentation, Denies lesions, Denies nail changes, Denies rash and Denies unusual bruising Neuro Denies abnormal hearing, Denies dizziness, Denies headache(s), Denies loss of vision, Denies memory loss, Denies paresthesias and Denies disequilibrium Psych Denies abnormal sleep pattern, Denies anxiety, Denies change in appetite, Denies depression, Denies irritability and Denies memory loss Endo Denies cold intolerance, Denies excessive sweating, Denies fatigue, Denies polyphagia, Denies polydipsia, Denies polyuria and Denies palpitations Phil/Lymph Denies easy bleeding, Denies easy bruising and Denies lym phadenopathy Aller/Immun Denies urticaria, Denies itchy eyes, Denies lip swelling, Denies seasonal rhinorrhea, Denies throat swelling and Denies wheezing Exam Const General: cooperative, no acute distress, well developed and well groomed Nutritional Appearance: thin Orientation: alert, awake and oriented x3 Skin Other: appears sallow Assessment Plan Assessment Plan (1) Mass, chest: Status: Acute Code(s): R22.2 - Localized swelling, mass and lump, trunk SNOMED Code(s): 915414091 Category: Medical Plan - Xiao Payan MD: We will go to call tomorrow morning for endoscopy. This evening I would like him to eat small amounts of applesauce and pudding intermittently. If he does not void or cannot even tolerate liquids, he should go to the emergency room and we will hydrate him. Hopefully they will be able todilate his esophagus tomorrow and get a biopsy and then we can plan how to investigate and treat hisprobable neoplasm. Orders: Orders: HEPATIC PANEL (LFT's - lab) Today CBC W AUTO DIFF Today MAGNESIUM Today Orders Follow Up: 2 Weeks <Electronically signed by Xiao Payan MD> 03/11/20 1801 Name Value Range Interpretation Code Description Data Gina rce(s) Supporting Document(s) ID Date Data Source [id number] 02/26/2020 07:28:00 PM EDT [facility] [address] [place] [address] [phone] NAME SEX PT STATUS ACCOUNT NUMBER RONA WASHINGTON REG REF [id number] ORDERING PHYSICIAN LOCATION MEDICAL RECORD NO. Xiao Payan MD LAB [id number] ATTENDING PHYSICIAN DATE OF DATE OF EXAM/TIME [...] abdomen, there is an ill-defined mass with subt le hyperdensity surrounding in the right hepatic lobe [...] Jose Gaming MD; Xiao Payan MD Techn: ELTON Trans Dt/Tm: Trans by: DT Prt Dt/Tm: [id number]: Total DLP = 160.00 mGy-cm 9412-6877: Total Radiation Dose = 2.0800 mSv Lifetime Dose: 2.0800 mSv Name Value Range Interpretation Code Description Data Gina rce(s) Supporting Document(s) ID Date Data Source [id number] 02/26/2020 10:47:00 AM EDT [facility] Special Instructions: CT scan Name Value Range Interpretation Code Description Data Gina rce(s) Supporting Document(s) Urea nitrogen [Mass/volume] in Serum or Plasma 20 mg/dL 9-23 N [facility] Sodium [Moles/volume] in Serum or Plasma 138 mmol/L 132-146 N [facility] Potassium [Moles/volume] in Serum or Plasma 4.3 mmol/L 3.5-5.5 N [facility] Chloride [Moles/volume] in Serum or Plasma 103 mmol/L 99-109 N [facility] Carbon dioxide, total [Moles/volume] in Serum or Plasma 29 mmol/L 20 -31 N [facility] Anion gap in Serum or Plasma 10 mmol/L 8-16 N [facility] Glucose [Mass/volume] in Serum or Plasma 103 mg/dL 74-106 N [facility] Creatinine 0.8 mg/dL 0.5-1.1 [facility] Glomerular filtration rate/1.73 sq M.pre dicted [Volume Rate/Area] in Serum or Plasma Greater Than 60 ABOVE 60 [facility] Calcium [Mass/volume] in Serum or Plasma 9.4 mg/dL 8.5-10.1 [facility] ID Date Data Source [id number] 02/20/2020 12:48:00 PM EDT [facility] [address] [place] [address] [phone] NAME SEX PT STATUS ACCOUNT NUMBER RONA WASHINGTON REG REF [id number] ORDERING PHYSICIAN LOCATION MEDICAL RECORD NO. Xiao Payan MD [facility] [id number] ATTENDING PHYSICIAN DATE OF DATE OF EXAM/TIME [...] Trans Dt/Tm: Trans by: DT Prt Dt/Tm: 1013- 0022: Total DLP = 0.00 mGy-cm Fluoroscopy Time (in secs): Name Value Range Interpretation Code Description Data Gina rce(s) Supporting Document(s) ID Date Data Source [id number] 02/05/2020 02:51:00 PM EDT [facility] Patient Name: RONA WASHINGTON DO B: 1955 Sex: M Pt Unit #: [id number] Location:[facility] Provider: Visit Date/Time: 02/05/20 Primary Insurance: /[facility] Secondary Insurance: Self Pay Intake Vital Signs 02/05/20 15:05 Current Height 5 ft 7.5 in Current Weight 177 lb BMI 27.3 BP 154/78 Position Sitting Respiration 20 Pulse 72 Pulse Strength Normal Pulse Source Palpation Temp 97.8 F Temp Source Tympanic Comment prev ht Intake Visit Reasons: Medicare Annual Wellness subsequent, COPD Nurse Note: cont's to have pain in his mid chest. took tyl with effect. some days better than others. f/u on stress test. has noted coughing today more than usual. [employer] Apprentice Required: No Is patient in pain?: Yes Allergies No Known Drug Allergies Allergy (Verified 10/27/17 00:43) Vision Wearing glasses?: Yes [facility] Far - right eye: 20/50 [facility] Far - left eye: 20/40 [facility] Far - bilateral eyes: 20/30 Fall Risk History of falls: No PHQ-2/9 Over the last 2 weeks, how often have you been bothered by any of the following problems? 1. Little interest or pleasure in doing things: not at all 2. Feeling down, depressed, or hopeless: not at all Total score: 0 HIV Testing Offer - ages 13-64 HIV testing Offer: Yes Requirement for HIV testing offer been met?: Declines today. Pretest education received and acknowledged Hep C Testing Offered: Yes Hep C Requirement met: Refuses today SBIRT Annual Questionnaire Are you currently in recovery for alcohol or substance use?: No How many times in the past year have you had 5 or more drinks in a day?: 1 or more How many times in the past year have you used a recreational drug or used a prescription medication for nonmedical reasons?: None Do you need a note to return Do you need a note to return to daycare/school/sports/work: No Coronavirus Screening Screening Have you traveled outside of [facility] [address] or [facility] in the last 14 days.: No Has patient experienced coronavirus symptoms: No [facility] Medical History (Updated 12/04/19 @ 14:04 by JESSIE Alegria) Chronic obstructive lung disease CO2 narcosis Depression fractures History of measles History of mumps History of varicella Family History (Updated 06/05/19 @ 13:40 by Xiao Payan MD) Mother Cancer Father Diabetes Lupus Social History (Updated 06/05/19 @ 13:44 by Xiao Payan MD) Does the Patient have a Healthcare Proxy: Yes (brother ,aMlik) Does Patient have a DNR?: No Does Patient have a Living Will?: No Advance Directives on File or in chart?: No household members: none service: Yes () status: discharged branch: [employer] assignments: outside [employer] [facility]) current occupational status: disabled Hx Recent Travel (where): No do you think of yourself as: straight/heterosexual current gender identity: male Smoking Status: Former smoker seatbelt use: always helmet use: Yes drive intox or ride w/ intox furniture mover driver: No working smoke detector in home: Yes fire extinguisher in home: Yes carbon monox detector in home: No firearms in home: Yes firearms unloaded and locked: Yes HPI Additional HPI HPI Details: continues to have chest pain when he lays down.His stress was good. It is not affected by activity.He continues to take pantoprazole. It does not feel like heartburn to him. He does not think it is affected by cough or deep breath. Tylenol helps. He does not think it is worse than before. COPD Current symptoms: Reports cough; Denies dyspnea or chest pain Pulmonary Results: No Data to Display Review of Systems Const Denies anorexia, Denies excessive sweating, Denies fatigue, Denies fever(s), Denies headache(s), Denies weight gain and Denies weight loss Eyes Denies blurry vision, Denies change in vision, Denies dry eyes, Denies irritation, Denies itchy eyesand Denies loss of vision ENT Denies abnormal hearing, Denies dysphagia, Denies dizziness, Denies headache(s), Denies lip swelling, Denies nasal congestion, Denies nasal discharge, Denies disequilibrium, Denies sinus pain,Denies sore throat and Denies throat swelling Card Denies chest pain, Denies pedal edema, Denies lightheadedness, Denies palpitations and Denies dyspnea Resp Reports cough and Denies dyspnea GI Denies abdominal pain, Denies change in bowel habits, Denies dysphagia, Denies early satiety, Deniesheartburn, Denies diarrhea, Denies nausea and Denies vomiting Denies difficulty urinating, Denies flank pain, Denies urinary frequency, Denies urinary incontinence and Denies urinary urgency Musc Denies back pain, Denies arthralgias, Denies limited range of motion, Denies muscle cramps and Denies muscle weakness Skin/Breast Denies breast pain, Denies change in pigmentation, Denies lesions, Denies nail changes, Denies rash and Denies unusual bruising Neuro Denies abnormal hearing, Denies dizziness, Denie s headache(s), Denies loss of vision, Denies memory loss, Denies paresthesias and Denies disequilibrium Psych Denies abnormal sleep pattern, Denies anxiety, Denies change in appetite, Denies depression, Denies irritability and Denies memory loss Endo Denies cold intolerance, Denies excessive sweating, Denies fatigue, Denies polyphagia, Denies polydipsia, Denies polyuria and Denies palpitations Phil/Lymph Denies easy bleeding, Denies easy bruising and Denies lymphadenopathy Aller/Immun Denies urticaria, Denies itchy eyes, Denies lip swelling, Denies seasonal rhinorrhea and Denies throat swelling Exam Const General: cooperative, well developed and well groomed Nutritional Appearance: well nourished Orientation: alert, awake and oriented x3 Resp Effort Inspection: able to speak in complete sentences and audible wheezes Auscultation: diminished lung sounds, rhonchi and wheezes Cardio Rhythm: regular rhythm Heart Sounds: S1 normal and S2 normal Skin Other: sun damaged Psych Appearance: grossly normal and well kempt Mental Status: mental status grossly normal Speech and Movement: speech and movement normal Affect: normal affect Attitude: cooperative Thought Process: normal Thought Content: normal Insight: insight good Judgment: judgment good Assessment Plan Assessment Plan (1) Chronic obstructive lung disease: Status: Chronic Code(s): J44.9 - Chronic obstructive pulmonary disease, unspecified SNOMED Code(s): 32345441 Category: Medical (2) Medicare annual wellness visit, subsequent: Code(s): Z00.00 - Encounter for general adult medical examination without abnormal findings (3) Chest pain: Status: Chronic Code(s): R07.9 - Chest pain, unspecified SNOMED Code(s): 22963597 Category: Medical Orders: Orders: CT Thorax w/ w/o contrast 1 Week Referrals: Gastroenterology Referral Additional Comments Additional Comments: will get CT of chest and see G I if normal. Orders Other Medications: New: famotidine (Heartburn Relief (famotidine)) 20 mg PO QDAY 30 tabs 2RF Follow Up: 1 Month Medicare Annual Wellness Type Of Examation Type of Exam: Subsequent Wellness Exam EKG EKG Performed: No Allergies Allergies No Known Drug Allergies Allergy (Verified 10/27/17 00:43) Current Diet Current diet: regular PHQ-2/9 Over the last 2 weeks, how often have you been bothered by any of the following problems? 1. Little interest or pleasure in doing things: not at all 2. Feeling down, depressed, or hopeless: not at all Total score: 0 Vision [place] VA Far - right eye: 20/50 VA Far - left eye: 20/40 VA Far - bilateral eyes: 20/30 Functional Assessment Bathing: Independent Dressing: Independent Toileting: Independent Transferring: Independent Continence: Independent Feeding: Independent Total Score: 6 Home Safety Home Safety: Reports Bathroom: Grab bars, Lighting: Adequate, Ballinger: No throw rugs a nd Stairs: Handrail available Hearing Hearing Left Ear: Normal Hearing Right Ear: Normal IADL Assessment Functional abilities: Up Go test, pt steady, Up Go test, within 30 sec, Pt independent w/phone,Pt independent w/transportation, Pt independent w/shopping, Pt independent w/housework, Pt independent w/meal preparation, Pt independent w/laundry, Pt independent w/medication and Pt independent w/finances Cognitive Evaluation Oriented to the date:: Yes Oriented to time:: Yes Oriented to place:: Yes Mood: grossly normal Affect: Normal Judgement: normal Needs caregiver for assistance: No Clock drawing: Yes Clock drawing with correct time: Yes 3 item recall: 2 Electronically Signed By: <Electronically signed by Xiao Payan MD> Date/Time Signed: 02/05/20 153 Name Value Range Interpretation Code Description Data Gina rce(s) Supporting Document(s) ID Date Data Source [id number] 12/13/2019 03:36:00 PM EDT [facility] [address] [facility] [address] [phone] NAME SEX PT STATUS ACCOUNT NUMBER RONA WASHINGTON REG REF [id number] ORDERING PHYSICIAN LOCATION MEDICAL RECORD NO. Xiao Payan MD EKG [id number] ATTENDING PHYSICIAN DATE OF DATE OF EXAM/TIME Xiao Payan MD 1955 12/13/19736 TYPE / EXAM NM Nuclear Stress Test REASON FOR EXAM atypical chest pain TECHNIQUE: Patient was exercised according to the Jamil protocol obtaining 7 METS. He received 10.10 millicuries of technetium 99m at rest and 32.9 millicuries of technetium 99m at post exercise. FINDINGS: 1. Normal perfusion of all myocardial segments on stress and rest SPECT scans were noted. 2. Ejection fraction calculated to 77% with normal wall motion. CONCLUSION: Normal nuclear portion of nuclear stress test. Reported By Rhett Cast MD on 12/13/19 1536 Signed By Rhett Cast MD on 01/22/20 1119 <<Signature on File>> Date Time CC: Rhett Cast M.D.; Xiao Payan MD Techn: ALEKSEY Trans Dt/Tm: 12/13/19 1621 Trans by: PAT Prt Dt/Tm: : Total DLP = 0.00 mGy-cm : Total Radiation Dose = 0.0000 mSv Lifetime Dose: 0 mSv Name Value Range Interpretation Code Description Data Gina rce(s) Supporting Document(s) ID Date Data Source [id number] 12/13/2019 09:32:00 AM EDT [facility] TEST CONSULTATION NAME: RONA WASHINGTON : 1955 AGE: 64 MR#: [id number] ADMITTING DATE: 12/13/[address]: DISCHARGE DATE: ATTENDING DR: Xiao Payan MD ROOM#: This is a 64-year-old male with severe COPD and onset of left anterior chest pain, atypical in nature, not associated with exertion, but rather with lying down at night. Had his first set of Cardiolite images and during that time, the pain became quite intense. He felt it was superficial, but not tender. He was brought to the EKG Department and exercised using the Jamil protocol. He was able to reach a target heart rate of 137 and developed many PVCs, some runs and couples. He hadelevation of his blood pressure, and had returned to baseline at the end of the test. We are awaiting the second set of Cardiolite images. He was given Tylenol here in the EKG Department in anticipation of the discomfort of his repeat nuclear study. <Electronically signed by Xiao Payan MD> Xiao Payan MD 12/18/19 1726 Xiao Payan MD Cosigner: D: ASCENCION 12/13/19 0932 T: KENDELLByron 12/13/19 1021 CC: Xiao Payan MD LAST EDIT: Name Value Range Interpretation Code Description Data Gina rce(s) Supporting Document(s) ID Date Data Source [id number] 12/15/2019 02:03:00 PM EDT [facility] Source Of Specimen: ST Name Value Range Interpretation Code Description Data Gina rce(s) Supporting Document(s) Helicobacter pylori Ag [Presence] in Stool by Immunoassay [facility] HELICOBACTER PYLORI AG, EIA, STOOL [facility] Number: [id number] Test Status: Final Specimen Source: STOOL Specimen Quality: Adequate H.pylori Ag: Not Detected Antimicrobials, proton pump inhibitors, and bismuth preparations inhibit H. pylori and ingestion up to two weeks prior to testing may cause false negative results. If clinically indicated the test should be repeated on a new specimen obtained two weeks after discontinuing treatment.THIS TEST WAS PERFORMED AT:[employer] [id number] MERATI,MD ID Date Data Source [id number] 12/04/2019 12:55:00 PM EDT [facility] Patient Name: RONA WASHINGTON DO B: 1955 Sex: M Pt Unit #: [id number] Location:[facility] Provider: Visit Date/Time: 12/04/19 Primary Insurance: /[facility] Secondary Insurance: Self Pay Intake Vital Signs 12/04/19 13:01 Current Height 5 ft 7.5 in Current Weight 175 lb BMI 27.0 BP 140/80 Position Sitting Respiration 16 Pulse 76 Pulse Strength Normal Pulse Source Palpation Temp 98.2 F Temp Source Tympanic Comment prev ht Intake Visit Reasons: COPD Nurse Note: 6 mo checkup. has had difficulty breathing with heat. has noted a pain in mid chest from bottom of sternum to mid chest. takes a aspirin and it relieves it. notes primarily in am. has lost 19# since may. states has abby doing a lot of projects around the house. 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 Pretest education received and acknowledged Do you need a note to return Do you need a note to return to daycare/school/sports/work: No Coronavirus Screening S creening Have you traveled outside of [facility] [address] or [facility] in the last 14 days.: No Has patient experienced coronavirus symptoms: No [facility] Medical History (Updated 12/04/19 @ 14:04 by JESSIE Alegria) Chronic obstructive lung disease CO2 narcosis Depression fractures History of measles History of mumps History of varicella Family History (Updated 06/05/19 @ 13:40 by Xiao Payan MD) Mother Cancer Father Diabetes Lupus Social History (Updated 06/05/19 @ 13:44 by Xiao Payan MD) Does the Patient have a Healthcare Proxy: Yes (brother ,Malik) Does Patient have a DNR?: No Does Patient have a Living Will?: No Advance Directives on File or in chart?: No household members: none service: Yes () status: discharged branch: [employer] assignments: outside [facility] [facility] ([employer]) current occupational status: disabled Hx Recent Travel (where): No do you think of yourself as: straight/heterosexual current gender identity: male seatbelt use: always helmet use: Yes drive intox or ride w/ intox furniture 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 His symptoms are exacerbated with cold and hot temperatures. He feels his SOB has been stable since his last visit. He uses his rescue inhaler just before he does any exercise as suggested by his cabinet professional. Denies any increased number of SOB episodes and feels he needs no changes to his inhalers. He has had a intermittent "2/10 chest ache at the bottom of the sternum" for about 2 months. It is worse first thing in the morning, first thing when he goes to bed, and when he lays on his left side. It is alleviated with aspirin, massaging the area, and leaning forward. It is not changed with the use of his pantoprazole he takes for GERD, Tums, inspiration or expiration, or with palpation of thearea. It is not worsened with exertion. Denies any recent illnesses, fevers, or worsening GERD symptoms. COPD Current symptoms: Reports chest pain (chest ache near bottom of sternum); Denies dyspnea, cough or wheezing Pulmonary Results: No Data to Display Review of Systems Const Denies excessive sweating, Denies fever(s), Denies headache(s), Reports weight loss and Reports other (pain in sternal area. ) Eyes Denies blurry vision, Denies change in vision, Denies dry eyes, Denies irritation, Denies itchy eyesand Denies loss of vision ENT Denies abnormal hearing, Denies dysphagia, Denies dizziness, Denies headache(s), Denies lip swelling, Denies nasal congestion, Denies nasal discharge, Denies disequilibrium, Denies sinus pain,Denies sore throat and Denies throat swelling Card Reports chest pain (chest ache near bottom of sternum), Denies pedal edema, Denies lightheadedness, Denies palpitations and Denies dyspnea Resp Denies cough, Denies excessive phlegm production, Denies pain on inspiration, Denies dyspnea and Denies wheezing GI Denies abdominal pain, Denies change in bowel habits, Denies dysphagia, Denies early satiety, Deniesheartburn, Denies diarrhea, Denies nausea and Denies vomiting Denies difficulty urinating, Denies flank pain, Denies urinary frequency, Denies urinary incontinence and Denies urinary urgency Musc Denies back pain, Denies arthralgias, Denies limited range of motion, Denies muscle cramps and Denies muscle weakness Skin/Breast Denies breast pain, Denies change in pigmentation, Denies lesions, Denies nail changes, Denies rash and Denies unusual bruising Neuro Denies abnormal hearing, Denies dizziness, Denies headache(s), Denies loss of vision, Denies memory loss, Denies paresthesias and Denies disequilibrium Psych Denies abnormal sleep pattern, Denies anxiety, Denies change in appetite, Denies depression, Denies irritability and Denies memory loss Endo Denies cold intolerance, Denies excessive sweating, Denies polyphagia, Denies polydipsia, Denies polyuria and Denies palpitations Phil/Lymph Denies easy bleeding, Denies easy bruising and Denies lymphadenopathy Aller/Immun Denies urticaria, Denies itchy eyes, Denies lip swelling, Denies seasonal rhinorrhea, Denies throat swelling and Denies wheezing Exam Const General: cooperative, healthy appearing, comfortable and no acute distress Nutritional Appearance: overweight Orientation: alert and oriented x3 [facility] Head: normal to inspection Ears: hearing grossly normal bilaterally Eyes General: appearance normal, both eyes and all related structures Neck Neck: normal visual inspection Chest Chest: normal inspection of the chest, normal palpation of entire chest wall, no crepitus and no tenderness Resp Effort Inspection: normal respiratory effort, able to s peak in complete sentences, no audible wheezes, cough and no respiratory distress Auscultation: wheezes Cardio Rate: regular rate Rhythm: regular rhythm Heart Sounds: S1 normal, S2 normal, no gallops, no murmurs and no rubs GI Inspection: Yes normal to inspection Skin Lesions: no lesions Rashes: no rashes Trauma: no lacerations or abrasions Wounds: no wounds Neuro General: patient alert and patient oriented x3 Cognition: normal cognition Speech: speech normal Gait: normal gait Extrem General: normal to inspection Psych Appearance: grossly normal Mental Status: mental status grossly normal Speech and Movement: speech and movement normal Mood: congruent mood Affect: normal affect Attitude: cooperative Thought Process: normal Assessment Plan Assessment Plan (1) Chest pain: Status: Chronic Code(s): R07.9 - Chest pain, unspecified SNOMED Code(s): 78493554 Category: Medical Plan - [place], PAS: 1. Stool studied ordered to r/o H. pylori as cause of chest pain or possible refractory GERD. 2. Given his risk factors, patient will schedule a stress test this week and follow up with this office in 2 weeks or sooner if his symptoms worsen. Plan - Xiao Payan MD: If stress test is normal and still has pain despite acid suppression , consider endoscopy Orders: Orders: NM Nuclear Stress Test 1 Week H PYLORI AG EIA,STOOL 1 Week (2) Chronic obstructive lung disease: Status: Chronic Code(s): J44.9 - Chronic obstructive pulmonary disease, unspecified SNOMED Code(s): 71895077 Category: Medical Plan - [place], PAS: 1. Patient will continue his current medication regimen. 2. He will follow up with this office if his symptoms worsen. Plan - Xiao Payan MD: see in 6 months. Medications: Refilled: roflumilast (Daliresp) 500 mcg PO DAILY 90 tabs 1RF Orders Other Medications: Refilled: tiotropium bromide (Spiriva with HandiHaler) 18 mcg INH DAILY #3 1RF pantoprazole 40 mg PO DAILY@0700 90 tabs 1RF <Electronically signed by Xiao Payan MD> 12/04/19 1633 Name Value Range Interpretation Code Description Data Gina rce(s) Supporting Document(s) ID Date Data Source [id number] 06/05/2019 01:02:00 PM [facility] Patient Name: Rona Washington : 1955 Sex: M Pt Unit #: [id number] Location:[facility] Provider: Visit Date/Time: 06/05/19 Primary Insurance: /[facility] Secondary Insurance: Self Pay Intake Vital Signs 06/05/19 13:17 Current Height 5 ft 7.5 in Current Weight 194 lb BMI 29.9 BP 130/60 Position Sitting Respiration 20 Pulse 80 Pulse Strength Normal Pulse Source Palpation Comment prev ht Intake Visit Reasons: COPD Nurse Note: routine checkup. copd. no new concerns. 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 albuterol sulfate 2.5 mg NEB Q4HPRN PRN fluticasone furoate-vilanterol 200-25 mcg/dose (Breo Ellipta) 1 ea inhalation DAILY pantoprazole 40 mg PO DAILY@0700 roflumilast (Daliresp) 500 mcg PO DAILY tiotropium bromide (Spiriva with HandiHaler) 18 mcg INH DAILY varicella-zoster gE-AS01B (PF) (Shingrix (PF)) 0.5 mL IM .1 Fall Risk History of falls: No PHQ-2/9 Over the last 2 weeks, how often have you been bothered by any of the following problems? 1. Little interest or pleasure in doing things: not at all 2. Feeling down, depressed, or hopeless: not at all Total score: 0 HIV Testing Offer - ages 13-64 Requirement for HIV testing offer been met?: Declines today. Pretest education received and acknowledged Do you need a note to return Do you need a note to return to daycare/school/sports/work: No PFSH Medical History (Updated 06/05/19 @ 17:42 by Xiao Payan MD) Chronic obstructive lung disease (Chronic) CO2 narcosis (Resolved) Depression fractures History of measles History of mumps History of varicella Family History (Updated 06/05/19 @ 13:40 by Xiao Payan MD) Mother Cancer Father Diabetes L upus Social History (Updated 06/05/19 @ 13:44 by Xiao Payan MD) Does the Patient have a Healthcare Proxy: Yes (brother ,Malik) Does Patient have a DNR?: No Does Patient have a Living Will?: No Advance Directives on File or in chart?: No household members: none service: Yes () status: discharged branch: [employer] assignments: outside [employer] ([employer]) current occupational status: disabled Hx Recent Travel (where): No do you think of yourself as: straight/heterosexual current gender identity: male seatbelt use: always helmet use: Yes drive intox or ride w/ intox 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 Current symptoms: Reports chest congestion Exacerbated by: reports cold air and warm air (if he has been outside and comes in,it gets worse) Improved by: reports inhalers Pulmonary Results: No Data to Display Review of Systems Resp Reports chest congestion Exam Const General: cooperative, healthy appearing, no acute distress, well developed and well groomed Nutritional Appearance: overweight Orientation: alert, awake and oriented x3 Resp Effort Inspection: normal respiratory effort Auscultation: diminished lung sounds Cardio Palpation: normal PMI and abnormal PMI Rate: regular rate Rhythm: regular rhythm Heart Sounds: S1 normal and S2 normal Assessment Plan Assessment Plan (1) Chronic obstructive lung disease: SNOMED Code(s): 63496091 Category: Medical Medications: Refilled: fluticasone furoate-vilanterol 200-25 mcg/dose (Breo Ellipta) 1 ea inhalation DAILY 3 Inhalers 1RF roflumilast (Daliresp) 500 mcg PO DAILY 90 tabs 1RF Additional Comments Additional Comments: should get his shingles shots, increase exercise gradually and see him in 6 months. Orders Other Medications: Refilled: albuterol sulfate 90 mcg/actuation INHALE 2 PUFFS BY MOUTH EVERY 4 HOURS IF NEEDED. 1 INHALER 5RF pantoprazole 40 mg PO DAILY@0700 90 tabs 1RF tiotropium bromide (Spiriva with HandiHaler) 18 mcg INH DAILY #3 1RF varicella-zoster gE-AS01B (PF) (Shingrix (PF)) 0.5 mL IM .1 1 ea 1RF Follow Up: 6 Months Counseling Counseling on all vaccine components completed: Yes Medicare Annual Wellness Type Of Examation Type of Exam: Initial Wellness Exam EKG EKG Performed: No Medication list Medications albuterol sulfate 90 mcg/actuation INHALE 2 PUFFS BY MOUTH EVERY 4 HOURS IF NEEDED. albuterol sulfate 2.5 mg NEB Q4HPRN PRN fluticasone furoate-vilanterol 200-25 mcg/dose (Breo Ellipta) 1 ea inhalation DAILY pantoprazole 40 mg PO DAILY@0700 roflumilast (Daliresp) 500 mcg PO DAILY tiotropium bromide (Spiriva with HandiHaler) 18 mcg INH DAILY varicella-zoster gE-AS01B (PF) (Shingrix (PF)) 0.5 mL IM .1 Allergies Allergies No Known Drug Allergies Allergy (Verified 10/27/17 00:43) Current Diet Current diet: regular PHQ-2/9 Over the last 2 weeks, how often have you been bothered by any of the following problems? 1. Little interest or pleasure in doing things: not at all 2. Feeling down, depressed, or hopeless: not at all Total score: 0 Vision [place] VA Far - right eye: 20/50 VA Far - left eye: 20 40 VA Far - bilateral eyes: 20/30 Functional Assessment Bathing: Independent Dressing: Independent Toileting: Independent Transferring: Independent Continence: Independent Feeding: Independent Total Score: 6 Home Safety Home Safety: Reports Lighting: Adequate, Ballinger: No throw rugs and Stairs: Handrail available; DeniesBathroom: Grab bars Hearing Hearing Left Ear: Abnormal Hearing Right Ear: Abnormal Hearing test method: whispered voice IADL Assessm ent Functional abilities: Up Go test, pt steady, Up Go test, within 30 sec, Pt independent w/phone,Pt independent w/transportation, Pt independent w/shopping, Pt independent w/housework, Pt independent w/meal preparation, Pt independent w/laundry, Pt independent w/medication and Pt independent w/finances Cognitive Evaluation Oriented to the date:: Yes Oriented to time:: Yes Oriented to place:: Yes Mood: grossly normal Affect: Normal Judgement: normal Needs caregiver for assistance: No Clock drawing: Yes Clock drawing with correct time: Yes 3 item recall: 1 (didn't pay attention) Electronically Signed By: <Electronically signed by Xiao Payan MD> Date/Time Signed: 06/05/191752 Name Value Range Interpretation Code Description Data Gina rce(s) Supporting Document(s) Procedure Social History Code Duration Value Status Description Data Source(s ) 06/05/2019 01:44:12 PM EST Former smoker completed Former smoker [facility] 06/05/2019 01:44:12 PM EST Former smoker completed Former smoker [facility] 06/05/2019 01:44:12 PM EST Former smoker completed Former smoker [facility] Smoking 06/05/2019 01:44:00 PM EST Former smoker completed Former smoker [facility] Smoking 06/05/2019 01:44:00 PM EST Former smoker completed Former smoker [facility] Smoking 06/05/2019 12:44:00 PM EST Former smoker completed Former smoker [facility] Vital Signs ID Date Data Source UNK Name Value Range Interpretation Code Description Data Source(s) Body surface area Derived from formula 1.83 m2 1.83 m2 [facility] ([employer] [facility] Body weight 71.669 kg 71.669 kg [facility] ([facility], ) [place] body weight 148 [lb_av] 148 [lb_av] [facility] T ([facility], ) Body mass index (BMI) [Ratio] 24.7 kg/m2 24.7 k g/m2 [facility] ([facility]) Body weight 158.00 [lb_av] 158.00 [lb_av] [facility] Body height 67 [in_i] 67 [in_i] [facility] ([facility]) 5'7" Oxygen saturation in Arterial blood by Pulse oximetry 93 % 93 % [facility] ([facility]) Room Air Heart rate 95 /min 95 /min [facility] ([facility]) Diastolic blood pressure 74 mm[Hg] 74 mm[Hg] [facility] ([facility]) Systolic blood pressure 140 mm[Hg] 140 mm[Hg] [facility] ([facility]) Body surface area Derived from formula 1.83 m2 1.83 m2 [facility] ([facility]) Body weight 71.669 kg 71.669 kg [facility] ([facility]) [place] body weight 148 [lb_av] 148 [lb_av] [facility] Body mass index (BMI) [Ratio] 24.7 kg/m2 24.7 k g/m2 [facility] ([facility]) Body weight 158.00 [lb_av] 158.00 [lb_av] [facility] Body height 67 [in_i] 67 [in_i] [facility] ([facility]) 5'7" Oxygen saturation in Arterial blood by Pulse oximetry 95 % 95 % [facility] ([facility]) Room Air Heart rate 108 /min 108 /min [facility] ([facility]) Diastolic blood pressure 70 mm[Hg] 70 mm[Hg] [facility] ([facility]) Systolic blood pressure 116 mm[Hg] 116 mm[Hg] [facility] ([facility])
[2020-05-24] MEDS ORDERED: MORPHINE 4 MG/ML 1ML VIAL/SYRINGE (J2270) IV PRN (11:00)
[2020-05-24] MEDS ORDERED: ONDANSETRON 4MG/2ML VIAL IV ONE (11:00)
[2020-05-24 11:05] LABS: HEMATOCRIT 25.7 % (42.0-52.0); HEMOGLOBIN 8.5 g/dl (13.5-17.5); MEAN CORPUSCULAR HEMOGLOBIN 32.1 pg (27.0-33.0); MEAN CORPUSCULAR HGB CONC 33.1 g/dl (32.0-36.5); PLATELET COUNT, AUTOMATED 183 10^3/uL (150-450); RED BLOOD COUNT 2.65 10^6/uL (4.30-6.10); WHITE BLOOD COUNT 2.2 10^3/uL (4.0-10.0)
[2020-05-24 11:08] LABS: VENOUS BASE EXCESS 4.9 (-2.0-2.0); VENOUS HCO3 28.5 MEQ/L (23.0-27.0); VENOUS PARTIAL PRESSURE CO2 38.3 mmHg (38.0-50.0); VENOUS PARTIAL PRESSURE O2 57.2 mmHg (30.0-50.0); VENOUS STANDARD HCO3 28.8 MEQ/L; VENOUS TOTAL CO2 29.7 MEQ/L (24.0-28.0)
[2020-05-24 11:23] LABS: INR 1.09; PROTHROMBIN TIME 14.3 SECONDS (12.5-14.3)
[2020-05-24] MEDS: NS 1,000 ML IV SCH ×2 (11:28→17:06)
--- NOTE | 2020-05-24 11:28 | REP ---
INDICATION: DYSPNEA/COUGH. COMPARISON: 04/29/2020. TECHNIQUE: SINGLE PORTABLE AP VIEW OF THE CHEST WAS PERFORMED. FINDINGS: There is new infiltrate in the right lung base. The previously noted infiltrate in the left lung base has significantly improved with minor residual. The heart is not enlarged. There is mild calcification of the thoracic aorta. Right central venous catheter is again noted. There is blunting of the costophrenic angles which may represent small effusions. IMPRESSION: New right basilar infiltrate. Left basilar infiltrate has improved with mild residual. Probable small effusions. <Electronically signed by Arjun Forman > 05/24/20 1125
[2020-05-24 11:42] LABS: LYMPHOCYTES 14 % (16-44); MONOCYTES 13 % (0-5); NEUTROPHILS 59 % (28-66)
[2020-05-24 11:43] LABS: ANISOCYTOSIS 1+; DOHLE BODIES 1+; PLATELET ESTIMATE NORMAL (NORMAL); TOXIC GRANULATION 1+
[2020-05-24 11:44] LABS: ALBUMIN 2.2 GM/DL (3.2-5.2); BILIRUBIN,DIRECT 0.3 MG/DL (0.0-0.2); BILIRUBIN,TOTAL 0.8 MG/DL (0.2-1.0); THYROID STIMULATING HORMONE 0.566 uIU/ML (0.358-3.740); TOTAL PROTEIN 6.4 GM/DL (6.4-8.2)
[2020-05-24] MEDS ORDERED: AZITHROMYCIN INJ 500 MG, VIAL MATE ADAPTER 1 EACH in D5W 250 ML IV ONE (11:45)
[2020-05-24] MEDS ORDERED: cefTRIAXone SOD 1 GM in D5W MINI-BAG PLUS 50 ML IV ONE (11:45)
[2020-05-24] MEDS ORDERED: KEYT1INJ IV (12:26)
--- OUTSIDE RECORDS SUMMARY | 2020-05-24 12:46 | CCD ---
Author Author [facility] Organization [facility] Address Unknown Phone Unavailable Care Team Providers Care Computer Network Specialist Name Role Phone Faisal POWERS MD Unavailable Unavailable Faisal POWERS MD Unavailable Unavailable Faisal POWERS MD Unavailable Unavailable Faisal POWRES MD Unavailable Unavailable Faisal POWERS MD Unavailable [...] Pisaniello, Zunilda Hagen MD Unavailable Unavailable Pisaniello, uZnilda Hagen MD Unavailable Unavailable Pisaniello, Zunilda Hagen [...] Unavailable Unavailable Grant Llanes MD Unavailable Unavailable Gratn Llanes MD Unavailable Unavailable Grant Llanes MD [...] MD Unavailable Unavailable LlanesGrant MD Unavailable Unavailable Llanes, Grant Lou MD [...] Grant Lou MD Unavailable Unavailable Llanes, Grant oLu MD Unavailable Unavailable Llanes, Grant Lou MD [...] is protected by Article 27-F of the [facility] Public Health law. If you continue you may have access to information: Regarding HIV / AIDS; Provided by facilities licensed or operated by the [facility] Office of Mental Health; or Provided by the [facility] Office for People With Developmental Disabilities. If such information is present, then the following [facility] mandated warning applies: This information has been [...] law may result in a fine or senior living sentence or both. A general authorization for the release of medical or other information is NOT sufficient authorization for further disc losure. Family History Family Member Name Family Member Gender Family Member Status Date o f Status Description Data Source(s) Unknown Condition [facility] Unknown Condition [facility] Unknown Condition [facility] Encounters Encounter Providers Location Date Indications Data Source(s ) Outpatient Attender: Anish Drake/Leni/R elva 04/08/2020 09:00:00 AM EST [facility] ([facility] Outpatient Admitter: Anish Llanes MDReferrer: Anish moore MD 04/01/2020 12:00:00 AM EST Secondary malignant neoplasm of unspecified lung [facility] Secondary malignant neoplasm of unspecif ied lung Outpatient Attender: Anish Drake/Leni/Luis stevenson 03/19/2020 01:00:00 PM EST [facility] ([facility]) Attender: JARED POWERS MD 03/12/2020 08:20:11 PM EST Gastroenterology and Hepatology [facility] Outpatient Attender: Xiao Payan MD 03/11/2020 06:13 :00 PM EST R22.2 [facility] R22.2 Outpatient Attender: Xiao Payan MDReferrer: Xiao delatorre MD 03/11/2020 02:20:00 PM EST - 03/11/2020 03:50:00 PM EST [facility] Outpatient Attender: Xiao Payan MD 02/26/2020 09:55:00 AM EDT CHEST PAIN, EX SMOKER [facility] CHEST PAIN, EX SMOKER Outpatient Attender: Xiao Payan MD 02/20/2020 12:15:00 PM EDT J44.9,R07.9 [facility] J44.9,R07.9 Outpatient Attender: Xiao Payan MDReferrer: Xiao delatorre MD 02/05/2020 02:56:00 PM EDT - 02/05/2020 03:30:00 PM EDT [facility] Outpatient Attender: Xiao Payan MD 12/13/2019 07:09 :00 AM EDT SOB [facility] SOB Outpatient Attender: Xiao Payan MDReferrer: Xiao delatorre MD 12/04/2019 01:04:00 PM EDT - 12/04/2019 01:48:00 PM EDT [facility] Outpatient Attender: Xiao Payan MDReferrer: Xiao delatorre MD 06/05/2019 12:57:00 PM EST - 06/05/2019 01:53:00 PM [facility] Immunizations Vaccine Date Status Description Data Source(s) This CVX code allows reporting of a vacc ination when formulation is unknown (for example, when recording a Influenza vaccination when noted on a vaccination card) 02/09/2020 12:00:00 AM EDT completed influenza, injectable , quadriv [facility] Medications Medication Brand Name Start Date Product Form Dose Route Admi nistrative Instructions Pharmacy Instructions Status Indications Reaction Description Data Source(s) fluticasone furoate 0.2 MG/ACTUAT / vaughn nterol 0.025 MG/ACTUAT Dry Powder Inhaler Fluticasone Furoate-Vilanterol (Breo Ellipta) 200-25 mcg/dose blister with device Fluticasone Furoate-Vilanterol (Breo Ell ipta) 200-25 mcg/dose blister with device 03/05/2020 04:29:51 PM EDT 1 EACH co mpleted [facility] tiotropium 0.018 MG/ACTUAT Inhalant Powd er Tiotropium [place] (Spiriva With Handihaler) 18 mcg capsule, w/inhalation device Tiotropium [place] (Spiriva With Handihaler) 18 mcg capsule, w/inhalation device 02/13/2020 03:07:18 PM EDT 18 MCG completed [facility] Famotidine 20 MG Oral Tablet Famotidine (Heartburn Relief (Famotidine)) 20 mg tablet Famotidine (Heartburn Relief (Famotidine)) 20 mg table t 02/05/2020 03:18:48 PM EDT 20 MG active [facility] Famotidine 20 MG Oral Tablet Famotidine (Heartburn Relief (Famotidine)) 20 mg tablet Famotidine (Heartburn Relief (Famotidine)) 20 mg table t 02/05/2020 03:18:48 PM EDT 20 MG active [facility] pantoprazole 40 MG Delayed Release Oral Tablet Pantoprazole Pantoprazole 12/04/2019 01:40:24 PM EDT 40 MG active [facility] pantoprazole 40 MG Delayed Release Oral Tablet Pantoprazole Pantoprazole 12/04/2019 01:40:24 PM EDT 40 MG active [facility] tiotropium 0.018 MG/ACTUAT Inhalant Powd er Tiotropium [place] (Spiriva With Handihaler) 18 mcg capsule, w/inhalation device Tiotropium [place] (Spiriva With Handihaler) 18 mcg capsule, w/inhalation device 12/04/2019 01:40:16 PM EDT 18 MCG completed [facility] tiotropium 0.018 MG/ACTUAT Inhalant Powd er Tiotropium [place] (Spiriva With Handihaler) 18 mcg capsule, w/inhalation device Tiotropium [place] (Spiriva With Handihaler) 18 mcg capsule, w/inhalation device 12/04/2019 01:40:16 PM EDT 18 MCG active [facility] Roflumilast 0.5 MG Oral Tablet Roflumilast (Daliresp) 500 mcg tablet Roflumilast (Daliresp) 500 mcg tablet 12/04/2019 01:40:10 PM EDT 500 MCG active [facility] Roflumilast 0.5 MG Oral Tablet Roflumilast (Daliresp) 500 mcg tablet Roflumilast (Daliresp) 500 mcg tablet 12/04/2019 01:40:10 PM EDT 500 MCG active [facility] fluticasone furoate 0.2 MG/ACTUAT / vaughn nterol 0.025 MG/ACTUAT Dry Powder Inhaler Fluticasone Furoate-Vilanterol (Breo Ellipta) 200-25 mcg/dose blister with device Fluticasone Furoate-Vilanterol (Breo Ell ipta) 200-25 mcg/dose blister with device 10/16/2019 03:34:15 PM EDT 1 EACH co mpleted [facility] fluticasone furoate 0.2 MG/ACTUAT / vaughn nterol 0.025 MG/ACTUAT Dry Powder Inhaler Fluticasone Furoate-Vilanterol (Breo Ellipta) 200-25 mcg/dose blister with device Fluticasone Furoate-Vilanterol (Breo Ell ipta) 200-25 mcg/dose blister with device 10/16/2019 03:34:15 PM EDT 1 EACH ac tive [facility] Albuterol Sulfate 08/30/2019 02:54:49 PM EDT 2 PUFFS active [facility] Albuterol Sulfate 08/30/2019 02:54:49 PM EDT 2 PUFFS active [facility] Varicella-Zoster Ge-As01b (Pf) (Shingrix (Pf)) 50 mcg/0.5 mL suspension for reconstitution 06/05/2019 01:47:36 PM EST 0.5 ML a ctive [facility] Varicella-Zoster Ge-As01b (Pf) 06/05/2019 01:47:36 PM EST 0.5 ML active [facility] Varicella-Zoster Ge-As01b (Pf) (Shingrix (Pf)) 50 mcg/0.5 mL suspension for reconstitution 06/05/2019 01:47:36 PM EST 0.5 ML a [facility] tiotropium 0.018 MG/ACTUAT Inhalant Powd er Tiotropium [place] (Spiriva With Handihaler) 18 mcg capsule, w/inhalation device Tiotropium [place] (Spiriva With Handihaler) 18 mcg capsule, w/inhalation device 06/05/2019 01:46:55 PM EST 18 MCG completed [facility] tiotropium 0.018 MG/ACTUAT Inhalant Powd er Tiotropium [place] (Spiriva With Handihaler) 18 mcg capsule, w/inhalation device Tiotropium [place] (Spiriva With Handihaler) 18 mcg capsule, w/inhalation device 06/05/2019 01:46:55 PM EST 18 MCG completed [facility] tiotropium 0.018 MG/ACTUAT Inhalant Powder Tiotropium [place] Tiotropium [place] 06/05/2019 01:46:55 PM EST 18 MCG active [facility] Roflumilast 0.5 MG Oral Tablet Roflumilast (Daliresp) 500 mcg tablet Roflumilast (Daliresp) 500 mcg tablet 06/05/2019 01:46:47 PM EST 500 MCG completed [facility] Roflumilast 0.5 MG Oral Tablet Roflumilast 06/05/2019 01:46:47 PM EST 500 MCG active [facility] Roflumilast 0.5 MG Oral Tablet Roflumilast (Daliresp) 500 mcg tablet Roflumilast (Daliresp) 500 mcg tablet 06/05/2019 01:46:47 PM EST 500 MCG completed [facility] pantoprazole 40 MG Delayed Release Oral Tablet Pantoprazole Pantoprazole 06/05/2019 01:46:41 PM EST 40 MG active [facility] pantoprazole 40 MG Delayed Release Oral Tablet Pantoprazole Pantoprazole 06/05/2019 01:46:41 PM EST 40 MG completed [facility] pantoprazole 40 MG Delayed Release Oral Tablet Pantoprazole Pantoprazole 06/05/2019 01:46:41 PM EST 40 MG completed [facility] fluticasone furoate 0.2 MG/ACTUAT / vaughn nterol 0.025 MG/ACTUAT Dry Powder Inhaler Fluticasone Furoate-Vilanterol (Breo Ellipta) 200-25 mcg/dose blister with device Fluticasone Furoate-Vilanterol (Breo Ell ipta) 200-25 mcg/dose blister with device 06/05/2019 01:46:35 PM EST 1 EACH co mpleted [facility] fluticasone furoate 0.2 MG/ACTUAT / vaughn nterol 0.025 MG/ACTUAT Dry Powder Inhaler Fluticasone Furoate-Vilanterol (Breo Ellipta) 200-25 mcg/dose blister with device Fluticasone Furoate-Vilanterol (Breo Ell ipta) 200-25 mcg/dose blister with device 06/05/2019 01:46:35 PM EST 1 EACH co mpleted [facility] fluticasone furoate 0.2 MG/ACTUAT / vaughn nterol 0.025 MG/ACTUAT Dry Powder Inhaler Fluticasone Furoate-Vilanterol Fluticasone Furoate-Vilanterol 06/05/2019 01:46:35 PM EST 1 EACH active [facility] Albuterol Sulfate 06/05/2019 01:16:14 PM EST 0 completed [facility] Albuterol Sulfate 06/05/2019 01:16:14 PM EST 0 completed [facility] Albuterol Sulfate 06/05/2019 01:16:14 PM EST 0 active [facility] Albuterol Sulfate 04/04/2019 11:34:28 AM EST 0 completed [facility] Albuterol Sulfate 04/04/2019 11:34:28 AM EST 0 completed [facility] Albuterol Sulfate 04/04/2019 11:34:28 AM EST 0 completed [facility] pantoprazole 40 MG Delayed Release Oral Tablet Pantoprazole Pantoprazole 02/01/2019 08:57:18 AM EDT 40 MG completed [facility] pantoprazole 40 MG Delayed Release Oral Tablet Pantoprazole Pantoprazole 02/01/2019 08:57:18 AM EDT 40 MG completed [facility] pantoprazole 40 MG Delayed Release Oral Tablet Pantoprazole Pantoprazole 02/01/2019 08:57:18 AM EDT 40 MG completed [facility] tiotropium 0.018 MG/ACTUAT Inhalant Powder Tiotropium [place] Tiotropium [place] 02/01/2019 08:43:26 AM EDT 18 MCG completed [facility] tiotropium 0.018 MG/ACTUAT Inhalant Powd er Tiotropium [place] (Spiriva With Handihaler) 18 mcg capsule, w/inhalation device Tiotropium [place] (Spiriva With Handihaler) 18 mcg capsule, w/inhalation device 02/01/2019 08:43:26 AM EDT 18 MCG completed [facility] tiotropium 0.018 MG/ACTUAT Inhalant Powd er Tiotropium [place] (Spiriva With Handihaler) 18 mcg capsule, w/inhalation device Tiotropium [place] (Spiriva With Handihaler) 18 mcg capsule, w/inhalation device 02/01/2019 08:43:26 AM EDT 18 MCG completed [facility] fluticasone furoate 0.2 MG/ACTUAT / vaughn nterol 0.025 MG/ACTUAT Dry Powder Inhaler Fluticasone Furoate-Vilanterol (Breo Ellipta) 200-25 mcg/dose blister with device Fluticasone Furoate-Vilanterol (Breo Ell ipta) 200-25 mcg/dose blister with device 02/01/2019 08:29:54 AM EDT 1 EACH co mpleted [facility] fluticasone furoate 0.2 MG/ACTUAT / vaughn nterol 0.025 MG/ACTUAT Dry Powder Inhaler Fluticasone Furoate-Vilanterol (Breo Ellipta) 200-25 mcg/dose blister with device Fluticasone Furoate-Vilanterol (Breo Ell ipta) 200-25 mcg/dose blister with device 02/01/2019 08:29:54 AM EDT 1 EACH co mpleted [facility] fluticasone furoate 0.2 MG/ACTUAT / vaughn nterol 0.025 MG/ACTUAT Dry Powder Inhaler Fluticasone Furoate-Vilanterol Fluticasone Furoate-Vilanterol 02/01/2019 08:29:54 AM EDT 1 EACH completed [facility] Roflumilast 0.5 MG Oral Tablet Roflumilast (Daliresp) 500 mcg tablet Roflumilast (Daliresp) 500 mcg tablet 01/19/2019 03:41:26 PM EDT 500 MCG completed [facility] Roflumilast 0.5 MG Oral Tablet Roflumilast (Daliresp) 500 mcg tablet Roflumilast (Daliresp) 500 mcg tablet 01/19/2019 03:41:26 PM EDT 500 MCG completed [facility] Roflumilast 0.5 MG Oral Tablet Roflumilast 01/19/2019 03:41:26 PM EDT 500 MCG completed [facility] Varicella-Zoster Ge-As01b (Pf) (Shingrix (Pf)) 50 mcg/0.5 mL suspension for reconstitution 12/05/2018 01:51:44 PM EDT 0.5 ML c ompleted [facility] Varicella-Zoster Ge-As01b (Pf) 12/05/2018 01:51:44 PM EDT 0.5 ML completed [facility] Varicella-Zoster Ge-As01b (Pf) (Shingrix (Pf)) 50 mcg/0.5 mL suspension for reconstitution 12/05/2018 01:51:44 PM EDT 0.5 ML c ompleted [facility] Albuterol Sulfate (Ventolin Hfa) 90 mcg/actuation HFA aeroso l inhaler 11/16/2018 04:32:20 PM EDT 2 PUFFS completed [facility] Albuterol Sulfate 11/16/2018 04:32:20 PM EDT 2 PUFFS completed [facility] Albuterol Sulfate (Ventolin Hfa) 90 mcg/actuation HFA aeroso l inhaler 11/16/2018 04:32:20 PM EDT 2 PUFFS completed [facility] Insurance Providers Payer name Policy type / Coverage type Policy ID Covered constitution party ID Covered constitution party's relationship to menendez Policy Menendez Plan Information MEDICARE BLUE PPO [id number] SP [id number] [facility] B [id number] S VYM [id number] [facility] MEDICARE BLUE PPO G [id number] Self [id number] MEDICARE BLUE PPO 306 [id number] SP [id number] [place] MED[place] [id number] Problems, Conditions, and Diagnoses Code Display Name Description Problem Type Effective Dates Data Source(s) C78.00 Secondary malignant neoplasm of unspecif ied lung Secondary malignant neoplasm of unspecified lung Diagnosis 04/01/2020 04:40:00 PM EST [facility] Surgeries/Procedures Procedure Description Date Indications Data Source(s) Bronchospasm Evaluation 04/10/2020 12:00:00 AM EST [facility] ([facility], ) Maximum Breathing Capacity, Maximal Voluntary Ventilation 04/10/2020 12:00:00 AM EST [facility] ([facility], ) Plethysmography Determination Lung Volumes & Per Airway Resi st 04/10/2020 12:00:00 AM EST [facility] ([facility], ) DIFFUSING CAPACITY 04/10/2020 12:00:00 AM EST [facility] ([facility]) Spirometry 03/19/2020 12:00:00 AM EST M [facility] ([facility]) Computerized axial tomography of thorax with contrast (proce dure) 02/26/2020 11:57:00 AM EDT [facility] l Plain chest X-ray (procedure) 02/20/2020 12:19:35 PM E DT [facility] Results ID Date Data Source [id number] 04/29/2020 01:04:00 PM EST [facility] Name Value Range Interpretation Code Description Data Gina rce(s) Supporting Document(s) SARS coronavirus 2 RNA [Presence] in Res piratory specimen by FLORA with probe detection [facility] This lab was ordered by [facility] a nd reported by [facility]. ID Date Data Source [id number] 04/01/2020 04:45:00 PM EST [facility] ([facility], ) Name Value Range Interpretation Code Description Data Gina rce(s) Supporting Document(s) Surgical pathology study Laboratory test result [facility] ([facility]) Anatomic Molecular Pathology Report Name: RONA WASHINGTON Collection Date: 04/01/2020 00:00 Received Date: 04/22/2020 16:44 Physician(s): ANISH LLANES MD VYAS, SHIKHAR G, MD Copy To: ANISH LLANES MD Specimen(s) Received A: Liver biopsy, Formalin Block [id number] received from [facility] in [place], [place] EGFR Diagnosis TEST: EGFR gene mutations (exon 19 deletions, L858R, G719A, T790M, S768I, exon 20 insertions, L861Q) by therMobiWorkreene RGQ real-time PCR RESULTS: An EGFR mutation [...] real-time qualitative PCR assay used on the Chance (app) instrument for the detection of seven types [...] covalently linked to a probe. Processed at [facility], [address] [place] [address] and reported at [facility], [address] [place] [address]. REFERENCES: 1. Red Garner, Yessy Figueroa, Sun [...] receptor mutations in lung cancer. Nature Review/Cancer. 2007;7387-2140. This report may include one or more immunohistochemical stain results that use analyte specific reagents. All positive and negative controls have been reviewed by the attending pathologist and are satisfactory. The tests were developed and their performance characteristics determined by [facility] Pathology department. They have not been cleared or approved by the US Food and Drug Administration. The FDA has determined that such clearance or approval is not necessary. ID Date Data Source [id number] 04/01/2020 09:40:00 AM EST [facility] ([facility], ) Name Value Range Interpretation Code Description Data Gina rce(s) Supporting Document(s) Surgical pathology study Laboratory test result [facility] ([facility]) Addendum 2 Entered: 05/09/2020-1259 This addendum is being issued to report additional molecular results. ALK gene rearrangement (FISH): Negative ROS1 gene rearrangement (FISH): Negative EGFR gene mutation: Negative KRAS gene mutation: Negative BRAF V600E gene mutation: Negative Please see the scanned documentation for the full Molecular Diagnostics reports from [facility]. 05/09/20201258 Addendum Signed____ ALEXANDER VERMA [...] MD 04/02/2020 1527 ID Date Data Source [id number] 05/08/2020 11:22:00 AM [facility] Anatomic Molecular Pathology ReportName: RONA WASHINGTONMRN: [id number] Number: [id number] Date: 04/01/2020 00:00Received Date: 04/22/2020 16:44Physician(s): ANISH LLANES MD VYAS, SHIKHAR G,[facility] To:ANISH LLANES,[facility]imen[facility]s) ReceivedA: Liver biopsy, Formalin Block [id number] received from [facility] in [place], [place] EGFRDiagnosisTEST: EGFR gene mutations (exon 19 [...] indicated. Presence of exon 19 deletions, exon 46M529O or L861Q, exon 18 G719A or exon [...] a real-timequalitative PCR assay used on the Chance (app) instrument for thedetection of seven types of mutations at EGFR oncogene. The kit requiresDNA extracted from formalin-fixed paraffin-embedded (FFPE) tissue ofnon-small cell lung cancer. The tumor area is identified by the attendingpathologist and manually mi crodissected. The assay uses Scorpionse andARMSe (Allele Refractory Mutation System) technologies, and [facility]DA-approved for clinical patient care. Allele- specific amplification isachieved by ARMS which exploits the ability of Taq DNA polymerase todistinguish between a matched and a mismatched base at the 3' end of a PCRprimer. Detection of amplification is performed using Scorpions, which arebifunctional molecules containing a PCR primer covalently linked to aprobe.Processed at [facility], [address] [place] [address] and reported at [facility], [address] [place] [address].REFERENCES:1. Red Garner, Yessy Figueroa, Sun Ballesteros. et [...] factor receptormutations in lung cancer. Nature Review/Cancer. 2007;0224-1239.This report may include one or more immunohistochemical stain results thatuse analyte specific reagents. All positive and negative controls havebeen reviewed by the attending pathologist and are satisfactory. The testswere developed and their performance characteristics determined by [facility] Pathology department. They have not been cleared or approved by the USFood and Drug Administration. The FDA has determined that such clearanceor approval is not necessary. Name Value Range Interpretation Code Description Data Gina rce(s) Supporting Document(s) ID Date Data Source [id number] 05/08/2020 11:19:00 AM [facility] Anatomic Molecular Pathology ReportName: RONA WASHINGTONMRN: [id number] Number: [id number] Date: 04/01/2020 00:00Received Date: 04/22/2020 16:43Physician(s): ANISH LLANES MD VYAS, SHIKHAR G,[facility] To:ANISH LLANES,[facility]imen(s) ReceivedA: Liver biopsy, Formalin Block [id number] received from [facility] in [place], [place], ROS1 by FISHDiagnosisTEST:ROS1 gene rearrangements by [...] performed on paraffin embedded NSCLC utilizing thecombined [employer] Molecular LSI ROS1(Silvestre) and ROS1(Tel) ROS1 Probes: 1)3'-ROS1(Silvestre), 557 kb, labeled with SpectrumGreen, and 2) 5'-ROS1(Tel),317kb, labeled with SpectrumOrange. Tumor cells with no [id number] have 2 yellow signals (fused orange and [...] and its performance characteristics weredetermined by the [facility],and it has been authorized for clinical use by [facility]. The test has not been cleared or approved by the U.S. Food andDrug Administration. The analyte specific reagents used in this assay donot require FDA approval. Processed at [facility], [address] [place] [address] and reported at [facility], [address] [place] [address].REFERENCES: 1. SCOUT Ochoa, Ailin AT, Thethomas VAUGHN et al. Identifying and Targeting [id number] Fusions in NonSmall Cell Lung Cancer. Clin Cancer Res 2012; 18(17);37100468.2. Purcell, Amrik AT. Novel Targets in Non-Small Cell Lung Cancer:ROS-1 and RET fusions. The Oncologist. 2013;18:865- 875.This report may include one or more immunohistochemical stain results thatuse analyte specific reagents. All positive and negative controls havebeen reviewed by the attending pathologist and are satisfactory. The testswere developed and their performance characteristics determined by [facility] Pathology department. They have not been cleared or approved by the USFood and Drug Administration. The FDA has determined that such clearanceor approval is not necessary. Name Value Range Interpretation Code Description Data Gina rce(s) Supporting Document(s) ID Date Data Source [id number] 05/08/2020 11:18:00 AM [facility] Anatomic Molecular Pathology ReportName: RONA WASHINGTONMRN: [id number] Number: [id number] Date: 04/01/2020 00:00Received Date: 04/22/2020 16:42Physician(s): ANISH LLANES MD BAYRON,ALEXANDER Enamorado,[facility] To:ANISH LLANES,[facility]MONpecimen(s) ReceivedA: Liver biopsy, Formalin Block [id number] received from [facility] in [place], [place], ALK by FISHDiagnosisTEST:ALK gene rearrangements by [...] is performed on paraffin embedded NSCLC utilizing the[employer] Molecular ALK Break Apart FISH Probe Kit. [...] the special procedure laboratory of Department of Pathology,[facility]. Processed at [facility], [address] [place] [address] and reported at [facility], [address] [place] [address]. This report may include one or more immunohistochemical stain results thatuse analyte specific reagents. All positive and negative controls havebeen reviewed by the attending pathologist and are satisfactory. The testswere developed and their performance characteristics determined by [facility] Pathology department. They have not been cleared or approved by the USFood and Drug Administration. The FDA has determined that such clearanceor approval is not necessary. Name Value Range Interpretation Code Description Data Gina rce(s) Supporting Document(s) ID Date Data Source [id number] 05/07/2020 10:06:00 AM EST [facility] Anatomic Molecular Pathology ReportName: RONA WASHINGTONMRN: [id number] Number: [id number] Date: 04/01/2020 00:00Received Date: 04/22/2020 16:46Physician(s): ANISH LLANES MD VYAS, SHIKHAR G,[facility] To:ANISH LLANES MDSpecimen(s) ReceivedA: Liver biopsy, Formalin Block [id number] received from [facility] in [place], [place] BRAF Mutation AnalysisDiagnosisTESTS:BRAF V600E mutation (1799 [...] theamounts of PCR products, and analyzed by [employer] real timeinstrument. The analytical sensitivity (or minimum percentage of mutantDNA needed) is approximately 10% given sufficient DNA input. Test development and its performance characteristics were determined bythe [facility], and has beenauthorized for clinical use by Critical access hospital. Thetest has not been cleared or approved by the U.S. Food and DrugAdministration. The analyte specific reagents used in this assay do notrequire FDA approval. Processed at [facility], [address] [place] [address] and reported at [facility], [address] [place] [address].REFERENCES: 1. Conrad S, Barry Maria C, et al. Detection of BRAF R196Cxxscdcyk in colorectal cancer-comparison of automatic sequencing and realtime chemistry methodology. J Mol Diagn. 2006; 8:190625.2. Brett L, Carlos COOPER, Clinton N, et al. BRAF mutation analysis in fineneedle aspiration (FNA) cytology of the thyroid. Diagn Mol Pathol.2006;15:445721.3. Patience PK, Calos ME, Beryl M, et al. Clinical characteristics ofpatients with lung adenocarcinomas harboring BRAF mutations. J Clin Oncol.2011;29:5110-1976.This report may include one or more immunohistochemical stain results thatuse analyte specific reagents. All positive and negative controls havebeen reviewed by the attending pathologist and are satisfactory. The testswere developed and their performance characteristics determined by [facility] Pathology department. They have not been cleared or approved by the USFood and Drug Administration. The FDA has determined that such clearanceor approval is not necessary. Name Value Range Interpretation Code Description Data Gina rce(s) Supporting Document(s) ID Date Data Source [id number] 05/07/2020 10:02:00 AM [facility] Anatomic Molecular Pathology ReportName: RONA WASHINGTONMRN: [id number] Number: [id number] Date: 04/01/2020 00:00Received Date: 04/22/2020 16:45Physician(s): ANISH LLANES MD VYAS, SHIKHAR G,[facility] To:ANISH LLANES MDSpecimen(s) ReceivedA: Liver biopsy, Formalin Block [id number] received from [facility] in [place], [place] KRAS Mutation AnalysisDiagnosisTEST:KRAS gene mutations by [...] a real-time qualitative PCR assay usedon the [employer] MDx instrument for the detection of seven [...] PCRprimer covalently linked to a probe.Processed at [facility], [address] [place] [address] and reported at [facility], [address] [place] [address].REFERENCES:1. SHANA Villanueva, Santosh CHIU, Elodia MR, et al. [place] Societyof Clinical Oncology provisional clinical opinion: testing for KRAS genemutations in patients with metastatic colorectal carcinoma to predictresponse to anti- epidermal growth factor receptor monoclonal antibodytherapy. J Clin Oncol 27:3374-8699, 2009. 2. Coral Sharp , Sun Sunshine , BENEDICT Warner, et al.Biomarkers predicting clinical outcome of epidermal growth factor receptor targeted therapy in metastatic colorectal cancer. J Natl Cancer Olje367:22043794, 2009.This report may include one or more immunohistochemical stain results thatuse analyte specific reagents. All positive and negative controls havebeen reviewed by the attending pathologist and are satisfactory. The testswere developed and their performance characteristics determined by [facility] Pathology department. They have not been cleared or approved by the USFood and Drug Administration. The FDA has determined that such clearanceor approval is not necessary. Name Value Range Interpretation Code Description Data [facility] Supporting Document(s) ID Date Data Source [id number] 03/19/2020 02:58:00 PM EST [facility] ([facility], ) Name Value Range Interpretation Code Description Data [facility](s) Supporting Document(s) Inr 0.91 Normal (applies to non-numeric resul ts) [facility] ([facility], ) THERAPUTIC HUMAN INR VALUES INDICATIONS NORMAL RANGES PROPHYLAXIS/TREATMENT OF: VENOUS THROMBOSIS 2.0-3.0 PULMONARY EMBOLISM 2.0-3.0 PREVENTION OF SYSTEMIC EMBOLISM FROM: TISSUE HEART VALVES 2.0-3.0 ACUTE MYOCARDIAL INFARCTION 2.0-3.0 VALVULAR HEART DISEASE 2.0-3.0 ATRIAL FIBRILLATION 2.0-3.0 MECHANICAL VALVES(HIGH RISK) 2.5-3.5 RECURRENT MYOCARDIAL INFARCTION 2.5-3.5 Prothrombin Time 12.4 s 12.5-14.3 Normal (applies to non-numeric results) [facility]) Partial Thromboplastin Time 30.3 s 24.2-38.5 Norm al (applies to non-numeric results) [facility] ([facility]) ID Date Data Source [id number] 03/19/2020 02:58:00 PM EST [facility] ([facility]) Name Value Range Interpretation Code Description Data Gina rce(s) Supporting Document(s) Platelets [#/volume] in Blood by Automated count 291 10 150-450 Normal (applies to non-numeric results) [facility] ([facility]) aPTT in Platelet poor plasma by Coagulation assay Laboratory test res ult [facility]) ID Date Data Source [id number] 03/12/2020 10:15:00 AM EST [facility] Name Value Range Interpretation Code Description Data Gina rce(s) Supporting Document(s) EGD [facility] UHOLIr5kJvXMOoAxKXTrOieMQXqpDMflVUDtB9M2TJenRf5HEUyvetTcPKWsMi4+CSIdTP3jbk0mSNCo gMy 1zELIwQhcoZ9DtSKDdb65QOYXyDGnKSvDjMeBuYQOnLYIeTTN0YDI7GnNdGpowPJ2lAYB7ZRFlSNqcJC RzMUTvJgLgKLFeIN9jPNtqRRwlNl7ZWZ4dk2PxVZNaKWEoOpoVYClbSLdrAZBwSZDlARFsB053vzWqFv 0MmEMjEUh0RAMyRhK9QSUcIkJ9TFUeMq3uUgOvc9Og F1ZnJZd2X4wVSwplG3HsHKxkZC7tABU0MEPaQq3CaAimKSudNYFWG1bpYqMaXUMpQXKSNj2+Pj4+DWVu KT9yfj13WGPia7TsJSa6C8K9dMUwO5ZgF5KbAWTltMGNk4sxPnIbXHW5YAVuHcgeXE0ZPYRyvICcSLXs HTzuWO7maiPndXA1DE1GfBszTTOtSSFGXc6+Pi9QYX DchqOgZsCnSAMfW52qgDUhuTYoUizcPFAAIS3+COJpWE2ohq65TTXem3PzDZz2H0ddhrp0dUAwPMfeZY gbRnMwPIQsJM0rYP7GiXH9xEZtSV4TsXAuZP2XsLAuKQ5ZK1QwSSB4N1WpcZZnjdXqF2FaRZXsXVFxd9 RyXQ2NT5SPUOXtNTJnO1FlaU7sS3LkC7ZgH4Rxsnwy OYSWIs9BwFA0jJDlBSPfV6zihGbkxIIzFDtjJ9HblZTYIMFZi62et31itkIkIJ8+g5DkLQOpLMm88qv3 ZVAcX/dsZENGQds0GTwdVRZhCfPItp4yG8leIvO1APl5HzwidBE3V0sDuGBA4//czgg7oql5ls/eD+/z 0IWBfp3+f7uc9aHx2qGm9HJZRNenTHRNbUUTXPTU00 hglIf0KIfmsJmcxGbE+AWaDFSSgMMuo4dE3Z8Ir0IBakFdZqD13+Hr2djy8gut3dMt7+Lm/SclUZ7zh1 ZHQyfGwCDmfEv+lvP/FW20DCvmjUxrkoRJXjRWHxEEF+SrF3OVAMYiWglHRJ1eLOzAPaJng5Mvp0B6CE CPDXiFAAS+QgQiISEi/u31+vkBNVKOva8I8HXUM3tJ [file] nhoPhOnXX70LUhktDebSAD9W/AAxdWUelgOJCyMPTGJXvu87r4cA8ZNj33A16tpX6CKupp+Wg0CAS+Cubing Machine Tender [file] sWfrAgZxCAsry6DS/WX8j2aaWCgXv9Kh0oepQG/Avinash RJhdV86zIBuxRpiIHOdXl8+ljLiYfiOoCT0+QlqO7P1CQFRiz+bqu3Ydqb0pGOA1nejYhfpo6bQAKCAH apt7IX2ZTbYvI75XULIkhiCy8yMWIXyW1xFShyY9vlWcy1vsSbO6S/yJityp0sAtROfsE1bJlL1NqXrc 1B4CXlMoab8/P8YaxDSTe2ALdkyb1MDVmodNplPvEA mALXjFoBWb4vjRNpQmfpo8XlBU4YjUVndo/6BkU333LCCRAW+8KH80FJtQ1Nhpz92KZIM+QiDQseDzKv P2OeDRiYvbRzHxlOyLm8cHDt2qUFsp125IVzumEQENtePGuT7qDY1WgSZ7tWj2yg80Xdo2/X3BlkQfZg Cn48VKhMOMrHvIzLqYS0qzbWPfmmrAaH20RF8P47l2 NvEnNSO78ZvLlvuQqNXwJBdcvE9onRRmk/szfH4GOlHX7PjpyxZzh80Hjqy/KNmHJxPUhETv4MsrrWQd i6vmzJcqxX0QfzPw8G6zBou/c4Us1+XQofUWZe0/rK0DV68OjlopkKhzery3eMvkxP+kkNnfm3JjNsLH UJhHsOauwdTPnhnnPm/fWvPI5yjlyk1brAKpQ8i/JX xkIdyMh4iaM59XfgEb28kpeet17tBxQPdj5pNP1r9Stk0SskAYBe7RtcNmb6dsIO7RzwqZhsYDOnWU1a gs5oT7jvEuYdQ3wV6ik4gPhy5pI8OvnllY7vWJaCtQkJBPd4AFroMJY857isB85wp2bTb9jRJnfna2tb gypi0EukMfackC9yw97X+1MO8FsPo0mBi4+c2/jVQa /G+15RxnzBgsSuvr/EpWLG9J/noSEYjvxPnoouhyfRthuIvKh3tAgXBuUlsm38Kpy74G11PxkKwbBuBy 0VexIEqEzqLRPJfknHXtxFd0OG1VYL+/wJ/PEÑA+tYNGAdIWLDPEAkYolGPMxZ10bCT/ZgdC3qGACXDhf [file] 4shi842F/Iyae5sFJiiOWNpK8neG1yxD5uRVbf4BPsCJqGYUPc9HtkK7yjX37iJfHr8mk6egaNIY+Transmission Specialist/ [file] 0VqNMHl+Moisés+n1ZiLckj3SRCgGquiSBlgY6o8P/rOF [file] vhyKlKmV03AsvtnM+oUfyL/8X/4n/xv/hf/C/+F/+L/8X/4n/xv/j/j/bCocLqFqx5kbDx3IP/LABELING ASSOCIATE+6+g [file] TZeQ/KMW3F2V7G/LAwpRL0sO5/ofa9t+wl9JFH4 qSIBam3UvFkcxEl2QTCuIH3Vv2NcT3PuZ6LSkNdelS38y6HztGYJE1iB13Wqbx6DxNpTvkeHtl/TWqcX 6JtBGNrZJQhGTY71WN9wu982APq908k47C1Nc3oOUaEGE/+d+TPpFd/nu1EOEqM5xosMU/FJQqkdNbIO Kcqhx0USJTI0FCzGo9EK/E4L2Jxmx7HJMH3AEwTc6L 9DRCSaGxlQjaSp6elpIKN4IaK8hfSPXWELGAk8ymo5wNLJwP8vH/Hh/pmPlkgkXzszUe93YDMiNwbkb+ MHwH5boytYurGHFqSVNWCOp072lPS5pxIQe8ii1L7sUXTVYj8QyrLoh0PCBYO63sRSJTF0dqgUqBn01y Xy8490D217wNpoC3aTWvDo3dI1Hnt15hMWhWfDL1JP z391V4nMsuOFMnfOIZV17flyzV34V8oXCEiX6jIt8qcGqMOUSGL4sq2C9iFdLOUtqgaTCwbyjs/qcDxw Hyh+b8oAiKyENyI3GZGqx+jVDzrGPP5d5kWoodmW+HdUn83Fwwqp1DR8eXKWqTPwXruCvwxmxbZNqjg7 RbDEuiUfP6Dlhw63+Yc3iKBJeOCBhh8ePiaLMfwy2Z qT/JgxZn+pH/7HYWjpXm9oVZ7lB0Uq+cgg16jVLs8NBoVuZ8SQo31gFh9okmPyLFJpfdogR1e2x6VVtZ i6i6oCcNWjuB6a+H7d0JC+TfJML89NUhk9579EbF1mWl0llAhhp4KTcGplQos0rU09dtdjqgG1K36vgF rMOqLl3IGEIi+Larissa+/yoQbFwcV9lqW2jYrdXJLYBxT [file] ttbfK7bIeOrrTpZb4NDJssDih8b9olh49gFTT7Z/Transmission Specialist [file] xC500InMdN5FsCa8kjMWii8u70Q8Fz+bhAhtkjQFqX2Wgzz2frn3LB4aVtVv0WRKkQ5RCLCYA4q6b/Cubing Machine Tender mdi41ee0etYiWpefaXVgQEeq09totDWsGB7WJtHDgE1N7DrAeisVX/fgCM6hSJ1jdvUiBkf/rSKIX3ND r1QY5cuMlIFeRi42Uwz3/m2pQK2QKXQjdnUGwNMCTQ pOMUEqlNv1XObwVtT5YyTPFqf9hkL5YupddmyFF29dG7gKNbQUydC4yvRUAOs9VMwV37QBlfo2EVYreT CSwhzJ9sHg6sWWkpEGE/ZKRRb6rXUUOsjD9lICJ7DEIuhzVRnL9AElYuYvo8PNF3WAv487V7H6U7nJIt obb1oyHM8M+El6cubuTaxitS4kzO4iFAqHWEjQ/Kgf kRz/Pr2O5nuhZYGkMC3DBK+fyRK8Yt9/K3LVlnLTRVWPuIhFjFwKyGvIawUrvdPstxmYDwEOnVE7dLVk BvmKSYE5Z2UbTB8jgt6HZp08Q9D4WDWaigtMoCPOj7pMHhc4T0AzhwPrcVZ3CT9R2vVJtOYkI3Dip8Vs mi8E1Wu9QNTB9x/J7jyuXgKfRm7twn+EXELkbwAfO1 Od7MwaSmEUlErxpMO3nsIxW1oVxfzo5GhDN+h1+pa+phP8Yc9m5z3PA6KjzRaPbyTW/kAgG1mPsm7OrF n4DDNHuMLdK4lsM3e5sS/3vVmE6i+T2Sg5YXP6z0aKXs4k/ZcPsVcW81h5pp6psLZXnPkBf518esUKg4 Mn9a3s+omF3l9Un2P8/p17j0ipi+CP3647Wh8jHWo1 [file] [facility]/5bC0wDMDj6Y+Q1+iwQbPZY8pGEb5tjw9vYx [file] FihaC7szIaHDn3OOGoGSVOQiKzIG7D ID Date Data Source [id number] 03/11/2020 06:26:00 PM EST [facility] Name Value Range Interpretation Code Description Data Gina rce(s) Supporting Document(s) Leukocytes [#/volume] in Blood by Automated count 8.6 10*3/uL 4.45-10 .71 N [facility] Erythrocytes [#/volume] in Blood by Automated count 3.89 10*6/uL 4.3-6.1 Below low normal [facility] Hemoglobin [Moles/volume] in Blood 14.2 g/dL 13-18 N [facility] Hematocrit [Volume Fraction] of Blood by Automated count 42.0 % 4 2-52 N [facility] Erythrocyte mean corpuscular volume [Ent itic volume] in Cord blood by Automated count 108.0 fL 80-96 Above high normal [facility] Erythrocyte mean corpuscular hemoglobin [Entitic mass] by Automated count 36.5 pg 27-31 Above high normal [facility] spital Erythrocyte mean corpuscular hemoglobin concentration [Mass/volume] in Cord blood 33.8 g/dL 33-37 N [facility] ital Erythrocyte distribution width [Entitic volume] by Automated count 14 % 11-15 N [facility] Platelets [#/volume] in Blood by Automated count 261 10*3/uL 130-472 N [facility] Platelet mean volume [Entitic volume] in Blood 11.0 fL 9.1-13.1 N [facility] Neutrophils/100 leukocytes in Blood by Automated count 65.4 % 41- 77 N [facility] Neutrophils [#/volume] in Blood by Automated count 5.7 U 1.7-7.6 N [facility] Lymphocytes/100 leukocytes in Blood by Automated count 20.4 % 14- 46 N [facility] Lymphocytes [#/volume] in Blood by Automated count 1.8 U 0.6-4.6 N [facility] Monocytes/100 leukocytes in Blood by Automated count 11.6 % 4-12 N [facility] Monocytes [#/volume] in Blood by Automated count 1.0 U 0.2-1.2 N [facility] Eosinophils/100 leukocytes in Blood by Automated count 1.6 % 0-7 N [facility] Eosinophils [#/volume] in Blood by Automated count 0.1 U 0.0-0.5 N [facility] Basophils/100 leukocytes in Blood by Automated count 0.7 % 0.4-1 .3 N [facility] Basophils [#/volume] in Blood by Automated count 0.1 U 0.0-0.2 N [facility] NUCLEATED RED BLOOD CELL 0 % [facility] NUCLEATED RED BLOOD CELL# 0 U [facility] Immature granulocytes [Presence] in Blood by Automated count 0-2 N [facility] Immature granulocytes [#/volume] in Blood by Automated count 0.0 U 0-0.1 N [facility] Manual Differential panel - Blood NO [facility] ID Date Data Source [id number] 03/11/2020 06:40:00 PM EST [facility] Name Value Range Interpretation Code Description Data Gina rce(s) Supporting Document(s) Alanine aminotransferase [Enzymatic acti vity/volume] in Serum or Plasma by With P-5'-P 14 U/L 10-49 N [facility] ital Aspartate aminotransferase [Enzymatic ac tivity/volume] in Serum or Plasma by With P-5'-P 18 U/L 0-33 N [facility] pital Alkaline phosphatase [Enzymatic activity/volume] in Serum or Plasma 92 U/L 45-129 N [facility] Bilirubin.total [Mass/volume] in Serum or Plasma 0.7 mg/dL 0.3-1.2 N [facility] Bilirubin.direct [Mass/volume] in Serum or Plasma 0.2 mg/dL 0.0-0.2 N [facility] Albumin [Mass/volume] in Serum or Plasma by Bromocresol purple (BCP) dye binding method 3.7 g/dL 3.2-4.8 N [facility] ital Protein [Mass/volume] in Serum or Plasma 8.2 g/dL 5.7-8.2 N [facility] ID Date Data Source [id number] 03/11/2020 06:40:00 PM [facility] Name Value Range Interpretation Code Description Data Gina rce(s) Supporting Document(s) Magnesium [Mass/volume] in Serum or Plasma 2.5 mg/dL 1.3-2.7 N [facility] ID Date Data Source [id number] 03/11/2020 02:34:00 PM [facility] Patient Name: RONA WASHINGTON DO B: 1955 Sex: M Pt Unit #: [id number] Location:[facility] Provider: Visit Date/Time: 03/11/20 Primary Insurance: [place] Secondary Insurance: Self Pay Intake Vital Signs [...] liqs last night and seems resolved today. Sew Out Operator Required: No Is patient in pain?: Yes [...] Screening Screening Have you traveled outside of [facility] or [facility] in the last 14 days.: No Has patient experienced coronavirus symptoms: No [facility] Medical History (Updated 02/26/20 @ 20:47 [...] () status: discharged branch: [employer] assignments: outside [facility] ([employer] current occupational status: disabled Hx Recent Travel (where): No do you think of yourself as: straight/heterosexual current gender identity: male Smoking Status: Former smoker seatbelt use: always helmet use: Yes drive intox or ride w/ intox hack driver: No working smoke detector in home: [...] Dr. Llanes advised me to call a tooling specialist for endoscopy. I called Dr. Powers in [place] who agreed to see Mr. Washington tomorrow [...] swelling, mass and lump, trunk SNOMED Code(s): 526284573 Category: Medical Plan - Xiao Payan MD: [...] rce(s) Supporting Document(s) ID Date Data Source [id number] 02/26/2020 07:28:00 PM EDT [facility] [address] [place] [address] [phone] NAME SEX PT STATUS ACCOUNT NUMBER RONA WASHINGTON REG REF [id number] ORDERING PHYSICIAN LOCATION MEDICAL RECORD NO. Xiao Payan MD LAB [id number] ATTENDING PHYSICIAN DATE OF DATE OF EXAM/TIME [...] Trans Dt/Tm: Trans by: DT Prt Dt/Tm: 8763-9219: Total DLP = 160.00 mGy-cm 3188-3878: Total Radiation Dose = 2.0800 mSv Lifetime Dose: 2.0800 mSv Name Value Range Interpretation Code Description Data Gina rce(s) Supporting Document(s) ID Date Data Source [id number] 02/26/2020 10:47:00 AM EDT [facility] Special Instructions: CT scan Name Value Range Interpretation Code Description Data Gina rce(s) Supporting Document(s) Urea nitrogen [Mass/volume] in Serum or Plasma 20 mg/dL 9-23 N [facility] Sodium [Moles/volume] in Serum or Plasma 138 mmol/L 132-146 N [facility] Potassium [Moles/volume] in Serum or Plasma 4.3 mmol/L 3.5-5.5 N [facility] Chloride [Moles/volume] in Serum or Plasma 103 mmol/L 99-109 N [facility] Carbon dioxide, total [Moles/volume] in Serum or Plasma 29 mmol/L 20 -31 N [facility] Anion gap in Serum or Plasma 10 mmol/L 8-16 N [facility] Glucose [Mass/volume] in Serum or Plasma 103 mg/dL 74-106 N [facility] Creatinine 0.8 mg/dL 0.5-1.1 [facility] Glomerular filtration rate/1.73 sq M.pre dicted [Volume Rate/Area] in Serum or Plasma Greater Than 60 ABOVE 60 [facility] Calcium [Mass/volume] in Serum or Plasma 9.4 mg/dL 8.5-10.1 [facility] ID Date Data Source [id number] 02/20/2020 12:48:00 PM EDT [facility] [address] [place] [address] [phone] NAME SEX PT STATUS ACCOUNT NUMBER RONA WASHINGTON REG REF [id number] ORDERING PHYSICIAN LOCATION MEDICAL RECORD NO. Xiao Payan MD [facility] [id number] ATTENDING PHYSICIAN DATE OF DATE OF EXAM/TIME [...] rce(s) Supporting Document(s) ID Date Data Source [id number] 02/05/2020 02:51:00 PM EDT [facility] Patient Name: RONA WASHINGTON DO B: 1955 Sex: M Pt Unit #: [id number] Location:[facility] Provider: Visit Date/Time: 02/05/20 Primary Insurance: /[facility] Secondary Insurance: Self Pay Intake Vital Signs [...] has noted coughing today more than usual. Sew Out Operator Required: No Is patient in pain?: Yes [...] Screening Screening Have you traveled outside of [facility] or [facility] in the last 14 days.: No Has patient experienced coronavirus symptoms: No [facility] Medical History (Updated 12/04/19 @ 14:04 [...] () status: discharged branch: [employer] assignments: outside [facility] ([employer]) current occupational status: disabled Hx Recent Travel (where): No do you think of yourself as: straight/heterosexual current gender identity: male Smoking Status: Former smoker seatbelt use: always helmet use: Yes drive intox or ride w/ intox hack driver: No working smoke detector in home: [...] Chronic obstructive pulmonary disease, unspecified SNOMED Code(s): 25960372 Category: Medical (2) Medicare annual wellness visit, subsequent: Code(s): Z00.00 - Encounter for general adult medical examination without abnormal findings (3) Chest pain: Status: Chronic Code(s): R07.9 - Chest pain, unspecified SNOMED Code(s): 65417376 Category: Medical Orders: Orders: CT Thorax w/ [...] Safety: Reports Bathroom: Grab bars, Lighting: Adequate, [place]: No throw rugs a nd Stairs: Handrail [...] rce(s) Supporting Document(s) ID Date Data Source [id number] 12/13/2019 03:36:00 PM EDT [facility] [address] [place] [address] [place] [address] [phone] NAME SEX PT STATUS ACCOUNT NUMBER RONA WASHINGTON REG REF [id number] ORDERING PHYSICIAN LOCATION MEDICAL RECORD NO. Xiao Payan MD EKG [id number] ATTENDING PHYSICIAN DATE OF DATE OF EXAM/TIME [...] rce(s) Supporting Document(s) ID Date Data Source [id number] 12/13/2019 09:32:00 AM EDT [facility] TEST CONSULTATION NAME: RONA WASHINGTON : 1955 AGE: 64 MR#: [id number] ADMITTING DATE: 12/13/[address]: DISCHARGE DATE: [...] rce(s) Supporting Document(s) ID Date Data Source [id number] 12/15/2019 02:03:00 PM EDT [facility] Source Of Specimen: ST Name Value Range Interpretation Code Description Data Gina rce(s) Supporting Document(s) Helicobacter pylori Ag [Presence] in Stool by Immunoassay [facility] HELICOBACTER PYLORI AG, EIA, STOOL [facility] Number: [id number] Test Status: Final Specimen Source: STOOL Specimen Quality: Adequate H.pylori Ag: Not Detected Antimicrobials, proton pump inhibitors, and bismuth preparations inhibit H. pylori and ingestion up to two weeks prior to testing may cause false negative results. If clinically indicated the test should be repeated on a new specimen obtained two weeks after discontinuing treatment.THIS TEST WAS PERFORMED AT:[facility] [id number] MERATI,MD ID Date Data Source [id number] 12/04/2019 12:55:00 PM EDT [facility] Patient Name: RONA WASHINGTON DO B: 1955 Sex: M Pt Unit #: [id number] Location:[facility] Provider: Visit Date/Time: 12/04/19 Primary Insurance: /[facility] Secondary Insurance: Self Pay Intake Vital Signs [...] a lot of projects around the house. Sew Out Operator Required: No Is patient in pain?: Yes [...] S creening Have you traveled outside of [facility] or [facility] in the last 14 days.: No Has patient experienced coronavirus symptoms: No [facility] Medical History (Updated 12/04/19 @ 14:04 [...] () status: discharged branch: [employer] assignments: outside [employer] ([employer] current occupational status: disabled Hx Recent Travel (where): No do you think of yourself as: straight/heterosexual current gender identity: male seatbelt use: always helmet use: Yes drive intox or ride w/ intox hack driver: No working smoke detector in home: [...] does any exercise as suggested by his clinical engineer. Denies any increased number of SOB episodes [...] Appearance: overweight Orientation: alert and oriented x3 [facility] Head: normal to inspection Ears: hearing [...] R07.9 - Chest pain, unspecified SNOMED Code(s): 99917148 Category: Medical Plan - [place], PAS: [...] Chronic obstructive pulmonary disease, unspecified SNOMED Code(s): 11504313 Category: Medical Plan - [place], PAS: [...] rce(s) Supporting Document(s) ID Date Data Source [id number] 06/05/2019 01:02:00 PM [facility] Patient Name: Rona [place] : 1955 Sex: M Pt Unit #: [id number] Location:[facility] Provider: Visit Date/Time: 06/05/19 Primary Insurance: /[facility] [place] Secondary Insurance: Self Pay Intake Vital Signs 06/05/19 13:17 Current Height 5 ft 7.5 in Current Weight 194 lb BMI 29.9 BP 130/60 Position Sitting Respiration 20 Pulse 80 Pulse Strength Normal Pulse Source Palpation Comment prev ht Intake Visit Reasons: COPD Nurse Note: routine checkup. copd. no new concerns. vision test done-left eye 20/40 right eye-20/50 both eye 20/30 Sew Out Operator Required: No Is patient in pain?: No [...] () status: discharged branch: [employer] assignments: outside [facility] ([employer] current occupational status: disabled Hx Recent Travel (where): No do you think of yourself as: straight/heterosexual current gender identity: male seatbelt use: always helmet use: Yes drive intox or ride w/ intox hack driver: No working smoke detector in home: [...] (1) Chronic obstructive lung disease: SNOMED Code(s): 88627003 Category: Medical Medications: Refilled: fluticasone furoate-vilanterol [id number] [...] Home Safety Home Safety: Reports Lighting: Adequate, [place]: No throw rugs and Stairs: Handrail available; [...] PM EST Former smoker completed Former smoker [facility] 06/05/2019 01:44:12 PM EST Former smoker completed Former smoker [facility] 06/05/2019 01:44:12 PM EST Former smoker completed Former smoker [facility] Smoking 06/05/2019 01:44:00 PM EST Former smoker completed Former smoker [facility] Smoking 06/05/2019 01:44:00 PM EST Former smoker completed Former smoker [facility] Smoking 06/05/2019 12:44:00 PM EST Former smoker completed Former smoker [facility] Vital Signs ID Date Data Source UNK Name Value Range Interpretation Code Description Data Source(s) Body surface area Derived from formula 1.83 m2 1.83 m2 [facility] ([facility], ) Body weight 71.669 kg 71.669 kg [facility] ([facility], ) [place] body weight 148 [lb_av] 148 [lb_av] [facility] T ([facility], ) Body mass index (BMI) [Ratio] 24.7 kg/m2 24.7 k g/m2 [facility] ([facility]) Body weight 158.00 [lb_av] 158.00 [lb_av] [facility] Body height 67 [in_i] 67 [in_i] [facility] ([facility]) 5'7" Oxygen saturation in Arterial blood by Pulse oximetry 93 % 93 % [facility] ([facility]) Room Air Heart rate 95 /min 95 /min [facility] ([facility]) Diastolic blood pressure 74 mm[Hg] 74 mm[Hg] [facility] ([facility]) Systolic blood pressure 140 mm[Hg] 140 mm[Hg] [facility] ([facility]) Body surface area Derived from formula 1.83 m2 1.83 m2 [facility] ([facility]) Body weight 71.669 kg 71.669 kg [facility] ([facility]) [place] body weight 148 [lb_av] 148 [lb_av] [facility] Body mass index (BMI) [Ratio] 24.7 kg/m2 24.7 k g/m2 [facility] ([facility]) Body weight 158.00 [lb_av] 158.00 [lb_av] [facility] Body height 67 [in_i] 67 [in_i] [facility] ([facility]) 5'7" Oxygen saturation in Arterial blood by Pulse oximetry 95 % 95 % [facility] ([facility]) Room Air Heart rate 108 /min 108 /min [facility] ([facility]) Diastolic blood pressure 70 mm[Hg] 70 mm[Hg] [facility] ([facility]) Systolic blood pressure 116 mm[Hg] 116 mm[Hg] [facility] ([facility])
[2020-05-24 14:40] VITALS: BP 101/52
[2020-05-24] MEDS ORDERED: MAGIC MOUTHWASH SUSPENSION BTL PO PRN (14:45)
[2020-05-24] MEDS ORDERED: ALBUTEROL SULFATE 2.5 MG/0.5 ML INH NEB SOLN NEB PRN (14:45)
--- OUTSIDE RECORDS SUMMARY | 2020-05-24 14:58 | CCD ---
Author Author [facility] Organization [facility] Address Unknown Phone Unavailable Care Team Providers Care Ward Supervisor Name Role Phone Faisal POWERS MD Unavailable [...] Faisal COLEMAN MD Unavailable Unavailable POWERS, Faisal OCLEMAN MD Unavailable Unavailable Pisaniello, Zunilda Hagen MD [...] Unavailable Unavailable Grant Llanes MD Unavailable Unavailable Garnt Llanes MD Unavailable Unavailable Grant Llanes MD [...] Unavailable Unavailable Grant Llanes MD Unavailable Unavailable Grnat Llanes MD Unavailable Unavailable LlanesGrant MD Unavailable [...] is protected by Article 27-F of the [facility] Public Health law. If you continue you may have access to information: Regarding HIV / AIDS; Provided by facilities licensed or operated by the [facility] Office of Mental Health; or Provided by the [facility] Office for People With Developmental Disabilities. If such information is present, then the following [facility] mandated warning applies: This information has been [...] law may result in a fine or residential sentence or both. A general authorization for the release of medical or other information is NOT sufficient authorization for further disc losure. Family History Family Member Name Family Member Gender Family Member Status Date o f Status Description Data Source(s) Unknown Condition [facility] Unknown Condition [facility] Unknown Condition [facility] Encounters Encounter Providers Location Date Indications Data Source(s ) Outpatient Attender: Anish Drake/Leni/R elva 04/08/2020 09:00:00 AM EST [facility] ([facility]) Outpatient Admitter: Anish Llanes MDReferrer: Anish moore MD 04/01/2020 12:00:00 AM EST Secondary malignant neoplasm of unspecified lung [facility] Secondary malignant neoplasm of unspecif ied lung Outpatient Attender: Anish Drake/Leni/Luis stevenson 03/19/2020 01:00:00 PM EST [facility] ([facility]) Attender: JARED POWERS MD 03/12/2020 08:20:11 PM EST Gastroenterology and Hepatology [facility] Outpatient Attender: Xiao Payan MD 03/11/2020 06:13 :00 PM EST R22.2 [facility] R22.2 Outpatient Attender: Xiao Payan MDReferrer: Xiao delatorre MD 03/11/2020 02:20:00 PM EST - 03/11/2020 03:50:00 PM EST [facility] Outpatient Attender: Xiao Payan MD 02/26/2020 09:55:00 AM EDT CHEST PAIN, EX SMOKER [facility] CHEST PAIN, EX SMOKER Outpatient Attender: Xiao Payan MD 02/20/2020 12:15:00 PM EDT J44.9,R07.9 [facility] J44.9,R07.9 Outpatient Attender: Xiao Payan MDReferrer: Xiao delatorre MD 02/05/2020 02:56:00 PM EDT - 02/05/2020 03:30:00 PM EDT [facility] Outpatient Attender: Xiao Payan MD 12/13/2019 07:09 :00 AM EDT SOB [facility] SOB Outpatient Attender: Xiao Payan MDReferrer: Xiao delatorre MD 12/04/2019 01:04:00 PM EDT - 12/04/2019 01:48:00 PM EDT [facility] Outpatient Attender: Xiao Payan MDReferrer: Xiao delatorre MD 06/05/2019 12:57:00 PM EST - 06/05/2019 01:53:00 PM [facility] Immunizations Vaccine Date Status Description Data Source(s) This CVX code allows reporting of a vacc ination when formulation is unknown (for example, when recording a Influenza vaccination when noted on a vaccination card) 02/09/2020 12:00:00 AM EDT completed influenza, injectable , quadriv [facility] Medications Medication Brand Name Start Date Product Form Dose Route Admi nistrative Instructions Pharmacy Instructions Status Indications Reaction Description Data Source(s) fluticasone furoate 0.2 MG/ACTUAT / vaughn nterol 0.025 MG/ACTUAT Dry Powder Inhaler Fluticasone Furoate-Vilanterol (Breo Ellipta) 200-25 mcg/dose blister with device Fluticasone Furoate-Vilanterol (Breo Ell ipta) 200-25 mcg/dose blister with device 03/05/2020 04:29:51 PM EDT 1 EACH co mpleted [facility] tiotropium 0.018 MG/ACTUAT Inhalant Powd er Tiotropium Sylvester (Spiriva With Handihaler) 18 mcg capsule, w/inhalation device Tiotropium Sylvester (Spiriva With Handihaler) 18 mcg capsule, w/inhalation device 02/13/2020 03:07:18 PM EDT 18 MCG completed [facility] Famotidine 20 MG Oral Tablet Famotidine (Heartburn Relief (Famotidine)) 20 mg tablet Famotidine (Heartburn Relief (Famotidine)) 20 mg table t 02/05/2020 03:18:48 PM EDT 20 MG active [facility] Famotidine 20 MG Oral Tablet Famotidine (Heartburn Relief (Famotidine)) 20 mg tablet Famotidine (Heartburn Relief (Famotidine)) 20 mg table t 02/05/2020 03:18:48 PM EDT 20 MG active [facility] pantoprazole 40 MG Delayed Release Oral Tablet Pantoprazole Pantoprazole 12/04/2019 01:40:24 PM EDT 40 MG active [facility] pantoprazole 40 MG Delayed Release Oral Tablet Pantoprazole Pantoprazole 12/04/2019 01:40:24 PM EDT 40 MG active [facility] tiotropium 0.018 MG/ACTUAT Inhalant Powd er Tiotropium Sylvester (Spiriva With Handihaler) 18 mcg capsule, w/inhalation device Tiotropium Sylvester (Spiriva With Handihaler) 18 mcg capsule, w/inhalation device 12/04/2019 01:40:16 PM EDT 18 MCG completed [facility] tiotropium 0.018 MG/ACTUAT Inhalant Powd er Tiotropium Sylvester (Spiriva With Handihaler) 18 mcg capsule, w/inhalation device Tiotropium Sylvester (Spiriva With Handihaler) 18 mcg capsule, w/inhalation device 12/04/2019 01:40:16 PM EDT [address] [facility] Roflumilast 0.5 MG Oral Tablet Roflumilast (Daliresp) 500 mcg tablet Roflumilast (Daliresp) 500 mcg tablet 12/04/2019 01:40:10 PM EDT 500 MCG active [facility] Roflumilast 0.5 MG Oral Tablet Roflumilast (Daliresp) 500 mcg tablet Roflumilast (Daliresp) 500 mcg tablet 12/04/2019 01:40:10 PM EDT 500 MCG active [facility] fluticasone furoate 0.2 MG/ACTUAT / vaughn nterol 0.025 MG/ACTUAT Dry Powder Inhaler Fluticasone Furoate-Vilanterol (Breo Ellipta) 200-25 mcg/dose blister with device Fluticasone Furoate-Vilanterol (Breo Ell ipta) 200-25 mcg/dose blister with device 10/16/2019 03:34:15 PM EDT 1 EACH co mpleted [facility] fluticasone furoate 0.2 MG/ACTUAT / vaughn nterol 0.025 MG/ACTUAT Dry Powder Inhaler Fluticasone Furoate-Vilanterol (Breo Ellipta) 200-25 mcg/dose blister with device Fluticasone Furoate-Vilanterol (Breo Ell ipta) 200-25 mcg/dose blister with device 10/16/2019 03:34:15 PM EDT 1 EACH ac tive [facility] Albuterol Sulfate 08/30/2019 02:54:49 PM EDT 2 PUFFS active [facility] Albuterol Sulfate 08/30/2019 02:54:49 PM EDT 2 PUFFS active [facility] Varicella-Zoster Ge-As01b (Pf) (Shingrix (Pf)) 50 mcg/0.5 mL suspension for reconstitution 06/05/2019 01:47:36 PM EST 0.5 ML a ctive [facility] Varicella-Zoster Ge-As01b (Pf) 06/05/2019 01:47:36 PM EST 0.[address] [facility] Varicella-Zoster Ge-As01b (Pf) (Shingrix (Pf)) 50 mcg/0.5 mL suspension for reconstitution 06/05/2019 01:47:36 PM EST 0.5 ML a [facility] tiotropium 0.018 MG/ACTUAT Inhalant Powd er Tiotropium Sylvester (Spiriva With Handihaler) 18 mcg capsule, w/inhalation device Tiotropium Sylvester (Spiriva With Handihaler) 18 mcg capsule, w/inhalation device 06/05/2019 01:46:55 PM EST 18 MCG completed [facility] tiotropium 0.018 MG/ACTUAT Inhalant Powd er Tiotropium Sylvester (Spiriva With Handihaler) 18 mcg capsule, w/inhalation device Tiotropium Sylvester (Spiriva With Handihaler) 18 mcg capsule, w/inhalation device 06/05/2019 01:46:55 PM EST 18 MCG completed [facility] tiotropium 0.018 MG/ACTUAT Inhalant Powder Tiotropium Sylvester Tiotropium Sylvester 06/05/2019 01:46:55 PM EST 18 MCG active [facility] Roflumilast 0.5 MG Oral Tablet Roflumilast (Daliresp) 500 mcg tablet Roflumilast (Daliresp) 500 mcg tablet 06/05/2019 01:46:47 PM EST 500 MCG completed [facility] Roflumilast 0.5 MG Oral Tablet Roflumilast 06/05/2019 01:46:47 PM EST 500 MCG active [facility] Roflumilast 0.5 MG Oral Tablet Roflumilast (Daliresp) 500 mcg tablet Roflumilast (Daliresp) 500 mcg tablet 06/05/2019 01:46:47 PM EST 500 MCG completed [facility] pantoprazole 40 MG Delayed Release Oral Tablet Pantoprazole Pantoprazole 06/05/2019 01:46:41 PM EST 40 MG active [facility] pantoprazole 40 MG Delayed Release Oral Tablet Pantoprazole Pantoprazole 06/05/2019 01:46:41 PM EST 40 MG completed [facility] pantoprazole 40 MG Delayed Release Oral Tablet Pantoprazole Pantoprazole 06/05/2019 01:46:41 PM EST 40 MG completed [facility] fluticasone furoate 0.2 MG/ACTUAT / vaughn nterol 0.025 MG/ACTUAT Dry Powder Inhaler Fluticasone Furoate-Vilanterol (Breo Ellipta) 200-25 mcg/dose blister with device Fluticasone Furoate-Vilanterol (Breo Ell ipta) 200-25 mcg/dose blister with device 06/05/2019 01:46:35 PM EST 1 EACH co mpleted [facility] fluticasone furoate 0.2 MG/ACTUAT / vaughn nterol 0.025 MG/ACTUAT Dry Powder Inhaler Fluticasone Furoate-Vilanterol (Breo Ellipta) 200-25 mcg/dose blister with device Fluticasone Furoate-Vilanterol (Breo Ell ipta) 200-25 mcg/dose blister with device 06/05/2019 01:46:35 PM EST 1 EACH co mpleted [facility] fluticasone furoate 0.2 MG/ACTUAT / vaughn nterol 0.025 MG/ACTUAT Dry Powder Inhaler Fluticasone Furoate-Vilanterol Fluticasone Furoate-Vilanterol 06/05/2019 01:46:35 PM EST 1 EACH active [facility] Albuterol Sulfate 06/05/2019 01:16:14 PM EST 0 completed [facility] Albuterol Sulfate 06/05/2019 01:16:14 PM EST 0 completed [facility] Albuterol Sulfate 06/05/2019 01:16:14 PM EST 0 active [facility] Albuterol Sulfate 04/04/2019 11:34:28 AM EST 0 completed [facility] Albuterol Sulfate 04/04/2019 11:34:28 AM EST 0 completed [facility] Albuterol Sulfate 04/04/2019 11:34:28 AM EST 0 completed [facility] pantoprazole 40 MG Delayed Release Oral Tablet Pantoprazole Pantoprazole 02/01/2019 08:57:18 AM EDT 40 MG completed [facility] pantoprazole 40 MG Delayed Release Oral Tablet Pantoprazole Pantoprazole 02/01/2019 08:57:18 AM EDT 40 MG completed [facility] pantoprazole 40 MG Delayed Release Oral Tablet Pantoprazole Pantoprazole 02/01/2019 08:57:18 AM EDT 40 MG completed [facility] tiotropium 0.018 MG/ACTUAT Inhalant Powder Tiotropium Sylvester Tiotropium Sylvester 02/01/2019 08:43:26 AM EDT 18 MCG completed [facility] tiotropium 0.018 MG/ACTUAT Inhalant Powd er Tiotropium Sylvester (Spiriva With Handihaler) 18 mcg capsule, w/inhalation device Tiotropium Sylvester (Spiriva With Handihaler) 18 mcg capsule, w/inhalation device 02/01/2019 08:43:26 AM EDT 18 MCG completed [facility] tiotropium 0.018 MG/ACTUAT Inhalant Powd er Tiotropium Sylvester (Spiriva With Handihaler) 18 mcg capsule, w/inhalation device Tiotropium Sylvester (Spiriva With Handihaler) 18 mcg capsule, w/inhalation device 02/01/2019 08:43:26 AM EDT 18 MCG completed [facility] fluticasone furoate 0.2 MG/ACTUAT / vaughn nterol 0.025 MG/ACTUAT Dry Powder Inhaler Fluticasone Furoate-Vilanterol (Breo Ellipta) 200-25 mcg/dose blister with device Fluticasone Furoate-Vilanterol (Breo Ell ipta) 200-25 mcg/dose blister with device 02/01/2019 08:29:54 AM EDT 1 EACH co mpleted [facility] fluticasone furoate 0.2 MG/ACTUAT / vaughn nterol 0.025 MG/ACTUAT Dry Powder Inhaler Fluticasone Furoate-Vilanterol (Breo Ellipta) 200-25 mcg/dose blister with device Fluticasone Furoate-Vilanterol (Breo Ell ipta) 200-25 mcg/dose blister with device 02/01/2019 08:29:54 AM EDT 1 EACH co mpleted [facility] fluticasone furoate 0.2 MG/ACTUAT / vaughn nterol 0.025 MG/ACTUAT Dry Powder Inhaler Fluticasone Furoate-Vilanterol Fluticasone Furoate-Vilanterol 02/01/2019 08:29:54 AM EDT 1 EACH completed [facility] Roflumilast 0.5 MG Oral Tablet Roflumilast (Daliresp) 500 mcg tablet Roflumilast (Daliresp) 500 mcg tablet 01/19/2019 03:41:26 PM EDT 500 MCG completed [facility] Roflumilast 0.5 MG Oral Tablet Roflumilast (Daliresp) 500 mcg tablet Roflumilast (Daliresp) 500 mcg tablet 01/19/2019 03:41:26 PM EDT 500 MCG completed [facility] Roflumilast 0.5 MG Oral Tablet Roflumilast 01/19/2019 03:41:26 PM EDT 500 MCG completed [facility] Varicella-Zoster Ge-As01b (Pf) (Shingrix (Pf)) 50 mcg/0.5 mL suspension for reconstitution 12/05/2018 01:51:44 PM EDT 0.5 ML c ompleted [facility] Varicella-Zoster Ge-As01b (Pf) 12/05/2018 01:51:44 PM EDT 0.[address] [facility] Varicella-Zoster Ge-As01b (Pf) (Shingrix (Pf)) 50 mcg/0.5 mL suspension for reconstitution 12/05/2018 01:51:44 PM EDT 0.5 ML c ompleted [facility] Albuterol Sulfate (Ventolin Hfa) 90 mcg/actuation HFA aeroso l inhaler 11/16/2018 04:32:20 PM EDT 2 PUFFS completed [facility] Albuterol Sulfate 11/16/2018 04:32:20 PM EDT 2 PUFFS completed [facility] Albuterol Sulfate (Ventolin Hfa) 90 mcg/actuation HFA aeroso l inhaler 11/16/2018 04:32:20 PM EDT 2 PUFFS completed [facility] Insurance Providers Payer name Policy type / Coverage type Policy ID Covered constitution party ID Covered constitution party's relationship to menendez Policy Menendez Plan Information MEDICARE BLUE PPO [id number] [id number] [id number] S VYM [id number] [facility] MEDIC[facility] BLUE PPO G [id number] Self [id number] MEDICARE BLUE PPO [id number] SP [id number] [employer] [place] MED[place] [id number] Problems, Conditions, and Diagnoses Code Display Name Description Problem Type Effective Dates Data Source(s) C78.00 Secondary malignant neoplasm of unspecif ied lung Secondary malignant neoplasm of unspecified lung Diagnosis 04/01/2020 04:40:00 PM EST [facility] Surgeries/Procedures Procedure Description Date Indications Data Source(s) Bronchospasm Evaluation 04/10/2020 12:00:00 AM EST [facility] ([facility], ) Maximum Breathing Capacity, Maximal Voluntary Ventilation 04/10/2020 12:00:00 AM EST [facility] ([facility], ) Plethysmography Determination Lung Volumes & Per Airway Resi st 04/10/2020 12:00:00 AM EST [facility] ([facility], ) DIFFUSING CAPACITY 04/10/2020 12:00:00 AM EST [facility] ([facility]) Spirometry 03/19/2020 12:00:00 AM EST M [facility] ([facility]) Computerized axial tomography of thorax with contrast (proce dure) 02/26/2020 11:57:00 AM EDT [facility] l Plain chest X-ray (procedure) 02/20/2020 12:19:35 PM E DT [facility] Results ID Date Data Source [id number] 04/29/2020 01:04:00 PM EST [facility] Name Value Range Interpretation Code Description Data Gina rce(s) Supporting Document(s) SARS coronavirus 2 RNA [Presence] in Res piratory specimen by FLORA with probe detection [facility] This lab was ordered by [facility] a nd reported by [facility]. ID Date Data Source [id number] 04/01/2020 04:45:00 PM EST [facility] ([facility], ) Name Value Range Interpretation Code Description Data Gina rce(s) Supporting Document(s) Surgical pathology study Laboratory test result [facility] Anatomic Molecular Pathology Report Name: RONA WASHINGTON Collection Date: 04/01/2020 00:00 Received Date: 04/22/2020 16:44 Physician(s): ANISH LLANES MD VYAS, SHIKHAR G, MD Copy To: ANISH LLANES MD Specimen(s) Received A: Liver biopsy, Formalin Block [id number] received from [facility] in [place], [place] EGFR Diagnosis TEST: EGFR gene mutations (exon 19 deletions, L858R, G719A, T790M, S768I, exon 20 insertions, L861Q) by [employer] RGQ real-time PCR RESULTS: An EGFR mutation [...] real-time qualitative PCR assay used on the Verious instrument for the detection of seven types [...] covalently linked to a probe. Processed at [facility], [address] [place] [address] and reported at [facility], [address] [place] [address]. REFERENCES: 1. Red Garner, Yessy Figueroa, Sun [...] receptor mutations in lung cancer. Nature Review/Cancer. 2007;8266-5136. This report may include one or more immunohistochemical stain results that use analyte specific reagents. All positive and negative controls have been reviewed by the attending pathologist and are satisfactory. The tests were developed and their performance characteristics determined by [facility] Path[place] department. They have not been cleared or approved by the US Food and Drug Administration. The FDA has determined that such clearance or approval is not necessary. ID Date Data Source [id number] 04/01/2020 09:40:00 AM EST [facility] ([facility], ) Name Value Range Interpretation Code Description Data Gina rce(s) Supporting Document(s) Surgical pathology study Laboratory test result [facility] ([facility]) Addendum 2 Entered: 05/09/2020-1259 This addendum is being issued to report additional molecular results. ALK gene rearrangement (FISH): Negative ROS1 gene rearrangement (FISH): Negative EGFR gene mutation: Negative KRAS gene mutation: Negative BRAF V600E gene mutation: Negative Please see the scanned documentation for the full Molecular Diagnostics reports from [facility]. 05/09/20201258 Addendum Signed____ ALEXANDER VERMA MD 05/09/20201258 [...] MD 04/02/2020 1527 ID Date Data Source [id number] 05/08/2020 11:22:00 AM [facility] Anatomic Molecular Pathology ReportName: RONA WASHINGTONMRN: [id number] Number: [id number] Date: 04/01/2020 00:00Received Date: 04/22/2020 16:44Physician(s): ANISH LLANES MD VYAS, SHIKHAR G,[facility] [place] To:ANISH LLANES,[facility]imen(s) ReceivedA: Liver biopsy, Formalin Block [id number] received from [facility] in [place], [place] EGFRDiagnosisTEST: EGFR gene mutations (exon 19 [...] indicated. Presence of exon 19 deletions, exon 29Y066H or L861Q, exon 18 G719A or exon [...] a real-timequalitative PCR assay used on the Verious instrument for thedetection of seven types of mutations at EGFR oncogene. The kit requiresDNA extracted from formalin-fixed paraffin-embedded (FFPE) tissue ofnon-small cell lung cancer. The tumor area is identified by the attendingpathologist and manually mi crodissected. The assay uses Scorpionse andARMSe (Allele Refractory Mutation System) technologies, and [facility] HospitalDA-approved for clinical patient care. Allele- specific amplification isachieved by ARMS which exploits the ability of Taq DNA polymerase todistinguish between a matched and a mismatched base at the 3' end of a PCRprimer. Detection of amplification is performed using Scorpions, which arebifunctional molecules containing a PCR primer covalently linked to aprobe.Processed at [facility], [address] [place] [address] and reported at [facility], [address] [place] [address].REFERENCES:1. Red Garner, Yessy Figueroa, Sun Ballesteros. et [...] factor receptormutations in lung cancer. Nature Review/Cancer. 2007;8837-8611.This report may include one or more immunohistochemical stain results thatuse analyte specific reagents. All positive and negative controls havebeen reviewed by the attending pathologist and are satisfactory. The testswere developed and their performance characteristics determined by [facility] Pathology department. They have not been cleared or approved by the USFood and Drug Administration. The FDA has determined that such clearanceor approval is not necessary. Name Value Range Interpretation Code Description Data Gina rce(s) Supporting Document(s) ID Date Data Source [id number] 05/08/2020 11:19:00 AM [facility] Anatomic Molecular Pathology ReportName: RONA WASHINGTONMRN: [id number] Number: [id number] Date: 04/01/2020 00:00Received Date: 04/22/2020 16:43Physician(s): AINSH LLANES MD VYAS, SHIKHAR G,[facility] To:ANISH LLANES,[facility]ARK[place]pecimen(s) ReceivedA: Liver biopsy, Formalin Block [id number] received from [facility] in [place], [place], ROS1 by FISHDiagnosisTEST:ROS1 gene rearrangements by [...] performed on paraffin embedded NSCLC utilizing thecombined NewsCrafted Molecular LSI ROS1(Silvestre) and ROS1(Tel) ROS1 Probes: 1)3'-ROS1(Silvestre), 557 kb, labeled with SpectrumGreen, and 2) 5'-ROS1(Tel),317kb, labeled with SpectrumOrange. Tumor cells with no WFR7baknchvszadqxy have 2 yellow signals (fused orange and [...] and its performance characteristics weredetermined by the [facility],and it has been authorized for clinical use by [facility]. The test has not been cleared or approved by the U.S. Food andDrug Administration. The analyte specific reagents used in this assay donot require FDA approval. Processed at [facility], [address] [place] [address] and reported at [facility], [address] [place] [address].REFERENCES: 1. SCOUT Ochoa, Ailin AT, Thethomas VAUGHN et al. Identifying and Targeting JZY1Kndf Fusions in NonSmall Cell Lung Cancer. Clin Cancer Res 2012; 18(17);12558240.2. Purcell, Amrik AT. Novel Targets in Non-Small Cell Lung Cancer:ROS-1 and RET fusions. The Oncologist. 2013;18:865- 875.This report may include one or more immunohistochemical stain results thatuse analyte specific reagents. All positive and negative controls havebeen reviewed by the attending pathologist and are satisfactory. The testswere developed and their performance characteristics determined by [facility] Pathology department. They have not been cleared or approved by the USFood and Drug Administration. The FDA has determined that such clearanceor approval is not necessary. Name Value Range Interpretation Code Description Data Gina rce(s) Supporting Document(s) ID Date Data Source [id number] 05/08/2020 11:18:00 AM [facility] Anatomic Molecular Pathology ReportName: RONA WASHINGTONMRN: [id number] Number: [id number] Date: 04/01/2020 00:00Received Date: 04/22/2020 16:42Physician(s): ANISH LLANES MD BAYRON,ALEXANDER Enamor[place],[facility] [place] To:ANISH LLANES,[facility] [place]ARK[place]pecimen(s) ReceivedA: Liver biopsy, Formalin Block [id number] received from [facility] in [place], [place], ALK by FISHDiagnosisTEST:ALK gene rearrangements by [...] is performed on paraffin embedded NSCLC utilizing theNewsCrafted Molecular ALK Break Apart FISH Probe Kit. [...] the special procedure laboratory of Department of Pathology,[facility]. Processed at [facility], [address] [place] [address] and reported at [facility], [address] [place] [address]. This report may include one or more immunohistochemical stain results thatuse analyte specific reagents. All positive and negative controls havebeen reviewed by the attending pathologist and are satisfactory. The testswere developed and their performance characteristics determined by [facility] Pathology department. They have not been cleared or approved by the USFood and Drug Administration. The FDA has determined that such clearanceor approval is not necessary. Name Value Range Interpretation Code Description Data Gina rce(s) Supporting Document(s) ID Date Data Source [id number] 05/07/2020 10:06:00 AM EST [facility] Anatomic Molecular Pathology ReportName: RONA WASHINGTONMRN: [id number] Number: [id number] Date: 04/01/2020 00:00Received Date: 04/22/2020 16:46Physician(s): ANISH LLANES MD VYAS, SHIKHAR G,[facility] To:ANISH LLANES MDSpecimen(s) ReceivedA: Liver biopsy, Formalin Block [id number] received from [facility] in [place], [place] BRAF Mutation AnalysisDiagnosisTESTS:BRAF V600E mutation (1799 [...] a FAM-fluorophore whilethe wild-type probe with a RSUSELL-fluoro phore. The amount of fluorescentemissions rendered by specific probe hybridization was associated theamounts of PCR products, and analyzed by Snagsta real timeinstrument. The analytical sensitivity (or minimum percentage of mutantDNA needed) is approximately 10% given sufficient DNA input. Test development and its performance characteristics were determined bythe [facility], and has beenauthorized for clinical use by [facility]. Thetest has not been cleared or approved by the U.S. Food and DrugAdministration. The analyte specific reagents used in this assay do notrequire FDA approval. Processed at [facility], [address] [place] [address] and reported at [facility], [address] [place] [address].REFERENCES: 1. Conrad S, Barry Maria C, et al. Detection of BRAF [id number] in colorectal cancer-comparison of automatic sequencing and realtime chemistry methodology. J Mol Diagn. 2006; 8:351253.2. Brett L, Carlos COOPER, Clinton N, et al. BRAF mutation analysis in fineneedle aspiration (FNA) cytology of the thyroid. Diagn Mol Pathol.2006;15:300689.3. Patience PK, Calos ME, Beryl M, et al. Clinical characteristics ofpatients with lung adenocarcinomas harboring BRAF mutations. J Clin Oncol.2011;29:6707-5258.This report may include one or more immunohistochemical stain results thatuse analyte specific reagents. All positive and negative controls havebeen reviewed by the attending pathologist and are satisfactory. The testswere developed and their performance characteristics determined by [facility] Pathology department. They have not been cleared or approved by the USFood and Drug Administration. The FDA has determined that such clearanceor approval is not necessary. Name Value Range Interpretation Code Description Data Gina rce(s) Supporting Document(s) ID Date Data Source [id number] 05/07/2020 10:02:00 AM [facility] Anatomic Molecular Pathology ReportName: RONA WASHINGOTNMRN: [id number] Number: [id number] Date: 04/01/2020 00:00Received Date: 04/22/2020 16:45Physician(s): ANISH LLANES MD VYAS, SHIKHAR G,[facility] [place] To:ANISH LLANES MDSpecimen(s) ReceivedA: Liver biopsy, Formalin Block [id number] received from [facility] in [place], [place] KRAS Mutation AnalysisDiagnosisTEST:KRAS gene mutations by [...] a real-time qualitative PCR assay usedon the Publisha MDx instrument for the detection of seven [...] PCRprimer covalently linked to a probe.Processed at [facility], [address] [place] [address] and reported at [facility], [address] [place] [address].REFERENCES:1. SHANA Villanueva, Santosh CHIU, Elodia MR, et al. [place] Societyof Clinical Oncology provisional clinical opinion: testing for KRAS genemutations in patients with metastatic colorectal carcinoma to predictresponse to anti- epidermal growth factor receptor monoclonal antibodytherapy. J Clin Oncol 27:3949-7053, 2009. 2. Coral Sharp , Sun Sunshine , BENEDICT Warner, et al.Biomarkers predicting clinical outcome of epidermal growth factor receptor targeted therapy in metastatic colorectal cancer. J Natl Cancer Cglp697:67402044, 2009.This report may include one or more immunohistochemical stain results thatuse analyte specific reagents. All positive and negative controls havebeen reviewed by the attending pathologist and are satisfactory. The testswere developed and their performance characteristics determined by [facility] Pathology department. They have not been cleared or approved by the USFood and Drug Administration. The FDA has determined that such clearanceor approval is not necessary. Name Value Range Interpretation Code Description Data [facility] Supporting Document(s) ID Date Data Source [id number] 03/19/2020 02:58:00 PM EST [facility] ([facility], ) Name Value Range Interpretation Code Description Data [facility](s) Supporting Document(s) Inr 0.91 Normal (applies to non-numeric resul ts) [facility] ([facility], ) THERAPUTIC HUMAN INR VALUES INDICATIONS NORMAL RANGES PROPHYLAXIS/TREATMENT OF: VENOUS THROMBOSIS 2.0-3.0 PULMONARY EMBOLISM 2.0-3.0 PREVENTION OF SYSTEMIC EMBOLISM FROM: TISSUE HEART VALVES 2.0-3.0 ACUTE MYOCARDIAL INFARCTION 2.0-3.0 VALVULAR HEART DISEASE 2.0-3.0 ATRIAL FIBRILLATION 2.0-3.0 MECHANICAL VALVES(HIGH RISK) 2.5-3.5 RECURRENT MYOCARDIAL INFARCTION 2.5-3.5 Prothrombin Time 12.4 s 12.5-14.3 Normal (applies to non-numeric results) [facility] Partial Thromboplastin Time 30.3 s 24.2-38.5 Norm al (applies to non-numeric results) [facility] ([facility]) ID Date Data Source [id number] 03/19/2020 02:58:00 PM EST [facility] ([facility]) Name Value Range Interpretation Code Description Data Gina rce(s) Supporting Document(s) Platelets [#/volume] in Blood by Automated count 291 10 150-450 Normal (applies to non-numeric results) [facility] ([facility]) aPTT in Platelet poor plasma by Coagulation assay Laboratory test res ult [facility] ([facility]) ID Date Data Source [id number] 03/12/2020 10:15:00 AM EST [facility] Name Value Range Interpretation Code Description Data Gina rce(s) Supporting Document(s) EGD [facility] BYUUJe1bCuOUYrPhEACvJgqIXBnrPUmuCUYoU1O0RNbmDk6YQAuymrGhXXUhRl0+RACmLL0yzu0zEQYl gMy 3lAFPfIanrK1RuZWPez08EQWTiKIpIEuPmEuYcBCVlELDiFIU3MGA6CqJrKlagUF5hZEU5SPScGAgiHY LjYBFnBqZrDDYwKU5vIDzsURjbTd8KQI6fe6FhYYTaUVKfBkkESEnrWXvmHTObMACtZKEqE771loPfVg 7EqGXlPQq9QJEvKpC0EPGfMxV4IMSaLc4yBwQii1Sh R5HoBHx6R6rOYismM4OlIPdvHR8oROZ2YNVlGx1XpYgaJMkiRIFDX7daNmHuSHEdUXDDIv4+Pj4+DWVu JX0ycw78TPPyl2QjMEi5M9W1dIIdQ6XvE9WeCICldDRJo8gnBjEsZHM3MNPiLxfoRB5TKDAngKWeOZNo JZueQY8bvzNobCB2VE9AuQvkAWYhHWZHEt6+Pi9QYX JnguBxTfOzUQNnE75kfSDxdXXtUpatIZWZKA1+LHApJC9zhb65EHPbw9WyVZh4U8cpvnm9cBCyLVqhQN cxCoKyZTIvVP2xUB6RvRQ2tUYvUB0IlNEqTT7RiVXnQE7EV4HuCQT2K8OcgNMvpkDjS8JoNJMtHJChk6 JhDL6BB4KCGZYfLZHyF7VwqS9mV6GfE0FrZ5Nmhozy YDYACn7WeEA0uNRuRSIrO5rxmGptrIBiIZbsP8WkdMGXKBDPm28oc87fbrXzNE4+w1ElJDRtBBp11da8 ZVAcX/lwLTODVlc8INicEESlYqQUzg9eM1tuPiA8MFv2ZlpxlPM6U8nMbUFS5//kizu0qbh1mh/eD+/z 9KLRev8+w3qx1rFk8zZa5KSGXZofZLQLnJPJTASX04 itgMm4LUbppJokiOaF+ZEeOYZTmVBho8jM7V0Em6CJhvFdNmA71+Zh4uxp5udc3tXj1+Lm/KskNT8ji7 ZHQyfGwCDmfEv+lvP/DI48PSuilPtzyxSMWbIMYzJIU+FbX3ZBDMVqAmyZYO9cBLyDRmKrp1Moi8X2QK CPDXiFAAS+QgQiISEi/u31+hrNXLLCuc1B1HOXX9jC [file] rvhPsFwYE15NUicmVsoXQX4O/GOvbPXamuYMArOAJKMVgg49s0fA1VZa40K39vtV0MDijp+Wg0CAS+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 Die 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 [file] oBgnReJhWEsok7FB/MG4o6vqERdCw6Ce8drpZP/Avinash OSvwA21iGIlxCjvYNVmDj2+ljLiYfiOoCT0+MiyM0M8SRMCch+ztk6Lwwn6bUBI0wykQnnwx2aLLYXSF bhb9CT1ABvWmD74VAUCastSo1rJSZCyP2nPYccB5ycEie9hbFjT4I/sNofza2xUsPKatM9yWmV6GhYzx 5J2KFhQqvr4/F7HwcSYQh5SPszgf1KLMnspTxrEhUX kEPSfJlJJo5scBRaOymst2AdER8ZpPZdbz/4ChR359PUKELN+6FR32GHoO3Jzik05HBKX+QiDQseDzKv Q1NmSYgFxhDfXpjNgSx5yNQt0zSYsh515SJszoUJCShaHPvH3jQQ3PfHY6oIp5cw52Vri0/X9NxrLjQd Xi21EYbOKWaYoNnIvBO7pozNYyypzFxW52MI3D01n8 YePrSHG77GuYwciWiNJqGMmfnV3cqQAvc/avjW1ZEjWA5NzdrvQno60Empa/TAfHMwYHsKUi2CmkyBXx y5cdkDezwC6VgkJp3M8xPzi/c4Us1+XQofUWZe0/gV2LO79JkskxsSszxjq7zJrcrW+twChcm4HaAkHR UJhHsOauwdTPnhnnPm/wIoMU1horjk0exDKnD9d/JX jwPqoIq9pbM33TkeEo51kmhut03bWkJMmz7cWX6j0Jfj0QrjMKCq4JpxWst0hmJV9AadnGalWDThIW9u eb1eU1edOeAcP7rS1wz2zZzu9aL0MacipS2wZOaChJoNWFg2VSkmPTM062ksY48lm8dEq3aKWmxtk4dm hqjn8ExkDpdowD7ro84F+7BU0UnDi1gDj7+c2/jVQa /G+15RxnzBgsSuvr/VvEWN9N/sgPKIhpzJqeimuuaJzyhNrCu9xEiARzIwsx79Tlv17U94LwdDvrJgRs 4RglNCsYdrZUTUxsyKUdwQe3FX0ZCV+/wJ/PEÑA+tAYQDwHZWYBKFhIxjBEVqT89tNK/UybN2mDVJENdj [file] 2nxd856K/Vtls2jEHfpYLJgV2zxB4inF6hTVny7LPbJXaTREBi6HhlP6icY95lBrGj4ec1dufIMT+Material Scheduler/ [file] 0VqNMHl+Moisés+d1SvZhsw8MHEvFoqkWTtyR1r7Q/rOF [file] zfxCeTuW87HidlcR+oUfyL/8X/4n/xv/hf/C/+F/+L/8X/4n/xv/j/j/cStfWaMru4bqBa7XQ/ACID LEVELER+6+g [file] TZeQ/KMV5J1J8A/DDepVO3jJ5/ofa9t+ho7BCZ2 oYMKgr4CrRfvmHs7RBInYC0Li1MlD7IxD7QVpWvmmV36n5YteLJIH5jK03Ybrd7SmYxZrdmFft/TWqcX 2WwUMTrNEZuNOV21XI0yw991QPo626h56J3Om5gZFsBOV/+d+TPpFd/ab5PEMrY4ivvQA/FJQqkdNbIO Yuvtt5TNGUG6BNmUd9RM/N6B2Ypbh6MCKM2PKrLr4Y 9NDDObOovGqbNa9ztmRPN5MrW1yqLRFUCHFFz0eca3cIFJvC9oG/Hh/luBxfydLumcHt09ZQYzAwdcz+ ZPaP1iaheImxJVFmVNPTOOt175jHF1pwHGt5xa0A5sCJTAVm7AtaSpj1LDLSS50nIXQTS9urgNdVm85h Sd5518T813zRwkU2sSQcYt6kW2Lju30sYEqCkSY3UZ r744A0nEizYUFvgRHTI16sexaD70T4qQWYaA7qXw4owOlTMGIKC9uj9M1sYfBZQrqioCGtarpp/qcDxw Hyh+g0tKgNoMLcX7YKBxw+nLAeqYAI6g9kSkbjwY+EkNf36Wgrhl1AB1rKYHgAWlHisIprzglpYQnsg2 PgLOipWvM2Dktv65+Ja2tOMUeEUCeo5cPfpSLzte4A qT/JgxZn+pH/4FZVquIa9bPI1eY9Ho+ext56lHIu1JYqHbZ2ZJb94qDr6kqbUzGMOqbjpzH9d5o1OWdH c4k1yXzBUirQ7c+H7d0JC+KeDKX40EPct2045MpS5pRe8fwLxwn7KSzUjzXfu1uB63bfepneX8A14epK xECeWp0JVRSq+Larissa+/eiWgWsvC5qlS3qIszIWLJDwP [file] wzdxG2kIxMcsAkKa0LDQfdGgc9j6vtq75jXUD9A/Material Scheduler [file] zX713VgVqT9OcOf9muOZgd2n76Z9Ht+uzFgrhkWSgU6Pduj2bgb1XL3dTpYd2YSCkB1XEQULO8g7g/Plaster Die Maker rnf15iq7gcLuEwcwvEDyFYdu73ehwMAyJU4ZXhHTrZ2G3GeKcrtEB/haPR9sDJ6ffbAbFan/rRCBX9ER o5WE2jzIkOVsBm47Bfi1/m5yTH3IYVGbpoGNkHKZPB oPXJEpoIw7GFcvVtK0MtYSNnx8ahQ8SveqonfOZ62tE8vVSpVCovU4qaUIKGc2DKwG88OJbct1YXKxuZ CCnwxS5rWy6pEAwsBJK/AYNZt0qWZIFbyF2kAOF4DSJzqeETcN4FKvUpJuf1KMP8ZUf532M5B1P5bSAb bxe7hxUZ8T+Md3iwucWspyoZ7unL9rKIoKPKdL/Kgf kRz/Iw0K7ginBLHqRO0YND+tyEM2Ok3/Z5VIfhAIJCBEhJlDdNqUeOiSxkImclVfpmgOVzBQlDJ0sQOs QtnGZKW6W6RrWV4ppb6QYh95M8J8XJQdwopTiFPPj1sRXlg9M8IanaGhzIP0LE7V8hBKpUCyK4Dqw4Cr eq3J3Ta7HFHM5c/Z1ldoPtHdXh5wcu+EXELkbwAfO1 To7LzoZcZPuIxqhRL3caPyC2eZnwck3PrSW+h1+pa+xcC8Dm4m8v7HK4EunHpHagOY/yXwD6dCsg7JiW v3XUEHxNKzI6azM1f3nJ/8oZyM8j+R0Ra7MNU8s9rIOo3e/YgYoEcU69y2dh4vpHCNfRbHc604pdZNm6 Mn9a3s+guO6z8Ce4M1/f92c0aeu+FN6466Nm9nSUq8 [file] BwBwBwBwBwBwBwBwBw[facility]wBw[facility] [file] YhleH7luOnDDq7AKZpHSQFMhAzUJ0W ID Date Data Source [id number] 03/11/2020 06:26:00 PM EST [facility] Name Value Range Interpretation Code Description Data Gina rce(s) Supporting Document(s) Leukocytes [#/volume] in Blood by Automated count 8.6 10*3/uL 4.45-10 .71 N [facility] Erythrocytes [#/volume] in Blood by Automated count 3.89 10*6/uL 4.3-6.1 Below low normal [facility] Hemoglobin [Moles/volume] in Blood 14.2 g/dL 13-18 N [facility] Hematocrit [Volume Fraction] of Blood by Automated count 42.0 % 4 2-52 N [facility] Erythrocyte mean corpuscular volume [Ent itic volume] in Cord blood by Automated count 108.0 fL 80-96 Above high normal [facility] Erythrocyte mean corpuscular hemoglobin [Entitic mass] by Automated count 36.5 pg 27-31 Above high normal [facility] spital Erythrocyte mean corpuscular hemoglobin concentration [Mass/volume] in Cord blood 33.8 g/dL 33-37 N [facility] Erythrocyte distribution width [Entitic volume] by Automated count 14 % 11-15 N [facility] Platelets [#/volume] in Blood by Automated count 261 10*3/uL 130-472 N [facility] Platelet mean volume [Entitic volume] in Blood 11.0 fL 9.1-13.1 N [facility] Neutrophils/100 leukocytes in Blood by Automated count 65.4 % 41- 77 N [facility] Neutrophils [#/volume] in Blood by Automated count 5.7 U 1.7-7.6 N [facility] Lymphocytes/100 leukocytes in Blood by Automated count 20.4 % 14- 46 N [facility] Lymphocytes [#/volume] in Blood by Automated count 1.8 U 0.6-4.6 N [facility] Monocytes/100 leukocytes in Blood by Automated count 11.6 % 4-12 N [facility] Monocytes [#/volume] in Blood by Automated count 1.0 U 0.2-1.2 N [facility] Eosinophils/100 leukocytes in Blood by Automated count 1.6 % 0-7 N [facility] Eosinophils [#/volume] in Blood by Automated count 0.1 U 0.0-0.5 N [facility] Basophils/100 leukocytes in Blood by Automated count 0.7 % 0.4-1 .3 N [facility] Basophils [#/volume] in Blood by Automated count 0.1 U 0.0-0.2 N [facility] NUCLEATED RED BLOOD CELL 0 % [facility] NUCLEATED RED BLOOD CELL# 0 U [facility] Immature granulocytes [Presence] in Blood by Automated count 0-2 N [facility] Immature granulocytes [#/volume] in Blood by Automated count 0.0 U 0-0.1 N [facility] Manual Differential panel - Blood NO [facility] ID Date Data Source [id number] 03/11/2020 06:40:00 PM EST [facility] Name Value Range Interpretation Code Description Data Gina rce(s) Supporting Document(s) Alanine aminotransferase [Enzymatic acti vity/volume] in Serum or Plasma by With P-5'-P 14 U/L 10-49 N [facility] Aspartate aminotransferase [Enzymatic ac tivity/volume] in Serum or Plasma by With P-5'-P 18 U/L 0-33 N [facility] pital Alkaline phosphatase [Enzymatic activity/volume] in Serum or Plasma 92 U/L 45-129 N [facility] Bilirubin.total [Mass/volume] in Serum or Plasma 0.7 mg/dL 0.3-1.2 N [facility] Bilirubin.direct [Mass/volume] in Serum or Plasma 0.2 mg/dL 0.0-0.2 N [facility] Albumin [Mass/volume] in Serum or Plasma by Bromocresol purple (BCP) dye binding method 3.7 g/dL 3.2-4.8 N [facility] Protein [Mass/volume] in Serum or Plasma 8.2 g/dL 5.7-8.2 N [facility] ID Date Data Source [id number] 03/11/2020 06:40:00 PM [facility] Name Value Range Interpretation Code Description Data Gina rce(s) Supporting Document(s) Magnesium [Mass/volume] in Serum or Plasma 2.5 mg/dL 1.3-2.7 N [facility] ID Date Data Source [id number] 03/11/2020 02:34:00 PM [facility] Patient Name: RONA WASHINGTON DO B: 1955 Sex: M Pt Unit #: [id number] Location:[facility] Provider: Visit Date/Time: 03/11/20 Primary Insurance: /[facility] Secondary Insurance: Self Pay Intake Vital Signs [...] liqs last night and seems resolved today. 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 Llanes advised me to call a education instructor for endoscopy. I called Dr. Powers in [place] who agreed to see Mr. Washington tomorrow [...] swelling, mass and lump, trunk SNOMED Code(s): 193708736 Category: Medical Plan - Xiao Payan MD: [...] rce(s) Supporting Document(s) ID Date Data Source [id number] 02/26/2020 07:28:00 PM EDT [facility] [address] [place] [address] [phone] NAME SEX PT STATUS ACCOUNT NUMBER RONA WASHINGTON REG REF [id number] ORDERING PHYSICIAN LOCATION MEDICAL RECORD NO. Xiao Payan MD LAB [id number] ATTENDING PHYSICIAN DATE OF DATE OF EXAM/TIME [...] Trans Dt/Tm: Trans by: DT Prt Dt/Tm: 7694-0579: Total DLP = 160.00 mGy-cm 1949-8908: Total Radiation Dose = 2.0800 mSv Lifetime Dose: 2.0800 mSv Name Value Range Interpretation Code Description Data Gina rce(s) Supporting Document(s) ID Date Data Source [id number] 02/26/2020 10:47:00 AM EDT [facility] Special Instructions: CT scan Name Value Range Interpretation Code Description Data Gina rce(s) Supporting Document(s) Urea nitrogen [Mass/volume] in Serum or Plasma 20 mg/dL 9-23 N [facility] Sodium [Moles/volume] in Serum or Plasma 138 mmol/L 132-146 N [facility] Potassium [Moles/volume] in Serum or Plasma 4.3 mmol/L 3.5-5.5 N [facility] Chloride [Moles/volume] in Serum or Plasma 103 mmol/L 99-109 N [facility] Carbon dioxide, total [Moles/volume] in Serum or Plasma 29 mmol/L 20 -31 N [facility] Anion gap in Serum or Plasma 10 mmol/L 8-16 N [facility] Glucose [Mass/volume] in Serum or Plasma 103 mg/dL 74-106 N [facility] Creatinine 0.8 mg/dL 0.5-1.1 [facility] Glomerular filtration rate/1.73 sq M.pre dicted [Volume Rate/Area] in Serum or Plasma Greater Than 60 ABOVE 60 [facility] Calcium [Mass/volume] in Serum or Plasma 9.4 mg/dL 8.5-10.1 [facility] ID Date Data Source [id number] 02/20/2020 12:48:00 PM EDT [facility] [address] [place] [address] [phone] NAME SEX PT STATUS ACCOUNT NUMBER RONA WASHINGTON REG REF [id number] ORDERING PHYSICIAN LOCATION MEDICAL RECORD NO. Xiao Payan MD [facility] [id number] ATTENDING PHYSICIAN DATE OF DATE OF EXAM/TIME [...] rce(s) Supporting Document(s) ID Date Data Source [id number] 02/05/2020 02:51:00 PM EDT [facility] Patient Name: RONA WASHINGTON DO B: 1955 Sex: M Pt Unit #: [id number] Location:[facility] Provider: Visit Date/Time: 02/05/20 Primary Insurance: /[facility] Secondary Insurance: Self Pay Intake Vital Signs [...] has noted coughing today more than usual. 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: disabled Hx Recent Travel (where): No do you think of yourself as: straight/heterosexual current gender identity: male Smoking Status: Former smoker seatbelt use: always helmet use: Yes drive intox or ride w/ intox putaway driver: No working smoke detector in home: [...] Chronic obstructive pulmonary disease, unspecified SNOMED Code(s): 55977260 Category: Medical (2) Medicare annual wellness visit, subsequent: Code(s): Z00.00 - Encounter for general adult medical examination without abnormal findings (3) Chest pain: Status: Chronic Code(s): R07.9 - Chest pain, unspecified SNOMED Code(s): 82904559 Category: Medical Orders: Orders: CT Thorax w/ [...] Safety: Reports Bathroom: Grab bars, Lighting: Adequate, [place]: No throw rugs a nd Stairs: Handrail [...] rce(s) Supporting Document(s) ID Date Data Source [id number] 12/13/2019 03:36:00 PM EDT [facility] [address] [place] [address] [phone] NAME SEX PT STATUS ACCOUNT NUMBER RONA WASHINGTON REG REF [id number] ORDERING PHYSICIAN LOCATION MEDICAL RECORD NO. Xiao Payan MD EKG [id number] ATTENDING PHYSICIAN DATE OF DATE OF EXAM/TIME [...] rce(s) Supporting Document(s) ID Date Data Source [id number] 12/13/2019 09:32:00 AM EDT [facility] TEST CONSULTATION NAME: RONA WASHINGTON : 1955 AGE: 64 MR#: [id number] ADMITTING DATE: 12/13/[address]: DISCHARGE DATE: [...] rce(s) Supporting Document(s) ID Date Data Source [id number] 12/15/2019 02:03:00 PM EDT [facility] Source Of Specimen: ST Name Value Range Interpretation Code Description Data Gina rce(s) Supporting Document(s) Helicobacter pylori Ag [Presence] in Stool by Immunoassay [facility] HELICOBACTER PYLORI AG, EIA, STOOL [facility] Number: [id number] Test Status: Final Specimen Source: STOOL Specimen Quality: Adequate H.pylori Ag: Not Detected Antimicrobials, proton pump inhibitors, and bismuth preparations inhibit H. pylori and ingestion up to two weeks prior to testing may cause false negative results. If clinically indicated the test should be repeated on a new specimen obtained two weeks after discontinuing treatment.THIS TEST WAS PERFORMED AT:[facility] [id number] MERATI,MD ID Date Data Source [id number] 12/04/2019 12:55:00 PM EDT [facility] Patient Name: RONA WASHINGTON DO B: 1955 Sex: M Pt Unit #: [id number] Location:[facility] Provider: Visit Date/Time: 12/04/19 Primary Insurance: /[facility] Secondary Insurance: Self Pay Intake Vital Signs [...] a lot of projects around the house. Seismometer Operator Required: No Is patient in pain?: [...] S creening Have you traveled outside of [facility] or [facility] in the last 14 days.: No Has patient experienced coronavirus symptoms: No [facility] Medical History (Updated 12/04/19 @ 14:04 by [...] () status: discharged branch: [employer] assignments: outside [facility] [employer] [facility] current occupational status: disabled Hx Recent Travel (where): No do you think of yourself as: straight/heterosexual current gender identity: male seatbelt use: always helmet use: Yes drive intox or ride w/ intox putaway driver: No working smoke detector in home: [...] does any exercise as suggested by his capacity planning analyst. Denies any increased number of SOB episodes [...] Appearance: overweight Orientation: alert and oriented x[facility] Head: normal to inspection Ears: hearing [...] R07.9 - Chest pain, unspecified SNOMED Code(s): 99790715 Category: Medical Plan - [place], PAS: [...] Chronic obstructive pulmonary disease, unspecified SNOMED Code(s): 88096669 Category: Medical Plan - [place], PAS: [...] rce(s) Supporting Document(s) ID Date Data Source [id number] 06/05/2019 01:02:00 PM [facility] Patient Name: Rona Washington : 1955 Sex: M Pt Unit #: [id number] Location:[facility] Provider: Visit Date/Time: 06/05/19 Primary Insurance: /[facility] Secondary Insurance: Self Pay Intake Vital Signs 06/05/19 13:17 Current Height 5 ft 7.5 in Current Weight 194 lb BMI 29.9 BP 130/60 Position Sitting Respiration 20 Pulse 80 Pulse Strength Normal Pulse Source Palpation Comment prev ht Intake Visit Reasons: COPD Nurse Note: routine checkup. copd. no new concerns. vision test done-left eye 20/40 right eye-20/50 both eye 20/30 Seismometer Operator Required: No Is patient in pain?: [...] () status: discharged branch: [employer] assignments: outside [facility] ([employer] current occupational status: disabled Hx Recent Travel (where): No do you think of yourself as: straight/heterosexual current gender identity: male seatbelt use: always helmet use: Yes drive intox or ride w/ intox putaway driver: No working smoke detector in home: [...] (1) Chronic obstructive lung disease: SNOMED Code(s): 48783399 Category: Medical Medications: Refilled: fluticasone furoate-vilanterol 200-25 [...] Home Safety Home Safety: Reports Lighting: Adequate, [place]: No throw rugs and Stairs: Handrail available; [...] PM EST Former smoker completed Former smoker [facility] 06/05/2019 01:44:12 PM EST Former smoker completed Former smoker [facility] 06/05/2019 01:44:12 PM EST Former smoker completed Former smoker [facility] Smoking 06/05/2019 01:44:00 PM EST Former smoker completed Former smoker [facility] Smoking 06/05/2019 01:44:00 PM EST Former smoker completed Former smoker [facility] Smoking 06/05/2019 12:44:00 PM EST Former smoker completed Former smoker [facility] Vital Signs ID Date Data Source UNK Name Value Range Interpretation Code Description Data Source(s) Body surface area Derived from formula 1.83 m2 1.83 m2 [facility] ([facility], ) Body weight 71.669 kg 71.669 kg [facility] ([facility], ) Henry body weight 148 [lb_av] 148 [lb_av] [facility] T ([facility], ) Body mass index (BMI) [Ratio] 24.7 kg/m2 24.7 k g/m2 [facility] ([facility]) Body weight 158.00 [lb_av] 158.00 [lb_av] [facility] ([facility]) Body height 67 [in_i] 67 [in_i] [facility] ([facility]) 5'7" Oxygen saturation in Arterial blood by Pulse oximetry 93 % 93 % [facility] ([facility]) Room Air Heart rate 95 /min 95 /min [facility] ([facility]) Diastolic blood pressure 74 mm[Hg] 74 mm[Hg] [facility] ([facility]) Systolic blood pressure 140 mm[Hg] 140 mm[Hg] [facility] ([facility]) Body surface area Derived from formula 1.83 m2 1.83 m2 [facility] ([facility]) Body weight 71.669 kg 71.669 kg [facility] ([facility]) Henry body weight 148 [lb_av] 148 [lb_av] [facility] ([facility]) Body mass index (BMI) [Ratio] 24.7 kg/m2 24.7 k g/m2 [facility] ([facility]) Body weight 158.00 [lb_av] 158.00 [lb_av] [facility] ([facility]) Body height 67 [in_i] 67 [in_i] [facility] ([facility]) 5'7" Oxygen saturation in Arterial blood by Pulse oximetry 95 % 95 % [facility] ([facility]) Room Air Heart rate 108 /min 108 /min [facility] ([facility]) Diastolic blood pressure 70 mm[Hg] 70 mm[Hg] [facility] ([facility]) Systolic blood pressure 116 mm[Hg] 116 mm[Hg] [facility] ([facility])
--- NOTE | 2020-05-24 15:39 | HPEPDOC ---
General Date of Admission 05/24/20 Date of Service: May 24, 2020 Chief Complaint The patient is a 65-year-old male admitted with a reason for visit of Diff Breathing, Fever. 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 He was noted to be febrile at the cancer center so was sent to the ED. He also complained of increased cough and SOB. His temp was reported to be 100 degree F at the center center. He has chronic dysphagia from his mediastinal mass and also has chest pain from it. Today he raed the chest pain about 3/10 and dull aching in type. Work up in the ED With CXR which showed New right basilar infiltrate. Left b asilar infiltrate has improved with mild residual. Probable small effusions. He was admitted for pneumonia Home Medications Scheduled Ferrous Sulfate (Ferrous Sulfate) 300 Mg/5 Ml Liquid, 5 ML PO DAILY Fluticasone/Vilanterol (Breo Ellipta 200-25 Mcg INH) 1 Each Blst.w.dev, 1 PUFF INH DAILY, (Reported) Pembrolizumab (Keytruda) 100 Mg/4 Ml Vial, 100 MG IV ASDIRECTED, (Reported) EVERY 3 WEEKS Sertraline Hcl (Sertraline HCl) 25 Mg Tablet, 1 TAB PO DAILY Tiotropium Mcclellan (Spiriva) 18 Mcg Cap.w.dev, 18 MCG INH DAILY, (Reported) Scheduled PRN Albuterol Sulfate (Albuterol Sulfate Hfa) 8.5 Gm Hfa.aer.ad, 2 PUFFS INH QID PRN for SHORTNESS OF BREATH, (Reported) Magic Mouthwash (First-Mouthwash Blm) 1 Ea Susp, 10 ML PO QID PRN for esophagitis (Diphenhydramine/maalox/lidocaine 1:1:1) May compound if kit unavailable/not covered by insurance Ondansetron (Ondansetron Odt) 4 Mg Tab.rapdis, 1 TAB PEG Q6-8HP PRN for nausea/vomiting Oxycodone HCl (Oxycodone HCl) 5 Mg/5 Ml Solution, 5 ML PEG Q4HP PRN for Esophagitis Allergies Coded Allergies: No Known Allergies (Unverified , 04/01/20) Past Medical History Medical History Dysphagia due to Mediastinal and paraesophageal Mass getting palliative radiation. Bronchogenic Metastatic adenocarcinoma of lung with mets to Liver with high expression of PDL Aspiration Pneumonia Macrocytic anemia COPD Severe protein calorie malnutrition Surgical History Liver biopsy in Mar Chemoport placement in apr PEG tube placement in apr 2020. Family History Mother 74 COPD , diabetes , small cell lung cancer , pneumonia Father 77, lupus , congestive heart disease 3 brother 2 children A-FIB/CHADSVASC A-FIB History Current/History of A-Fib/PAF?: No Review of Systems Constitutional: Reports: Malaise, Weakness, Fatigue, Weight Loss Eyes: Denies: Pain, Vision change ENT: Reports: Dysphagia; Denies: Head Aches, Ear Pain Skin: Denies: Rash, Lesions, Breakdown Pulmonary: Reports: Dyspnea, Cough Cardiovascular: Reports: Chest Pain, Lt Headedness Gastrointestinal: Reports: Constipation; Denies: Nausea, Vomiting, Abdominal Pain, Diarrhea Genitourinary: Denies: Dysuria, Frequency, Incontinence, Retention Hematologic: Denies: Bruising, Bleeding Excessively Physical Examination General Exam: Positive: Alert, Cooperative, No Acute Distress Eye Exam: Positive: PERRLA, Conjunctiva & lids normal, EOMI; Negative: Sclera icteric ENT Exam: Positive: Atraumatic, Mucous membr. moist/pink, Pharynx Normal Neck Exam: Positive: Supple; Negative: JVD, thyromegaly Chest Exam: Positive: Normal air movement, Rales, Rhonchi, Other (bilateral coarse breath sounds) Heart Exam: Positive: Rate Normal, Regular Rhythm, Normal S1, Normal S2; Negative: Murmurs, Rubs Abdomen Exam: Positive: Normal bowel sounds, Soft; Negative: Tenderness Extremity Exam: Negative: Clubbing, Cyanosis, Edema Skin Exam: Positive: Nl turgor and temperature; Negative: Breakdown, Lesion Neuro Exam: Positive: Normal Speech, Strength at 5/5 X4 ext, Normal Tone Psych Exam: Positive: Memory Intact, Oriented x 3 Vital Signs Vital Signs Date Time Temp Pulse Resp B/P (MAP) Pulse Ox O2 Delivery O2 Flow Rate FiO2 05/24/20 11:28 16 05/24/20 11:09 05/24/20 10:23 98.9 111 92 Room Air Laboratory Data Labs 24H Laboratory Tests 2 05/24/20 10:56: Neutrophils (%) (Auto) , Nucleated Red Blood Cells % (auto) 0.0, Neutrophils 59, Band Neutrophils 14H, Lymphocytes (Manual) 14L, Monocytes (Manual) 13H, Anisocytosis 1+, Macrocytosis 1+, Toxic Granulation 1+, Dohle Bodies 1+, Platelet Estimate NORMAL, Blood Gas Bicarbonate Standard 28.8, Venous Blood pH 7.490H, Venous Blood Partial Pressure CO2 38.3, Venous Blood Partial Pressure O2 57.2H, Venous Blood Total Carbon Dioxide 29.7H, Venous Blood HCO3 28.5H, Venous Blood Oxygen Saturation 91.0H, Venous Blood Base Excess 4.9H, Lactic Acid Level 1.4, Total Bilirubin 0.8, Direct Bilirubin 0.3H, Aspartate Amino Transf (AST/SGOT) 19, Alanine Aminotransferase (ALT/SGPT) 47, Alkaline Phosphatase 1 31H, Total Protein 6.4, Albumin 2.2L, Albumin/Globulin Ratio 0.5, Thyroid Stimulating Hormone (TSH) 0.566 05/24/20 10:57: Prothrombin Time 14.3H, Prothromb Time International Ratio 1.09 05/24/20 11:18: POC Glucose (Misc Panel) 138H, POC Sodium (Misc Panel) 127L, POC Potassium (Misc Panel) 4.5, POC Chloride (Misc Panel) 92L, POC Total CO2 (Misc Panel) 29.0H, POC Blood Urea Nitrogen (Misc Panel 18, POC Ionized Calcium (Misc Panel) 4.4L, POC Creatinine (Misc Panel) 0.5L, POC Hematocrit (Misc Panel) 24.0L CBC/BMP Laboratory Tests 05/24/20 10:56 Microbiology Microbiology 05/24/20 Blood Culture, Received Pending 05/24/20 Respiratory Virus Panel (PCR) ([facility]) - Final, Complete 05/24/20 Blood Culture, Received Pending Assessment/Plan This is a 64 year old male with PMH of COPD, ex smoker who had has been found to have a large mediastinal paraesophageal mass which is 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 He was noted to be febrile at the cancer center so was sent to the ED. He also complained of increased cough and SOB. His temp was reported to be 100 degree F at the center center. He has chronic dysphagia from his mediastinal mass and also has chest pain from it. Today he raed the chest pain about 3/10 and dull aching in type. Work up in the ED With CXR which showed New right basilar infiltrate. Left basilar infiltrate has improved with mild residual. Probable small effusions. He was admitted for pneumonia most likely aspiration pneumonia Aspiration pneumonia will give Zosyn cultures have been sent he is on chemotherapy and RT. Dysphagia Due to Esophageal obstruction due to mediastinal and paraesophageal mass. On palliate RT for this obstruction. PEG placed on 05/01/20 On tube feeds Macrocytic Anemia No iron, vit b12 or folate def. Bronchogenic Metastatic adenocarcinoma of lung with mets to liver, muscles. On chemotherapy and palliative RT He is a candidate for Keytruda after finishing RT Pain control with Oxycodone COPD Breo/ symbicort, spiriva, albuterol prn. Plan / VTE VTE Prophylaxis Ordered?: Yes PAMELA RESENDEZ MD May 24, 2020 12:59
[2020-05-24] MEDS ORDERED: PIPERACILLIN/TAZOBACTAM SOD 3.375 GM in D5W MINI-BAG PLUS 50 ML IV ONE (16:00)
--- NOTE | 2020-05-24 18:10 | ECGEPIP ---
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
[2020-05-24] MEDS: PIPERACILLIN/TAZOBACTAM SOD 3.375 GM in D5W MINI-BAG PLUS 50 ML IV SCH (18:44)
[2020-05-24] MEDS: SYMBICORT 160/4.5MCG INHALER 6GM INH SCH (20:00)
[2020-05-24 22:00] VITALS: BP 104/56
[2020-05-25] VITALS (11 sets, daily range): BP systolic 100–110; BP diastolic 50–57
[2020-05-25] MEDS: PIPERACILLIN/TAZOBACTAM SOD 3.375 GM in D5W MINI-BAG PLUS 50 ML IV SCH ×4 (00:05→17:57)
[2020-05-25] MEDS: NS 1,000 ML IV SCH (02:06)
[2020-05-25 06:27] LABS: HEMATOCRIT 21.7 % (42.0-52.0); MEAN CORPUSCULAR HEMOGLOBIN 32.3 pg (27.0-33.0); MEAN CORPUSCULAR HGB CONC 32.3 g/dl (32.0-36.5); PLATELET COUNT, AUTOMATED 176 10^3/uL (150-450); RED BLOOD COUNT 2.17 10^6/uL (4.30-6.10)
[2020-05-25 06:51] LABS: BLOOD UREA NITROGEN 16 MG/DL (7-18); CALCIUM LEVEL 7.5 MG/DL (8.8-10.2); CARBON DIOXIDE LEVEL 27 MEQ/L (21-32); CHLORIDE LEVEL 101 MEQ/L (98-107); CREATININE FOR GFR 0.43 MG/DL (0.70-1.30); GLOMERULAR FILTRATION RATE > 60.0 (>49); GLUCOSE, FASTING 98 MG/DL (70-100); POTASSIUM SERUM 4.4 MEQ/L (3.5-5.1); SODIUM LEVEL 136 MEQ/L (136-145)
[2020-05-25] MEDS: SYMBICORT 160/4.5MCG INHALER 6GM INH SCH ×2 (07:15→21:21)
[2020-05-25] MEDS: TIOTROPIUM INHALER/CAPSULE (SPIRIVA) INH SCH (07:16)
[2020-05-25 08:25] LABS: BASOPHILS 1 % (0-1); EOSINOPHILS 3 % (0-3); LYMPHOCYTES 10 % (16-44)
[2020-05-25 08:28] LABS: DOHLE BODIES 1+; MONOCYTES 6 % (0-5); MYELOCYTES 2 % (0-0); NEUTROPHILS 69 % (28-66); PLATELET ESTIMATE NORMAL (NORMAL); TOXIC GRANULATION 1+
[2020-05-25 08:29] LABS: ANISOCYTOSIS 1+
[2020-05-25] MEDS: ENOXAPARIN 40MG/0.4ML SYRINGE (J1650 PER 10MG) SC SCH (10:02)
--- NOTE | 2020-05-25 12:34 | IPNPDOC ---
Subjective Date Seen The patient was seen on 05/25/20. Subjective Chief Complaint/HPI Does not have any new complaints today. Objective Physical Examination General Exam: Positive: Alert, Cooperative, No Acute Distress Eye Exam: Positive: PERRLA, Conjunctiva & lids normal, EOMI; Negative: Sclera icteric ENT Exam: Positive: Atraumatic, Mucous membr. moist/pink, Pharynx Normal Neck Exam: Positive: Supple; Negative: JVD, thyromegaly Chest Exam: Positive: Rales, Rhonchi, Other (bilateral coarse breath sounds) Heart Exam: Positive: Rate Normal, Regular Rhythm, Normal S1, Normal S2; Negative: Murmurs, Rubs Abdomen Exam: Positive: Normal bowel sounds, Soft; Negative: Tenderness, Hepatospenomegaly Extremity Exam: Positive: Normal pulses; Negative: Clubbing, Cyanosis, Edema Neuro Exam: Positive: Normal Speech, Strength at 5/5 X4 ext, Normal Tone Psych Exam: Positive: Memory Intact, Oriented x 3 Assessment /Plan Assessment This is a 64 year old male with PMH of COPD, ex smoker who had has been found to have a large mediastinal paraesophageal mass which is 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 He was noted to be febrile at the cancer center so was sent to the ED. He also complained of increased cough and SOB. His temp was reported to be 100 degree F at the center center. He has chronic dysphagia from his mediastinal mass and also has chest pain from it. Today he raed the chest pain about 3/10 and dull aching in type. Work up in the ED With CXR which showed New right basilar infiltrate. Left basilar infiltrate has improved with mild residual. Probable small effusions. He was admitted for pneumonia most likely aspiration pneumonia Aspiration pneumonia will give Zosyn MRSA pcr negative cultures have been sent he is on chemotherapy and RT. Dysphagia Due to Esophageal obstruction due to mediastinal and paraesophageal mass. On palliate RT for this obstruction. PEG placed on 05/01/20 On tube feeds Skin around the peg tube port raw with foul smelling secretions. Cultures. Acute on chronic Macrocytic Anemia No iron, vit b12 or folate def. Possibly from RT and CT will give 2 units of PRBC Bronchogenic Metastatic adenocarcinoma of lung with mets to liver, muscles. On chemotherapy and palliative RT He is a candidate for Keytruda after finishing RT Pain control with Oxycodone Hyponatremia on admission. probably due to poor oral intake Severe Protein calorie malnutrition Severe Loss of weight 14 kgs in 2 months bitemporal wasting, low albumin 2.2 COPD Breo/ symbicort, spiriva, albuterol prn. Plan/VTE VTE Prophylaxis Ordered?: Yes VS, I&O, 24H, Fishbone Vital Signs/I&O Vital Signs Date Time Temp Pulse Resp B/P (MAP) Pulse Ox O2 Delivery O2 Flow Rate FiO2 05/25/20 07:18 16 05/25/20 06:00 98.7 85 100/50 (67) 98 Room Air 05/24/20 21:00 2.0 05/24/20 16:22 21 l I&O- Last 24 Hours up to 6 AM 05/25/20 05:59 Intake Total 1650 ml Output Total 0 ml Balance 1650 ml Laboratory Data 24H LABS Laboratory Tests 2 05/25/20 05:47: Neutrophils (%) (Auto) , Nucleated Red Blood Cells % (auto) 0.0, Neutrophils 69H, Band Neutrophils 9, Lymphocytes (Manual) 10L, Monocytes (Manual) 6H, Eosinophils (Manual) 3, Basophils (Manual) 1, Myelocytes 2H, Anisocytosis 1+, Macrocytosis 1+, Toxic Granulation 1+, Dohle Bodies 1+, Platelet Estimate NORMAL, Anion Gap 8, Glomerular Filtration Rate > 60.0, Calcium Level 7.5L 05/25/20 07:07: Methicillin-Resist S.aureus DNA PCR NOT DETECTED CBC/BMP Laboratory Tests 05/25/20 05:47 Microbiology Microbiology 05/25/20 Gram Stain - Final, Resulted 05/25/20 Wound Culture, Resulted Pending 05/24/20 Blood Culture - Preliminary, Resulted No growth after 24 hours . All specim... 05/24/20 Respiratory Virus Panel (PCR) ([facility]) - Final, Complete 05/24/20 Blood Culture - Preliminary, Resulted No growth after 24 hours . All specim... PAMELA RESENDEZ MD May 25, 2020 12:34
[2020-05-25] MEDS: ONDANSETRON 4 MG ORAL DISINTEGRATING TAB SL PRN (18:00)
[2020-05-26] MEDS: PIPERACILLIN/TAZOBACTAM SOD 3.375 GM in D5W MINI-BAG PLUS 50 ML IV SCH ×4 (00:03→18:14)
[2020-05-26 06:00] VITALS: BP 110/56
[2020-05-26 06:37] LABS: HEMATOCRIT 27.1 % (42.0-52.0); HEMOGLOBIN 8.9 g/dl (13.5-17.5); MEAN CORPUSCULAR HGB CONC 32.8 g/dl (32.0-36.5); MEAN CORPUSCULAR VOLUME 97.5 fl (80.0-96.0); PLATELET COUNT, AUTOMATED 201 10^3/uL (150-450); RED BLOOD COUNT 2.78 10^6/uL (4.30-6.10); WHITE BLOOD COUNT 4.4 10^3/uL (4.0-10.0)
[2020-05-26 06:56] LABS: BLOOD UREA NITROGEN 20 MG/DL (7-18); CALCIUM LEVEL 8.2 MG/DL (8.8-10.2); CARBON DIOXIDE LEVEL 30 MEQ/L (21-32); CHLORIDE LEVEL 101 MEQ/L (98-107); CREATININE FOR GFR 0.39 MG/DL (0.70-1.30); GLOMERULAR FILTRATION RATE > 60.0 (>49); GLUCOSE, FASTING 96 MG/DL (70-100); POTASSIUM SERUM 3.6 MEQ/L (3.5-5.1); SODIUM LEVEL 135 MEQ/L (136-145)
[2020-05-26 08:00] LABS: ATYPICAL LYMPH 1 % (0-5); EOSINOPHILS 3 % (0-3); LYMPHOCYTES 9 % (16-44); METAMYELOCYTES 1 % (0-0); MONOCYTES 5 % (0-5); NEUTROPHILS 75 % (28-66)
[2020-05-26 08:01] LABS: ANISOCYTOSIS 1+; PLATELET ESTIMATE NORMAL (NORMAL)
[2020-05-26 08:02] LABS: DOHLE BODIES 1+; TOXIC GRANULATION 1+
[2020-05-26] MEDS ORDERED: FUROSEMIDE 40MG/4ML VIAL (J1940) IV ONE (09:00)
[2020-05-26] MEDS: ENOXAPARIN 40MG/0.4ML SYRINGE (J1650 PER 10MG) SC SCH (09:58)
[2020-05-26] MEDS: TIOTROPIUM INHALER/CAPSULE (SPIRIVA) INH SCH (10:07)
[2020-05-26] MEDS: SYMBICORT 160/4.5MCG INHALER 6GM INH SCH ×2 (10:07→20:55)
[2020-05-26 13:28] VITALS: BP 108/58
--- NOTE | 2020-05-26 14:08 | IPNPDOC ---
Subjective Date Seen The patient was seen on 05/26/20. Subjective Chief Complaint/HPI Feels better this am. Cough and SOB less. No fever or chills Objective Physical Examination General Exam: Positive: Alert, Cooperative, No Acute Distress Eye Exam: Positive: PERRLA, Conjunctiva & lids normal, EOMI; Negative: Sclera icteric ENT Exam: Positive: Atraumatic, Mucous membr. moist/pink, Pharynx Normal Neck Exam: Positive: Supple; Negative: JVD, thyromegaly Chest Exam: Positive: Normal air movement, Rales, Rhonchi, Other (bilateral coarse breath sounds) Heart Exam: Positive: Rate Normal, Regular Rhythm, Normal S1, Normal S2; Negative: Murmurs, Rubs Abdomen Exam: Positive: Normal bowel sounds, Soft; Negative: Tenderness Extremity Exam: Negative: Clubbing, Cyanosis, Edema Skin Exam: Positive: Nl turgor and temperature; Negative: Breakdown, Lesion Neuro Exam: Positive: Normal Speech, Strength at 5/5 X4 ext, Normal Tone Psych Exam: Positive: Memory Intact, Oriented x 3 Assessment /Plan Assessment This is a 64 year old male with PMH of COPD, ex smoker who had has been found to have a large mediastinal paraesophageal mass which is 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 He was noted to be febrile at the cancer center so was sent to the ED. He also complained of increased cough and SOB. His temp was reported to be 100 degree F at the center center. He has chronic dysphagia from his mediastinal mass and also has chest pain from it. Today he raed the chest pain about 3/10 and dull aching in type. Work up in the ED With CXR which showed New right basilar infiltrate. Left basilar infiltrate has improved with mild residual. Probable small effusions. He was admitted for pneumonia most likely aspiration pneumonia Aspiration pneumonia will give Zosyn MRSA pcr negative cultures have been sent he is on chemotherapy and RT. Dysphagia Due to Esophageal obstruction due to mediastinal and paraesophageal mass. On palliate RT for this obstruction. PEG placed on 05/01/20 On tube feeds Skin around the peg tube port raw with foul smelling secretions. Cultures. Acute on chronic Macrocytic Anemia No iron, vit b12 or folate def. Possibly from RT and CT given 2 units of PRBC Bronchogenic Metastatic adenocarcinoma of lung with mets to liver, muscles. On chemotherapy and palliative RT He is a candidate for Keytruda after finishing RT Pain control with Oxycodone Hyponatremia on admission. probably due to poor oral intake Severe Protein calorie malnutrition Severe Loss of weight 14 kgs in 2 months bitemporal wasting, low albumin 2.2 COPD Breo/ symbicort, spiriva, albuterol prn. Plan/VTE VTE Prophylaxis Ordered?: Yes VS, I&O, 24H, Fishbone Vital Signs/I&O Vital Signs Date Time Temp Pulse Resp B/P (MAP) Pulse Ox O2 Delivery O2 Flow Rate FiO2 05/26/20 13:28 98.8 99 18 108/58 (75) 95 Room Air 05/25/20 22:30 2.0 05/24/20 16:22 21 I&O- Last 24 Hours up to 6 AM 05/26/20 06:00 Intake Total 4010 ml Output Total 100 ml Balance 3910 ml Laboratory Data 24H LABS Laboratory Tests 2 05/26/20 06:06: Neutrophils (%) (Auto) , Nucleated Red Blood Cells % (auto) 0.0, Neutrophils 75H, Band Neutrophils 6, Lymphocytes (Manual) 9L, Monocytes (Manual) 5, Eosinophils (Manual) 3, Metamyelocytes 1H, Atypical Lymphocytes 1, Anisocytosis 1+, Toxic Granulation 1+, Dohle Bodies 1+, Platelet Estimate NORMAL, Anion Gap 4L, Glomerular Filtration Rate > 60.0, Calcium Level 8.2L CBC/BMP Laboratory Tests 05/26/20 06:06 Microbiology Microbiology 05/25/20 Gram Stain - Final, Resulted 05/25/20 Wound Culture, Resulted Pending 05/24/20 Blood Culture - Preliminary, Resulted No Growth after 48 hours. All Specime... 05/24/20 Respiratory Virus Panel (PCR) ([facility]) - Final, Complete 05/24/20 Blood Culture - Preliminary, Resulted No Growth after 48 hours. All Specime... PAMELA RESENDEZ MD May 26, 2020 14:08
[2020-05-26] MEDS: ACETAMINOPHEN TAB 650MG DOSE (2X325MG) PO PRN (16:24)
[2020-05-26 22:00] VITALS: BP 106/57
[2020-05-27] MEDS: PIPERACILLIN/TAZOBACTAM SOD 3.375 GM in D5W MINI-BAG PLUS 50 ML IV SCH ×4 (00:45→17:09)
[2020-05-27 05:57] LABS: HEMATOCRIT 28.8 % (42.0-52.0); HEMOGLOBIN 9.7 g/dl (13.5-17.5); MEAN CORPUSCULAR HEMOGLOBIN 32.3 pg (27.0-33.0); MEAN CORPUSCULAR HGB CONC 33.7 g/dl (32.0-36.5); PLATELET COUNT, AUTOMATED 248 10^3/uL (150-450); WHITE BLOOD COUNT 4.7 10^3/uL (4.0-10.0)
[2020-05-27 06:00] VITALS: BP 116/65
[2020-05-27] MEDS: SYMBICORT 160/4.5MCG INHALER 6GM INH SCH ×2 (06:22→20:00)
[2020-05-27] MEDS: TIOTROPIUM INHALER/CAPSULE (SPIRIVA) INH SCH (06:22)
[2020-05-27 06:36] LABS: BASOPHILS 1 % (0-1); EOSINOPHILS 1 % (0-3); LYMPHOCYTES 10 % (16-44); MONOCYTES 11 % (0-5); NEUTROPHILS 77 % (28-66); PLATELET ESTIMATE NORMAL (NORMAL)
[2020-05-27] MEDS: ENOXAPARIN 40MG/0.4ML SYRINGE (J1650 PER 10MG) SC SCH (08:40)
--- NOTE | 2020-05-27 10:15 | IPNPDOC ---
Subjective Date Seen The patient was seen on 05/27/20. Subjective Chief Complaint/HPI Feeling better, though still very weak, Cough better. tolerating feeding. Objective Physical Examination General Exam: Positive: Alert, Cooperative, No Acute Distress Eye Exam: Positive: PERRLA, Conjunctiva & lids normal, EOMI; Negative: Sclera icteric ENT Exam: Positive: Atraumatic, Mucous membr. moist/pink, Pharynx Normal, Other ENT (bitemporal wasting) Neck Exam: Positive: Supple; Negative: JVD, thyromegaly Chest Exam: Positive: Normal air movement, Rales, Rhonchi, Other (bilateral coarse breath sounds) Heart Exam: Positive: Rate Normal, Regular Rhythm, Normal S1, Normal S2; Negative: Murmurs, Rubs Abdomen Exam: Positive: Normal bowel sounds, Soft; Negative: Tenderness Extremity Exam: Negative: Clubbing, Cyanosis, Edema Skin Exam: Positive: Nl turgor and temperature; Negative: Breakdown, Lesion Neuro Exam: Positive: Normal Speech, Strength at 5/5 X4 ext, Normal Tone Psych Exam: Positive: Memory Intact, Oriented x 3 Assessment /Plan Assessment This is a 64 year old male with PMH of COPD, ex smoker who had has been found to have a large mediastinal paraesophageal mass which is 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 He was noted to be febrile at the cancer center so was sent to the ED. He also complained of increased cough and SOB. His temp was reported to be 100 degree F at the center center. He has chronic dysphagia from his mediastinal mass and also has chest pain from it. Today he rated the chest pain about 3/10 and dull aching in type. Work up in the ED With CXR which showed New right basilar infiltrate. Left basilar infiltrate has improved with mild residual. Probable small effusions. He was admitted for pneumonia most likely aspiration pneumonia Aspiration pneumonia On Zosyn started on 05/24/20 MRSA pcr negative cultures negative till date. he is on chemotherapy and RT. Dysphagia Due to Esophageal obstruction due to mediastinal and paraesophageal mass. On palliate RT for this obstruction. PEG placed on 05/01/20 On tube feeds Skin around the peg tube port raw with foul smelling secretions. Cultures Coagulase neg staph Acute on chronic Macrocytic Anemia No iron, vit b12 or folate def. Possibly from RT and CT given 2 units of PRBC Bronchogenic Metastatic adenocarcinoma of lung with mets to liver, muscles. On chemotherapy and palliative RT He is a candidate for Keytruda after finishing RT Pain control with Oxycodone Hyponatremia on admission. probably due to poor oral intake Severe Protein calorie malnutrition Severe Loss of weight 14 kgs in 2 months bitemporal wasting, low albumin 2.2 COPD Breo/ symbicort, spiriva, albuterol prn. Plan/VTE VTE Prophylaxis Ordered?: Yes VS, I&O, 24H, Fishbone Vital Signs/I&O Vital Signs Date Time Temp Pulse Resp B/P (MAP) Pulse Ox O2 Delivery O2 Flow Rate FiO2 05/27/20 06:00 98.4 107 22 116/65 (82) 91 05/26/20 18:13 Room Air 05/26/20 15:24 1.0 05/24/20 16:22 21 I&O- Last 24 Hours up to 6 AM 05/27/20 06:00 Intake Total 1528 ml Output Total 1600 ml Balance -72 ml Laboratory Data 24H LABS Laboratory Tests 2 05/27/20 05:40: Neutrophils (%) (Auto) , Nucleated Red Blood Cells % (auto) 0.0, Neutrophils 77H, Lymphocytes (Manual) 10L, Monocytes (Manual) 11H, Eosinophils (Manual) 1, Basophils (Manual) 1, Red Blood Cell Morphology NORMAL, Platelet Estimate NORMAL CBC/BMP Laboratory Tests 05/27/20 05:40 Microbiology Microbiology 05/25/20 Gram Stain - Final, Resulted 05/25/20 Wound Culture - Preliminary, Resulted Staphylococcus Sp Coag Neg 05/24/20 Blood Culture - Preliminary, Resulted No Growth after 48 hours. All Specime... 05/24/20 Respiratory Virus Panel (PCR) ([facility]) - Final, Complete 05/24/20 Blood Culture - Preliminary, Resulted No Growth after 48 hours. All Specime... PAMELA RESENDEZ MD May 27, 2020 10:15
[2020-05-27 14:00] VITALS: BP 115/66
[2020-05-27] MEDS: ACETAMINOPHEN TAB 650MG DOSE (2X325MG) PO PRN (15:16)
[2020-05-27] MEDS: MORPHINE 4 MG/ML 1ML VIAL/SYRINGE (J2270) IV PRN (20:05)
[2020-05-27 22:00] VITALS: BP 121/68
[2020-05-28] MEDS: PIPERACILLIN/TAZOBACTAM SOD 3.375 GM in D5W MINI-BAG PLUS 50 ML IV SCH ×5 (00:44→23:51)
[2020-05-28] MEDS: ACETAMINOPHEN TAB 650MG DOSE (2X325MG) PO PRN ×2 (05:31→13:26)
[2020-05-28 06:00] VITALS: BP 125/67
[2020-05-28] MEDS: SYMBICORT 160/4.5MCG INHALER 6GM INH SCH ×2 (07:41→21:00)
[2020-05-28] MEDS: TIOTROPIUM INHALER/CAPSULE (SPIRIVA) INH SCH (07:41)
[2020-05-28 07:59] LABS: HEMATOCRIT 28.6 % (42.0-52.0); HEMOGLOBIN 9.4 g/dl (13.5-17.5); MEAN CORPUSCULAR HEMOGLOBIN 31.6 pg (27.0-33.0); MEAN CORPUSCULAR HGB CONC 32.9 g/dl (32.0-36.5); MEAN CORPUSCULAR VOLUME 96.3 fl (80.0-96.0); PLATELET COUNT, AUTOMATED 286 10^3/uL (150-450); RED BLOOD COUNT 2.97 10^6/uL (4.30-6.10); WHITE BLOOD COUNT 5.2 10^3/uL (4.0-10.0)
[2020-05-28 08:15] LABS: BLOOD UREA NITROGEN 19 MG/DL (7-18); CALCIUM LEVEL 8.9 MG/DL (8.8-10.2); CARBON DIOXIDE LEVEL 31 MEQ/L (21-32); CHLORIDE LEVEL 97 MEQ/L (98-107); CREATININE FOR GFR 0.55 MG/DL (0.70-1.30); GLOMERULAR FILTRATION RATE > 60.0 (>49); GLUCOSE, FASTING 122 MG/DL (70-100); POTASSIUM SERUM 3.8 MEQ/L (3.5-5.1); SODIUM LEVEL 137 MEQ/L (136-145)
[2020-05-28 08:26] LABS: ATYPICAL LYMPH 1 % (0-5); LYMPHOCYTES 8 % (16-44); MONOCYTES 19 % (0-5); NEUTROPHILS 62 % (28-66)
[2020-05-28 08:27] LABS: PLATELET ESTIMATE NORMAL (NORMAL)
[2020-05-28 08:28] LABS: ANISOCYTOSIS 1+; HYPOCHROMASIA 1+; POIKILOCYTOSIS 1+
[2020-05-28] MEDS: ENOXAPARIN 40MG/0.4ML SYRINGE (J1650 PER 10MG) SC SCH (11:31)
[2020-05-28 14:00] VITALS: BP 101/62
[2020-05-28] MEDS: MORPHINE 4 MG/ML 1ML VIAL/SYRINGE (J2270) IV PRN ×2 (14:58→20:36)
--- NOTE | 2020-05-28 15:58 | IPNPDOC ---
Text Note Date of Service The patient was seen on 05/28/20. NOTE Subjective: -No acute events Objective: General: Alert, Cooperative, No Acute Distress, cachectic Eyes: Conjunctiva & lids normal, EOMI, anicteric ENT: Atraumatic, Mucous membr. 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 Aspiration pneumonia -On Zosyn started on 05/24/20 -MRSA pcr negative -cultures negative to date. Dysphagia2/2 Esophageal obstruction due to mediastinal and paraesophageal mass. -On palliate RT for this obstruction. -PEG placed on 05/01/20 -On tube feeds -Skin around the peg tube port raw with foul smelling secretions. Cultures Coagulase neg staph Acute on chronic macrocytic Anemia -No iron, vit b12 or folate def. -Possibly from RT and CT -given 2 units of PRBC this admission Bronchogenic Metastatic adenocarcinoma of lung with mets to liver, muscles. -On chemotherapy and palliative RT -He is a candidate for Keytruda after finishing RT -Pain control with Oxycodone Hyponatremia on admission: resolved probably due to poor oral intake Severe Protein calorie malnutrition Severe Loss of weight 14 kgs in 2 months bitemporal wasting, low albumin 2.2 On tube feeds, will f/u nutrition recs COPD -Breo/ symbicort, spiriva, albuterol prn. DVT ppx: lovenox VS,Fishbone, I+O VS, Fishbone, I+O Laboratory Tests 05/28/20 07:29 Vital Signs Date Time Temp Pulse Resp B/P (MAP) Pulse Ox O2 Delivery O2 Flow Rate FiO2 05/28/20 15:08 21 Room Air 05/28/20 14:00 97.9 108 101/62 (75) 90 05/26/20 15:24 1.0 05/24/20 16:22 21 I&O- Last 24 Hours up to 6 AM 05/28/20 06:00 Intake Total 2758 ml Output Total 625 ml Balance 2133 ml KENNDEY JOHNSON MD May 28, 2020 15:58
[2020-05-28] MEDS ORDERED: traMADol 50 MG TAB PO PRN (16:00)
[2020-05-28 22:00] VITALS: BP 120/65
[2020-05-29 06:00] VITALS: BP 128/89
[2020-05-29] MEDS: PIPERACILLIN/TAZOBACTAM SOD 3.375 GM in D5W MINI-BAG PLUS 50 ML IV SCH ×2 (06:15→12:00)
[2020-05-29 06:30] LABS: HEMATOCRIT 29.9 % (42.0-52.0); HEMOGLOBIN 9.7 g/dl (13.5-17.5); MEAN CORPUSCULAR HEMOGLOBIN 31.5 pg (27.0-33.0); MEAN CORPUSCULAR HGB CONC 32.4 g/dl (32.0-36.5); MEAN CORPUSCULAR VOLUME 97.1 fl (80.0-96.0); PLATELET COUNT, AUTOMATED 335 10^3/uL (150-450); RED BLOOD COUNT 3.08 10^6/uL (4.30-6.10); WHITE BLOOD COUNT 5.8 10^3/uL (4.0-10.0)
[2020-05-29 06:59] LABS: BLOOD UREA NITROGEN 18 MG/DL (7-18); CARBON DIOXIDE LEVEL 31 MEQ/L (21-32); CHLORIDE LEVEL 98 MEQ/L (98-107); CREATININE FOR GFR 0.43 MG/DL (0.70-1.30); GLOMERULAR FILTRATION RATE > 60.0 (>49); GLUCOSE, FASTING 119 MG/DL (70-100); SODIUM LEVEL 136 MEQ/L (136-145)
[2020-05-29 08:29] LABS: ATYPICAL LYMPH 1 % (0-5); EOSINOPHILS 2 % (0-3); LYMPHOCYTES 18 % (16-44); MONOCYTES 7 % (0-5); NEUTROPHILS 67 % (28-66)
[2020-05-29 08:30] LABS: ANISOCYTOSIS 1+; PLATELET ESTIMATE NORMAL (NORMAL)
[2020-05-29] MEDS: SYMBICORT 160/4.5MCG INHALER 6GM INH SCH (09:01)
[2020-05-29] MEDS: TIOTROPIUM INHALER/CAPSULE (SPIRIVA) INH SCH (09:01)
[2020-05-29] MEDS: ENOXAPARIN 40MG/0.4ML SYRINGE (J1650 PER 10MG) SC SCH (09:18)
[2020-05-29] MEDS: ONDANSETRON 4 MG ORAL DISINTEGRATING TAB SL PRN (09:18)
[2020-05-29] MEDS ORDERED: CEFD1CAP8 PO (11:32)
[2020-05-29] MEDS ORDERED: DOXY100C PO (11:32)
--- NOTE | 2020-05-29 13:56 | DS.PDOC ---
Discharge Summary General Date of Admission May 24, 2020 at 14:44 Date of Discharge 05/29/2020 Attending Physician: KENNEDY JOHNSON MD Discharge Summary PROCEDURES PERFORMED DURING STAY: None ADMITTING DIAGNOSES: 1. CAP 2. lung cancer DISCHARGE DIAGNOSES: CAP, likely 2/2 aspiration Bronchogenic Metastatic adenocarcinoma of lung with mets to Liver with high expression of PDL on radiation therapy Dysphagia due to Mediastinal and paraesophageal Mass getting palliative ra diation s/p PEG in 04/2020 Macrocytic anemia COPD Severe protein calorie malnutrition PEG site soft tissue infection growing Strep mitis and coag negative staph COMPLICATIONS/CHIEF COMPLAINT: Lung Cancer,Pneumonia. HISTORY OF PRESENT ILLNESS: 64 year old man with PMH of COPD, ex smoker who was recently found to have a large mediastinal paraesophageal mass which is Bronchogenic metastatic adenoc arcinoma of the lung with mets to liver, rest of the lungs and possibly left gluteal muscle in Mar 2020, with dysphagia getting palliative RT for dysphagia and also on systemic immunotherapy last was on 05/20/20, has a PEG tube in place and severe weight loss who presented to the ED for extreme weakness and was noted to be febrile at the cancer center on the day admission so was sent to the ED. HOSPITAL COURSE: In the ED, he complained of increased cough and SOB and his initial temperature was 100 degree F. He has chronic dysphagia from his mediastinal mass and also has chest pain from it and at presentation rated his pain at 3/10 and was dull aching in type. Work up in the ED With CXR which showed a new right basilar infiltrate while a previous left basilar infiltrate had improved with mild residual findings and he was subsequently admitted for pneumonia. He was treated with zosyn with improvement in his strength, resolution of fevers and a mild hypoxemia also resolved. His peg tube site was noted to have some purulent drainage and on culture grew strep mitis and coag negative staph. He was treated with zosyn and is now being transitioned to ceftin/doxy that will cover both PNA and soft tissue infection. Of note, he continued receiving radiation therapy while inpatient. He is now being discharged home with plan for completion of antibiotics, PCP follow up within 7d of discharge, follow up with radiation oncology as directed and oncology follow up within 2 weeks of hospital discharge. DISCHARGE MEDICATIONS: Please see below. ALLERGIES: Please see below. PHYSICAL EXAMINATION ON DISCHARGE: VITAL SIGNS: Please see below. General: Alert, Cooperative, No Acute Distress, cachectic Eyes: Conjunctiva & lids normal, EOMI, anicteric ENT: Atraumatic, Mucous membr. moist/pink, Pharynx Normal, with bitemporal wasting Neck: Supple, no JVD or thyromegaly Chest: Normal air movement, with bilateral coarse breath sounds Heart: Rate Normal, Regular Rhythm, Normal S1, Normal S2, without murmurs Abdomen: Normal bowel sounds, soft, NTND Extremities: without edema, WWP Neuro: Normal Speech, Strength at 5/5 X4 ext, Normal Tone Psych: AO x 3 LABORATORY DATA: Please see below. IMAGING: CXR: There is new infiltrate in the right lung base. The previously noted infiltrate in the left lung base has significantly improved with minor residual. The heart is not enlarged. There is mild calcification of the thoracic aorta. Right central venous catheter is again noted. There is blunting of the costophrenic angles which may represent small effusions. IMPRESSION: New right basilar infiltrate. Left basilar infiltrate has improved with mild residual. Probable small effusions. PROGNOSIS: Good ACTIVITY: As tolerated DIET: Tube feeds DISCHARGE PLAN: Home DISPOSITION: 01 Home, Self-Care. DISCHARGE INSTRUCTIONS: 1. Completion of antibiotics, PCP follow up within 7d of discharge, follow up with radiation oncology as directed and oncology follow up within 2 weeks of hos pital discharge. ITEMS TO FOLLOWUP ON ON OUTPATIENT: 1. Resolution of pneumonia 2. Lung cancer follow up DISCHARGE CONDITION: Stable TIME SPENT ON DISCHARGE: 46 minutes. Vital Signs/I&Os Vital Signs Date Time Temp Pulse Resp B/P (MAP) Pulse Ox O2 Delivery O2 Flow Rate FiO2 05/29/20 06:00 98.1 99 22 128/89 (102) 94 Nasal Cannula 2.0 05/24/20 16:22 21 I&O- Last 24 Hours up to 6 AM 05/29/20 06:00 Intake Total 1250 ml Output Total 251 ml Balance 999 ml Laboratory Data Labs 24H Laboratory Tests 2 05/29/20 05:39: Neutrophils (%) (Auto) , Nucleated Red Blood Cells % (auto) 0.3H, Neutrophils 67H, Band Neutrophils 5, Lymphocytes (Manual) 18, Monocytes (Manual) 7H, Eosinophils (Manual) 2, Atypical Lymphocytes 1, Anisocytosis 1+, Macrocytosis 1+, Platelet Estimate NORMAL, Anion Gap 7L, Glomerular Filtration Rate > 60.0, Calcium Level 9.0 CBC/BMP Laboratory Tests 05/29/20 05:39 Microbiology Microbiology 05/25/20 Gram Stain - Final, Complete 05/25/20 Wound Culture - Final, Complete Staphylococcus Sp Coag Neg Streptococcus Mitis 05/24/20 Blood Culture - Final, Complete NO GROWTH AFTER 5 DAYS 05/24/20 Respiratory Virus Panel (PCR) ([facility]) - Final, Complete 05/24/20 Blood Culture - Final, Complete NO GROWTH AFTER 5 DAYS Discharge Medications Scheduled Cefdinir (Cefdinir) 300 Mg Capsule, 300 MG PO BID Doxycycline Hyclate (Doxycycline Hyclate) 100 Mg Capsule, 1 CAP PO BID Ferrous Sulfate (Ferrous Sulfate) 300 Mg/5 Ml Liquid, 5 ML PO DAILY Fluticasone/Vilanterol (Breo Ellipta 200-25 Mcg INH) 1 Each Blst.w.dev, 1 PUFF INH DAILY, (Reported) Pembrolizumab (Keytruda) 100 Mg/4 Ml Vial, 100 MG IV ASDIRECTED, (Reported) EVERY 3 WEEKS Sertraline Hcl (Sertraline HCl) 25 Mg Tablet, 1 TAB PO DAILY Tiotropium [place] (Spiriva) 18 Mcg Cap.w.dev, 18 MCG INH DAILY, (Reported) Scheduled PRN Albuterol Sulfate (Albuterol Sulfate Hfa) 8.5 Gm Hfa.aer.ad, 2 PUFFS INH QID PRN for SHORTNESS OF BREATH, (Reported) Magic Mouthwash (First-Mouthwash Blm) 1 Ea Susp, 10 ML PO QID PRN for esophagitis (Diphenhydramine/maalox/lidocaine 1:1:1) May compound if kit unavailable/not covered by insurance Ondansetron (Ondansetron Odt) 4 Mg Tab.rapdis, 1 TAB PEG Q6-8HP PRN for nausea/vomiting Oxycodone HCl (Oxycodone HCl) 5 Mg/5 Ml Solution, 5 ML PEG Q4HP PRN for Esophagitis Allergies Coded Allergies: No Known Allergies (Unverified , 04/01/20) KENNEDY JOHNSON MD May 29, 2020 13:56
--- NOTE | 2020-05-29 17:21 | IPNPDOC ---
Text Note Date of Service The patient was seen on 05/29/20. NOTE Subjective: -No acute events Objective: General: Alert, Cooperative, No Acute Distress, cachectic Eyes: Conjunctiva & lids normal, EOMI, anicteric ENT: Atraumatic, Mucous membr. 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 Aspiration pneumonia -On Zosyn started on 05/24/20, day #6 -MRSA pcr negative -cultures negative to date. Dysphagia2/2 Esophageal obstruction due to mediastinal and paraesophageal mass. -On palliate RT for this obstruction. -PEG placed on 05/01/20 -On tube feeds -Skin around the peg tube port raw with foul smelling secretions. Cultures Coagulase neg staph Acute on chronic macrocytic Anemia -No iron, vit b12 or folate def. -Possibly from RT and CT -given 2 units of PRBC this admission Bronchogenic Metastatic adenocarcinoma of lung with mets to liver, muscles. -On chemotherapy and palliative RT -He is a candidate for Keytruda after finishing RT -Pain control with Oxycodone Hyponatremia on admission: resolved probably due to poor oral intake Severe Protein calorie malnutrition Severe Loss of weight 14 kgs in 2 months bitemporal wasting, low albumin 2.2 On tube feeds, will f/u nutrition recs COPD -Breo/ symbicort, spiriva, albuterol prn. DVT ppx: lovenox VS,Fishbone, I+O VS, Fishbone, I+O Laboratory Tests 05/29/20 05:39 Vital Signs Date Time Temp Pulse Resp B/P (MAP) Pulse Ox O2 Delivery O2 Flow Rate FiO2 05/29/20 06:00 98.1 99 22 128/89 (102) 94 Nasal Cannula 2.0 05/24/20 16:22 21 I&O- Last 24 Hours up to 6 AM 05/29/20 06:00 Intake Total 1250 ml Output Total 251 ml Balance 999 ml KENNEDY JOHNSON MD May 29, 2020 09:29
== END 2020-05-29 13:21 | disposition home or self-care (01) | DRG 177 ==
LOC: M ED 10:22 → M ED INP 14:44 → M MSPAV 16:39
PROVIDERS: ADMIT Internal Medicine Nephrology; ATTEND Internal Medicine
PROC: 30233N1 Transfusion of Nonautologous Red Blood Cells into Peripheral Vein, Percutaneous Approach (ICD-10-PCS; principal; 2020-05-25)
DX: J69.0 Pneumonitis due to inhalation of food and vomit (principal); E43 Unspecified severe protein-calorie malnutrition; C78.7 Secondary malignant neoplasm of liver and intrahepatic bile duct; C34.90 Malignant neoplasm of unspecified part of unspecified bronchus or lung; C79.89 Secondary malignant neoplasm of other specified sites; E87.1 Hypo-osmolality and hyponatremia; R64 Cachexia; K94.22 Gastrostomy infection; R13.10 Dysphagia, unspecified; D50.9 Iron deficiency anemia, unspecified; J44.9 Chronic obstructive pulmonary disease, unspecified; Z79.899 Other long term (current) drug therapy; Z87.891 Personal history of nicotine dependence; Y83.1 Surgical operation with implant of artificial internal device as the cause of abnormal reaction of the patient, or of later complication, without mention of misadventure at the time of the procedure

== ENCOUNTER 2020-05-29 10:11 | Outpatient (RCR) | payer MEDICARE ==
[~2020-05-29 10:11] MED LIST changes: +KEYT1INJ IV
[2020-05-29] MEDS ORDERED: CEFD1CAP8 PO (11:32)
[2020-05-29] MEDS ORDERED: DOXY100C PO (11:32)
[2020-06-03] MEDS ORDERED: OXYC1SOL3 PEG (10:07)
[2020-06-06] MEDS ORDERED: CEFD1CAP8 PO (16:48)
[2020-06-06] MEDS ORDERED: DOXY100C PO (16:48)
== END 2020-06-09 ==
LOC: M ONCR 10:11
PROVIDERS: ATTEND General Practice
DX: C34.02 Malignant neoplasm of left main bronchus (principal)

== ENCOUNTER → 2020-07-01 | Outpatient (CLI) | payer MEDICARE ==
[~2020-07-01] MED LIST changes: +CEFD1CAP8 PO; +DOXY100C PO; +ISOVUE-370 76% 100ML VIAL As Ordered ONE
--- NOTE | 2020-07-01 15:15 | REP ---
INDICATION: LUNG CANCER FOLLOW UP. COMPARISON: CT 02/26/2020 at [facility] TECHNIQUE: Bolus of 75 mL Isovue 370 scanning through the chest with both coronal and sagittal reconstructions. FINDINGS: The large posterior mediastinal mass on the previous study abutting the anterior margin of the aorta, left pulmonary artery, left main stem bronchus and esophagus has changed in appearance. 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 Is also confluent extension to the subcarinal region. There is some right hilar adenopathy, AP window, right paratracheal and precarinal/prevascular space nodes. There are scattered irregular nodules now present in both lungs with confluent densities in the right middle lobe and patchy infiltrates and nodules bilaterally in the lower lung zones posteriorly and in the inferior lingular segment some nodules are shaggy other show patchy confluent semi solid or infiltrative appearance. Do not see definite pleural effusion. There is some volume loss in the right hemithorax. I see known pneumothorax. Bullous emphysematous changes are noted in the mid and upper lung zones. Chronic pleuroparenchymal scarring in the right upper lobe is again seen and unchanged. The aorta is without aneurysm or dissection. There is no axillary or supraclavicular mass. There are multiple lesions in the liver the largest liver lesion is on the right lobe measuring 7.1 by 5.9 cm well in the lateral segment of the left lobe is another lesion a 2.8 cm. The left lobe lesion is new. The right lobe lesion significantly increased in size from the prior study. Adrenal glands show thickening bilaterally stomach without hiatal hernia. There is a gastric PEG tube present is interval change. Of the bone windows show marginal osteophytes without compression deformity in the thoracic spine. Posterior elements intact. No destructive lesions. Sternum, manubrium, medial clavicles, visualized scapulae, humeral heads and ribs all without focal lesion. IMPRESSION: 1. A mediastinal mass eroding both the esophageal wall and left mainstem bronchus with a very large fistulous connection and enveloping the bronchus, abutting the left pulmonary artery, aorta and extending into the subcarinal region and left hilum as well as the right hilum. 2. Numerous scattered irregular shaggy nodules and interstitial infiltrates in the lung hodge with confluent right middle lobe and left/right lower lobe infiltrates. No gross effusion. 3. Enlarging right lobe liver mass now 7.1 x 5.9 cm and a new lateral segment left lobe mass 2.8 cm. Overall progressive metastatic disease as described. <Electronically signed by Ian Newberry > 07/01/20 [id number]
== END ==
LOC: M RAD 09:29
PROVIDERS: ATTEND Specialist
DX: Z85.118 Personal history of other malignant neoplasm of bronchus and lung (principal); Z08 Encounter for follow-up examination after completed treatment for malignant neoplasm; R22.2 Localized swelling, mass and lump, trunk; R16.0 Hepatomegaly, not elsewhere classified
CPT/HCPCS: 71260; Q9967

== ENCOUNTER → 2020-08-06 10:00 | Outpatient (RCR) | payer MEDICARE ==
[2020-04-19 13:34] VITALS: BP 154/81
[2020-04-19 14:47] LABS: BASO % 0.3 % (0.0-1.0); EOS # 0.1 10^3/uL (0.0-0.5); EOS % 0.9 % (0.0-3.0); HEMATOCRIT 32.5 % (42.0-52.0); HEMOGLOBIN 10.7 g/dl (13.5-17.5); LYMPH # 1.3 10^3/uL (1.5-5.0); LYMPH % 10.5 % (24.0-44.0); MEAN CORPUSCULAR HEMOGLOBIN 34.9 pg (27.0-33.0); MEAN CORPUSCULAR HGB CONC 32.9 g/dl (32.0-36.5); MEAN CORPUSCULAR VOLUME 105.9 fl (80.0-96.0); MONO # 1.3 10^3/uL (0.0-0.8); MONO % 10.9 % (0.0-5.0); NEUTROPHILS # 9.1 10^3/uL (1.5-8.5); NEUTROPHILS % 76.7 % (36.0-66.0); PLATELET COUNT, AUTOMATED 320 10^3/uL (150-450); RED BLOOD COUNT 3.07 10^6/uL (4.30-6.10); WHITE BLOOD COUNT 11.9 10^3/uL (4.0-10.0)
[2020-04-19 15:00] LABS: INR 1.01; PROTHROMBIN TIME 13.5 SECONDS (12.5-14.3)
[2020-04-19 15:01] LABS: PARTIAL THROMBOPLASTIN TIME 35.7 SECONDS (24.2-38.5)
[2020-04-19 15:06] LABS: ALBUMIN 2.8 GM/DL (3.2-5.2); ALT/SGPT 15 U/L (12-78); BILIRUBIN,TOTAL 0.6 MG/DL (0.2-1.0); BLOOD UREA NITROGEN 23 MG/DL (7-18); CALCIUM LEVEL 9.7 MG/DL (8.8-10.2); CARBON DIOXIDE LEVEL 27 MEQ/L (21-32); CHLORIDE LEVEL 98 MEQ/L (98-107); CREATININE FOR GFR 0.72 MG/DL (0.70-1.30); GLOMERULAR FILTRATION RATE > 60.0 (>49); GLUCOSE, FASTING 102 MG/DL (70-100); MAGNESIUM LEVEL 2.2 MG/DL (1.8-2.4); SODIUM LEVEL 134 MEQ/L (136-145); TOTAL PROTEIN 8.4 GM/DL (6.4-8.2)
--- NOTE | 2020-04-19 16:45 | MEDONCPDOC ---
Medical Oncology Office Note Date of Service: Apr 19, 2020 Diagnosis/Treatment History This is a 64 year old man. He lost weight. He has been having problems swallowing. He had chests pain. His physician ordered a CAT scan of his chest. He had a mass which contacts the descending thoracic aorta ,and narrows the left main stem bronchus. He also had a mass seen in his liver. He was referred to pulmonary. They advised a liver biopsy. 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 Lung markers are still pending. Allergies Coded Allergies: No Known Allergies (Unverified , 04/01/20) Home Medications Active Scripts Oxycodone HCl (Oxycodone HCl) 5 Mg/5 Ml Solution, 5 ML PO Q4HP PRN for Esophagitis MDD 30 Milliliter(s) for 7 Days, #210 ML Prov:MARCELINA VILA MD 04/19/20 Ondansetron (Ondansetron Odt) 4 Mg Tab.rapdis, 1 TAB PO Q6-8HP PRN for nausea/vomiting, #30 TAB 2 Refills Prov:MARCELINA VILA MD 04/19/20 Magic Mouthwash (First-Mouthwash Blm) 1 Ea Susp, 10 ML PO QID PRN for esophagitis, #240 ML 5 Refills (Diphenhydramine/maalox/lidocaine 1:1:1) May compound if kit unavailable/not covered by insurance Prov:MARCELINA VILA MD 04/19/20 Reported Medications Pantoprazole Sodium (Pantoprazole Sodium) 40 Mg Tablet.dr, 1 TAB PO DAILY 04/01/20 Tiotropium [place] (Spiriva) 18 Mcg Cap.w.dev, 1 INH INH DAILY 04/01/20 Fluticasone/Vilanterol (Breo Ellipta 200-25 Mcg INH) 1 Each Blst.w.dev, 1 INH INH DAILY 04/01/20 Albuterol Sulfate (Albuterol Sulfate Hfa) 8.5 Gm Hfa.aer.ad, 1 PUFF INH DAILY 04/01/20 Discontinued Reported Medications Roflumilast (Daliresp) 500 Mcg Tablet 04/01/20 Past Medical History Past Medical History: COPD Past Surgical History: biopsy liver Family History: mother 74 COPD , diabetes , small cell lung cancer , pneumonia Father 77, lupus , congestive heart disease 3 brother 2 children Social History: smoker 1 05/11 PPD x 50 quit 2013 etoh 2 beers occassional Review of Systems General: Reports: Normal Appetite, Other Symptoms (weight loss 50 pounds ); Denies: Chills, Fatigue, Malaise Constitutional: Denies: Chills, Fatigue, Weight Loss Eyes: Denies: Vision change HEENT: Denies: Head Aches, Dysphagia, Sore Throat, Epistaxis Skin: Denies: Rash, Lesions, Jaundice, Bruising Pulmonary: Reports: Dyspnea; Denies: Cough Cardiovascular: Reports: Chest Pain; Denies: Palpitations, Orthopnea, Edema Gastrointestinal: Reports: Other Symptoms (difficulty swallowing ); Denies: Nausea, Vomiting, Diarrhea Genitourinary: Denies: Dysuria, Frequency, Incontinence Hematologic: Denies: Bruising, Petecchia Neurological: Reports: Weakness, Numbness; Denies: Change in Speech Psych: Reports: Mood Normal Physical Examination General Exam: Positive: Alert, No Acute Distress, Other (thin looking man. ) Eye Exam: Positive: PERRLA, Conjunctiva & lids normal; Negative: Sclera icteric ENT EXAM: Positive: Atraumatic, Mucous membr. moist/pink Neck Exam: Positive: Supple; Negative: JVD, Thyromegaly, Lymphadenopathy Chest Exam: Positive: Clear to auscultation, Normal air movement Heart Exam: Positive: Rate Normal Breast Exam: Positive: Symmetric Bilaterally Abdomen Exam: Positive: Normal bowel sounds; Negative: Tenderness, Hepatospenomegaly, Mass Extremity Exam: Negative: Clubbing, Cyanosis, Edema Skin Exam: Positive: Nl turgor and temperature; Negative: Rash, Breakdown, Lesion Neuro Exam: Positive: Normal Speech, Normal Tone Psych Exam: Positive: Mental status NL Ht / Wt Ht / Wt Height:5 Feet 8.25 Inches Weight: 68.800 Kg Vital Signs Vital Signs Date Time Temp Pulse Resp B/P (MAP) Pulse Ox O2 Delivery O2 Flow Rate FiO2 04/19/20 13:34 97.3 106 18 154/81 (105) 94 Room Air Assessment/Plan This is a 64 year old man with a Metastatic lung cancer. He is symptomatic. He has chest solorzano and difficulty swallowing. He has been seen by radiation oncology. They ordered a PET scan. Plan; Follow up on PET scan. If he has oligometastatic disease he may benefit from combine Chemotherapy and radiation. He may benefit from radio-surgery to the liver. Follow up on lung markers ordered by pathology. CC TO: CC TO: Primary Care Provider: Xiao Payan Referring Provider: PRACHI MALAVE MD Apr 19, 2020 13:59
[2020-04-29 08:50] VITALS: BP 127/72
--- NOTE | 2020-04-29 17:17 | MEDONCPDOC ---
Medical Oncology Office Note Date of Service: Apr 29, 2020 Diagnosis/Treatment History This is a 64 year old man. He lost weight. He has been having problems swallowing. He had chests pain. His physician ordered a CAT scan of his chest. He had a mass which contacts the descending thoracic aorta ,and narrows the left main stem bronchus. He also had a mass seen in his liver. He was referred to pulmonary. They advised a liver biopsy. 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 Lung markers are still pending. April 29, 2020 Review of PET scan shows extensive disease. He is symptomatic radiation will be given as palliative therapy to help with swallowing. Allergies Coded Allergies: No Known Allergies (Unverified , 04/01/20) Home Medications Active Scripts Oxycodone HCl (Oxycodone HCl) 5 Mg/5 Ml Solution, 5 ML PO Q4HP PRN for Esophagitis MDD 30 Milliliter(s) for 15 Days, #450 ML Prov:PRACHI MALAVE MD 04/29/20 Ondansetron (Ondansetron Odt) 4 Mg Tab.rapdis, 1 TAB PO Q6-8HP PRN for nausea/vomiting, #30 TAB 2 Refills Prov:MARCELINA VILA MD 04/19/20 Magic Mouthwash (First-Mouthwash Blm) 1 Ea Susp, 10 ML PO QID PRN for esophagitis, #240 ML 5 Refills (Diphenhydramine/maalox/lidocaine 1:1:1) May compound if kit unavailable/not covered by insurance Prov:MARCELINA VILA MD 04/19/20 Reported Medications Tiotropium [place] (Spiriva) 18 Mcg Cap.w.dev, 1 INH INH DAILY 04/01/20 Fluticasone/Vilanterol (Breo Ellipta 200-25 Mcg INH) 1 Each Blst.w.dev, 1 INH INH DAILY 04/01/20 Albuterol Sulfate (Albuterol Sulfate Hfa) 8.5 Gm Hfa.aer.ad, 2 PUFFS INH QID PRN for SHORTNESS OF BREATH 04/01/20 Discontinued Reported Medications Pantoprazole Sodium (Pantoprazole Sodium) 40 Mg Tablet.dr, 1 TAB PO DAILY 04/01/20 Discontinued Scripts Dexamethasone (Decadron) 4 Mg Tablet, 2 TAB PO BID for 3 Days, #72 TAB day before chemotherapy day of chemotherapy day after chemotherapy times six treatments Prov:PRACHI MALAVE MD 04/29/20 Past Medical History Past Medical History: COPD Past Surgical History: biopsy liver Family History: mother 74 COPD , diabetes , small cell lung cancer , pneumonia Father 77, lupus , congestive heart disease 3 brother 2 children Social History: smoker 1 05/11 PPD x 50 quit 2013 etoh 2 beers occassional Review of Systems General: Reports: Normal Appetite, Other Symptoms (weight loss 50 pounds ); Denies: Chills, Fatigue, Malaise Constitutional: Reports: Weight Loss; Denies: Chills, Fatigue Eyes: Denies: Vision change HEENT: Denies: Head Aches, Dysphagia, Sore Throat, Epistaxis Skin: Denies: Rash, Lesions, Jaundice, Bruising Pulmonary: Reports: Dyspnea; Denies: Cough Cardiovascular: Reports: Chest Pain; Denies: Palpitations, Orthopnea, Edema Gastrointestinal: Reports: Other Symptoms (difficulty swallowing ); Denies: Nausea, Vomiting, Diarrhea Genitourinary: Denies: Dysuria, Frequency, Incontinence Hematologic: Denies: Bruising, Petecchia Neurological: Reports: Weakness, Numbness; Denies: Change in Speech Psych: Reports: Mood Normal Physical Examination General Exam: Positive: Alert, No Acute Distress, Other (thin looking man. ) Eye Exam: Positive: PERRLA, Conjunctiva & lids normal; Negative: Sclera icteric ENT EXAM: Positive: Atraumatic, Mucous membr. moist/pink Neck Exam: Positive: Supple; Negative: JVD, Thyromegaly, Lymphadenopathy Chest Exam: Positive: Clear to auscultation, Normal air movement Heart Exam: Positive: Rate Normal Breast Exam: Positive: Symmetric Bilaterally Abdomen Exam: Positive: Normal bowel sounds; Negative: Tenderness, Hepatospenomegaly, Mass Extremity Exam: Negative: Clubbing, Cyanosis, Edema Skin Exam: Positive: Nl turgor and temperature; Negative: Rash, Breakdown, Lesion Neuro Exam: Positive: Normal Speech, Normal Tone Psych Exam: Positive: Mental status NL Ht / Wt Ht / Wt Height:5 Feet 8.25 Inches Weight: 65.600 Kg Vital Signs Vital Signs Date Time Temp Pulse Resp B/P (MAP) Pulse Ox O2 Delivery O2 Flow Rate FiO2 04/29/20 08:50 97.1 89 18 127/72 (90) 92 Room Air Laboratory Data Laboratory Tests Test 04/23/20 11:27 04/29/20 11:12 Blood Urea Nitrogen 27 MG/DL (7-18) H 26 MG/DL (7-18) H Creatinine 0.77 MG/DL (0.70-1.30) 0.69 MG/DL (0.70-1.30) L Glomerular Filtration Rate > 60.0 (>49) > 60.0 (>49) Fasting Glucose 111 MG/DL (70-100) H 103 MG/DL (70-100) H Calcium Level 9.6 MG/DL (8.8-10.2) 8.9 MG/DL (8.8-10.2) Total Bilirubin 1.3 MG/DL (0.2-1.0) H 0.8 MG/DL (0.2-1.0) Aspartate Amino Transf (AST/SGOT) 47 U/L (7-37) H 60 U/L (7-37) H Alanine Aminotransferase (ALT/SGPT) 61 U/L (12-78) 84 U/L (12-78) H Total Protein 7.3 GM/DL (6.4-8.2) 7.2 GM/DL (6.4-8.2) Sodium Level 133 MEQ/L (136-145) L 133 MEQ/L (136-145) L Albumin 2.6 GM/DL (3.2-5.2) L 2.2 GM/DL (3.2-5.2) L Alkaline Phosphatase 177 U/L (45-117) H 172 U/L (45-117) H Potassium Level 4.4 MEQ/L (3.5-5.1) 4.5 MEQ/L (3.5-5.1) Chloride Level 98 MEQ/L (98-107) 96 MEQ/L (98-107) L Carbon Dioxide Level 28 MEQ/L (21-32) 30 MEQ/L (21-32) Anion Gap 7 MEQ/L (8-16) L 7 MEQ/L (8-16) L Thyroid Stimulating Hormone (TSH) 0.738 uIU/ML (0.358-3.740) Lipase 262 U/L (73-393) Laboratory Tests 04/29/20 11:12 Assessment/Plan This is a 64 year old man with a Metastatic lung cancer. He is symptomatic. He has chest solorzano and difficulty swallowing. Plan; palliative therapy to help with swallowing. Follow up on lung markers from pathology. Start Taxol carboplatin based on current information. He is a candidate Keytruda. CC TO: CC TO: Primary Care Provider: Xiao Payan Referring Provider: PRACHI MALAVE MD Apr 29, 2020 17:17
[2020-05-06 07:58] VITALS: BP 100/63
--- NOTE | 2020-05-06 17:35 | MEDONCPDOC ---
Medical Oncology Office Note Date of Service: May 06, 2020 Diagnosis/Treatment History This is a 64 year old man. He lost weight. He has been having problems swallowing. He had chests pain. His physician ordered a CAT scan of his chest. He had a mass which contacts the descending thoracic aorta ,and narrows the left main stem bronchus. He also had a mass seen in his liver. He was referred to pulmonary. They advised a liver biopsy. 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 Lung markers are still pending. April 29, 2020 Review of PET scan shows extensive disease. He is symptomatic radiation will be given as palliative therapy to help with swallowing. May 06, 2020 patient has high expression of PDL Has new feeding tube. ALk, EGFR still pending. Allergies Coded Allergies: No Known Allergies (Unverified , 04/01/20) Home Medications Active Scripts Amoxicillin/Potassium Clav (Augmentin 250-62.5 mg/5 ml) 250 Mg/5 Ml Susp.recon, 10 ML PO TID for 5 Days, #150 ML Prov:PAMELA RESENDEZ MD 05/02/20 Oxycodone HCl (Oxycodone HCl) 5 Mg/5 Ml Solution, 5 ML PEG Q4HP PRN for Esophagitis MDD 30 Milliliter(s) for 15 Days, #450 ML Prov:PAMELA RESENDEZ MD 05/02/20 Ondansetron (Ondansetron Odt) 4 Mg Tab.rapdis, 1 TAB PEG Q6-8HP PRN for nausea/vomiting, #30 TAB 2 Refills Prov:PAMELA RESENDEZ MD 05/02/20 Magic Mouthwash (First-Mouthwash Blm) 1 Ea Susp, 10 ML PO QID PRN for esophagitis, #240 ML 5 Refills (Diphenhydramine/maalox/lidocaine 1:1:1) May compound if kit unavailable/not covered by insurance Prov:MARCELINA IVLA MD 04/19/20 Reported Medications Tiotropium [place] (Spiriva) 18 Mcg Cap.w.dev, 1 INH INH DAILY 04/01/20 Fluticasone/Vilanterol (Breo Ellipta 200-25 Mcg INH) 1 Each Blst.w.dev, 1 INH INH DAILY 04/01/20 Albuterol Sulfate (Albuterol Sulfate Hfa) 8.5 Gm Hfa.aer.ad, 2 PUFFS INH QID PRN for SHORTNESS OF BREATH 04/01/20 Discontinued Reported Medications Pantoprazole Sodium (Pantoprazole Sodium) 40 Mg Tablet.dr, 1 TAB PO DAILY 04/01/20 Discontinued Scripts Dexamethasone (Decadron) 4 Mg Tablet, 2 TAB PO BID for 3 Days, #72 TAB day before chemotherapy day of chemotherapy day after chemotherapy times six treatments Prov:PRACHI MLAAVE MD 04/29/20 Oxycodone HCl (Oxycodone HCl) 5 Mg/5 Ml Solution, 5 ML PO Q4HP PRN for Esophagitis MDD 30 Milliliter(s) for 7 Days, #210 ML Prov:MARCELINA VILA MD 04/19/20 Past Medical History Past Medical History: COPD Past Surgical History: biopsy liver Family History: mother 74 COPD , diabetes , small cell lung cancer , pneumonia Father 77, lupus , congestive heart disease 3 brother 2 children Social History: smoker 1 05/11 PPD x 50 quit 2013 etoh 2 beers occassional Review of Systems General: Reports: Normal Appetite, Other Symptoms (weight loss 50 pounds ); Denies: Chills, Fatigue, Malaise Constitutional: Reports: Weight Loss; Denies: Chills, Fatigue Eyes: Denies: Vision change HEENT: Denies: Head Aches, Dysphagia, Sore Throat, Epistaxis Skin: Denies: Rash, Lesions, Jaundice, Bruising Pulmonary: Reports: Dyspnea; Denies: Cough Cardiovascular: Reports: Chest Pain; Denies: Palpitations, Orthopnea, Edema Gastrointestinal: Reports: Other Symptoms (difficulty swallowing , new G Tube ); Denies: Nausea, Vomiting, Diarrhea Genitourinary: Denies: Dysuria, Frequency, Incontinence Hematologic: Denies: Bruising, Petecchia Musculoskeletal: Reports: Other Neurological: Reports: Weakness, Numbness; Denies: Change in Speech Psych: Reports: Mood Normal Physical Examination General Exam: Positive: Alert, No Acute Distress, Other (thin looking man. ) Eye Exam: Positive: PERRLA, Conjunctiva & lids normal; Negative: Sclera icteric ENT EXAM: Positive: Atraumatic, Mucous membr. moist/pink Neck Exam: Positive: Supple; Negative: JVD, Thyromegaly, Lymphadenopathy Chest Exam: Positive: Clear to auscultation, Normal air movement Heart Exam: Positive: Rate Normal Breast Exam: Positive: Symmetric Bilaterally Abdomen Exam: Positive: Normal bowel sounds, Other (G-tube ); Negative: Tenderness, Hepatospenomegaly, Mass Extremity Exam: Negative: Clubbing, Cyanosis, Edema Skin Exam: Positive: Nl turgor and temperature; Negative: Rash, Breakdown, Lesion Neuro Exam: Positive: Normal Speech, Normal Tone Psych Exam: Positive: Mental status NL Ht / Wt Ht / Wt Height:5 Feet 8.25 Inches Weight: 66.500 Kg Vital Signs Vital Signs Date Time Temp Pulse Resp B/P (MAP) Pulse Ox O2 Delivery O2 Flow Rate FiO2 05/06/20 07:58 99.2 95 18 100/63 (75) 94 Room Air Laboratory Data Laboratory Tests Test 04/29/20 11:12 04/30/20 06:08 05/01/20 05:52 05/02/20 05:38 Blood Urea Nitrogen 26 MG/DL (7-18) H 20 MG/DL (7-18) H 18 MG/DL (7-18) 18 MG/DL (7-18) Creatinine 0.69 MG/DL (0.70-1.30) L 0.70 MG/DL (0.70-1.30) 0.68 MG/DL (0.70-1.30) L 0.60 MG/DL (0.70-1.30) L Glomerular Filtration Rate > 60.0 (>49) > 60.0 (>49) > 60.0 (>49) > 60.0 (>49) Fasting Glucose 103 MG/DL (70-100) H 122 MG/DL (70-100) H 107 MG/DL (70-100) H 130 MG/DL (70-100) H Calcium Level 8.9 MG/DL (8.8-10.2) 8.2 MG/DL (8.8-10.2) L 8.1 MG/DL (8.8-10.2) L 7.5 MG/DL (8.8-10.2) L Total Bilirubin 0.8 MG/DL (0.2-1.0) Aspartate Amino Transf (AST/SGOT) 60 U/L (7-37) H Alanine Aminotransferase (ALT/SGPT) 84 U/L (12-78) H Total Protein 7.2 GM/DL (6.4-8.2) Sodium Level 133 MEQ/L (136-145) L 139 MEQ/L (136-145) 140 MEQ/L (136-145) 141 MEQ/L (136-145) Albumin 2.2 GM/DL (3.2-5.2) L Alkaline Phosphatase 172 U/L (45-117) H Potassium Level 4.5 MEQ/L (3.5-5.1) 4.5 MEQ/L (3.5-5.1) 4.0 MEQ/L (3.5-5.1) 4.5 MEQ/L (3.5-5.1) Thyroid Stimulating Hormone (TSH) 0.738 uIU/ML (0.358-3.740) Chloride Level 96 MEQ/L (98-107) L 103 MEQ/L (98-107) 107 MEQ/L (98-107) 107 MEQ/L (98-107) Carbon Dioxide Level 30 MEQ/L (21-32) 30 MEQ/L (21-32) 30 MEQ/L (21-32) 27 MEQ/L (21-32) Anion Gap 7 MEQ/L (8-16) L 6 MEQ/L (8-16) L 3 MEQ/L (8-16) L 7 MEQ/L (8-16) L Lipase 262 U/L (73-393) Assessment/Plan This is a 64 year old man with a Metastatic lung cancer. He is symptomatic. He has chest solorzano and difficulty swallowing. Plan; Follow up on lung markers from pathology. Start Taxol carboplatin based on current information. He is a candidate Keytruda. CC TO: CC TO: Primary Care Provider: Xiao Payan Referring Provider: PRACHI MALAVE MD May 06, 2020 08:13
[2020-05-13 11:23] VITALS: BP 135/80
[2020-05-13 11:34] LABS: BASO % 0.4 % (0.0-1.0); EOS % 0.1 % (0.0-3.0); HEMATOCRIT 30.2 % (42.0-52.0); HEMOGLOBIN 9.8 g/dl (13.5-17.5); LYMPH # 0.9 10^3/uL (1.5-5.0); LYMPH % 9.2 % (24.0-44.0); MEAN CORPUSCULAR HEMOGLOBIN 31.9 pg (27.0-33.0); MEAN CORPUSCULAR HGB CONC 32.5 g/dl (32.0-36.5); MEAN CORPUSCULAR VOLUME 98.4 fl (80.0-96.0); MONO # 0.8 10^3/uL (0.0-0.8); MONO % 8.1 % (0.0-5.0); NEUTROPHILS # 7.6 10^3/uL (1.5-8.5); NEUTROPHILS % 81.6 % (36.0-66.0); PLATELET COUNT, AUTOMATED 313 10^3/uL (150-450); RED BLOOD COUNT 3.07 10^6/uL (4.30-6.10); WHITE BLOOD COUNT 9.3 10^3/uL (4.0-10.0)
[2020-05-13 12:02] LABS: ALBUMIN 2.5 GM/DL (3.2-5.2); ALT/SGPT 38 U/L (12-78); BILIRUBIN,TOTAL 0.5 MG/DL (0.2-1.0); BLOOD UREA NITROGEN 13 MG/DL (7-18); CALCIUM LEVEL 9.6 MG/DL (8.8-10.2); CARBON DIOXIDE LEVEL 29 MEQ/L (21-32); CHLORIDE LEVEL 95 MEQ/L (98-107); CREATININE FOR GFR 0.58 MG/DL (0.70-1.30); GLOMERULAR FILTRATION RATE > 60.0 (>49); GLUCOSE, FASTING 119 MG/DL (70-100); POTASSIUM SERUM 4.2 MEQ/L (3.5-5.1); SODIUM LEVEL 131 MEQ/L (136-145); TOTAL PROTEIN 8.3 GM/DL (6.4-8.2)
--- NOTE | 2020-05-13 13:11 | ONC.PHACK ---
CHEMO ADMIN CHECKLIST Order Contains Pt ID: Name, Order on Chemo Order Form?: Yes Order Form Includes ALL: Correct Tx Day, Correct Date, Correct Cycle Number Pt ID on Order form Matches: Pt ID on PHA Label Med on Chemo OrderForm Matches: PHA Label, Med Used for Preparation [facility] May 13, 2020 13:11
--- NOTE | 2020-05-13 16:22 | MEDONCPDOC ---
Medical Oncology Office Note Date of Service: May 13, 2020 Diagnosis/Treatment History This is a 64 year old man. He lost weight. He has been having problems swallowing. He had chests pain. His physician ordered a CAT scan of his chest. He had a mass which contacts the descending thoracic aorta ,and narrows the left main stem bronchus. He also had a mass seen in his liver. He was referred to pulmonary. They advised a liver biopsy. 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 Lung markers are still pending. April 29, 2020 Review of PET scan shows extensive disease. He is symptomatic radiation will be given as palliative therapy to help with swallowing. May 06, 2020 patient has high expression of PDL Has new feeding tube. ALk, EGFR still pending. May 13, 2019 Patient has disease that has spread to his liver. He has been getting palliative radiation . His Lung markers are negative for ALK, BRAF, ROS , EGFR mutations. He is positive for PD-L1. Plan;He is candidate for Keytruda. Allergies Coded Allergies: No Known Allergies (Unverified , 04/01/20) Home Medications Active Scripts Amoxicillin/Potassium Clav (Augmentin 250-62.5 mg/5 ml) 250 Mg/5 Ml Susp.recon, 10 ML PO TID for 5 Days, #150 ML Prov:PAMELA RESENDEZ MD 05/02/20 Oxycodone HCl (Oxycodone HCl) 5 Mg/5 Ml Solution, 5 ML PEG Q4HP PRN for Esophagitis MDD 30 Milliliter(s) for 15 Days, #450 ML Prov:PAMELA RESENDEZ MD 05/02/20 Ondansetron (Ondansetron Odt) 4 Mg Tab.rapdis, 1 TAB PEG Q6-8HP PRN for nausea/vomiting, #30 TAB 2 Refills Prov:PAMELA RESENDEZ MD 05/02/20 Magic Mouthwash (First-Mouthwash Blm) 1 Ea Susp, 10 ML PO QID PRN for esophagitis, #240 ML 5 Refills (Diphenhydramine/maalox/lidocaine 1:1:1) May compound if kit unavailable/not covered by insurance Prov:MARCELINA VILA MD 04/19/20 Reported Medications Tiotropium [place] (Spiriva) 18 Mcg Cap.w.dev, 1 INH INH DAILY 11/23/20 Fluticasone/Vilanterol (Breo Ellipta 200-25 Mcg INH) 1 Each Blst.w.dev, 1 INH INH DAILY 04/01/20 Albuterol Sulfate (Albuterol Sulfate Hfa) 8.5 Gm Hfa.aer.ad, 2 PUFFS INH QID PRN for SHORTNESS OF BREATH 04/01/20 Past Medical History Past Medical History: COPD Past Surgical History: biopsy liver Family History: mother 74 COPD , diabetes , small cell lung cancer , pneumonia Father 77, lupus , congestive heart disease 3 brother 2 children Social History: smoker 1 05/11 PPD x 50 quit 2013 etoh 2 beers occassional Review of Systems General: Reports: Normal Appetite, Other Symptoms (weight loss 50 pounds ); Denies: Chills, Fatigue, Malaise Constitutional: Reports: Weight Loss; Denies: Chills, Fatigue Eyes: Denies: Vision change HEENT: Denies: Head Aches, Dysphagia, Sore Throat, Epistaxis Skin: Denies: Rash, Lesions, Jaundice, Bruising Pulmonary: Reports: Dyspnea; Denies: Cough Cardiovascular: Reports: Chest Pain; Denies: Palpitations, Orthopnea, Edema Gastrointestinal: Reports: Other Symptoms (difficulty swallowing , new G Tube ); Denies: Nausea, Vomiting, Diarrhea Genitourinary: Denies: Dysuria, Frequency, Incontinence Hematologic: Denies: Bruising, Petecchia Musculoskeletal: Reports: Other Neurological: Reports: Weakness, Numbness; Denies: Change in Speech Psych: Reports: Mood Normal Physical Examination General Exam: Positive: Alert, No Acute Distress, Other (thin looking man. ) Eye Exam: Positive: PERRLA, Conjunctiva & lids normal; Negative: Sclera icteric ENT EXAM: Positive: Atraumatic, Mucous membr. moist/pink Neck Exam: Positive: Supple; Negative: JVD, Thyromegaly, Lymphadenopathy Chest Exam: Positive: Clear to auscultation, Normal air movement Heart Exam: Positive: Rate Normal Breast Exam: Positive: Symmetric Bilaterally Abdomen Exam: Positive: Normal bowel sounds, Other (G-tube ); Negative: Tenderness, Hepatospenomegaly, Mass Extremity Exam: Negative: Clubbing, Cyanosis, Edema Skin Exam: Positive: Nl turgor and temperature; Negative: Rash, Breakdown, Lesion Neuro Exam: Positive: Normal Speech, Normal Tone Psych Exam: Positive: Mental status NL Ht / Wt Ht / Wt Height:5 Feet 8.25 Inches Weight: 61.700 Kg Vital Signs Vital Signs Date Time Temp Pulse Resp B/P (MAP) Pulse Ox O2 Delivery O2 Flow Rate FiO2 05/13/20 11:55 Room Air 05/13/20 11:23 97.2 97 20 135/80 (98) 95 Laboratory Data Laboratory Tests Test 05/13/20 11:15 Blood Urea Nitrogen 13 MG/DL (7-18) Creatinine 0.58 MG/DL (0.70-1.30) L Glomerular Filtration Rate > 60.0 (>49) Fasting Glucose 119 MG/DL (70-100) H Calcium Level 9.6 MG/DL (8.8-10.2) Total Bilirubin 0.5 MG/DL (0.2-1.0) Aspartate Amino Transf (AST/SGOT) 23 U/L (7-37) Alanine Aminotransferase (ALT/SGPT) 38 U/L (12-78) Total Protein 8.3 GM/DL (6.4-8.2) H Sodium Level 131 MEQ/L (136-145) L Albumin 2.5 GM/DL (3.2-5.2) L Alkaline Phosphatase 108 U/L (45-117) Potassium Level 4.2 MEQ/L (3.5-5.1) Chloride Level 95 MEQ/L (98-107) L Carbon Dioxide Level 29 MEQ/L (21-32) Anion Gap 7 MEQ/L (8-16) L Magnesium Level 2.5 MG/DL (1.8-2.4) H Laboratory Tests 05/13/20 11:15 Assessment/Plan This is a 64 year old man with a Metastatic lung cancer. He is symptomatic. He has chest solorzano and difficulty swallowing. Plan; still getting radiation. Continue Taxol carboplatin while on radiation He is a candidate for Keytruda. CC TO: CC TO: Primary Care Provider: Xiao Payan Referring Provider: PRACHI MALAVE MD May 13, 2020 16:22
[2020-05-20 08:05] VITALS: BP 109/72
[2020-05-20 08:25] LABS: BASO % 0.4 % (0.0-1.0); EOS # 0.2 10^3/uL (0.0-0.5); EOS % 3.2 % (0.0-3.0); HEMATOCRIT 27.8 % (42.0-52.0); HEMOGLOBIN 9.1 g/dl (13.5-17.5); LYMPH # 0.5 10^3/uL (1.5-5.0); LYMPH % 10.1 % (24.0-44.0); MEAN CORPUSCULAR HEMOGLOBIN 31.7 pg (27.0-33.0); MEAN CORPUSCULAR HGB CONC 32.7 g/dl (32.0-36.5); MEAN CORPUSCULAR VOLUME 96.9 fl (80.0-96.0); MONO # 0.5 10^3/uL (0.0-0.8); MONO % 10.7 % (0.0-5.0); NEUTROPHILS # 3.7 10^3/uL (1.5-8.5); PLATELET COUNT, AUTOMATED 236 10^3/uL (150-450); RED BLOOD COUNT 2.87 10^6/uL (4.30-6.10)
[2020-05-20 08:54] LABS: ALT/SGPT 59 U/L (12-78); BLOOD UREA NITROGEN 22 MG/DL (7-18); CALCIUM LEVEL 9.2 MG/DL (8.8-10.2); CARBON DIOXIDE LEVEL 31 MEQ/L (21-32); CHLORIDE LEVEL 92 MEQ/L (98-107); CREATININE FOR GFR 0.66 MG/DL (0.70-1.30); GLOMERULAR FILTRATION RATE > 60.0 (>49); GLUCOSE, FASTING 122 MG/DL (70-100); POTASSIUM SERUM 4.1 MEQ/L (3.5-5.1); SODIUM LEVEL 129 MEQ/L (136-145)
[2020-05-20 08:55] LABS: ALBUMIN 2.4 GM/DL (3.2-5.2); BILIRUBIN,TOTAL 0.6 MG/DL (0.2-1.0); TOTAL PROTEIN 7.5 GM/DL (6.4-8.2)
--- NOTE | 2020-05-20 12:41 | ONC.PHACK ---
CHEMO ADMIN CHECKLIST Order Contains Pt ID: Name, Order on Chemo Order Form?: Yes Order Form Includes ALL: Correct Tx Day, Correct Date, Correct Cycle Number Pt ID on Order form Matches: Pt ID on PHA Label Med on Chemo OrderForm Matches: PHA Label, Med Used for Preparation [facility] May 20, 2020 12:41
--- NOTE | 2020-05-20 14:03 | MEDONCPDOC ---
Medical Oncology Office Note Date of Service: May 20, 2020 Diagnosis/Treatment History This is a 64 year old man. He lost weight. He has been having problems swallowing. He had chests pain. His physician ordered a CAT scan of his chest. He had a mass which contacts the descending thoracic aorta ,and narrows the left main stem bronchus. He also had a mass seen in his liver. He was referred to pulmonary. They advised a liver biopsy. 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 Lung markers are still pending. April 29, 2020 Review of PET scan shows extensive disease. He is symptomatic radiation will be given as palliative therapy to help with swallowing. May 06, 2020 patient has high expression of PDL Has new feeding tube. ALk, EGFR still pending. May 13, 2019 Patient has disease that has spread to his liver. He has been getting palliative radiation . His Lung markers are negative for ALK, BRAF, ROS , EGFR mutations. He is positive for PD-L1. Plan;He is candidate for Keytruda. May 20, 2019 He continues on radiation. He still has trouble swallowing. He has a feeding tube. He has been using ensure. He has lost weight. Once radiation is finished we plan to change chemotherapy to Keytruda every three weeks. Allergies Coded Allergies: No Known Allergies (Unverified , 04/01/20) Home Medications Active Scripts Ferrous Sulfate (Ferrous Sulfate) 300 Mg/5 Ml Liquid, 5 ML PO DAILY for 30 Days, #150 ML Prov:PRACHI MALAVE MD 05/20/20 Oxycodone HCl (Oxycodone HCl) 5 Mg/5 Ml Solution, 5 ML PEG Q4HP PRN for Esophagitis MDD 30 Milliliter(s) for 15 Days, #450 ML Prov:PAMELA RESENDEZ MD 05/02/20 Ondansetron (Ondansetron Odt) 4 Mg Tab.rapdis, 1 TAB PEG Q6-8HP PRN for nausea/vomiting, #30 TAB 2 Refills Prov:PAMELA RESENDEZ MD 05/02/20 Magic Mouthwash (First-Mouthwash Blm) 1 Ea Susp, 10 ML PO QID PRN for esophagitis, #240 ML 5 Refills (Diphenhydramine/maalox/lidocaine 1:1:1) May compound if kit unavailable/not covered by insurance Prov:MARCELINA VILA MD 04/19/20 Reported Medications Tiotropium [place] (Spiriva) 18 Mcg Cap.w.dev, 1 INH INH DAILY 04/01/20 Fluticasone/Vilanterol (Breo Ellipta 200-25 Mcg INH) 1 Each Blst.w.dev, 1 INH INH DAILY 04/01/20 Albuterol Sulfate (Albuterol Sulfate Hfa) 8.5 Gm Hfa.aer.ad, 2 PUFFS INH QID PRN for SHORTNESS OF BREATH 04/01/20 Discontinued Scripts Amoxicillin/Potassium Clav (Augmentin 250-62.5 mg/5 ml) 250 Mg/5 Ml Susp.recon, 10 ML PO TID for 5 Days, #150 ML Prov:PAMELA RESENDEZ MD 05/02/20 Past Medical History Past Medical History: COPD Past Surgical History: biopsy liver Family History: mother 74 COPD , diabetes , small cell lung cancer , pneumonia Father 77, lupus , congestive heart disease 3 brother 2 children Social History: smoker 1 05/11 PPD x 50 quit 2013 etoh 2 beers occassional Review of Systems General: Reports: Normal Appetite, Other Symptoms (weight loss 50 pounds ); Denies: Chills, Fatigue, Malaise Constitutional: Reports: Weight Loss; Denies: Chills, Fatigue Eyes: Denies: Vision change HEENT: Denies: Head Aches, Dysphagia, Sore Throat, Epistaxis Skin: Denies: Rash, Lesions, Jaundice, Bruising Pulmonary: Reports: Dyspnea; Denies: Cough Cardiovascular: Reports: Chest Pain; Denies: Palpitations, Orthopnea, Edema Gastrointestinal: Reports: Other Symptoms (difficulty swallowing , new G Tube ); Denies: Nausea, Vomiting, Diarrhea Genitourinary: Denies: Dysuria, Frequency, Incontinence Hematologic: Denies: Bruising, Petecchia Musculoskeletal: Reports: Other Neurological: Reports: Weakness, Numbness; Denies: Change in Speech Psych: Reports: Mood Normal Physical Examination General Exam: Positive: Alert, No Acute Distress, Other (thin looking man. ) Eye Exam: Positive: PERRLA, Conjunctiva & lids normal; Negative: Sclera icteric ENT EXAM: Positive: Atraumatic, Mucous membr. moist/pink Neck Exam: Positive: Supple; Negative: JVD, Thyromegaly, Lymphadenopathy Chest Exam: Positive: Clear to auscultation, Normal air movement Heart Exam: Positive: Rate Normal Breast Exam: Positive: Symmetric Bilaterally Abdomen Exam: Positive: Normal bowel sounds, Other (G-tube ); Negative: Tenderness, Hepatospenomegaly, Mass Extremity Exam: Negative: Clubbing, Cyanosis, Edema Skin Exam: Positive: Nl turgor and temperature; Negative: Rash, Breakdown, Lesion Neuro Exam: Positive: Normal Speech, Normal Tone Psych Exam: Positive: Mental status NL Ht / Wt Ht / Wt Height:5 Feet 8 Inches Weight: 59.100 Kg Vital Signs Vital Signs Date Time Temp Pulse Resp B/P (MAP) Pulse Ox O2 Delivery O2 Flow Rate FiO2 05/20/20 09:00 Room Air 05/20/20 08:05 99.1 92 18 109/72 (84) 94 Laboratory Data Laboratory Tests Test 05/13/20 11:15 05/20/20 08:01 Blood Urea Nitrogen 13 MG/DL (7-18) 22 MG/DL (7-18) H Creatinine 0.58 MG/DL (0.70-1.30) L 0.66 MG/DL (0.70-1.30) L Glomerular Filtration Rate > 60.0 (>49) > 60.0 (>49) Fasting Glucose 119 MG/DL (70-100) H 122 MG/DL (70-100) H Calcium Level 9.6 MG/DL (8.8-10.2) 9.2 MG/DL (8.8-10.2) Total Bilirubin 0.5 MG/DL (0.2-1.0) 0.6 MG/DL (0.2-1.0) Aspartate Amino Transf (AST/SGOT) 23 U/L (7-37) 32 U/L (7-37) Alanine Aminotransferase (ALT/SGPT) 38 U/L (12-78) 59 U/L (12-78) Total Protein 8.3 GM/DL (6.4-8.2) H 7.5 GM/DL (6.4-8.2) Sodium Level 131 MEQ/L (136-145) L 129 MEQ/L (136-145) L Albumin 2.5 GM/DL (3.2-5.2) L 2.4 GM/DL (3.2-5.2) L Alkaline Phosphatase 108 U/L (45-117) 130 U/L (45-117) H Potassium Level 4.2 MEQ/L (3.5-5.1) 4.1 MEQ/L (3.5-5.1) Chloride Level 95 MEQ/L (98-107) L 92 MEQ/L (98-107) L Carbon Dioxide Level 29 MEQ/L (21-32) 31 MEQ/L (21-32) Anion Gap 7 MEQ/L (8-16) L 6 MEQ/L (8-16) L Magnesium Level 2.5 MG/DL (1.8-2.4) H 2.8 MG/DL (1.8-2.4) H Laboratory Tests 05/20/20 08:01 Assessment/Plan This is a 64 year old man with a Metastatic lung cancer. Adenocarcinoma. PDL! high expression He is symptomatic. He has chest solorzano and difficulty swallowing. Plan; still getting radiation. Continue Taxol carboplatin while on radiation He is a candidate for Keytruda. CC TO: CC TO: Primary Care Provider: Xiao Payan Referring Provider: PRACHI MALAVE MD May 20, 2020 14:03
[2020-06-10 13:33] VITALS: BP 109/67
[2020-06-10 13:58] LABS: BASO % 0.4 % (0.0-1.0); EOS # 0.1 10^3/uL (0.0-0.5); EOS % 0.6 % (0.0-3.0); HEMATOCRIT 28.9 % (42.0-52.0); HEMOGLOBIN 9.4 g/dl (13.5-17.5); LYMPH # 0.6 10^3/uL (1.5-5.0); LYMPH % 5.7 % (24.0-44.0); MEAN CORPUSCULAR HEMOGLOBIN 31.4 pg (27.0-33.0); MEAN CORPUSCULAR HGB CONC 32.5 g/dl (32.0-36.5); MEAN CORPUSCULAR VOLUME 96.7 fl (80.0-96.0); MONO # 1.1 10^3/uL (0.0-0.8); MONO % 10.1 % (0.0-5.0); NEUTROPHILS # 8.9 10^3/uL (1.5-8.5); NEUTROPHILS % 82.3 % (36.0-66.0); PLATELET COUNT, AUTOMATED 291 10^3/uL (150-450); RED BLOOD COUNT 2.99 10^6/uL (4.30-6.10); WHITE BLOOD COUNT 10.8 10^3/uL (4.0-10.0)
[2020-06-10 14:12] LABS: ALT/SGPT 66 U/L (12-78); BILIRUBIN,TOTAL 0.3 MG/DL (0.2-1.0); BLOOD UREA NITROGEN 18 MG/DL (7-18); CALCIUM LEVEL 9.7 MG/DL (8.8-10.2); CARBON DIOXIDE LEVEL 32 MEQ/L (21-32); CHLORIDE LEVEL 93 MEQ/L (98-107); CREATININE FOR GFR 0.57 MG/DL (0.70-1.30); GLOMERULAR FILTRATION RATE > 60.0 (>49); GLUCOSE, FASTING 108 MG/DL (70-100); POTASSIUM SERUM 4.2 MEQ/L (3.5-5.1); SODIUM LEVEL 133 MEQ/L (136-145); TOTAL PROTEIN 7.6 GM/DL (6.4-8.2)
--- NOTE | 2020-06-10 14:44 | MEDONCPDOC ---
Medical Oncology Office Note Date of Service: Jun 10, 2020 Diagnosis/Treatment History This is a 64 year old man. He lost weight. He has been having problems swallowing. He had chests pain. His physician ordered a CAT scan of his chest. He had a mass which contacts the descending thoracic aorta ,and narrows the left main stem bronchus. He also had a mass seen in his liver. He was referred to pulmonary. They advised a liver biopsy. 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 Lung markers are still pending. April 29, 2020 Review of PET scan shows extensive disease. He is symptomatic radiation will be given as palliative therapy to help with swallowing. May 06, 2020 patient has high expression of PDL Has new feeding tube. ALk, EGFR still pending. May 13, 2019 Patient has disease that has spread to his liver. He has been getting palliative radiation . His Lung markers are negative for ALK, BRAF, ROS , EGFR mutations. He is positive for PD-L1. Plan;He is candidate for Keytruda. May 20, 2019 He continues on radiation. He still has trouble swallowing. He has a feeding tube. He has been using ensure. He has lost weight. Once radiation is finished we plan to change chemotherapy to Keytruda every three weeks. Interval History Duane is coming today for follow-up visit along with his brother. He remained hospitalized for 5 days due to right lower lung pneumonia and was discharged on May. He received a total of 15 and radiation and last radiation was on May. He received low-dose chemotherapy with carboplatin and Taxol on May 2020 and May. On 27 May could not get it because of poor general condition. He ended up in the ER and was admitted for pneumonitis of the right lower lung. Patient has been on antibiotic and currently he is taking oral antibiotic and is eating slightly improved. He has a G-tube and is using Ensure Plus and Jevity total of 6 cans a day. He is better than before although still very weak. He continues to cough up mucopurulent phlegm although able to walk from room to room. He has to rest because of shortness of breath while walking. Allergies Coded Allergies: No Known Allergies (Unverified , 04/01/20) Home Medications Active Scripts Doxycycline Hyclate (Doxycycline Hyclate) 100 Mg Capsule, 1 CAP PO BID for 7 Days, #14 CAP Prov:XAVIER DELACRUZ MD 06/06/20 Cefdinir (Cefdinir) 300 Mg Capsule, 300 MG PO BID for 7 Days, #14 CAP Prov:XAVIER DELACRUZ MD 06/06/20 Oxycodone HCl (Oxycodone HCl) 5 Mg/5 Ml Solution, 5 ML PEG Q4HP PRN for Esophagitis MDD 30 Milliliter(s) for 15 Days, #450 ML Prov:BALA BROWN MD 06/03/20 Sertraline Hcl (Sertraline HCl) 25 Mg Tablet, 1 TAB PO DAILY, #90 TAB 3 Refills Prov:MARCELINA VILA MD 05/21/20 Ferrous Sulfate (Ferrous Sulfate) 300 Mg/5 Ml Liquid, 5 ML PO DAILY for 30 Days, #150 ML Prov:PRACHI MALAVE MD 05/20/20 Ondansetron (Ondansetron Odt) 4 Mg Tab.rapdis, 1 TAB PEG Q6-8HP PRN for nausea/vomiting, #30 TAB 2 Refills Prov:PAMELA RESENDEZ MD 05/02/20 Magic Mouthwash (First-Mouthwash Blm) 1 Ea Susp, 10 ML PO QID PRN for esophagitis, #240 ML 5 Refills (Diphenhydramine/maalox/lidocaine 1:1:1) May compound if kit unavailable/not covered by insurance Prov:MARCELINA VILA MD 04/19/20 Reported Medications Pembrolizumab (Keytruda) 100 Mg/4 Ml Vial, 100 MG IV ASDIRECTED EVERY 3 WEEKS 05/24/20 Tiotropium Alpha (Spiriva) 18 Mcg Cap.w.dev, 18 MCG INH DAILY 04/01/20 Fluticasone/Vilanterol (Breo Ellipta 200-25 Mcg INH) 1 Each Blst.w.dev, 1 PUFF INH DAILY 04/01/20 Albuterol Sulfate (Albuterol Sulfate Hfa) 8.5 Gm Hfa.aer.ad, 2 PUFFS INH QID PRN for SHORTNESS OF BREATH 04/01/20 Past Medical History Past Medical History: COPD Past Surgical History: biopsy liver Family History: mother 74 COPD , diabetes , small cell lung cancer , pneumonia Father 77, lupus , congestive heart disease 3 brother 2 children Social History: smoker 1 05/11 PPD x 50 quit 2013 etoh 2 beers occassional Review of Systems General: Reports: Normal Appetite, Other Symptoms (weight loss 50 pounds ); Denies: Chills, Fatigue, Malaise Constitutional: Reports: Weight Loss; Denies: Chills, Fatigue Eyes: Denies: Vision change HEENT: Denies: Head Aches, Dysphagia, Sore Throat, Epistaxis Skin: Denies: Rash, Lesions, Jaundice, Bruising Pulmonary: Reports: Dyspnea; Denies: Cough Cardiovascular: Reports: Chest Pain; Denies: Palpitations, Orthopnea, Edema Gastrointestinal: Reports: Other Symptoms (difficulty swallowing , new G Tube ); Denies: Nausea, Vomiting, Diarrhea Genitourinary: Denies: Dysuria, Frequency, Incontinence Hematologic: Denies: Bruising, Petecchia Musculoskeletal: Reports: Other Neurological: Reports: Weakness, Numbness; Denies: Change in Speech Psych: Reports: Mood Normal Physical Examination General Exam: Positive: Alert, No Acute Distress, Other (thin looking man. ) Eye Exam: Positive: PERRLA, Conjunctiva & lids normal; Negative: Sclera icteric ENT EXAM: Positive: Atraumatic, Mucous membr. moist/pink Neck Exam: Positive: Supple; Negative: JVD, Thyromegaly, Lymphadenopathy Chest Exam: Positive: Clear to auscultation, Normal air movement Heart Exam: Positive: Rate Normal Breast Exam: Positive: Symmetric Bilaterally Abdomen Exam: Positive: Normal bowel sounds, Other (G-tube ); Negative: Tenderness, Hepatospenomegaly, Mass Extremity Exam: Negative: Clubbing, Cyanosis, Edema Skin Exam: Positive: Nl turgor and temperature; Negative: Rash, Breakdown, Lesion Neuro Exam: Positive: Normal Speech, Normal Tone Psych Exam: Positive: Mental status NL Ht / Wt Ht / Wt Height:5 Feet 8 Inches Weight: 57.900 Kg Vital Signs Vital Signs Date Time Temp Pulse Resp B/P (MAP) Pulse Ox O2 Delivery O2 Flow Rate FiO2 06/10/20 13:33 98.3 107 20 109/67 (81) 94 Room Air Laboratory Data Laboratory Tests Test 06/10/20 13:23 Blood Urea Nitrogen 18 MG/DL (7-18) Creatinine 0.57 MG/DL (0.70-1.30) L Glomerular Filtration Rate > 60.0 (>49) Fasting Glucose 108 MG/DL (70-100) H Calcium Level 9.7 MG/DL (8.8-10.2) Total Bilirubin 0.3 MG/DL (0.2-1.0) Aspartate Amino Transf (AST/SGOT) 21 U/L (7-37) Alanine Aminotransferase (ALT/SGPT) 66 U/L (12-78) Total Protein 7.6 GM/DL (6.4-8.2) Sodium Level 133 MEQ/L (136-145) L Albumin 2.0 GM/DL (3.2-5.2) L Alkaline Phosphatase 185 U/L (45-117) H Potassium Level 4.2 MEQ/L (3.5-5.1) Chloride Level 93 MEQ/L (98-107) L Carbon Dioxide Level 32 MEQ/L (21-32) Anion Gap 8 MEQ/L (8-16) Laboratory Tests 06/10/20 13:23 Assessment/Plan Patient has extensive non-small cell lung carcinoma status post concomitant chemoradiation. Currently he is improving after being admitted to the hospital for pneumonia. He still on antibiotics which he will finish in 2 days. He finished radiation on May. We will wait one more week and we'll start him on Keytruda every 3 weeks starting next week on June 2020. We'll see the patient then and then every 3 weeks thereafter. Patient knows this is not a curable disease although we can keep it under control for some time. CC TO: CC TO: Primary Care Provider: Xiao Payan Referring Provider: XAVIER DELACRUZ MD Jun 10, 2020 14:44
[2020-06-17 11:31] LABS: BASO % 0.3 % (0.0-1.0); EOS # 0.3 10^3/uL (0.0-0.5); EOS % 3.3 % (0.0-3.0); HEMATOCRIT 26.4 % (42.0-52.0); HEMOGLOBIN 8.4 g/dl (13.5-17.5); LYMPH # 0.6 10^3/uL (1.5-5.0); LYMPH % 6.5 % (24.0-44.0); MEAN CORPUSCULAR HEMOGLOBIN 31.1 pg (27.0-33.0); MEAN CORPUSCULAR HGB CONC 31.8 g/dl (32.0-36.5); MEAN CORPUSCULAR VOLUME 97.8 fl (80.0-96.0); MONO # 0.9 10^3/uL (0.0-0.8); NEUTROPHILS # 7.2 10^3/uL (1.5-8.5); PLATELET COUNT, AUTOMATED 206 10^3/uL (150-450); WHITE BLOOD COUNT 9.1 10^3/uL (4.0-10.0)
[2020-06-17 11:32] VITALS: BP 100/62
[2020-06-17 12:02] LABS: ALBUMIN 2.2 GM/DL (3.2-5.2); ALT/SGPT 24 U/L (12-78); BILIRUBIN,TOTAL 0.4 MG/DL (0.2-1.0); BLOOD UREA NITROGEN 16 MG/DL (7-18); CALCIUM LEVEL 9.4 MG/DL (8.8-10.2); CARBON DIOXIDE LEVEL 34 MEQ/L (21-32); CHLORIDE LEVEL 94 MEQ/L (98-107); CREATININE FOR GFR 0.56 MG/DL (0.70-1.30); GLOMERULAR FILTRATION RATE > 60.0 (>49); GLUCOSE, FASTING 94 MG/DL (70-100); SODIUM LEVEL 133 MEQ/L (136-145); TOTAL PROTEIN 7.9 GM/DL (6.4-8.2)
--- NOTE | 2020-06-17 12:43 | MEDONCPDOC ---
Medical Oncology Office Note Date of Service: Jun 17, 2020 Diagnosis/Treatment History This is a 64 year old man. He lost weight. He has been having problems swallowing. He had chests pain. His physician ordered a CAT scan of his chest. He had a mass which contacts the descending thoracic aorta ,and narrows the left main stem bronchus. He also had a mass seen in his liver. He was referred to pulmonary. They advised a liver biopsy. 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 Lung markers are still pending. April 29, 2020 Review of PET scan shows extensive disease. He is symptomatic radiation will be given as palliative therapy to help with swallowing. May 06, 2020 patient has high expression of PDL Has new feeding tube. ALk, EGFR still pending. May 13, 2019 Patient has disease that has spread to his liver. He has been getting palliative radiation . His Lung markers are negative for ALK, BRAF, ROS , EGFR mutations. He is positive for PD-L1. Plan;He is candidate for Keytruda. May 20, 2019 He continues on radiation. He still has trouble swallowing. He has a feeding tube. He has been using ensure. He has lost weight. Once radiation is finished we plan to change chemotherapy to Keytruda every three weeks. Keytruda started first dose 06/17/2020. Interval History Duane is coming today for a follow-up visit. He is feeling little stronger. He cannot swallow stable. He has 2 half up his saliva which tickles on the esophagus. He is esophagus totally shut down because of non-small cell lung carc inoma. He is done with his radiation and hopefully to local up his esophagus. He is using 6 cans of and showed an Jevity every day. His weight is stable although he is still emaciated. He is due to start his first dose of Keytruda. Details are discussed about possible side effects of Keytruda including diarrhea low thyroid function hypophysitis liver inflammation inflammation of the treatment plan and unforeseen side effects. Keytruda will not cause myelosuppression and today hemoglobin is low because of chemotherapy. He will be given epotin alpha for his low hemoglobin every 2 weeks to keep it up. He is advised to use liquid vitamins through his PEG tube. He is not able to drive yet and his brother dropped him off. Allergies Coded Allergies: No Known Allergies (Unverified , 04/01/20) Home Medications Active Scripts Oxycodone HCl (Oxycodone HCl) 5 Mg/5 Ml Solution, 5 ML PEG Q4HP PRN for Esophagitis MDD 30 Milliliter(s) for 15 Days, #450 ML Prov:BALA BROWN MD 06/03/20 Sertraline Hcl (Sertraline HCl) 25 Mg Tablet, 1 TAB PO DAILY, #90 TAB 3 Refills Prov:MARCELINA VILA MD 05/21/20 Ferrous Sulfate (Ferrous Sulfate) 300 Mg/5 Ml Liquid, 5 ML PO DAILY for 30 Days, #150 ML Prov:PRACHI MALAVE MD 05/20/20 Ondansetron (Ondansetron Odt) 4 Mg Tab.rapdis, 1 TAB PEG Q6-8HP PRN for nausea/vomiting, #30 TAB 2 Refills Prov:PAMELA RESENDEZ MD 05/02/20 Magic Mouthwash (First-Mouthwash Blm) 1 Ea Susp, 10 ML PO QID PRN for esophag itis, #240 ML 5 Refills (Diphenhydramine/maalox/lidocaine 1:1:1) May compound if kit unavailable/not covered by insurance Prov:MARCELINA VILA MD 04/19/20 Reported Medications Pembrolizumab (Keytruda) 100 Mg/4 Ml Vial, 100 MG IV ASDIRECTED EVERY 3 WEEKS 05/24/20 Tiotropium [place] (Spiriva) 18 Mcg Cap.w.dev, 18 MCG INH DAILY 04/01/20 Fluticasone/Vilanterol (Breo Ellipta 200-25 Mcg INH) 1 Each Blst.w.dev, 1 PUFF INH DAILY 04/01/20 Albuterol Sulfate (Albuterol Sulfate Hfa) 8.5 Gm Hfa.aer.ad, 2 PUFFS INH QID PRN for SHORTNESS OF BREATH 04/01/20 Discontinued Scripts Doxycycline Hyclate (Doxycycline Hyclate) 100 Mg Capsule, 1 CAP PO BID for 7 Days, #14 CAP Prov:XAVIER DELACRUZ MD 06/06/20 Cefdinir (Cefdinir) 300 Mg Capsule, 300 MG PO BID for 7 Days, #14 CAP Prov:XAVIER DELACRUZ MD 06/06/20 Past Medical History Past Medical History: COPD Past Surgical History: biopsy liver Family History: mother 74 COPD , diabetes , small cell lung cancer , pneumonia Father 77, lupus , congestive heart disease 3 brother 2 children Social History: smoker 1 05/11 PPD x 50 quit 2013 etoh 2 beers occassional Review of Systems General: Reports: Normal Appetite, Other Symptoms (weight loss 50 pounds ); Denies: Chills, Fatigue, Malaise Constitutional: Reports: Weight Loss; Denies: Chills, Fatigue Eyes: Denies: Vision change HEENT: Denies: Head Aches, Dysphagia, Sore Throat, Epistaxis Skin: Denies: Rash, Lesions, Jaundice, Bruising Pulmonary: Reports: Dyspnea; Denies: Cough Cardiovascular: Reports: Chest Pain; Denies: Palpitations, Orthopnea, Edema Gastrointestinal: Reports: Other Symptoms (difficulty swallowing , new G Tube ); Denies: Nausea, Vomiting, Diarrhea Genitourinary: Denies: Dysuria, Frequency, Incontinence Hematologic: Denies: Bruising, Petecchia Musculoskeletal: Reports: Other Neurological: Reports: Weakness, Numbness; Denies: Change in Speech Psych: Reports: Mood Normal Physical Examination General Exam: Positive: Alert, No Acute Distress, Other (thin looking man. ) Eye Exam: Positive: PERRLA, Conjunctiva & lids normal; Negative: Sclera icteric ENT EXAM: Positive: Atraumatic, Mucous membr. moist/pink Neck Exam: Positive: Supple; Negative: JVD, Thyromegaly, Lymphadenopathy Chest Exam: Positive: Clear to auscultation, Normal air movement Heart Exam: Positive: Rate Normal Breast Exam: Positive: Symmetric Bilaterally Abdomen Exam: Positive: Normal bowel sounds, Other (G-tube ); Negative: Tenderness, Hepatospenomegaly, Mass Extremity Exam: Negative: Clubbing, Cyanosis, Edema Skin Exam: Positive: Nl turgor and temperature; Negative: Rash, Breakdown, Lesion Neuro Exam: Positive: Normal Speech, Normal Tone Psych Exam: Positive: Mental status NL Ht / Wt Ht / Wt Height:5 Feet 8 Inches Weight: 57.200 Kg Vital Signs Vital Signs Date Time Temp Pulse Resp B/P (MAP) Pulse Ox O2 Delivery O2 Flow Rate FiO2 06/17/20 11:32 98.1 103 20 100/62 (75) 96 Room Air Laboratory Data Laboratory Tests Test 06/10/20 13:23 2/8/21 11:20 Blood Urea Nitrogen 18 MG/DL (7-18) 16 MG/DL (7-18) Creatinine 0.57 MG/DL (0.70-1.30) L 0.56 MG/DL (0.70-1.30) L Glomerular Filtration Rate > 60.0 (>49) > 60.0 (>49) Fasting Glucose 108 MG/DL (70-100) H 94 MG/DL (70-100) Calcium Level 9.7 MG/DL (8.8-10.2) 9.4 MG/DL (8.8-10.2) Total Bilirubin 0.3 MG/DL (0.2-1.0) 0.4 MG/DL (0.2-1.0) Aspartate Amino Transf (AST/SGOT) 21 U/L (7-37) 15 U/L (7-37) Alanine Aminotransferase (ALT/SGPT) 66 U/L (12-78) 24 U/L (12-78) Total Protein 7.6 GM/DL (6.4-8.2) 7.9 GM/DL (6.4-8.2) Sodium Level 133 MEQ/L (136-145) L 133 MEQ/L (136-145) L Albumin 2.0 GM/DL (3.2-5.2) L 2.2 GM/DL (3.2-5.2) L Alkaline Phosphatase 185 U/L (45-117) H 152 U/L (45-117) H Potassium Level 4.2 MEQ/L (3.5-5.1) 4.0 MEQ/L (3.5-5.1) Chloride Level 93 MEQ/L (98-107) L 94 MEQ/L (98-107) L Carbon Dioxide Level 32 MEQ/L (21-32) 34 MEQ/L (21-32) H Anion Gap 8 MEQ/L (8-16) 5 MEQ/L (8-16) L Laboratory Tests 06/17/20 11:20 Assessment/Plan Patient has extensive non-small cell lung carcinoma status post concomitant chemoradiation. Patient has improved a bit and we will be able to tolerate Keytruda. He will be given first dose of Keytruda today. The case has been discussed about good effect and side effects. He knows this is not a curable disease and our main aim is to keep the disease under control and to palliative his symptoms of dysphagia. Patient is going to start multivitamin liquid through his PEG tube. Patient will also be getting denosumab. His calcium was low last time and denosumab could not be given. He will also need recombinant erythropoietin every other week 40,000 units as long as hemoglobin is less than 10. Patient will be given follow for 3 weeks for next dose of Keytruda. We'll keep a close eye on his thyroid function and if they're low he will be started on levothyroxine. We will arrange a CT scan of the chest prior to his next visit to see the effectiveness of his previous chemotherapy and radiation. CC TO: CC TO: Primary Care Provider: Xiao Payan Referring Provider: XAVIER DELACRUZ MD Jun 17, 2020 12:43
--- NOTE | 2020-06-17 12:54 | ONC.PHACK ---
CHEMO ADMIN CHECKLIST Order Contains Pt ID: Name, Order on Chemo Order Form?: Yes Order Form Includes ALL: Correct Tx Day, Correct Date, Correct Cycle Number Pt ID on Order form Matches: Pt ID on PHA Label Med on Chemo OrderForm Matches: PHA Label, Med Used for Preparation [facility] Jun 17, 2020 12:54
[2020-06-17 13:01] LABS: FREE T4 1.47 NG/DL (0.76-1.46); THYROID STIMULATING HORMONE 2.17 uIU/ML (0.358-3.740)
[2020-06-25 10:27] LABS: BASO % 0.2 % (0.0-1.0); EOS # 0.2 10^3/uL (0.0-0.5); EOS % 2.2 % (0.0-3.0); HEMOGLOBIN 8.2 g/dl (13.5-17.5); LYMPH # 0.5 10^3/uL (1.5-5.0); LYMPH % 5.2 % (24.0-44.0); MEAN CORPUSCULAR HEMOGLOBIN 30.7 pg (27.0-33.0); MEAN CORPUSCULAR HGB CONC 31.5 g/dl (32.0-36.5); MEAN CORPUSCULAR VOLUME 97.4 fl (80.0-96.0); MONO % 11.9 % (2.0-8.0); NEUTROPHILS # 6.8 10^3/uL (1.5-8.5); NEUTROPHILS % 79.6 % (36.0-66.0); PLATELET COUNT, AUTOMATED 282 10^3/uL (150-450); RED BLOOD COUNT 2.67 10^6/uL (4.30-6.10); WHITE BLOOD COUNT 8.6 10^3/uL (4.0-10.0)
--- NOTE | 2020-07-08 14:03 | MEDONCTEEN ---
Date/Time of Encounter Date of Encounter: Jul 08, 2020 Time of Encounter: 20:00 Telephone Encounter I returned called to [facility] emergency room. Mr. Darryn roca is th ere've investigation and difficulty in swallowing. Discussed with Dr. Aguirre. Patient wants to eat and drink so mouth but he had a mass obstructing the esophagus because of central non-small cell lung cancer. Patient will get benefit from esophageal stenting and she is going to treat him for aspiration pneumonia which she has developed. Patient will be having an esophageal [place] once patient pneumonia gets better. XAVIER DELACRUZ MD Jul 08, 2020 14:03
[~2020-08-06] VITALS: Ht 172.7 cm; Wt 57.2 kg
[~2020-08-06 10:00] MED LIST changes: +ALBUTEROL SULFATE (2.5MG/0.5ML) NEB INH PRN; +CARBOPLATIN IV ONE; +CARBOplatin 230 MG in NS 250 ML IV ONE; +EPINEPHrine (1MG/ML) IV IM PRN; +EPOETIN 40,000 UNIT 1ML VIAL (PROCRIT) (J0885 PER 1,000UNITS)(FOR ONCOLO) SC SCH; +FAMOTIDINE (20MG/2ML) IV IV PRN; +FAMOTIDINE 20 MG IV IV ONE; +FAMOTIDINE IV BAG 20 MG IV PRN; +FOSAPREPITANT PERIPHERAL LINE 30 MIN INFUSION IV ONE; -ISOVUE-370 76% 100ML VIAL As Ordered ONE; +NS 1,000 ML IV PRN; +NS IV ONE; +OLANZapine 10 MG PO PO ONE; +PACLITAXEL IV ONE; +PALONOSETRON 250 MCG IV IV ONE; +PEMBROLIZUMAB OVER 30 MINUTES IV ONE; +SODIUM CHLORIDE 0.9% INJ 10 ML SYR IV PRN; +dexameTHASONE 20 MG IV IV ONE; +diphenhydrAMINE (50MG/ML) IV IV PRN; +diphenhydrAMINE 25 MG IV IV ONE; +methylPREDNISolone (125 MG/2 ML) IV IV PRN
--- NOTE | 2020-08-06 17:16 | MEDONCPDOC ---
Medical Oncology Office Note Date of Service: Aug 06, 2020 Diagnosis/Treatment History This is a 64 year old man. He lost weight. He has been having problems swallowing. He had chests pain. His physician ordered a CAT scan of his chest. He had a mass which contacts the descending thoracic aorta ,and narrows the left main stem bronchus. He also had a mass seen in his liver. He was referred to pulmonary. They advised a liver biopsy. 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 Lung markers are still pending. April 29, 2020 Review of PET scan shows extensive disease. He is symptomatic radiation will be given as palliative therapy to help with swallowing. May 06, 2020 patient has high expression of PDL Has new feeding tube. ALk, EGFR still pending. May 13, 2019 Patient has disease that has spread to his liver. He has been getting palliative radiation . His Lung markers are negative for ALK, BRAF, ROS , EGFR mutations. He is positive for PD-L1. Plan;He is candidate for Keytruda. May 20, 2019 He continues on radiation. He still has trouble swallowing. He has a feeding tube. He has been using ensure. He has lost weight. Once radiation is finished we plan to change chemotherapy to Keytruda every three weeks. Keytruda started first dose 06/17/2020. Interval History This is telehealth visit with the patient. Patient is elevated of the Risk of breech of primary see and risk of having no physical examination. Patient received 1 dose of Keytruda about on June 2020 but then could not get the second dose because of total esophageal obstruction because of lung mass pressing ENT esophagus. Patient had an esophageal stent placed in. He is taking multiple pain medicines. He is on a fentanyl patch which has recently been increased from 25-50 mics per hour. He also takes oxycodone 5-7 mL every 4-5 hours. He had some stent issue which is resolved now. His intake is slowed down and he is on G-tube feeding with an showed an Jevity. He is going to get the pum p for feeding tomorrow and we will start feeding through the pump which shouldn't streamline his nutrition. He was very weak because unable to eat although it is better now. He has been in the rehabilitation and was able to squat stair but now he is not able to go [place]. He got first dose of Keytruda on June 2020 but could not get the second dose on july 2 021 could not be given because of obstruction. We talked about restarting Keytruda since he is able to maintain his nutrition now. I stressed about the irregularity of his treatment since 1 treatment will not help at all and he needs to continue his treatment as long as medicine is working. We'll restart him on Keytruda in a week and then every [address] scan will be d one in 3 months after 3 or 4 doses of Keytruda to see the condition of his lung cancer. Allergies Coded Allergies: No Known Allergies (Unverified , 04/01/20) Home Medications Active Scripts Oxycodone HCl (Oxycodone HCl) 5 Mg/5 Ml Solution, 5 ML PEG Q4HP PRN for Esophagitis MDD 30 Milliliter(s) for 15 Days, #450 ML Prov:BALA BROWN MD 06/03/20 Sertraline Hcl (Sertraline HCl) 25 Mg Tablet, 1 TAB PO DAILY, #90 TAB 3 Refills Prov:MARCELINA VILA MD 05/21/20 Ferrous Sulfate (Ferrous Sulfate) 300 Mg/5 Ml Liquid, 5 ML PO DAILY for 30 Days, #150 ML Prov:PRACHI MALAVE MD 05/20/20 Ondansetron (Ondansetron Odt) 4 Mg Tab.rapdis, 1 TAB PEG Q6-8HP PRN for nausea/vomiting, #30 TAB 2 Refills Prov:PAMELA RESENDEZ MD 05/02/20 Magic Mouthwash (First-Mouthwash Blm) 1 Ea Susp, 10 ML PO QID PRN for esophagitis, #240 ML 5 Refills (Diphenhydramine/maalox/lidocaine 1:1:1) May compound if kit unavailable/not covered by insurance Prov:MARCELINA VILA MD 04/19/20 Reported Medications Pembrolizumab (Keytruda) 100 Mg/4 Ml Vial, 100 MG IV ASDIRECTED EVERY 3 WEEKS 05/24/20 Tiotropium [place] (Spiriva) 18 Mcg Cap.w.dev, 18 MCG INH DAILY 04/01/20 Fluticasone/Vilanterol (Breo Ellipta 200-25 Mcg INH) 1 Each Blst.w.dev, 1 PUFF INH DAILY 04/01/20 Albuterol Sulfate (Albuterol Sulfate Hfa) 8.5 Gm Hfa.aer.ad, 2 PUFFS INH QID PRN for SHORTNESS OF BREATH 04/01/20 Past Medical History Past Medical History: COPD Past Surgical History: biopsy liver Family History: mother 74 COPD , diabetes , small cell lung cancer , pneumonia Father 77, lupus , congestive heart disease 3 brother 2 children Social History: smoker 1 05/11 PPD x 50 quit 2013 etoh 2 beers occassional Review of Systems General: Reports: Normal Appetite, Other Symptoms (weight loss 50 pounds ); Denies: Chills, Fatigue, Malaise Constitutional: Reports: Weight Loss; Denies: Chills, Fatigue Eyes: Denies: Vision change HEENT: Denies: Head Aches, Dysphagia, Sore Throat, Epistaxis Skin: Denies: Rash, Lesions, Jaundice, Bruising Pulmonary: Reports: Dyspnea; Denies: Cough Cardiovascular: Reports: Chest Pain; Denies: Palpitations, Orthopnea, Edema Gastrointestinal: Reports: Other Symptoms (is able to eat slowly with the help of a esophageal stent, as well as through G-tube.); Denies: Nausea, Vomiting, Diarrhea Genitourinary: Denies: Dysuria, Frequency, Incontinence Hematologic: Denies: Bruising, Petecchia Musculoskeletal: Reports: Other Neurological: Reports: Weakness, Numbness; Denies: Change in Speech Psych: Reports: Mood Normal Physical Examination Eye Exam: Negative: Sclera icteric Other Physical Findings No physical examination was done because of telehealth visit. Ht / Wt Ht / Wt Height:5 Feet 8 Inches Weight: 57.200 Kg Assessment/Plan Patient has extensive non-small cell lung carcinoma status post concomitant chemoradiation. 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 Patient had an esophageal stent placed in and is feeding through J-tube as well as by mouth. He is going to get feeding pump which will help his nutrition. We need to restart him on Keytruda and will make the appointment for next week. Patient will be seen in a week again and at that time labs will be drawn and reevaluated. Patient will be started on Keytruda again every 3 weeks. . the patient and his caregiver in detail and they're both agreeable with the plan. The note this is not a curable disease although disease can be controlled up to certain limited time. CC TO: CC TO: Primary Care Provider: Xiao Payan Referring Provider: XAVIER DELACRUZ MD Aug 06, 2020 17:16
== END | disposition home or self-care (01) ==
LOC: M ONCM 04-19 13:22
PROVIDERS: ATTEND Specialist
DX: C34.92 Malignant neoplasm of unspecified part of left bronchus or lung (principal); C78.7 Secondary malignant neoplasm of liver and intrahepatic bile duct; D64.81 Anemia due to antineoplastic chemotherapy; J44.9 Chronic obstructive pulmonary disease, unspecified; Z87.891 Personal history of nicotine dependence; Z79.899 Other long term (current) drug therapy
CPT/HCPCS: 36415; 36591; 80053; 83735; 84439; 84443; 85025; 85610; 85730; 96367; 96368; 96372; 96375; 96413; 96417; G0463; J0885; J1100; J1200; J1453; J1642; J2469; J9045; J9267; J9271